=== PATIENT | male | born 1950 | race Caucasian/White ===

== ENCOUNTER 2025-05-08 10:43 | Emergency (ER) | payer MEDICARE, SELFPAY ==
--- NOTE | ~2025-05-08 | CT_ITS ---
EXAMINATION: CT ABDOMEN AND PELVIS WITH CONTRAST CLINICAL INFORMATION: mid lower abdominal pain, hx prostate CA COMPARISON: None available. TECHNIQUE: Multidetector volumetric images were obtained from the superior aspect of the liver through the pubic symphysis following administration 85 mL of Omnipaque 350 intravenous contrast. Sagittal and coronal reformatted images were obtained on the technologist's workstation. Oral contrast: No This CT examination was performed using dose optimization techniques as appropriate, variously including the following: *Automated exposure control *Adjustment of mA and/or kV according to patient size (this includes techniques or standardized protocols for targeted exams where dose is matched to indication/reason for exam; i.e. 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 LIVER, GALLBLADDER, AND BILIARY TREE: The posterior right hepatic lobe, there is a low attenuating lesion measuring 9 weeks 10 mm likely representing a benign simple hepatic cysts. The gallbladder contains calcified stones. There is no gallbladder wall thickening. PANCREAS: Unremarkable. SPLEEN: Unremarkable. ADRENAL GLANDS: Unremarkable. KIDNEYS AND URETERS: Focal renal cortical scarring is present in the superior lateral left kidney. Kidneys are otherwise unremarkable. BLADDER: Unremarkable. GASTROINTESTINAL TRACT: The small and large bowel are unremarkable. The appendix is unremarkable. ABDOMINAL WALL: No significant hernia is appreciated. LYMPH NODES: Normal. VASCULAR: Multifocal vascular calcifications are present. PELVIC VISCERA: Unremarkable OSSEOUS STRUCTURES: There is a probable chronic superior endplate compression fracture of L1. There is moderate to severe degenerative disc disease involving the lower lumbar spine. There is a healed fracture of the right inferior pubic ramus. . CT/CT abdomen pelvis w IV con IMPRESSION: Cholelithiasis. Focal cortical scarring in the superior left kidney, likely from remote pyelonephritis. Superior endplate fracture of L1 is probably chronic. Correlate clinically. Healed right inferior pubic ramus fracture. Fleischner guidelines were followed. Electronically signed by: Reji Landers MD 05/08/2025 02:46 PM EDT
[2025-05-08 10:50] VITALS: BP 136/73; BP 160/70; PULSE 74; PULSE 75; RESP 18; TEMP 36.8; O2SAT 90; O2SAT 99; BMI 21.7
--- NOTE | 2025-05-08 11:13 | PC.NURSE ---
Pt coming from assisted living reporting bladder and pelvic pressure for a couple of days. Pt reports increased urination, but denies N/v/d/fevers. Denies burning or order with urine. Pt has history of prostate CA, denies any issues with that currently. Pre and post void residuals being obtained at this time.
--- NOTE | 2025-05-08 11:14 | ED_ITS ---
HPI - Abdominal Pain General Chief Complaint: Abdominal Pain Stated Complaint: ABD PAIN Time Seen by Provider: 05/08/25 10:57 Source: patient and EMS Mode of arrival: EMS Limitations: no limitations History of Present Illness ED Provider: Bonny Neves NP HPI narrative: Patient is a 75-year-old male with past medical history of small aortic aneurysm with prior workup in [facility]. 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 He admits to having urinary frequency as well. CT has had prior urinary tract infections but typically does not experience pain like this. Denies any hematuria, fevers, chills, constipation, diarrhea, nausea, vomiting, back pain. Related Data Allergies Allergy/AdvReac Type Severity Reaction Status Date / Time No Known Allergies Allergy Verified 05/08/25 10:56 Review of Systems Review of Systems Yes all other systems are reviewed and are negative [facility] Past Medical History Attestation statement: The following information was validated with the patient. Source: old records reviewed Social History Social History Advance Directives: No Advance Directives Information Provided: Yes Physical Exam ED Exam Exam: Appearance: Alert.?Oriented to person, place and time. No acute distress.?Normal affect. Eyes: Pupils equal, round and reactive to light.? ENT: Pharynx normal.?? Neck: Normal inspection.? Neck supple.?? CVS: Heart sounds normal. Normal heart rate and rhythm.? Pulses normal.?? Respiratory: No respiratory distress.? Lung sounds clear to auscultation bilaterally?? Abdomen: Soft with mid lower abdominal tenderness upon palpation. Mild tenderness over the left lower and right lower quadrant. No rebound tenderness at McBurney's point. No rigidity or guarding. No CVA tenderness. Normoactive bowel sounds. Skin: Skin warm and dry.? Normal skin color.? Extremities: No lower extremity edema.? No calf ttp? Neuro: Moves all extremities spontaneously. Sensation intact bilaterally. Ambulates with normal steady gait. Vital Signs: Vital Signs - 24 hr 05/08/25 10:50 05/08/25 11:49 05/08/25 12:45 Temperature 98.2 F 97.9 F Pulse Rate 74 60 Respiratory Rate 18 16 14 Blood Pressure 136/73 145/69 H Pulse Oximetry 99 97 Oxygen Delivery Method Room Air Room Air 05/08/25 14:12 Temperature 97 F Pulse Rate 69 Respiratory Rate 16 Blood Pressure 144/73 H Pulse Oximetry 98 Oxygen Delivery Method Room Air BMI result Body Mass Index 21.7 Medical Decision Making Medical Decision Making [facility] Narrative: Patient is a 75-year-old male with past medical history of small aortic aneurysm with prior workup in [facility], 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 He does have mid lower abdominal tenderness upon palpation mild tenderness over the left and right lower quadrant. No rigidity or guarding. He is without signs of systemic toxicity afebrile no tachycardia no hypotension. Will obtain CBC to evaluate for leukocytosis/ anemia, CMP and lipase to evaluate for abnormal electrolytes /abnormal renal function/ abnormal hepatic/biliary function, and Urinalysis. Was able to urinate upon arrival to emergency department had prevoid bladder scan of 334 mL, after urinating had PVR 116 mL. Reporting that his last PSA approximately 6 months ago was 14, has not had recent evaluation of his prostate as he is not undergoing any treatment. 15:00 CT of the abdomen and pelvis reveals no obvious source for his pain/pressure, incidental finding of cholelithiasis, superior endplate fracture L1 chronic in nature, on examination has no point tenderness along the spine. CBC is without leukocytosis, has a normocytic anemia that does not meet transfusion criteria, thrombocytopenia. No electrolyte derangement. No EDGAR. LFTs unremarkable. Urinalysis without evidence of infection or microscopic hematuria. He is voiding adequately. Review these findings with the patient. Recommend outpatient follow-up with Urology. Stable for discharge back to assisted living facility. Given strict return precautions. Differential Diagnosis Differential Diagnoses: The differential diagnosis associated with the presentation includes (See narrative above) Admission/Observation Consideration of admission/observation: Escalation of care including admission/observation considered Lab Data MDM Lab Attestation statement: I reviewed the patient's lab results. 05/08/25 11:46 05/08/25 11:46 Labs: Lab Results 05/08/25 05/08/25 Range/Units 11:19 11:46 WBC 7.5 (4.8-10.8) X10*3/uL RBC 4.20 L (4.60-5.80) X10*6/uL Hgb 11.9 L (14.0-18.0) g/dl Hct 37.9 L (42.0-52.0) % MCV 90.2 (80.0-98.0) fL MCH 28.3 (27.0-33.0) pg MCHC 31.4 (31.0-36.0) g/dl RDW 13.2 (11.0-16.0) % Plt Count 245 (160-400) X10*3/uL MPV 8.9 L (9.4-12.4) fL Immature Gran % (Auto) 0.5 H (0.0-0.4) % Neut % (Auto) 63.7 (45-73) % Lymph % (Auto) 23.0 (20-40) % [place] % (Auto) 8.8 (2-11) % Eos % (Auto) 3.2 (0-4) % Baso % (Auto) 0.8 (0-2) % Lymph # (Auto) 1.7 (1.2-4.9) X10*3/uL [place] # (Auto) 0.7 (0.1-1.2) X10*3/uL Eos # (Auto) 0.2 (0.0-0.4) X10*3/uL Baso # (Auto) 0.1 (0.0-0.2) X10*3/uL Abs Immat Gran (auto) 0.04 H (0.00-0.03) X10*3/uL Absolute Neuts (auto) 4.8 (2.0-8.3) x10*3/uL Absolute Nucleated RBC 0.000 (0.0-0.012) X10*3/uL Nucleated RBC % (auto) 0.0 (0.0-0.2) /100WBC Sodium 139 (135-145) mmol/L Potassium 4.0 (3.3-5.1) mmol/L Chloride 104 (96-108) mmol/L Carbon Dioxide 27 (22-29) mmol/L Anion Gap 12 (12-20) BUN 11 (9-16) mg/dL Creatinine 0.70 (0.5-1.4) mg/dL Estim Creat Clear Calc 95.0 Estimated GFR > 60 Random Glucose 89 (60-115) mg/dL Calcium 9.2 (8.4-10.2) mg/dL Magnesium 2.0 (1.6-2.6) mg/dL Total Bilirubin 0.4 (0.0-1.0) mg/dL AST 26 (5-37) U/L ALT 25 (0-40) U/L Alkaline Phosphatase 64 (39-117) U/L Total Protein 6.7 (6.5-8.0) g/dL Albumin 4.2 (3.5-5.0) g/dL Lipase 16 (8-78) U/L Prostate Specific Ag 15.14 H (<0.05-4.0) ng/mL Urine Color Yellow Urine Appearance Clear Urine pH 7.5 (5.0-9.0) Ur Specific [place] 1.010 (1.005-1.025) Urine Protein Negative (Neg-Trace) mg/dL Urine Glucose (UA) Negative (Negative) mg/dL Urine Ketones Negative (Negative) mg/dL Urine Blood Negative (Negative) Urine Nitrite Negative (Negative) Ur Leukocyte Esterase Negative (Negative) Urine RBC 0-2 (0-2) /HPF Urine WBC 0-5 (0-5) /HPF Ur Squamous Epith Cells 0-2 (0-2) /HPF Urine Bacteria None Seen (None Seen) Hyaline Casts 0-2 (0-2) /LPF Radiology Impression Discussion of test interpretation with radiology: I have reviewed the radiologist's reading. Radiologist Impression: CT/CT abdomen pelvis w IV con IMPRESSION: Cholelithiasis. Focal cortical scarring in the superior left kidney, likely from remote pyelonephritis. Superior endplate fracture of L1 is probably chronic. Correlate clinically. Healed right inferior pubic ramus fracture. Fleischner guidelines were followed. External Record Review External record reviewed: Outpatient record Chronic Conditions Patient?s care impacted by: Other (See narrative above) Medications Administered Discontinued Medications Generic Name Dose Route Start Last Admin Trade Name Freq PRN Reason Stop Dose Admin Acetaminophen 975 mg 05/08/25 14:36 05/08/25 14:41 Acetaminophen 325 Mg Tablet PO 05/08/25 14:37 975 mg ONCE ONE Administration Clonazepam 1 mg 05/08/25 12:17 05/08/25 12:31 Clonazepam 1 Mg Tablet PO 05/08/25 12:18 1 mg ONCE ONE Administration Sodium Chloride 1,000 mls @ 999 mls/hr 05/08/25 11:30 05/08/25 13:56 Ns IV 05/08/25 12:30 Infused .Q1H1M STORM Infusion Iohexol 85 ml 05/08/25 14:35 05/08/25 14:36 Iohexol 350 Mg/Ml 100 Ml Infus..Btl IV 05/08/25 14:36 85 ml ONCE ONE Administration Morphine Sulfate 2 mg 05/08/25 11:25 05/08/25 11:49 Morphine Sulfate 2 Mg/Ml Cartridge IVPUSH 05/08/25 11:26 2 mg ONCE ONE Administration Protocol Ondansetron HCl 4 mg 05/08/25 11:25 05/08/25 11:50 Ondansetron Hcl 4 Mg/2 Ml Vial IVPUSH 05/08/25 11:26 4 mg ONCE ONE Administration Discharge Plan Discharge Clinical Impression: Suprapubic pressure Patient Disposition: Home, Self-Care Additional Instructions: As discussed, urine test today does not show evidence of infection or blood in the urine. Your kidney function is normal. The PSA has resulted at 15.14. CT of the abdomen pelvis does not show otherwise concerning findings for pressure that you are experiencing. As discussed, I suspect this is secondary to known prostate cancer, an ongoing polyuria. I am provide you with contact information for Urology associated with our hospitalist you do not have a local urologist since your move. Return back to emergency department any new or worsening symptoms or concerns. [facility] will be contacting you within 2 business?days after being discharged from the Emergency?Department.? During this?phone call, they will inform you when your follow up appointment will be scheduled. If you have not received a call from [facility] after 2 business?days, please call the?office at [phone]. Referrals: Physician,None [Primary Care Provider, Medical] [facility] Urology Services [Provider Group, Urology] Print Language: Sri Lankan
[2025-05-08 11:28] LABS: Appearance Urine Clear; Glucose Urine UA Negative (Negative); PH 7.5 (5.0-9.0); Specific Gravity - Urine 1.010 (1.005-1.025)
[2025-05-08 11:49] VITALS: RESP 16
[2025-05-08 11:50] LABS: MANUAL DIFF FLAG NO
[2025-05-08 11:53] LABS: Hematocrit 37.9 % (42.0-52.0); Hemoglobin 11.9 g/dl (14.0-18.0); Imm Gran Abs Auto 0.04 X10*3/uL (0.00-0.03); Imm Gran Pct Auto 0.5 % (0.0-0.4); Lymphocytes Absolute Auto 1.7 X10*3/uL (1.2-4.9); Mean Corpuscular HGB Conc 31.4 g/dl (31.0-36.0); Mean Corpuscular Hemoglobin 28.3 pg (27.0-33.0); Mean Corpuscular Volume 90.2 fL (80.0-98.0); NRBC Abs Auto 0.000 X10*3/uL (0.0-0.012); NRBC Pct Auto 0.0 /100WBC (0.0-0.2); Platelet Count 245 X10*3/uL (160-400); Red Blood Count 4.20 X10*6/uL (4.60-5.80); White Blood Count 7.5 X10*3/uL (4.8-10.8)
[2025-05-08 12:10] LABS: Alanine Aminotransferase 25 U/L (0-40); Albumin Level 4.2 g/dL (3.5-5.0); Alkaline Phosphatase 64 U/L (39-117); Anion Gap 12 (12-20); Aspartate Amino Transferase 26 U/L (5-37); Blood Urea Nitrogen 11 mg/dL (9-16); Calcium 9.2 mg/dL (8.4-10.2); Carbon Dioxide 27 mmol/L (22-29); Chloride 104 mmol/L (96-108); Creatinine Clr Calc Pharmacy 95.0; Estimated Glomerular Filt Rate > 60; Lipase 16 U/L (8-78); Magnesium 2.0 mg/dL (1.6-2.6); Potassium 4.0 mmol/L (3.3-5.1); Sodium 139 mmol/L (135-145); Total Protein 6.7 g/dL (6.5-8.0)
[2025-05-08 12:32] LABS: Prostate Specific Antigen 15.14 ng/mL (<0.05-4.0)
[2025-05-08 12:45] VITALS: BP 145/69; PULSE 60; RESP 14; TEMP 36.6; O2SAT 97
--- NOTE | 2025-05-08 13:21 | MHC.EDTECH ---
Patient requested to use urinal. Patient was able to stand at bedside with assistance . Voided 300cc clear yellow urine.
--- NOTE | 2025-05-08 13:44 | PC.NURSE ---
Pt continually calling staff in to report anxiety, pt medicated per MAR, RACING MANAGER aware but does not want to give anymore medication at this time. Pt just brought to CT at this time, Pt sister stating he should not get anymore cat scans, however risks vs benefits gone over and pt is in agreement at this time.
--- NOTE | 2025-05-08 14:09 | PC.NURSE ---
Pt returned from CT, urinated again, pt has urinated 400-600 multiple times since being in ED, clear yellow, no burning, pt reporting mild pressure, and needing to sometimes put extra pressure to start his stream. Pt reporting he is still having pain and anxiety and requesting more medications, CARDIAC CARE UNIT NURSE aware.
[2025-05-08 14:12] VITALS: BP 144/73; PULSE 69; RESP 16; TEMP 36.1; O2SAT 98
[2025-05-08] MEDS: iohexoL 350 MG/ML 100 ML INFUS..BTL 85 ML IV (14:36)
[2025-05-08 16:00] VITALS: BP 132/70; PULSE 72; RESP 16; TEMP 36.3; O2SAT 99
--- NOTE | 2025-05-08 18:37 | PC.NURSE ---
Pt EMS transport for 1930, pt is becoming extremely anxious, medicated per MAR with home medication. Emotional support provided at this time.
--- NOTE | 2025-05-08 19:23 | PC.NURSE ---
this rn assumed care pt, pt offers no complaints at this time, no acute distress noted. pt awaiting ems transport to facility
[2025-05-08 20:17] VITALS: BP 124/74; PULSE 86; RESP 17; TEMP 36.7; O2SAT 95
--- NOTE | 2025-05-08 20:17 | PC.NURSE ---
ems at bedside for transport and report
== END 2025-05-08 20:22 | disposition home or self-care (01) ==
PROVIDERS: Nurse Practitioner Family; Emergency Provider Emergency Medicine
DX: R10.31 Right lower quadrant pain (principal); R10.32 Left lower quadrant pain; C61 Malignant neoplasm of prostate; R97.21 Rising PSA following treatment for malignant neoplasm of prostate; R35.89 Other polyuria; F41.9 Anxiety disorder, unspecified; Z79.01 Long term (current) use of anticoagulants
CPT/HCPCS: 36415; 51798; 74177; 80053; 81001; 83690; 83735; 84153; 85025; 96361; 96374; 96375; 99284; 99285; J2270; J2405; Q9967

== ENCOUNTER → 2025-05-08 11:25 | Outpatient (BNV) | payer MEDICARE, SELFPAY | PROVIDERS: Emergency Provider Emergency Medicine; Visit Provider Radiology Diagnostic Radiology | DX: K80.20 Calculus of gallbladder without cholecystitis without obstruction (principal); Z87.81 Personal history of (healed) traumatic fracture | CPT/HCPCS: 74177 ==

== ENCOUNTER 2025-06-03 11:59 | Emergency (ER) | payer MEDICARE, SELFPAY ==
--- NOTE | ~2025-06-03 | CT_ITS ---
EXAMINATION: CT ABDOMEN AND PELVIS WITH CONTRAST CLINICAL INFORMATION: Severe lower abdominal pain COMPARISON: CT abdomen and pelvis 05/08/2025. TECHNIQUE: Multidetector volumetric images were obtained from the superior aspect of the liver through the pubic symphysis following administration 85 mL of Omnipaque 350 intravenous contrast. Sagittal and coronal reformatted images were obtained on the technologist's workstation. Oral contrast: No This CT examination was performed using dose optimization techniques as appropriate, variously including the following: *Automated exposure control *Adjustment of mA and/or kV according to patient size (this includes techniques or standardized protocols for targeted exams where dose is matched to indication/reason for exam; i.e. extremities or head) *Use of iterative reconstruction technique DLP: 467. FINDINGS: LUNG BASES: The lung bases are clear. The heart size is normal. LIVER, GALLBLADDER, AND BILIARY TREE: The liver is normal size and shape. There are hypodense lesions likely simple cysts. No focal solid lesion or intrahepatic ductal dilatation. Gallbladder has radiopaque stones. No wall thickening seen. PANCREAS: Pancreas is unremarkable. SPLEEN: Unremarkable. ADRENAL GLANDS: Unremarkable. KIDNEYS AND URETERS: The kidneys are normal in size, shape, and attenuation. There is mild cortical thinning lateral cortex upper pole left kidney No hydronephrosis, hydroureter, or calculi seen. Small 5 mm cyst visualized in the midpole left kidney. No perinephric stranding. BLADDER: Unremarkable. GASTROINTESTINAL TRACT: There is scattered stool and gas seen throughout the colon without distention. With mild thickening of the rectal wall is noted The cecum is ectopic and lies in the right midabdomen. Appendix is normal caliber. The small bowel loops are normal caliber. No free air or free fluid seen. The small bowel loops are normal caliber. ABDOMINAL WALL: No significant hernia is appreciated. LYMPH NODES: Normal. VASCULAR: Unremarkable. PELVIC VISCERA: The prostate gland is mildly enlarged punctate calcifications. Periprosthetic fat borders are preserved. No free fluid seen. OSSEOUS STRUCTURES: There is a old healed right inferior pubic rami fracture. Mildly in this changes seen at L2-3, L3-4 and L4-5 disc level. Mild bilateral L5-S1 and right L4-5 facet joint arthropathy. No aggressive lytic or sclerotic process seen. CT/CT abdomen pelvis w IV con IMPRESSION: No acute intra-abdominal abnormality. Nonspecific mild thickening of the rectal wall. No surrounding fat stranding. Cholelithiasis and scarring left upper lobe lateral cortex appears stable. Mild constipation. Fleischner guidelines were followed. Electronically signed by: Giovanny Diaz MD 06/03/2025 05:13 PM EDT RP
[2025-06-03 12:05] VITALS: BP 133/75; PULSE 74; RESP 16; TEMP 36.8; O2SAT 98; BMI 22.4
[2025-06-03 12:30] LABS: Appearance Urine Clear; Glucose Urine UA Negative (Negative); PH 7.0 (5.0-9.0); Specific Gravity - Urine <= 1.005 (1.005-1.025)
--- NOTE | 2025-06-03 12:40 | ED.ABDPAIN ---
HPI - Abdominal Pain General Chief Complaint: Abdominal Pain Stated Complaint: PELVIC PAIN,NAUSEA,H/O PROSTATE CANCER Time Seen by Provider: 06/03/25 12:14 Source: patient, EMS and old records reviewed Mode of arrival: EMS Limitations: no limitations History of Present Illness ED Provider: MEKA HPI narrative: 75 yo male with PMH of splenic infarct on eliquis, ileus, colitis, cholecystectomy, chronic polyuria, prostate cancer diagnosed 3-4 years ago but no treatment wants to see Urology now has appointment here in [address] Baltazar. He comes in today states he has chronic lower abdominal pain and cannot take it anymore. He has no fevers, no back pain. States the pain worsened today and he needs something for it. He denies retention. He has no n/v. He states it is the same pain but much worse today. MD elicited complaint: abdominal pain Pertinent past history: other Onset (ago): week(s) (2+) Pain Consistency: intermittent Location: suprapubic Severity: severe Quality: aching Radiation: none Migration to: no migration Exacerbating factors: nothing Relieving factors: nothing Associated symptoms: other (increased urination) Related Data Allergies Allergy/AdvReac Type Severity Reaction Status Date / Time No Known Allergies Allergy Verified 06/03/25 12:06 Review of Systems Review of Systems Constitutional : No Weight loss, No Fever, No Chills ENT/Mouth : No sore throat, No Rhinorrhea Eyes: No Swelling, No Redness Cardiovascular : No Chest Pain, No SOB, No edema Respiratory : No Cough, No Sputum, No Wheezing Gastrointestinal : no Nausea, no Vomiting, no Diarrhea, positive abdominal Pain, No Hematochezia, No Melena Genitourinary : No Dysuria, pos Urinary Frequency, No Hematuria Musculoskeletal : No joint pain, No Myalgias, No Joint Swelling Skin : No Skin Lesions, No rash Neuro : No Weakness, No Numbness, No Dizziness, No Headache All other systems reviewed and are negative. [facility] Past Medical History Attestation statement: The following information was validated with the patient. Source: old records reviewed Medical History Prostate cancer Social History Social History (Updated 06/03/25 @ 13:41 by Ludy Collier DO) Patient Tobacco Use Status: Tobacco use Unknown Advance Directives: No Advance Directives Information Provided: Yes Physical Exam ED Vital Signs: Vital Signs - 24 hr 06/03/25 12:05 Temperature 98.2 F Pulse Rate 74 Respiratory Rate 16 Blood Pressure 133/75 Pulse Oximetry 98 Oxygen Delivery Method Room Air BMI result Body Mass Index 22.4 Appearance: Alert. Oriented X3. No acute distress. Anxious Eyes: Pupils equal, round and reactive to light. ENT: Pharynx normal. Neck: Normal inspection. Neck supple. CVS: Normal heart rate and rhythm. Pulses normal. Respiratory: No respiratory distress. Breath sounds normal. Abdomen: Soft and no ttp in lower abdominal exam - no rebound or guarding. He is moving well. Skin: Skin warm and dry. Normal skin color. Normal skin turgor. Extremities: No lower extremity edema. No calf ttp Neuro: Oriented X 3. No motor deficit. No sensory deficit. CN2-12 intact Course Course Course Narrative: repeatedly asking for pain medications at this time will need to obtain imaging now refuses CT scan and upset he is getting oral oxycodone Reevaluation(s) Reevaluation #1: talked to sister Cheryl is aware that he is here and refused CT scan he can make his own decisions. Plan to get CT scan after talking to Cheryl, patient and sister - will notify with negative results he did need ativan for CT scan his family/caretakers are worried about addiction potential I do not think it is appropriate to dose narcotics at home at there has been nothing acute on CT scan if today's shows no sig change would not Rx narcotics - they are aware Reevaluation #2: signed out to Cristopher THOMPSON 5pm Time: 17:28 Reevaluation #3: Shira Nicholas PA-C: Patient's CT of the abdomen and pelvis is largely unremarkable no acute pathology has been found. IMPRESSION: No acute intra-abdominal abnormality. Nonspecific mild thickening of the rectal wall. No surrounding fat stranding. Cholelithiasis and scarring left upper lobe lateral cortex appears stable. Mild constipation. Fleischner guidelines were followed. Electronically signed by: Giovanny Diaz MD 06/03/2025 05:13 PM EDT RP I discussed these results with his sister Cheryl via telephone as well as with the patient at bedside. He is still requesting pain management but I did defer this to his primary care provider as I did not feel this would be appropriate either and agreed with Dr. Collier's plan for disposition. Patient is stable for discharge. Medical Decision Making Medical Decision Making [facility] Narrative: 75 yo male with PMH of splenic infarct on eliquis, ileus, colitis, cholecystectomy, chronic polyuria, prostate cancer diagnosed 3-4 years ago but no treatment now here with acute on chronic pain asking for pain medications on arrival he will need labs, UA, bladder scan is retaining 240mL, he is refusing repeat CT scan at this time labs, UA, IV tylenol, oral oxycodone. Differential Diagnosis Differential Diagnoses: The differential diagnosis associated with the presentation includes anxiety, chronic abdominal pain, renal colic, retention Admission/Observation Consideration of admission/observation: Escalation of care including admission/observation considered refusing any imaging at this time shared decision making done with patient I felt we needed to have CT scan given his pain but he refuses he is aware there could be a new issue but he states he doesn't want to have one. Between here and [facility] they are always normal Lab Data [facility] Lab Attestation statement: I reviewed the patient's lab results. 06/03/25 12:55 06/03/25 12:55 Labs: Lab Results 06/03/25 06/03/25 Range/Units 12:12 12:55 WBC 6.6 (4.8-10.8) X10*3/uL RBC 4.11 L (4.60-5.80) X10*6/uL Hgb 11.8 L (14.0-18.0) g/dl Hct 35.7 L (42.0-52.0) % MCV 86.9 (80.0-98.0) fL MCH 28.7 (27.0-33.0) pg MCHC 33.1 (31.0-36.0) g/dl RDW 13.3 (11.0-16.0) % Plt Count 213 (160-400) X10*3/uL MPV 8.8 L (9.4-12.4) fL Immature Gran % (Auto) 0.2 (0.0-0.4) % Neut % (Auto) 62.7 (45-73) % Lymph % (Auto) 25.9 (20-40) % [place] % (Auto) 7.7 (2-11) % Eos % (Auto) 2.6 (0-4) % Baso % (Auto) 0.9 (0-2) % Lymph # (Auto) 1.7 (1.2-4.9) X10*3/uL [place] # (Auto) 0.5 (0.1-1.2) X10*3/uL Eos # (Auto) 0.2 (0.0-0.4) X10*3/uL Baso # (Auto) 0.1 (0.0-0.2) X10*3/uL Abs Immat Gran (auto) 0.01 (0.00-0.03) X10*3/uL Absolute Neuts (auto) 4.1 (2.0-8.3) x10*3/uL Absolute Nucleated RBC 0.000 (0.0-0.012) X10*3/uL Nucleated RBC % (auto) 0.0 (0.0-0.2) /100WBC Sodium 140 (135-145) mmol/L Potassium 3.8 (3.3-5.1) mmol/L Chloride 106 (96-108) mmol/L Carbon Dioxide 26 (22-29) mmol/L Anion Gap 12 (12-20) BUN 11 (9-16) mg/dL Creatinine 0.77 (0.5-1.4) mg/dL Estim Creat Clear Calc 89.0 Estimated GFR > 60 Random Glucose 95 (60-115) mg/dL Calcium 9.1 (8.4-10.2) mg/dL Magnesium 1.9 (1.6-2.6) mg/dL Total Bilirubin 0.4 (0.0-1.0) mg/dL Direct Bilirubin 0.2 (0.0-0.5) mg/dL AST 27 (5-37) U/L ALT 23 (0-40) U/L Alkaline Phosphatase 60 (39-117) U/L C-Reactive Protein 0.41 (< or = 0.50) mg/dL Total Protein 6.6 (6.5-8.0) g/dL Albumin 4.1 (3.5-5.0) g/dL Urine Color Yellow Urine Appearance Clear Urine pH 7.0 (5.0-9.0) Ur Specific [place] <= 1.005 (1.005-1.025) Urine Protein Negative (Neg-Trace) mg/dL Urine Glucose (UA) Negative (Negative) mg/dL Urine Ketones Negative (Negative) mg/dL Urine Blood Negative (Negative) Urine Nitrite Negative (Negative) Ur Leukocyte Esterase Negative (Negative) Independent Interpretation Interpretation: declined Independent Historian Clinical information obtained from an independent historian. History obtained from or confirmed by: EMS External Record Review External record reviewed: Outpatient record, Prior outpatient labs and Prior outpatient radiology Tests considered The following testing was considered but not selected: refused CT scan Prescription Management I considered prescription management with: Pain Medication and Other Medications Administered Discontinued Medications Generic Name Dose Route Start Last Admin Trade Name Freq PRN Reason Stop Dose Admin Acetaminophen 1,000 mg in 100 mls @ 400 mls/hr 06/03/25 12:38 06/03/25 13:16 Ofirmev IV 06/03/25 12:52 Infused ONCE ONE Infusion Iohexol 100 ml 06/03/25 16:50 06/03/25 16:50 Iohexol 350 Mg/Ml 100 Ml Infus..Btl IV 06/03/25 16:51 85 ml ONCE ONE Administration Lorazepam 1 mg 06/03/25 16:02 06/03/25 16:09 Lorazepam 1 Mg Tablet PO 06/03/25 16:03 1 mg ONCE ONE Administration Ondansetron HCl 4 mg 06/03/25 12:38 06/03/25 12:58 Ondansetron Hcl 4 Mg/2 Ml Vial IVPUSH 06/03/25 12:39 4 mg ONCE ONE Administration Oxycodone HCl 5 mg 06/03/25 13:13 06/03/25 13:29 Oxycodone Hcl Immed Release 5 Mg Tablet PO 06/03/25 13:14 5 mg ONCE ONE Administration Discharge Plan Discharge Clinical Impression: Abdominal pain Patient Disposition: Home, Self-Care Instructions: Abdominal Pain (ED) Additional Instructions: your labs and urine are normal your are not retaining significant urine there is 200mL in your bladder you need to call your primary care doctor about your pain and follow up with urology as planned you can return any time for worsening pain or any other concerns CT scan results: IMPRESSION: No acute intra-abdominal abnormality. Nonspecific mild thickening of the rectal wall. No surrounding fat stranding. Cholelithiasis and scarring left upper lobe lateral cortex appears stable. Mild constipation. Referrals: [facility] [Provider Group, Urology] Print Language: Lao
[2025-06-03 12:59] LABS: MANUAL DIFF FLAG NO
[2025-06-03 13:03] LABS: Hematocrit 35.7 % (42.0-52.0); Hemoglobin 11.8 g/dl (14.0-18.0); Imm Gran Abs Auto 0.01 X10*3/uL (0.00-0.03); Imm Gran Pct Auto 0.2 % (0.0-0.4); Lymphocytes Absolute Auto 1.7 X10*3/uL (1.2-4.9); Mean Corpuscular HGB Conc 33.1 g/dl (31.0-36.0); Mean Corpuscular Hemoglobin 28.7 pg (27.0-33.0); Mean Corpuscular Volume 86.9 fL (80.0-98.0); NRBC Abs Auto 0.000 X10*3/uL (0.0-0.012); NRBC Pct Auto 0.0 /100WBC (0.0-0.2); Platelet Count 213 X10*3/uL (160-400); Red Blood Count 4.11 X10*6/uL (4.60-5.80); White Blood Count 6.6 X10*3/uL (4.8-10.8)
[2025-06-03 13:19] LABS: Alanine Aminotransferase 23 U/L (0-40); Albumin Level 4.1 g/dL (3.5-5.0); Alkaline Phosphatase 60 U/L (39-117); Anion Gap 12 (12-20); Aspartate Amino Transferase 27 U/L (5-37); Blood Urea Nitrogen 11 mg/dL (9-16); Calcium 9.1 mg/dL (8.4-10.2); Carbon Dioxide 26 mmol/L (22-29); Chloride 106 mmol/L (96-108); Creatinine Clr Calc Pharmacy 89.0; Estimated Glomerular Filt Rate > 60; Magnesium 1.9 mg/dL (1.6-2.6); Potassium 3.8 mmol/L (3.3-5.1); Sodium 140 mmol/L (135-145); Total Protein 6.6 g/dL (6.5-8.0)
[2025-06-03] MEDS: oxyCODONE HCl Immed Release 5 MG TABLET PO (13:29)
[2025-06-03] MEDS: iohexoL 350 MG/ML 100 ML INFUS..BTL IV (16:50)
[2025-06-03 18:00] VITALS: BP 110/68; PULSE 60; RESP 16; TEMP 36.7; O2SAT 99
[2025-06-03 18:29] VITALS: BP 110/68; PULSE 60; RESP 16; TEMP 36.7; O2SAT 99
== END 2025-06-03 18:29 | disposition home or self-care (01) ==
PROVIDERS: Emergency Provider Emergency Medicine
DX: R10.2 Pelvic and perineal pain (principal); K59.00 Constipation, unspecified; R11.0 Nausea; Z79.01 Long term (current) use of anticoagulants; Z79.899 Other long term (current) drug therapy
CPT/HCPCS: 36415; 74177; 80048; 80076; 81003; 83735; 85025; 86140; 96365; 96375; 99284; 99285; J0131; J2405; Q9967

== ENCOUNTER → 2025-06-03 13:16 | Outpatient (BNV) | payer MEDICARE, SELFPAY | PROVIDERS: Emergency Provider Emergency Medicine; Visit Provider Radiology Diagnostic Radiology | DX: N40.1 Benign prostatic hyperplasia with lower urinary tract symptoms (principal) | CPT/HCPCS: 74177 ==

== ENCOUNTER 2025-06-09 09:09 | Emergency (ER) | payer MEDICARE, SELFPAY ==
--- NOTE | ~2025-06-09 | US_ITS ---
EXAMINATION: US PELVIS LIMITED (BLADDER) CLINICAL INFORMATION: Persistent suprapubic pain. Dysuria. COMPARISON: Correlated to CT abdomen pelvis dated June 03, 2025 TECHNIQUE: Real-time imaging of the bladder. FINDINGS: BLADDER: Fluid-filled. Bilateral ureteral jets are demonstrated. Prevoid bladder volume is 316 mL. Postvoid bladder volume is 205 mL. The prostate gland measures 2.9 x 3.3 x 3.3 cm. Volume: 16 cc. US/US bladder IMPRESSION: 205 cc residual urine in a post void image. Normal-sized prostate gland with a volume: 16 cc.. Electronically signed by: Handy Marti MD 06/09/2025 01:16 PM EDT
--- NOTE | ~2025-06-09 | XR_ITS ---
EXAMINATION: XR ABDOMEN 1 VIEW (KUB) HISTORY: constipation COMPARISON: There are no prior studies available for comparison. FINDINGS: Three supine views of the abdomen are submitted. The bowel gas pattern is unremarkable, without evidence of mechanical obstruction. There is a moderate amount of stool throughout the colon. No abnormal calcifications are identified. There are surgical clips in the right upper quadrant. There are no abnormal soft tissue masses. There is degenerative disc disease and dextroscoliosis of the spine. XR/XR KUB IMPRESSION: Moderate amount of stool throughout the colon. Electronically signed by: Phani Delgado MD 06/09/2025 12:57 PM EDT
[2025-06-09 09:27] VITALS: BP 130/80; PULSE 77; O2SAT 98
[2025-06-09 09:49] VITALS: BP 124/80; PULSE 77; RESP 16; TEMP 36.6; O2SAT 98; BMI 22.4
[2025-06-09 10:44] LABS: MANUAL DIFF FLAG NO
[2025-06-09 10:47] LABS: Hematocrit 37.8 % (42.0-52.0); Hemoglobin 12.0 g/dl (14.0-18.0); Imm Gran Abs Auto 0.02 X10*3/uL (0.00-0.03); Imm Gran Pct Auto 0.3 % (0.0-0.4); Lymphocytes Absolute Auto 1.6 X10*3/uL (1.2-4.9); Mean Corpuscular HGB Conc 31.7 g/dl (31.0-36.0); Mean Corpuscular Hemoglobin 28.0 pg (27.0-33.0); Mean Corpuscular Volume 88.3 fL (80.0-98.0); NRBC Abs Auto 0.000 X10*3/uL (0.0-0.012); NRBC Pct Auto 0.0 /100WBC (0.0-0.2); Platelet Count 220 X10*3/uL (160-400); Red Blood Count 4.28 X10*6/uL (4.60-5.80); White Blood Count 5.8 X10*3/uL (4.8-10.8)
[2025-06-09 10:48] LABS: Appearance Urine Clear; Glucose Urine UA Negative (Negative); PH 7.5 (5.0-9.0); Specific Gravity - Urine <= 1.005 (1.005-1.025)
[2025-06-09 11:01] LABS: Alanine Aminotransferase 21 U/L (0-40); Albumin Level 4.2 g/dL (3.5-5.0); Alkaline Phosphatase 65 U/L (39-117); Anion Gap 11 (12-20); Aspartate Amino Transferase 25 U/L (5-37); Blood Urea Nitrogen 9 mg/dL (9-16); Calcium 9.4 mg/dL (8.4-10.2); Carbon Dioxide 28 mmol/L (22-29); Chloride 106 mmol/L (96-108); Creatinine Clr Calc Pharmacy 82.6; Estimated Glomerular Filt Rate > 60; Lipase 14 U/L (8-78); Potassium 4.4 mmol/L (3.3-5.1); Sodium 141 mmol/L (135-145); Total Protein 6.8 g/dL (6.5-8.0)
[2025-06-09] MEDS: oxyCODONE HCl Immed Release 5 MG TABLET 10 MG PO (12:05)
--- NOTE | 2025-06-09 12:23 | ED_ITS ---
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 Baltazar. He has chronic abdominal pain that will not go away per his reports now he feels more constipatied as well. No fever, no vomiting. No hematuria. He denies diarrhea. He notes he urinates frequently. He did try miralax and prune juice with little relief. This is his 3rd visit for chronic pain - CT scans both visits show no obstruction, large mass, [address] scan with IV contrast, no hydro, mild rectal wall thickening and mild constipation. He comes back again asking for pain medications. MD elicited complaint: abdominal pain Pertinent past history: other Onset (ago): month(s) (1+) Pain Consistency: constant Location: suprapubic Severity: moderate Quality: aching and fullness Radiation: none Migration to: no migration Exacerbating factors: movement Relieving factors: other (urination ) Context: other Associated symptoms: constipation Related Data Previous Rx's ?Medication ?Instructions ?Recorded lactulose 10 gram/15 mL oral 20 g (30 mL) PO DAILY PRN 06/09/25 solution constipation #1,200 mL Allergies Allergy/AdvReac Type Severity Reaction Status Date / Time No Known Allergies Allergy Verified 06/09/25 09:51 Review of Systems Review of Systems Constitutional : No Weight loss, No Fever, No Chills ENT/Mouth : No sore throat, No Rhinorrhea Eyes: No Swelling, No Redness Cardiovascular : No Chest Pain, No SOB, NoEdema Respiratory : No Cough, No Sputum, No Wheezing Gastrointestinal : no Nausea, no Vomiting, no Diarrhea, positive abdominal Pain, No Hematochezia, No Melena Genitourinary : No Dysuria, No Urinary Frequency, No Hematuria, No Urgency Musculoskeletal : No joint pain, No Myalgias, No Joint Swelling Skin : No Skin Lesions, No rash Neuro : No Weakness, No Numbness, No Dizziness, No Headache All other systems reviewed and are negative. [facility] Past Medical History Attestation statement: The following information was validated with the patient. Source: old records reviewed Medical History Prostate cancer Social History Social History Patient Tobacco Use Status: Tobacco use Unknown Advance Directives: Yes Advance Directives Information Provided: Yes Advance Directives on File: No Do you have a plan to hurt others: No Plan Physical Exam ED Vital Signs: Vital Signs - 24 hr 06/09/25 09:49 Temperature 97.8 F Pulse Rate 77 Respiratory Rate 16 Blood Pressure 124/80 Pulse Oximetry 98 Oxygen Delivery Method Room Air BMI result Body Mass Index 22.4 Appearance: Alert. Oriented X3. No acute distress. Anxious Eyes: Pupils equal, round and reactive to light. ENT: Pharynx normal. Neck: Normal inspection. Neck supple. CVS: Normal heart rate and rhythm. Pulses normal. Respiratory: No respiratory distress. Breath sounds normal. Abdomen: Soft and nontender. Skin: Skin warm and dry. Normal skin color. Extremities: No lower extremity edema. Neuro: Oriented X 3. No motor deficit. No sensory deficit. 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 He has chronic dysuria. He will get PVR it is 100 on our check. He will get UA, Cr, CRP and KUB for constipation and US of bladder. His abdomen is not acute on exam. He is not retaining urine. 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 Differential Diagnosis Differential Diagnoses: The differential diagnosis associated with the presentation includes chronic pain, retention, anxiety, constipation Admission/Observation Consideration of admission/observation: Escalation of care including admission/observation considered able to urinate given normal Cr I would hold off any bhatt for 200 PVR on US though here we were 100 Lab Data [facility] Lab Attestation statement: I reviewed the patient's lab results. 06/09/25 10:39 06/09/25 10:39 Labs: Lab Results 06/09/25 Range/Units 10:39 WBC 5.8 (4.8-10.8) X10*3/uL RBC 4.28 L (4.60-5.80) X10*6/uL Hgb 12.0 L (14.0-18.0) g/dl Hct 37.8 L (42.0-52.0) % MCV 88.3 (80.0-98.0) fL MCH 28.0 (27.0-33.0) pg MCHC 31.7 (31.0-36.0) g/dl RDW 13.2 (11.0-16.0) % Plt Count 220 (160-400) X10*3/uL MPV 8.6 L (9.4-12.4) fL Immature Gran % (Auto) 0.3 (0.0-0.4) % Neut % (Auto) 58.5 (45-73) % Lymph % (Auto) 27.9 (20-40) % Owen % (Auto) 9.5 (2-11) % Eos % (Auto) 2.9 (0-4) % Baso % (Auto) 0.9 (0-2) % Lymph # (Auto) 1.6 (1.2-4.9) X10*3/uL Owen # (Auto) 0.6 (0.1-1.2) X10*3/uL Eos # (Auto) 0.2 (0.0-0.4) X10*3/uL Baso # (Auto) 0.1 (0.0-0.2) X10*3/uL Abs Immat Gran (auto) 0.02 (0.00-0.03) X10*3/uL Absolute Neuts (auto) 3.4 (2.0-8.3) x10*3/uL Absolute Nucleated RBC 0.000 (0.0-0.012) X10*3/uL Nucleated RBC % (auto) 0.0 (0.0-0.2) /100WBC Sodium 141 (135-145) mmol/L Potassium 4.4 (3.3-5.1) mmol/L Chloride 106 (96-108) mmol/L Carbon Dioxide 28 (22-29) mmol/L Anion Gap 11 L (12-20) BUN 9 (9-16) mg/dL Creatinine 0.83 (0.5-1.4) mg/dL Estim Creat Clear Calc 82.6 Estimated GFR > 60 Random Glucose 92 (60-115) mg/dL Calcium 9.4 (8.4-10.2) mg/dL Total Bilirubin 0.4 (0.0-1.0) mg/dL Direct Bilirubin 0.2 (0.0-0.5) mg/dL AST 25 (5-37) U/L ALT 21 (0-40) U/L Alkaline Phosphatase 65 (39-117) U/L C-Reactive Protein 0.40 (< or = 0.50) mg/dL Total Protein 6.8 (6.5-8.0) g/dL Albumin 4.2 (3.5-5.0) g/dL Lipase 14 (8-78) U/L Urine Color Yellow Urine Appearance Clear Urine pH 7.5 (5.0-9.0) Ur Specific Gilmer <= 1.005 (1.005-1.025) Urine Protein Negative (Neg-Trace) mg/dL Urine Glucose (UA) Negative (Negative) mg/dL Urine Ketones Negative (Negative) mg/dL Urine Blood Negative (Negative) Urine Nitrite Negative (Negative) Ur Leukocyte Esterase Negative (Negative) Independent Interpretation I performed an independent interpretation of an: Plain X-Ray (constipation no SBO) and Ultrasound (normal prostate size) Radiology Impression Discussion of test interpretation with radiology: I have reviewed the radiologist's reading. Independent Historian Clinical information obtained from an independent historian. History obtained from or confirmed by: Other (caseworker protective services and family) External Record Review External record reviewed: Outpatient record and Prior outpatient radiology Prescription Management I considered prescription management with: Other Medications Administered Discontinued Medications Generic Name Dose Route Start Last Admin Trade Name Freq PRN Reason Stop Dose Admin Lorazepam 1 mg 06/09/25 11:22 06/09/25 12:05 Lorazepam 1 Mg Tablet PO 06/09/25 11:23 1 mg ONCE ONE Administration Oxycodone HCl 10 mg 06/09/25 11:22 06/09/25 12:05 Oxycodone Hcl Immed Release 5 Mg Tablet PO 06/09/25 11:23 10 mg ONCE ONE Administration Discharge Plan Discharge Clinical Impression: Pelvic pain Constipation Qualifiers: Constipation type: unspecified constipation type Qualified Code(s): K59.00 - Constipation, unspecified Patient Disposition: Home, Self-Care Instructions: Constipation (ED), Pelvic Pain (ED) Additional Instructions: normal labs, normal urine, normal kidney function, no WBC count and neg CRP xrays shows moderate constipation will start on lactulose US shows normal prostate size some residual urine but I would not use a bhatt in this case still continue to follow up with Urology BLADDER: Fluid-filled. Bilateral ureteral jets are demonstrated. Prevoid bladder volume is 316 mL. Postvoid bladder volume is 205 mL. The prostate gland measures 2.9 x 3.3 x 3.3 cm. Volume: 16 cc. US/US bladder IMPRESSION: 205 cc residual urine in a post void image. Normal-sized prostate gland with a volume: 16 cc. return for any worsening symptoms or concerns Prescriptions: New lactulose 10 gram/15 mL solution 20 g PO DAILY PRN (Reason: constipation) Qty: 1200 0RF Print Language: Upper Sorbian
[2025-06-09 13:42] VITALS: BP 135/73; PULSE 68; RESP 18; TEMP 36.3; O2SAT 98
[2025-06-09 14:00] VITALS: BP 135/73; PULSE 68; RESP 18; TEMP 36.3; O2SAT 98
== END 2025-06-09 14:00 | disposition home or self-care (01) ==
PROVIDERS: Emergency Provider Emergency Medicine
DX: K59.00 Constipation, unspecified (principal); R10.2 Pelvic and perineal pain; R10.9 Unspecified abdominal pain; R30.0 Dysuria; Z85.46 Personal history of malignant neoplasm of prostate
CPT/HCPCS: 36415; 51798; 74018; 76857; 80048; 80076; 81003; 83690; 85025; 86140; 99284

== ENCOUNTER → 2025-06-09 12:28 | Outpatient (BNV) | payer MEDICARE, SELFPAY | PROVIDERS: Emergency Provider Emergency Medicine; Visit Provider Radiology Diagnostic Radiology | DX: R10.2 Pelvic and perineal pain (principal); K59.00 Constipation, unspecified | CPT/HCPCS: 74018 ==

== ENCOUNTER 2025-06-23 02:02 | Emergency (ER) | payer MEDICARE, SELFPAY ==
--- NOTE | ~2025-06-23 | CT_ITS ---
EXAMINATION: CT ABDOMEN AND PELVIS WITH CONTRAST CLINICAL INFORMATION: Small bowel obstruction. COMPARISON: June 03, 2025. TECHNIQUE: Multidetector volumetric images were obtained from the superior aspect of the liver through the pubic symphysis following administration 85 mL of Omnipaque 350 intravenous contrast. Sagittal and coronal reformatted images were obtained on the technologist's workstation. Oral contrast: Yes This CT examination was performed using dose optimization techniques as appropriate, variously including the following: *Automated exposure control *Adjustment of mA and/or kV according to patient size (this includes techniques or standardized protocols for targeted exams where dose is matched to indication/reason for exam; i.e. extremities or head) *Use of iterative reconstruction technique DLP: 511 mGy centimeter. FINDINGS: LUNG BASES: No acute airspace disease. Hyperinflated lungs LIVER, GALLBLADDER, AND BILIARY TREE: . Liver measures 15 cm with multiple low density lesions, the largest measures 1 cm. Vascular clips likely related to prior cholecystectomy. There is a 29 mm fluid density at the gallbladder fossa region. The common bile duct measures 10 mm maximum diameter.. PANCREAS: No focal mass. No peripancreatic fluid collection. No main pancreatic ductal dilatation. SPLEEN: Centimeter. No focal mass. ADRENAL GLANDS: No nodular lesion. KIDNEYS AND URETERS: No hydronephrosis. No gross nephrolithiasis. Subcentimeter cyst, both kidneys. No renal mass. Normal enhancement pattern of the renal parenchyma. BLADDER: Fluid-filled and prominent. GASTROINTESTINAL TRACT: Appendix is normal. Abundant stool, large intestine. Segmental narrowing in the splenic colonic flexure segmental narrowing at the proximal sigmoid colon. No intestinal obstruction pattern. The oral contrast reaches the ascending colon. No pneumatosis intestinalis. No ascites. No pneumoperitoneum. ABDOMINAL WALL: Small fat-containing umbilical hernia. LYMPH NODES: Numerous prominent mesenteric and to a lesser extent retroperitoneum and inguinal. VASCULAR: Calcified plaques in the origin of the main renal arteries the abdominal aorta wall and iliac arteries. No aneurysm or dissection in the abdominal aorta. Calcified plaques in the splenic artery. PELVIC VISCERA: Not enlarged. OSSEOUS STRUCTURES: Multilevel thoracolumbar spondylosis pronounced at L3-4 and to a lesser extent L4-5 and L2-3 levels. Osteopenia versus osteoporosis. Degenerative changes in the coxofemoral joints and sacroiliac joints. No lytic or blastic lesions.. Old superior endplate compression deformity representing 40% volume loss at L1. CT/CT abdomen pelvis w IV con IMPRESSION: No intestinal bowel obstruction. Focal areas of segmental wall thickening, splenic colonic flexure and proximal sigmoid colon, underlying neoplasm cannot be excluded. Numerous prominent mesenteric, inguinal and to a lesser extent retroperitoneal lymph nodes. Malignancy cannot be excluded. 29 mm fluid density at the gallbladder fossa. If the patient is status post cholecystectomy biloma cannot be excluded. Small fat-containing umbilical hernia. Atherosclerosis disease.. Fleischner guidelines were followed. Electronically signed by: Handy Marti MD 06/23/2025 09:45 AM EDT
[2025-06-23 02:16] VITALS: BP 122/70; PULSE 68; RESP 18; TEMP 36.6; O2SAT 95; BMI 22.6
--- OUTSIDE RECORDS SUMMARY | 2025-06-23 03:02 | XMS_ITS | Encounter Summary ---
Author Organization [facility] Address [address], [place] [address] Phone Care Team Providers Care Inspector Tester Sorter Name Role Phone Unavailable Primary Care Provider Unavailabl e Encounter Details Date Type Department Care Team (Late st Contact Info) Description 05/09/2022 Hospital/ED/SNF/HH Visit [facility] [address] [phone] Provider, MD Daphne [address] [place] [id number] Social History Tobacco Use Types Packs/Day Years Used Date Smoking Tobacco: Never Assessed Sex and Gender Information Value Date Recorded Sex Assigned at Not on file Legal Sex Male 8:35 PM MDT Gender Identity Not on file Sexual Orientation Not on file documented as of this encounter Plan of Treatment Not on file documented as of this encounter Visit Diagnoses Not on filedocumented in this encounter
--- OUTSIDE RECORDS SUMMARY | 2025-06-23 03:02 | XMS_ITS | Clinical Summary ---
Author Organization [facility] Address [address] [place] [phone] Phone Care Team Providers Care Chief Deputy Coroner Name Role Phone Unavailable Primary Care Provider Unavailabl e Social History Tobacco Use Types Packs/Day Years Used Date Smoking Tobacco: Never Assessed Sex and Gender Information Value Date Recorded Sex Assigned at Not on file Legal Sex Male 8:35 PM MDT Gender Identity Not on file Sexual Orientation Not on file Plan of Treatment Not on file
--- OUTSIDE RECORDS SUMMARY | 2025-06-23 03:02 | XMS_ITS | Encounter Summary ---
Author Organization [facility] Address [address], [place] [address] Phone Care Team Providers Care Growth Hacker Name Role Phone Unavailable Primary Care Provider Unavailabl e Encounter Details Date Type Department Care Team (Late st Contact Info) Description 04/28/2022 Hospital/ED/SNF/HH Visit [facility] [address] [phone] Provider, MD Daphne [address] [place] [phone] Social History Tobacco Use Types Packs/Day [...]
--- OUTSIDE RECORDS SUMMARY | 2025-06-23 03:02 | XMS_ITS | Clinical Summary ---
Author Organization [facility] [place] [address] Care Team Providers Care [employer] Application Developer Name Role Phone Keon Giron MD Primary Care Provider [phone] Social History Tobacco Use Types Packs/Day Years Used Date Smoking Tobacco: Never Assessed Sex and Gender Information Value Date Recorded Sex Assigned at Not on file Legal Sex Male 5:59 AM EST Gender Identity Not on file Sexual Orientation Not on file Plan of Treatment Health Maintenance Due Date Last Done Comments CT Colonography 1951 Colonoscopy 1951 Colorectal Cancer Screening 1950 FIT DNA 1950 FIT 1950 Sigmoidoscopy (10 year) with FIT yearly 1950 Sigmoidoscopy 1950 Hepatitis C Screening 1969 Lipid Screening 1969 Tetanus/Diphtheria/Pertussis Vaccines (1 - Tdap) 03/16 Pneumoccocal Vaccine: 50+ (1 of 1 - PCV) 2001 Zoster vaccine (1 of 2) 2001 Advance Directive 2006 Covid-19 Vaccine (1 - season) 2024 Influenza (Flu) vaccine (1 o f 1 - Influenza standard series) 06/22/2025 [place] [id number] [facility] Care Teams [employer] Application Developer Relationship Specialty Start Date End Date Keon Giron MD [address] [place] [phone] PCP - General Internal Medicine 09/06/18
[2025-06-23 04:28] LABS: Hematocrit 35.7 % (42.0-52.0); Hemoglobin 11.8 g/dl (14.0-18.0); Imm Gran Abs Auto 0.01 X10*3/uL (0.00-0.03); Imm Gran Pct Auto 0.2 % (0.0-0.4); Lymphocytes Absolute Auto 2.1 X10*3/uL (1.2-4.9); MANUAL DIFF FLAG NO; Mean Corpuscular HGB Conc 33.1 g/dl (31.0-36.0); Mean Corpuscular Hemoglobin 28.1 pg (27.0-33.0); Mean Corpuscular Volume 85.0 fL (80.0-98.0); NRBC Abs Auto 0.000 X10*3/uL (0.0-0.012); NRBC Pct Auto 0.0 /100WBC (0.0-0.2); Platelet Count 220 X10*3/uL (160-400); Red Blood Count 4.20 X10*6/uL (4.60-5.80); White Blood Count 6.2 X10*3/uL (4.8-10.8)
[2025-06-23 04:29] LABS: Appearance Urine Clear; Glucose Urine UA Negative (Negative); PH 7.0 (5.0-9.0); Specific Gravity - Urine <= 1.005 (1.005-1.025)
[2025-06-23 04:45] LABS: Alanine Aminotransferase 16 U/L (0-40); Albumin Level 4.0 g/dL (3.5-5.0); Alkaline Phosphatase 59 U/L (39-117); Anion Gap 12 (12-20); Aspartate Amino Transferase 26 U/L (5-37); Blood Urea Nitrogen 12 mg/dL (9-16); Calcium 9.2 mg/dL (8.4-10.2); Carbon Dioxide 26 mmol/L (22-29); Chloride 109 mmol/L (96-108); Creatinine Clr Calc Pharmacy 86.7; Estimated Glomerular Filt Rate > 60; Lipase 17 U/L (8-78); Magnesium 1.9 mg/dL (1.6-2.6); Potassium 3.9 mmol/L (3.3-5.1); Sodium 143 mmol/L (135-145); Total Protein 6.5 g/dL (6.5-8.0)
--- NOTE | 2025-06-23 04:45 | ED.GENADULT ---
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 Patient states he has developed progressive abdominal discomfort across lower abdomen, right greater than left. Associated abdominal bloating, having a minimal bowel movement yesterday. Patient states he is passing minimal flatus from below. Associated nausea vomiting. Patient states he has worsening urinary hesitancy. Denies dysuria, hematuria, back pain, history of kidney stones or fever. Related Data Previous Rx's ?Medication ?Instructions ?Recorded lactulose 10 gram/15 mL oral 20 g (30 mL) PO DAILY PRN 06/09/25 solution constipation #1,200 mL amoxicillin 875 mg-potassium 1 tab PO BID #14 tabs 06/23/25 clavulanate 125 mg tablet hydrocodone 5 mg-acetaminophen 325 1 tab PO Q6H PRN pain #10 tabs 06/23/25 mg tablet Allergies Allergy/AdvReac Type Severity Reaction Status Date / Time No Known Allergies Allergy Verified 06/23/25 02:18 Review of Systems Review of Systems: Yes all other systems are reviewed and are negative Constitutional: Constitutional: Denies fatigue and Denies fever(s) Cardiovascular: Cardiovascular: Denies chest pain and Denies dyspnea Respiratory: Respiratory: Denies cough and Denies dyspnea Gastrointestinal: Gastrointestinal: Reports abdominal pain, Reports bloating, Reports constipation, Reports nausea and Reports vomiting Genitourinary: Genitourinary: Denies dysuria and Reports urinary hesitancy Endocrine: Endocrine: Denies fatigue PMFSH Past Medical History Attestation statement: The following information was validated with the patient. Medical History Prostate cancer Social History Social History Unable to assess alcohol history related to: Unknown Alcohol intake: unknown Patient Tobacco Use Status: Tobacco use Unknown Physical Exam ED Vital Signs: Vital Signs - 24 hr 06/23/25 02:16 06/23/25 05:25 06/23/25 08:00 Temperature 98 F Pulse Rate 68 68 Respiratory Rate 18 15 18 Blood Pressure 122/70 97/64 Pulse Oximetry 95 98 Oxygen Delivery Method Room Air Room Air 06/23/25 11:17 Temperature 97.3 F Pulse Rate 66 Respiratory Rate 14 Blood Pressure 126/65 Pulse Oximetry 97 Oxygen Delivery Method Room Air BMI result Body Mass Index 22.6 Const Other: Alert, appears anxious Orientation/consciousness: patient oriented x3 Resp Other: Nonlabored respirations Cardio Other: Normal peripheral perfusion GI Other: Abdomen is soft, minimally distended, mild to moderate tenderness suprapubic and right lower abdomen with a mild involuntary guarding Skin Other: Warm dry no rash Neuro General: patient oriented x3, gait normal, no focal motor deficits and CN's II-XI intact bilaterally Psych Other: Cooperative Course Course Course Narrative: there is abnormal CT scan read but he has no vomiting, no WBC count he has appoitment with Urology in days would trial oral abx and pain medications and DC home this needs outpatient work up Medications Administered Discontinued Medications Generic Name Dose Route Start Last Admin Trade Name Freq PRN Reason Stop Dose Admin Clonazepam 1 mg 06/23/25 04:46 06/23/25 05:25 Clonazepam 1 Mg Tablet PO 06/23/25 04:47 1 mg ONCE ONE Administration Diatrizoate Meglum/Diatrizoate Sod 30 ml 06/23/25 09:00 06/23/25 09:00 Diatrizoate Meglumine, Sodium 30 Ml Solution PO 06/23/25 09:01 30 ml ONCE ONE Administration Sodium Chloride 500 mls @ 500 mls/hr 06/23/25 04:43 06/23/25 06:38 Ns IV 06/23/25 05:42 Infused .Q1H ONE Infusion Iohexol 100 ml 06/23/25 08:59 06/23/25 08:59 Iohexol 350 Mg/Ml 100 Ml Infus..Btl IV 06/23/25 09:00 85 ml ONCE ONE Administration Ketorolac Tromethamine 15 mg 06/23/25 08:23 06/23/25 08:31 Ketorolac Tromethamine 15 Mg/Ml Vial IVPUSH 06/23/25 08:24 15 mg ONCE ONE Administration Morphine Sulfate 4 mg 06/23/25 04:43 06/23/25 05:25 Morphine Sulfate 4 Mg/Ml Cartridge IVPUSH 06/23/25 04:44 4 mg ONCE ONE Administration Protocol Ondansetron HCl 4 mg 06/23/25 04:43 06/23/25 05:26 Ondansetron Hcl 4 Mg/2 Ml Vial IVPUSH 06/23/25 04:44 4 mg ONCE ONE Administration Medical Decision Making Medical Decision Making [facility] Narrative: 75-year-old male with a 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 Patient states he has developed progressive abdominal discomfort across lower abdomen, right greater than left. Associated abdominal bloating, having a minimal bowel movement yesterday. Patient states he is passing minimal flatus from below. Associated nausea vomiting. Patient states he has worsening urinary hesitancy. Denies dysuria, hematuria, back pain, history of kidney stones or fever. Problem: Untreated prostate cancer History: Per patient I have considered the following differential diagnoses: Bowel obstruction, constipation, metastatic disease, UTI, Plan: I am concerned for bowel obstruction given the nature of the patient's symptoms, he also has untreated cancer, he could have metastatic disease process. We will obtain CT abdomen and pelvis with IV and oral contrast. Giving morphine Zofran and fluid. He has some urinary symptoms, he could have a UTI, they could also be attributed to his lack of treatment of his prostate cancer. We will add a urinalysis to his screening labs. I have independently reviewed the following tests: Labs: CT abdomen and pelvis: Pending at the time of sign-out Differential Diagnosis Differential Diagnoses: The differential diagnosis associated with the presentation includes See medical decision making Admission/Observation Consideration of admission/observation: Escalation of care including admission/observation considered Unclear if the patient will require admission versus surgical consult Lab Data [facility] Lab Attestation statement: I reviewed the patient's lab results. 06/23/25 04:23 06/23/25 04:23 Labs: Lab Results 06/23/25 Range/Units 04:23 WBC 6.2 (4.8-10.8) X10*3/uL RBC 4.20 L (4.60-5.80) X10*6/uL Hgb 11.8 L (14.0-18.0) g/dl Hct 35.7 L (42.0-52.0) % MCV 85.0 (80.0-98.0) fL MCH 28.1 (27.0-33.0) pg MCHC 33.1 (31.0-36.0) g/dl RDW 13.2 (11.0-16.0) % Plt Count 220 (160-400) X10*3/uL MPV 8.7 L (9.4-12.4) fL Immature Gran % (Auto) 0.2 (0.0-0.4) % Neut % (Auto) 52.8 (45-73) % Lymph % (Auto) 32.9 (20-40) % [place] % (Auto) 9.1 (2-11) % Eos % (Auto) 4.2 H (0-4) % Baso % (Auto) 0.8 (0-2) % Lymph # (Auto) 2.1 (1.2-4.9) X10*3/uL [place] # (Auto) 0.6 (0.1-1.2) X10*3/uL Eos # (Auto) 0.3 (0.0-0.4) X10*3/uL Baso # (Auto) 0.1 (0.0-0.2) X10*3/uL Abs Immat Gran (auto) 0.01 (0.00-0.03) X10*3/uL Absolute Neuts (auto) 3.3 (2.0-8.3) x10*3/uL Absolute Nucleated RBC 0.000 (0.0-0.012) X10*3/uL Nucleated RBC % (auto) 0.0 (0.0-0.2) /100WBC Sodium 143 (135-145) mmol/L Potassium 3.9 (3.3-5.1) mmol/L Chloride 109 H (96-108) mmol/L Carbon Dioxide 26 (22-29) mmol/L Anion Gap 12 (12-20) BUN 12 (9-16) mg/dL Creatinine 0.80 (0.5-1.4) mg/dL Estim Creat Clear Calc 86.7 Estimated GFR > 60 Random Glucose 93 (60-115) mg/dL Calcium 9.2 (8.4-10.2) mg/dL Magnesium 1.9 (1.6-2.6) mg/dL Total Bilirubin 0.3 (0.0-1.0) mg/dL AST 26 (5-37) U/L ALT 16 (0-40) U/L Alkaline Phosphatase 59 (39-117) U/L Total Protein 6.5 (6.5-8.0) g/dL Albumin 4.0 (3.5-5.0) g/dL Lipase 17 (8-78) U/L Urine Color Yellow Urine Appearance Clear Urine pH 7.0 (5.0-9.0) Ur Specific [place] <= 1.005 (1.005-1.025) Urine Protein Negative (Neg-Trace) mg/dL Urine Glucose (UA) Negative (Negative) mg/dL Urine Ketones Negative (Negative) mg/dL Urine Blood Negative (Negative) Urine Nitrite Negative (Negative) Ur Leukocyte Esterase Negative (Negative) Discharge Plan Discharge Clinical Impression: Abdominal pain Patient Disposition: Home, Self-Care Instructions: Abdominal Pain (ED) Additional Instructions: your labs are again reassuring your CT scan is nonspecific but needs close follow up with gastroenterology and your appointment Dr. Baltazar this week there are small areas of lymph nodes noted and also some small areas of inflammation in the large intestine please take all medications as prescribed return for any worsening symptoms or concerns On amoxicillin-clavulanate, softer bowel movements are to be expected. Call your provider if you move your bowels more than 4 times a day, your bowel movements are almost all liquid, or you get a rash.? CT/CT abdomen pelvis w IV con IMPRESSION: No intestinal bowel obstruction. Focal areas of segmental wall thickening, splenic colonic flexure and proximal sigmoid colon, underlying neoplasm cannot be excluded. Numerous prominent mesenteric, inguinal and to a lesser extent retroperitoneal lymph nodes. Malignancy cannot be excluded. Fleischner guidelines were followed. Prescriptions: New hydrocodone-acetaminophen 5-325 mg tablet 1 tab PO Q6H PRN (Reason: pain) Qty: 10 0RF Rx Instructions: partial fill okay; Partial Fill upon patient request. amoxicillin-pot clavulanate 875-125 mg tablet 1 tab PO BID Qty: 14 0RF No Action lactulose 10 gram/15 mL solution 20 g PO DAILY PRN (Reason: constipation) Qty: 1200 0RF Referrals: [facility] [Provider Group, Gastroenterology] Referral Note: call to schedule appointment you may need referral from primary care doctor Interventions: ED Discharge Assessment Last Done: 06/23/25 11:17 Discharge Date/Time: 06/23/25 11:18 Print Language: Citizen Of [place]
[2025-06-23 05:25] VITALS: RESP 15
--- NOTE | 2025-06-23 05:30 | PC.NURSE ---
PT started drinking oral contrast
[2025-06-23 08:00] VITALS: BP 97/64; PULSE 68; RESP 18; O2SAT 98
[2025-06-23] MEDS: iohexoL 350 MG/ML 100 ML INFUS..BTL IV (08:59)
[2025-06-23 11:17] VITALS: BP 126/65; PULSE 66; RESP 14; TEMP 36.3; O2SAT 97
== END 2025-06-23 11:18 | disposition home or self-care (01) ==
PROVIDERS: Physician Assistant Medical; Emergency Provider Emergency Medicine
DX: R10.30 Lower abdominal pain, unspecified (principal); C61 Malignant neoplasm of prostate; R14.0 Abdominal distension (gaseous); D73.5 Infarction of spleen; R11.2 Nausea with vomiting, unspecified; Z79.01 Long term (current) use of anticoagulants; Z79.899 Other long term (current) drug therapy
CPT/HCPCS: 36415; 74177; 80053; 81003; 83690; 83735; 85025; 96361; 96374; 96375; 99285; J1885; J2270; J2405; Q9967

== ENCOUNTER → 2025-06-23 07:30 | Outpatient (BNV) | payer MEDICARE, SELFPAY | PROVIDERS: Emergency Provider Emergency Medicine; Visit Provider Radiology Diagnostic Radiology | DX: K42.9 Umbilical hernia without obstruction or gangrene (principal); I70.90 Unspecified atherosclerosis | CPT/HCPCS: 74177 ==

== ENCOUNTER 2025-06-26 11:30 | Outpatient (AMB) | payer MEDICARE, SELFPAY ==
--- NOTE | 2025-06-26 11:54 | A.OFFVIS_ITS ---
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 He is a patient of Dr. Harris. He is seen for the following urologic conditions - prostate cancer Rising PSA Recommend finasteride, PET scan May benefit from intermittent hormone therapy Prostate cancer Per [facility] inpatient [facility] 1999 [place] 3 + 3 grade group 1 low volume disease Offered radiation therapy however patient deferred [facility] Medical History (Updated 06/26/25 @ 12:02 by Diego Baltazar MD) Prostate cancer Social History Unable to assess alcohol history related to: Unknown Alcohol intake: unknown Patient Tobacco Use Status: Tobacco use Unknown Review of Systems Const Denies chills and Denies fever(s) Card Reports no additional complaints and Denies syncope Resp Denies cough GI Denies abdominal pain and Denies heartburn Reports as per HPI and Denies change in libido Neuro Denies syncope Psych Denies change in libido Endo Denies change in libido Physical Exam Const General: cooperative, healthy appearing, comfortable and no acute distress Orientation/consciousness: patient oriented x3 HEENT Face and sinus: Yes normal facial exam Mouth: moist mucous membranes Neck Neck: Yes normal visual inspection, Yes full ROM and Yes trachea midline Chest Chest palpation & inspection: normal inspection of the chest Resp Effort & Inspection: normal respiratory effort, able to speak in complete sentences and no respiratory distress GI Inspection: Yes normal to inspection Back/Spine/Pelvis Cervical Spine: normal cervical lordosis Thoracic/Lumbar Spine: thoracic and lumbar spine normal to inspection Skin General skin exam: no rashes or lesions noted Neuro General: patient oriented x3, gait normal, tone normal and moves all extremities Extrem General: Yes normal to inspection and Yes capillary refill normal Results AMB Urinalysis, Automated 2 UA Leukoctes 0 Nohemi/uL Last Edit by TODD Quevedo on 06/26/25 12:07 UA Nitrite Negative Last Edit by TODD Quevedo on 06/26/25 12:07 UA Urobilinogen 3.5 mg/dL Last Edit by TODD Quevedo on 06/26/25 12:0 7 UA Protein 0 mg/dL Last Edit by TODD Quevedo on 06/26/25 12:07 UA pH 6.0 Last Edit by TODD Quevedo on 06/26/25 12:07 UA Blood 0 Jose/uL Last Edit by TODD Quevedo on 06/26/25 12:07 UA Specific [place] 1.005 Last Edit by TODD Quevedo on 06/26/25 12: 07 UA Ketone Negative Last Edit by TODD Quevedo on 06/26/25 12:07 UA Bilirubin 0 mg/dL Last Edit by TODD Quevedo on 06/26/25 12:07 UA Glucose 0 mg/dL Last Edit by TODD Quevedo on 06/26/25 12:07 Results Reviewed Results Reviewed: Laboratory Last Values Urine pH (Auto) 6.0 06/26/25 12:07 Specific [place] (Auto) 1.005 06/26/25 12:07 Urine Protein (Auto) 0 mg/dL 06/26/25 12:07 Glucose (UA)(Auto) 0 mg/dL 06/26/25 12:07 Urine Ketones (Auto) Negative 06/26/25 12:07 Urine Blood (Auto) 0 Jose/uL 06/26/25 12:07 Urine Nitrite (Auto) Negative 06/26/25 12:07 Urine Bilirubin (Auto) 0 mg/dL 06/26/25 12:07 Urine Urobilinogen (Auto) 3.5 mg/dL 06/26/25 12:07 Leukocyte Esterase (Auto) 0 Nohemi/uL 06/26/25 12:07 Assessment & Plan Assessment & Plan (1) Prostate cancer: Code(s): C61 - Malignant neoplasm of prostate Category: Medical Plan PET-CT staging Start finasteride Three-month follow-up repeat PSA Orders: Orders AMB Urinalysis Automated Today Z13.9 - Encounter for screening, unspecified PET CT fusion skull to thigh Today C61 - Malignant neoplasm of prostate PSA,Total (Free>4and<10) 3 Months C61 - Malignant neoplasm of prostate Medications: New finasteride 5 mg PO DAILY 90 tabs 1RF 90 days C61 - Malignant neoplasm of prostate Patient Instructions: This note is constructed using voice recognition software. While every effort has been made to ensure accuracy environmental services director errors may have been included. Imaging studies, laboratory and physical exam results were discussed and reviewed in detail. No major barriers to patient understanding were identified. An opportunity to ask questions regarding the treatment plan was provided. All questions were answered. The patient expressed understanding and agreement with the above treatment plan. The patient is aware they should contact our office by phone for worsening of their current condition or the appearance of new urologic symptoms. Compliance is encouraged with any medications and followup testing that is ordered. It is a privilege to participate in the urologic care of your patient. If you have any questions or concerns regarding treatment for the above conditions, or other urologic issues, please do not hesitate to contact me. The office telephone contact is [phone]. Sincerely, Dr Diego Baltazar MD, [facility] - Urology Compassionate Specialist Care for the Genitourinary System Coding Level of Care Code New Pt Level 4 (89094) Diagnoses Prostate cancer C61
--- OUTSIDE RECORDS SUMMARY | 2025-06-26 12:25 | XMS_ITS | Clinical Summary ---
Author Organization [facility] [place] [address] Care Team Providers Care Drum Reel Cutter Name Role Phone Keon Giron MD Primary Care Provider [phone] Social History Tobacco Use Types Packs/Day Years [...] Directive 2006 Covid-19 Vaccine (1 - season) 2025 Influenza (Flu) vaccine (1 o f 1 - Influenza standard series) 06/22/2025 [place] [id number] [facility] Care Teams Drum Reel Cutter Relationship Specialty Start Date End Date Keon Giron MD [address] [place] [id number] PCP - General Internal Medicine 09/06/18
== END 2025-06-26 12:21 | disposition home or self-care (01) ==
LOC: HO.HUSH 11:30
PROVIDERS: Visit Provider Urology
DX: Z13.9 Encounter for screening, unspecified (principal); C61 Malignant neoplasm of prostate
CPT/HCPCS: 99204

== ENCOUNTER → 2025-06-26 11:30 | Outpatient (BNVA) | payer MEDICARE, SELFPAY | PROVIDERS: Visit Provider Urology | DX: C61 Malignant neoplasm of prostate (principal); Z13.9 Encounter for screening, unspecified | CPT/HCPCS: 51798; 81003; 99202 ==

== ENCOUNTER 2025-07-06 13:28 | Emergency (ER) | payer MEDICARE, SELFPAY ==
[2025-07-06 13:36] VITALS: BP 146/77; BP 149/77; PULSE 62; PULSE 66; RESP 17; TEMP 36.6; O2SAT 100; O2SAT 99; BMI 22.4
[2025-07-06 14:37] LABS: MANUAL DIFF FLAG NO
[2025-07-06 14:38] LABS: Appearance Urine Clear; Glucose Urine UA Negative (Negative); PH 6.5 (5.0-9.0); Specific Gravity - Urine <= 1.005 (1.005-1.025)
[2025-07-06 14:41] LABS: Hematocrit 38.4 % (42.0-52.0); Hemoglobin 12.2 g/dl (14.0-18.0); Imm Gran Abs Auto 0.01 X10*3/uL (0.00-0.03); Imm Gran Pct Auto 0.2 % (0.0-0.4); Lymphocytes Absolute Auto 1.9 X10*3/uL (1.2-4.9); Mean Corpuscular HGB Conc 31.8 g/dl (31.0-36.0); Mean Corpuscular Hemoglobin 27.7 pg (27.0-33.0); Mean Corpuscular Volume 87.3 fL (80.0-98.0); NRBC Abs Auto 0.000 X10*3/uL (0.0-0.012); NRBC Pct Auto 0.0 /100WBC (0.0-0.2); Platelet Count 209 X10*3/uL (160-400); Red Blood Count 4.40 X10*6/uL (4.60-5.80); White Blood Count 6.5 X10*3/uL (4.8-10.8)
[2025-07-06 14:57] LABS: Alanine Aminotransferase 24 U/L (0-40); Albumin Level 4.1 g/dL (3.5-5.0); Alkaline Phosphatase 58 U/L (39-117); Anion Gap 13 (12-20); Aspartate Amino Transferase 32 U/L (5-37); Blood Urea Nitrogen 8 mg/dL (9-16); Calcium 9.0 mg/dL (8.4-10.2); Carbon Dioxide 22 mmol/L (22-29); Chloride 107 mmol/L (96-108); Creatinine Clr Calc Pharmacy 87.0; Estimated Glomerular Filt Rate > 60; Lipase 14 U/L (8-78); Potassium 4.1 mmol/L (3.3-5.1); Sodium 138 mmol/L (135-145); Total Protein 7.0 g/dL (6.5-8.0)
[2025-07-06 15:01] LABS: COVID-19 Test Negative (Negative); IDNOW Serial# 08D9AD1C
[2025-07-06 15:07] LABS: IDNOW Serial# 6674DD1D; Influenza B2 Negative (Negative)
--- NOTE | 2025-07-06 15:08 | ED_ITS ---
HPI - Abdominal Pain General Chief Complaint: Abdominal Pain Stated Complaint: ABD PAIN FROM SNF PER EMS Time Seen by Provider: 07/06/25 14:06 Source: patient and other ([facility] called requesting no opiates for pt ) Mode of arrival: EMS History of Present Illness ED Provider: HPI narrative: 75-year-old male presenting with abdominal pain for the past 1 week he stated that he had loose stool and then feeling constipated, recent diagnosis of prostate cancer and awaiting PET scan feels very anxious. Has had multiple visits for this since April. Related Data Home Medications ?Medication ?Instructions ?Recorded ?Confirmed acetaminophen 325 mg tablet 325 mg PO QID PRN 06/26/25 (Tylenol) apixaban 5 mg tablet (Eliquis) 5 mg PO BID 06/26/25 budesonide 3 mg 3 mg PO DAILY 06/26/25 capsule,delayed,extended release clonazepam 1 mg tablet (Klonopin) 1 mg PO BID 06/26/25 hydrocodone 5 mg-acetaminophen 300 1 tab PO BEDTIME GA N 06/26/25 mg tablet lactobacillus combination no.9 4 4,000 mmu cells PO DA DAVID 06/26/25 billion cell capsule (Adult 50 Plus Probiotic) lansoprazole 15 mg capsule,delayed 15 mg PO DAILY 03/15 release mirtazapine 30 mg tablet 30 mg PO BEDTIME 06/26/25 multivitamin 1 tab PO DAILY 06/26/25 nystatin 100,000 unit/gram topical 1 appl topical JULI Y 06/26/25 cream oxycodone 5 mg tablet 5 mg PO BID PRN 06/26/25 polyethylene glycol 3350(bulk) ea miscellaneous (Base B, Polyethylene Glycol 3350 granules) sennosides 8.6 mg tablet 8.6 mg PO DAILY 06/26/25 tamsulosin 0.4 mg capsule 0.4 mg PO DAILY 06/26/25 Previous Rx's ?Medication ?Instructions ?Recorded lactulose 10 gram/15 mL oral 20 g (30 mL) PO DAILY PRN 06/09/25 solution constipation #1,200 mL amoxicillin 875 mg-potassium 1 tab PO BID #14 tabs 12/16 clavulanate 125 mg tablet hydrocodone 5 mg-acetaminophen 325 1 tab PO Q6H PRN pa in #10 tabs 06/23/25 mg tablet finasteride 5 mg tablet 5 mg PO DAILY 90 days #90 ta bs 06/26/25 ondansetron HCl 4 mg tablet 4 mg PO Q8H PRN nausea #7 tabs 07/06/25 Allergies Allergy/AdvReac Type Severity Reaction Status Date / Time No Known Allergies Allergy Verified 07/06/25 13:46 Review of Systems Constitutional: Reports as per HPI [facility] Past Medical History Medical History (Updated 07/06/25 @ 15:18 by Guerrero Cummings DO) Prostate cancer Social History Social History Unable to assess alcohol history related to: Unknown Alcohol intake: unknown Patient Tobacco Use Status: Tobacco use Unknown Advance Directives: Yes Advance Directives Information Provided: No Advance Directives on File: No Do you have a plan to hurt others: No Plan Physical Exam ED Vital Signs: Vital Signs - 24 hr 07/06/25 13:36 Temperature 97.8 F Pulse Rate 62 Respiratory Rate 17 Blood Pressure 146/77 H Pulse Oximetry 100 Oxygen Delivery Method Room Air BMI result Body Mass Index 22.4 Const Other: * Gen: ?Overall well-appearing patient * CV: RRR, no obvious murmurs appreciated * Resp: ?No wheezing rales rhonchi no stridor moving air well * Abd: ?Bowel sounds are present, no tenderness no rebound no rigidity * MSK: FROM, strength 5/5 all extremities * Skin: Warm, dry, intact, * Neuro: ?Alert and oriented x3, moving upper and lower extremities symmetrically, no obvious facial asymmetry noted Medical Decision Making Medical Decision Making [facility] Narrative: Patient has recently been seen here for same had 3 CTs already, has a GI follow up coming up, anxious abdominal exam is benign, bowel sounds are present, do not feel further workup is indicated with CT, anticipating discharge her blood work is reassuring Differential Diagnosis Differential Diagnoses: The differential diagnosis associated with the presentation includes (SBO, volvulus, IBS, diverticulitis infectious colitis) Admission/Observation Consideration of admission/observation: Escalation of care including admission/observation considered Lab Data [facility] Lab Attestation statement: I reviewed the patient's lab results. 07/06/25 14:30 07/06/25 14:30 Labs: Lab Results 07/06/25 Range/Units 14:30 WBC 6.5 (4.8-10.8) X10*3/uL RBC 4.40 L (4.60-5.80) X10*6/uL Hgb 12.2 L (14.0-18.0) g/dl Hct 38.4 L (42.0-52.0) % MCV 87.3 (80.0-98.0) fL MCH 27.7 (27.0-33.0) pg MCHC 31.8 (31.0-36.0) g/dl RDW 13.2 (11.0-16.0) % Plt Count 209 (160-400) X10*3/uL MPV 8.7 L (9.4-12.4) fL Immature Gran % (Auto) 0.2 (0.0-0.4) % Neut % (Auto) 57.5 (45-73) % Lymph % (Auto) 29.9 (20-40) % [place] % (Auto) 9.0 (2-11) % Eos % (Auto) 2.8 (0-4) % Baso % (Auto) 0.6 (0-2) % Lymph # (Auto) 1.9 (1.2-4.9) X10*3/uL [place] # (Auto) 0.6 (0.1-1.2) X10*3/uL Eos # (Auto) 0.2 (0.0-0.4) X10*3/uL Baso # (Auto) 0.0 (0.0-0.2) X10*3/uL Abs Immat Gran (auto) 0.01 (0.00-0.03) X10*3/uL Absolute Neuts (auto) 3.7 (2.0-8.3) x10*3/uL Absolute Nucleated RBC 0.000 (0.0-0.012) X10*3/uL Nucleated RBC % (auto) 0.0 (0.0-0.2) /100WBC Sodium 138 (135-145) mmol/L Potassium 4.1 (3.3-5.1) mmol/L Chloride 107 (96-108) mmol/L Carbon Dioxide 22 (22-29) mmol/L Anion Gap 13 (12-20) BUN 8 L (9-16) mg/dL Creatinine 0.79 (0.5-1.4) mg/dL Estim Creat Clear Calc 87.0 Estimated GFR > 60 Random Glucose 91 (60-115) mg/dL Calcium 9.0 (8.4-10.2) mg/dL Total Bilirubin 0.4 (0.0-1.0) mg/dL AST 32 (5-37) U/L ALT 24 (0-40) U/L Alkaline Phosphatase 58 (39-117) U/L Total Protein 7.0 (6.5-8.0) g/dL Albumin 4.1 (3.5-5.0) g/dL Lipase 14 (8-78) U/L Urine Color Yellow Urine Appearance Clear Urine pH 6.5 (5.0-9.0) Ur Specific [place] <= 1.005 (1.005-1.025) Urine Protein Negative (Neg-Trace) mg/dL Urine Glucose (UA) Negative (Negative) mg/dL Urine Ketones Negative (Negative) mg/dL Urine Blood Negative (Negative) Urine Nitrite Negative (Negative) Ur Leukocyte Esterase Negative (Negative) Urine RBC 0-2 (0-2) /HPF Urine WBC 0-5 (0-5) /HPF Ur Squamous Epith Cells 0-2 (0-2) /HPF Urine Bacteria None Seen (None Seen) Hyaline Casts 0-2 (0-2) /LPF COVID-19 (DARA) Negative (Negative) COVID-19 Clin Com See Note Influenza Type A (POLLO) Negative (Negative) Influenza Type B (POLLO) Negative (Negative) Influenza A & B Note See Note Discharge Plan Discharge Clinical Impression: Abdominal pain Patient Disposition: Home, Self-Care Additional Instructions: Since April you have had 3 cat scans, abdominal x-ray and a bladder ultrasound, your blood work has been reassuring, you have GI follow up, your blood work has been reassuring today as well, please continue to see a PCP and GI on outpatient basis I can not give you some Zofran as needed for nausea and vomiting, you also have medications for anxiety at home I am reassured by a vital signs, workup and physical examination Prescriptions: New ondansetron HCl 4 mg tablet 4 mg PO Q8H PRN (Reason: nausea) Qty: 7 0RF No Action lactulose 10 gram/15 mL solution 20 g PO DAILY PRN (Reason: constipation) Qty: 1200 0RF hydrocodone-acetaminophen 5-325 mg tablet 1 tab PO Q6H PRN (Reason: pain) Qty: 10 0RF Rx Instructions: partial fill okay; Partial Fill upon patient request. amoxicillin-pot clavulanate 875-125 mg tablet 1 tab PO BID Qty: 14 0RF finasteride 5 mg tablet 5 mg PO DAILY 90 Days Qty: 90 1RF multivitamin Tablet 1 tab PO DAILY sennosides 8.6 mg tablet 8.6 mg PO DAILY acetaminophen [Tylenol] 325 mg tablet 325 mg PO QID PRN clonazepam [Klonopin] 1 mg tablet 1 mg PO BID tamsulosin 0.4 mg capsule 0.4 mg PO DAILY mirtazapine 30 mg tablet 30 mg PO BEDTIME nystatin 100,000 unit/gram cream 1 appl topical DAILY lansoprazole 15 mg capsule,delayed release(DR/EC) 15 mg PO DAILY budesonide 3 mg capsule,delayed,extend.release 3 mg PO DAILY oxycodone 5 mg tablet 5 mg PO BID PRN Patient Comments: 2.5 mg PO QD PRN hydrocodone-acetaminophen 5-300 mg tablet 1 tab PO BEDTIME PRN polyethylene glycol 3350(bulk) [Base B,Polyethylene [id number]] Granules miscellaneous Eliquis 5 mg tablet 5 mg PO BID Adult 50 Plus Probiotic 4 billion cell capsule 4,000 mmu cells PO DAILY Rx Instructions: administer with a meal Print Language: Yoruba
[2025-07-06 15:40] VITALS: BP 168/82; PULSE 84; RESP 14; TEMP 37.2; O2SAT 90
[2025-07-06 15:48] VITALS: BP 168/82; PULSE 84; RESP 14; TEMP 37.2; O2SAT 90
--- OUTSIDE RECORDS SUMMARY | 2025-07-06 19:36 | XMS_ITS | Encounter Summary ---
Author Organization [facility] Address [address], [place] [address] Phone Care Team Providers Care Pill Machine Operator Name Role Phone Unavailable Primary Care Provider Unavailabl e Encounter Details Date Type Department Care Team (Late st Contact Info) Description 05/09/2022 Hospital/ED/SNF/HH Visit [facility] [address] [phone] Provider, MD Daphne [address] [place] [phone] Social History Tobacco Use Types Packs/Day [...]
--- OUTSIDE RECORDS SUMMARY | 2025-07-06 19:36 | XMS_ITS | Encounter Summary ---
Author Organization [facility] Address [address], [place] [address] Phone Care Team Providers Care Instructional Technology Specialist Name Role Phone Unavailable Primary Care Provider Unavailabl e Encounter Details Date Type Department Care Team (Late st Contact Info) Description 04/28/2022 Hospital/ED/SNF/HH Visit [facility] [address] [phone] Provider, MD Daphne [address] [place] [phone] Social History Tobacco Use Types Packs/Day [...]
--- OUTSIDE RECORDS SUMMARY | 2025-07-06 19:36 | XMS_ITS | Clinical Summary ---
Author Organization [facility] Address [address] [place] [phone] Phone Care Team Providers Care Investment Broker Name Role Phone Unavailable Primary Care Provider [...]
--- OUTSIDE RECORDS SUMMARY | 2025-07-06 19:36 | XMS_ITS | Clinical Summary ---
Author Organization [facility] [place] [address] Care Team Providers Care Perfect Binder Setter Name Role Phone Keon Giron MD Primary Care Provider [phone] Social History Tobacco Use Types Packs/Day Years [...] series) 06/22/2025 [place] [id number] [facility] Care Teams Perfect Binder Setter Relationship Specialty Start Date End Date Keon Giron MD [address] [place] [id number] PCP - General Internal Medicine 09/06/18
== END 2025-07-06 15:48 | disposition home or self-care (01) ==
PROVIDERS: Emergency Provider Emergency Medicine
DX: R10.9 Unspecified abdominal pain (principal); C61 Malignant neoplasm of prostate; F41.9 Anxiety disorder, unspecified
CPT/HCPCS: 80053; 81001; 83690; 85025; 87502; 87635; 99283; 99284

== ENCOUNTER 2025-07-26 04:02 | Emergency (ER) | payer MEDICARE, SELFPAY ==
--- NOTE | ~2025-07-26 | CT_ITS ---
CLINICAL HISTORY: abd pain, colitis vs sbo CT abdomen and pelvis with contrast Comparison: 06/23/2025 Findings: The lung bases are clear. Solid organs are within normal limits. There are no abnormal findings in the gallbladder fossa. No renal stones. No bowel obstruction, pneumoperitoneum, or pneumatosis. Pelvic contents unremarkable. The appendix is not visualized with no imaging evidence of appendicitis. The bones are intact. IMPRESSION: No acute findings. This document has been electronically signed by: Vlad Hurt MD on 07/26/2025 08:03:22
[2025-07-26 04:10] VITALS: BP 116/65; BP 172/70; PULSE 66; PULSE 76; RESP 18; TEMP 36.4; O2SAT 96; O2SAT 98; BMI 24.9
[2025-07-26 04:18] VITALS: BP 116/65; PULSE 66; RESP 18; TEMP 36.4; O2SAT 96
--- NOTE | 2025-07-26 04:21 | PC.NURSE ---
Addendum entered by Lulu Carmichael RN 07/26/25 04:22: pt on eliquis, ambulates with a walker, has cane with him today. pt positive for headache and nausea. denies vomit or dry heaving Original Note: pt biba, feeling of pressure, BM loose lately but no increase in frequency, urine normal per pt. pain a 10/10, hx of CHF, prostate cancer and GERD currently following up re: possible colon cancer
[2025-07-26 04:40] LABS: MANUAL DIFF FLAG NO
[2025-07-26 04:41] LABS: Hematocrit 35.4 % (42.0-52.0); Hemoglobin 12.0 g/dl (14.0-18.0); Imm Gran Abs Auto 0.01 X10*3/uL (0.00-0.03); Imm Gran Pct Auto 0.2 % (0.0-0.4); Lymphocytes Absolute Auto 1.9 X10*3/uL (1.2-4.9); Mean Corpuscular HGB Conc 33.9 g/dl (31.0-36.0); Mean Corpuscular Hemoglobin 28.5 pg (27.0-33.0); Mean Corpuscular Volume 84.1 fL (80.0-98.0); NRBC Abs Auto 0.000 X10*3/uL (0.0-0.012); NRBC Pct Auto 0.0 /100WBC (0.0-0.2); Platelet Count 213 X10*3/uL (160-400); Red Blood Count 4.21 X10*6/uL (4.60-5.80); White Blood Count 5.3 X10*3/uL (4.8-10.8)
[2025-07-26 04:56] LABS: Alanine Aminotransferase 21 U/L (0-40); Albumin Level 4.0 g/dL (3.5-5.0); Alkaline Phosphatase 56 U/L (39-117); Anion Gap 11 (12-20); Aspartate Amino Transferase 23 U/L (5-37); Blood Urea Nitrogen 12 mg/dL (9-16); Calcium 9.3 mg/dL (8.4-10.2); Carbon Dioxide 24 mmol/L (22-29); Chloride 108 mmol/L (96-108); Creatinine Clr Calc Pharmacy 106.1; Estimated Glomerular Filt Rate > 60; Potassium 3.8 mmol/L (3.3-5.1); Sodium 139 mmol/L (135-145); Total Protein 6.4 g/dL (6.5-8.0)
--- OUTSIDE RECORDS SUMMARY | 2025-07-26 05:16 | XMS_ITS | Encounter Summary ---
Author Organization [facility] Address [address] [address] Phone Care Team Providers Care Operations Support Manager Name Role Phone Unavailable Primary Care Provider Unavailabl e Encounter Details Date Type Department Care Team (Late st Contact Info) Description 04/28/2022 Hospital/ED/SNF/HH Visit [facility] [address] [phone] Provider, MD Daphne [address] [place] [phone] Social History Tobacco Use Types Packs/Day [...]
--- OUTSIDE RECORDS SUMMARY | 2025-07-26 05:16 | XMS_ITS | Encounter Summary ---
Author Organization [facility] Address [address] [address] Phone Care Team Providers Care Clerical Receptionist Name Role Phone Unavailable Primary Care Provider Unavailabl e Encounter Details Date Type Department Care Team (Late st Contact Info) Description 05/09/2022 Hospital/ED/SNF/HH Visit [facility] [address] [phone] Provider, MD Daphne [address] [place] [phone] Social History Tobacco Use Types Packs/Day [...]
--- OUTSIDE RECORDS SUMMARY | 2025-07-26 05:16 | XMS_ITS | Clinical Summary ---
Author Organization [facility] Address [address] [place] [phone] Phone Care Team Providers Care Sales Marketing Name Role Phone Unavailable Primary Care Provider [...]
--- OUTSIDE RECORDS SUMMARY | 2025-07-26 05:16 | XMS_ITS | Clinical Summary ---
Author Organization [facility] [place] [address] Care Team Providers Care Land Economist Name Role Phone Keon Giron MD Primary Care Provider [phone] Social History Tobacco Use Types Packs/Day Years [...] series) 06/22/2025 [place] [id number] [facility] Care Teams Land Economist Relationship Specialty Start Date End Date Keon Giron MD [address] [place] [phone] PCP - General Internal Medicine 09/06/18
[2025-07-26 05:49] LABS: Appearance Urine Clear; Glucose Urine UA Negative (Negative); PH 7.5 (5.0-9.0); Specific Gravity - Urine <= 1.005 (1.005-1.025)
--- NOTE | 2025-07-26 06:16 | ED_ITS ---
HPI - Abdominal Pain General Chief Complaint: Abdominal Pain Stated Complaint: ABD Pain Time Seen by Provider: 07/26/25 06:12 Source: patient and EMS Mode of arrival: EMS Limitations: no limitations History of Present Illness ED Provider: DR. Miles HPI narrative: This is a 75-year-old came in for evaluation of abdominal pain started since yesterday pain described as severe dull aching pain affecting the whole entire belly, pain is associated with nausea but no vomiting, no fever, no chills. No dysuria, no frequency urination, no hematuria, last bowel movement was yesterday and was loose no blood in the stool, no vomiting, no recent travel, no exposure to bad food. Past surgical history is significant for appendectomy and cholecystectomy. No CP, no SOB. Related Data Home Medications ?Medication ?Instructions ?Recorded ?Confirmed acetaminophen 325 mg tablet 325 mg PO QID PRN 06/26/25 (Tylenol) apixaban 5 mg tablet (Eliquis) 5 mg PO BID 06/26/25 budesonide 3 mg 3 mg PO DAILY 06/26/25 capsule,delayed,extended release clonazepam 1 mg tablet (Klonopin) 1 mg PO BID 06/26/25 hydrocodone 5 mg-acetaminophen 300 1 tab PO BEDTIME TX N 06/26/25 mg tablet lactobacillus combination no.9 4 4,000 mmu cells PO DA DAVID 06/26/25 billion cell capsule (Adult 50 Plus Probiotic) lansoprazole 15 mg capsule,delayed 15 mg PO DAILY 03/15 release mirtazapine 30 mg tablet 30 mg PO BEDTIME 06/26/25 multivitamin 1 tab PO DAILY 06/26/25 nystatin 100,000 unit/gram topical 1 appl topical JULI Y 06/26/25 cream oxycodone 5 mg tablet 5 mg PO BID PRN 06/26/25 polyethylene glycol 3350(bulk) ea miscellaneous (Base B, Polyethylene Glycol 3350 granules) sennosides 8.6 mg tablet 8.6 mg PO DAILY 06/26/25 tamsulosin 0.4 mg capsule 0.4 mg PO DAILY 06/26/25 Previous Rx's ?Medication ?Instructions ?Recorded lactulose 10 gram/15 mL oral 20 g (30 mL) PO DAILY PRN 06/09/25 solution constipation #1,200 mL amoxicillin 875 mg-potassium 1 tab PO BID #14 tabs 12/16 clavulanate 125 mg tablet hydrocodone 5 mg-acetaminophen 325 1 tab PO Q6H PRN pa in #10 tabs 06/23/25 mg tablet finasteride 5 mg tablet 5 mg PO DAILY 90 days #90 ta bs 06/26/25 ondansetron HCl 4 mg tablet 4 mg PO Q8H PRN nausea #7 tabs 07/06/25 Allergies Allergy/AdvReac Type Severity Reaction Status Date / Time No Known Allergies Allergy Verified 07/26/25 04:12 Review of Systems Review of Systems All other systems are reviewed and are negative Constitutional: Reports as per HPI and Reports no additional constitutional complaints Eyes: Reports as per HPI and Reports no additional eye complaints Reports system reviewed and no additional complaints, except as documented Cardiovascular: Reports as per HPI and Reports no additional cardiovascular complaints Respiratory: Reports as per HPI and Reports no additional respiratory complaints Gastrointestinal: Reports as per HPI and Reports no additional gastrointestinal complaints Genitourinary: Reports no additional female genitourinary complaints Musculoskeletal: Reports no additional musculoskeletal complaints Skin/Breast: Reports system reviewed and no additional complaints, except as docu Psychiatric: Reports no additional psychiatric complaints Endocrine: Reports no additional endocrine complaints Hematologic/Lymphatic: Reports no additional hematologic/lymphatic complaints Allergic/Immunologic: Reports no additional allergic/immunologic complaints Reports system reviewed and no additional complaints, except as documented and Reports Abnormal speech present [facility] Past Medical History Medical History Prostate cancer Social History Social History Alcohol intake: unknown Patient Tobacco Use Status: Tobacco use Unknown Smoked in Last 30 Days: No Use of substances other than those prescribed or required for medical reasons: No Advance Directives: No Advance Directives Information Provided: Yes Physical Exam ED Vital Signs: Vital Signs - 24 hr 07/26/25 04:10 07/26/25 04:18 Temperature 97.5 F 97.5 F Pulse Rate 66 66 Respiratory Rate 18 18 Blood Pressure 116/65 116/65 Pulse Oximetry 96 96 Oxygen Delivery Method Room Air Room Air BMI result Body Mass Index 24.9 Vital signs have been reviewed and appear to be correct. Blood pressure elevated. Heart rate normal. Respiratory rate normal. Temperature normal. Oxygen saturation normal. Appearance: Alert. Oriented X3. No acute distress. Head: Normal external exam. Normocephalic. Atraumatic. No Castro signs noted. No raccoon eyes noted Eyes: PERRLA. EOMI. Conjunctiva and sclera normal. Eyelids normal. ENT: TM's Normal. Pharynx normal. Uvula midline. Moist mucous membranes. No trismus noted. No drooling noted. No muffled voice noted. Neck: Normal inspection. Neck supple. FROM. No adenopathy. Thyroid Normal. No meningeal signs. No neck mass noted. CVS: Normal heart rate and rhythm. Heart sound normal. No murmurs noted. Pulses normal throughout. Respiratory: No respiratory distress. Painless inspiration. Breath sounds normal. No wheezes/rales/rhonchi noted. Chest nontender. No accessory muscle usage noted or decreased air movement noted. Abdomen: Soft, diffuse mild abdominal tenderness, no rebound tenderness, no guarding. No distention noted. No organomegaly noted. No visible injury noted. Back: No CVA tenderness. Full range of motion noted. Skin: Skin warm and dry. Normal skin color. Normal skin turgor. No rashes/lesions/lacerations noted. Extremities: No lower extremity edema. Extremities exhibit normal range of motion. Extremities nontender. Neuro: Oriented X 3. Cranial nerve exam: II-XII are grossly intact No motor deficit. No sensory deficit. Reflexes normal. Course Reevaluation(s) Reevaluation #1: Patient feels better, able to tolerate p.o. intake, no nausea, no vomiting, unremarkable workup in the ED, negative CT abdomen pelvis and unremarkable labs. Patient is able to tolerate p.o. intake, otherwise unremarkable blood workup. Time: 09:41 Medical Decision Making Differential Diagnosis Differential Diagnoses: The differential diagnosis associated with the presentation includes (Gastritis, diverticulitis, colitis, ACS, acute appendicitis, electrolyte derangement, severe anemia.) Admission/Observation Consideration of admission/observation: Escalation of care including admission/observation considered Lab Data MDM Lab Attestation statement: I reviewed the patient's lab results. 07/26/25 04:35 07/26/25 04:35 Labs: Lab Results 07/26/25 07/26/25 Range/Units 04:35 05:40 WBC 5.3 (4.8-10.8) X10*3/uL RBC 4.21 L (4.60-5.80) X10*6/uL Hgb 12.0 L (14.0-18.0) g/dl Hct 35.4 L (42.0-52.0) % MCV 84.1 (80.0-98.0) fL MCH 28.5 (27.0-33.0) pg MCHC 33.9 (31.0-36.0) g/dl RDW 13.2 (11.0-16.0) % Plt Count 213 (160-400) X10*3/uL MPV 8.6 L (9.4-12.4) fL Immature Gran % (Auto) 0.2 (0.0-0.4) % Neut % (Auto) 47.8 (45-73) % Lymph % (Auto) 36.5 (20-40) % [place] % (Auto) 10.4 (2-11) % Eos % (Auto) 4.5 H (0-4) % Baso % (Auto) 0.6 (0-2) % Lymph # (Auto) 1.9 (1.2-4.9) X10*3/uL [place] # (Auto) 0.6 (0.1-1.2) X10*3/uL Eos # (Auto) 0.2 (0.0-0.4) X10*3/uL Baso # (Auto) 0.0 (0.0-0.2) X10*3/uL Abs Immat Gran (auto) 0.01 (0.00-0.03) X10*3/uL Absolute Neuts (auto) 2.5 (2.0-8.3) x10*3/uL Absolute Nucleated RBC 0.000 (0.0-0.012) X10*3/uL Nucleated RBC % (auto) 0.0 (0.0-0.2) /100WBC Sodium 139 (135-145) mmol/L Potassium 3.8 (3.3-5.1) mmol/L Chloride 108 (96-108) mmol/L Carbon Dioxide 24 (22-29) mmol/L Anion Gap 11 L (12-20) BUN 12 (9-16) mg/dL Creatinine 0.67 (0.5-1.4) mg/dL Estim Creat Clear Calc 106.1 Estimated GFR > 60 Random Glucose 96 (60-115) mg/dL Calcium 9.3 (8.4-10.2) mg/dL Total Bilirubin 0.4 (0.0-1.0) mg/dL AST 23 (5-37) U/L ALT 21 (0-40) U/L Alkaline Phosphatase 56 (39-117) U/L Total Protein 6.4 L (6.5-8.0) g/dL Albumin 4.0 (3.5-5.0) g/dL Lipase 15 (8-78) U/L Urine Color Yellow Urine Appearance Clear Urine pH 7.5 (5.0-9.0) Ur Specific [place] <= 1.005 (1.005-1.025) Urine Protein Negative (Neg-Trace) mg/dL Urine Glucose (UA) Negative (Negative) mg/dL Urine Ketones Negative (Negative) mg/dL Urine Blood Negative (Negative) Urine Nitrite Negative (Negative) Ur Leukocyte Esterase Negative (Negative) Independent Interpretation I performed an independent interpretation of an: CT Scan (Abdomen pelvis: No acute findings) Radiology Impression Discussion of test interpretation with radiology: I have reviewed the radiologist's reading. Medications Administered Discontinued Medications Generic Name Dose Route Start Last Admin Trade Name Freq PRN Reason Stop Dose Admin Al Hydroxide/Mg Hydroxide 30 ml 07/26/25 06:15 07/26/25 06:29 Magnesium Hydrox/Alum Hydrox 30 Ml Oral.Susp PO 07/26/25 06:16 30 ml ONCE ONE Administration Clonazepam 1 mg 07/26/25 06:43 07/26/25 06:47 Clonazepam 1 Mg Tablet PO 07/26/25 06:44 1 mg ONCE ONE Administration Iohexol 100 ml 07/26/25 07:36 07/26/25 07:36 Iohexol 350 Mg/Ml 100 Ml Infus..Btl IV 07/26/25 07:37 85 ml ONCE ONE Administration Ketorolac Tromethamine 15 mg 07/26/25 06:15 07/26/25 06:31 Ketorolac Tromethamine 15 Mg/Ml Vial IVPUSH 07/26/25 06:16 15 mg ONCE ONE Administration Morphine Sulfate 2 mg 07/26/25 07:47 07/26/25 07:53 Morphine Sulfate 2 Mg/Ml Cartridge IVPUSH 07/26/25 07:48 2 mg ONCE ONE Administration Protocol Omeprazole 40 mg 07/26/25 06:15 07/26/25 06:29 Omeprazole 40 Mg Capsule.Dr PO 07/26/25 06:16 40 mg ONCE ONE Administration Discharge Plan Discharge Clinical Impression: Abdominal pain Patient Disposition: Home, Self-Care Instructions: Acute Abdominal Pain (ED) Prescriptions: No Action lactulose 10 gram/15 mL solution 20 g PO DAILY PRN (Reason: constipation) Qty: 1200 0RF hydrocodone-acetaminophen 5-325 mg tablet 1 tab PO Q6H PRN (Reason: pain) Qty: 10 0RF Rx Instructions: partial fill okay; Partial Fill upon patient request. amoxicillin-pot clavulanate 875-125 mg tablet 1 tab PO BID Qty: 14 0RF ondansetron HCl 4 mg tablet 4 mg PO Q8H PRN (Reason: nausea) Qty: 7 0RF finasteride 5 mg tablet 5 mg PO DAILY 90 Days Qty: 90 1RF multivitamin Tablet 1 tab PO DAILY sennosides 8.6 mg tablet 8.6 mg PO DAILY acetaminophen [Tylenol] 325 mg tablet 325 mg PO QID PRN clonazepam [Klonopin] 1 mg tablet 1 mg PO BID tamsulosin 0.4 mg capsule 0.4 mg PO DAILY mirtazapine 30 mg tablet 30 mg PO BEDTIME nystatin 100,000 unit/gram cream 1 appl topical DAILY lansoprazole 15 mg capsule,delayed release(DR/EC) 15 mg PO DAILY budesonide 3 mg capsule,delayed,extend.release 3 mg PO DAILY oxycodone 5 mg tablet 5 mg PO BID PRN Patient Comments: 2.5 mg PO QD PRN hydrocodone-acetaminophen 5-300 mg tablet 1 tab PO BEDTIME PRN polyethylene glycol 3350(bulk) [Base B,Polyethylene [id number]] Granules miscellaneous Eliquis 5 mg tablet 5 mg PO BID Adult 50 Plus Probiotic 4 billion cell capsule 4,000 mmu cells PO DAILY Rx Instructions: administer with a meal Print Language: [place]
[2025-07-26 06:23] LABS: Lipase 15 U/L (8-78)
[2025-07-26] MEDS: Magnesium Hydrox/Alum Hydrox 30 ML ORAL.SUSP PO (06:29)
--- NOTE | 2025-07-26 06:41 | PC.NURSE ---
pt medicated per MAR, pt requesting klonopin as he takes it daily and is feeling anxious, would like klonopin before CT scan, provider aware, awaiting new orders,
--- NOTE | 2025-07-26 06:47 | PC.NURSE ---
pt medicated with Klonopin
[2025-07-26] MEDS: iohexoL 350 MG/ML 100 ML INFUS..BTL IV (07:36)
[2025-07-26 09:57] VITALS: BP 131/78; PULSE 68; RESP 16; TEMP 36.7; O2SAT 98
== END 2025-07-26 11:08 | disposition home or self-care (01) ==
PROVIDERS: Emergency Provider Emergency Medicine
DX: R10.22 Pelvic and perineal pain left side (principal); R11.0 Nausea; Z79.899 Other long term (current) drug therapy
CPT/HCPCS: 36415; 74177; 80053; 81003; 83690; 85025; 96374; 96375; 99284; 99285; J1885; J2270; Q9967

== ENCOUNTER → 2025-07-26 06:12 | Outpatient (BNV) | payer MEDICARE, SELFPAY | PROVIDERS: Emergency Provider Emergency Medicine; Visit Provider Specialist | DX: R10.84 Generalized abdominal pain (principal) | CPT/HCPCS: 74177 ==

== ENCOUNTER 2025-08-08 10:51 | Emergency (ER) | payer MEDICARE, SELFPAY ==
[2025-08-08] VITALS (16 sets, daily range): BP systolic 76–152; BP diastolic 55–84; PULSE 61–82; RESP 12–19; TEMP 36.4–36.6; O2SAT 96–98; BMI 25.6
--- NOTE | ~2025-08-08 | CT_ITS ---
CLINICAL HISTORY: headache, dizziness, on eliquis, hx of CA CT Head without contrast. CT angiography head and neck with contrast. 3D Postprocessing. Comparison: None provided Findings: Slight reconstruction artifact throughout the exam. HEAD CT: No intra-axial mass, midline shift, hydrocephalus, or acute hemorrhage. Mild atrophy like change. There is no sinus or mastoid fluid. The orbits are within normal limits. No skull fracture. HEAD AND NECK CTA: Aortic arch and cervical great vessels are patent. Intracranial arteries are patent. No aneurysm, dissection, or occlusion. No abnormal intracranial enhancement. Small right thyroid nodule does not meet criteria for follow-up. Lung apices clear. Mild cervical degenerative spondylosis. IMPRESSION: 1. No acute findings on noncontrast head CT. 2. Patent head and neck cTA. This document has been electronically signed by: Ajit Gonzales MD on 08/08/2025 17:01:28
--- NOTE | 2025-08-08 11:51 | ED_ITS ---
HPI - Headache General Chief Complaint: Headache Stated Complaint: DIZZY,WEAK,PINEDO X1W FROM [facility] PER EMS Time Seen by Provider: 08/08/25 11:49 Source: patient and RN notes reviewed Mode of arrival: ambulatory Limitations: no limitations History of Present Illness ED Provider: Carey Isaac PA-C HPI Narrative: This is a 75-year-old male, with a past medical history of prostate cancer, and splenic blood clot many years ago on Eliquis, who presents emergency department with concerns of ongoing headache for the last week. Patient states that the headache has been waxing and waning in severity. He states that it was a gradual onset. He describes his pain as a tight band around his head, states that some days has been more severe and other days has been not as severe. Describing this as a tight band around his head. He states he has been taking Tylenol as well as oxycodone which has not provided him with any relief. He denies any head injury or head strike. He took tylenol this AM without any relief. He does report some intermittent blurred vision and has some subjective weakness in his left upper extremity - unsure if this is due to deconditioning over the last several months that he has been at a assited living facility.. He denies any recent illness, fevers, chills, chest pain, shortness of breath, abdominal pain, nausea, vomiting or diarrhea. He denies any lower extremity weakness. Does report that he struggles with mental health, he denies any suicidal or homicidal ideation. He declines wanting to speak with anyone at this point regarding his mental health. No other complaints or concerns at this time. MD elicited complaint: headache Onset (ago): week(s) Onset description: gradually Location: band-like Severity: severe Quality & Timing: aching Exacerbating factors: none Relieving factors: nothing Associated symptoms: none Treatments prior to arrival: acetaminophen Related Data Home Medications ?Medication ?Instructions ?Recorded ?Confirmed acetaminophen 325 mg tablet 325 mg PO QID PRN Pain 03/1508/12/25 (Tylenol) apixaban 5 mg tablet (Eliquis) 5 mg PO BID 06/26/25 budesonide 3 mg 3 mg PO DAILY 06/26/2508/12 capsule,delayed,extended release clonazepam 1 mg tablet (Klonopin) 1 mg PO BID 06/26/25 08/12/25 lactobacillus combination no.9 4 4,000 mmu cells PO DA DAVID 06/26/25 08/12/25 billion cell capsule (Adult 50 Plus Probiotic) mirtazapine 30 mg tablet 30 mg PO BEDTIME 06/26/25 multivitamin 1 tab PO DAILY 06/26/2507/23 nystatin 100,000 unit/gram topical 1 appl topical JULI Y 06/26/25 08/12/25 cream oxycodone 5 mg tablet 2.5 mg PO BID PRN Moderate P ain 06/26/25 08/12/25 (Scale Score 5-6) polyethylene glycol 3350(bulk) 1 ea miscellaneous JULI Y PRN 06/26/25 08/12/25 (Base B, Polyethylene Glycol 3350 Constipation granules) sennosides 8.6 mg tablet 8.6 mg PO DAILY 06/26/25 tamsulosin 0.4 mg capsule 0.4 mg PO DAILY 06/26/25 fluoxetine 10 mg capsule 10 mg PO DAILY 08/12/2507/23 Previous Rx's ?Medication ?Instructions ?Recorded ondansetron HCl 4 mg tablet 4 mg PO Q8H PRN nausea #7 tabs 07/06/25 Allergies Allergy/AdvReac Type Severity Reaction Status Date / Time No Known Allergies Allergy Verified 08/12/25 10:20 Review of Systems 2 Review of Systems: Constitutional : No Fever, No Chills ENT/Mouth : No sore throat, No Rhinorrhea Eyes: No Eye Pain, No Swelling, No Redness Cardiovascular : No Chest Pain, No SOB Respiratory : No Cough, No Sputum Gastrointestinal : No Nausea, No Vomiting, No Diarrhea, No abdominal Pain Genitourinary : No Dysuria, No Hematuria Musculoskeletal : No joint pain, No Myalgias, No Joint Swelling Skin : No Skin Lesions Neuro : No Weakness, No Numbness, + Headache All other systems reviewed and are negative Yes all other systems are reviewed and are negative Constitutional: Constitutional: Reports as per [facility] Past Medical History Medical History Prostate cancer Social History Social History (Reviewed 08/12/25 @ 10:32 by DENIS Tirado Alcohol intake: unknown Patient Tobacco Use Status: Tobacco use Unknown Use of substances other than those prescribed or required for medical reasons: No Advance Directives: No Advance Directives Information Provided: Yes Physical Exam 2 Vital Signs: Vital Signs: Last Vital Signs Temp 97.8 F 08/11/25 13:34 Pulse 88 08/11/25 13:34 Resp 16 08/11/25 13:34 BP 120/63 08/11/25 13:34 Pulse Ox 96 08/11/25 13:34 O2 Del Method Room Air 08/11/25 13:34 BMI result Body Mass Index 25.6 Const: General: cooperative, comfortable and no acute distress O rientation/consciousness: patient oriented x3 Limitations: no limitations HEENT: Head: Yes normal to inspection, Yes normocephalic and Yes atraumatic Ears: hearing grossly normal bilaterally General nose exam: Normal external nose present Face and sinus: Yes normal facial exam Mouth: Normal oral and palatal mucosa present, oropharynx normal and moist mucous membranes Throat: Yes posterior oropharynx normal Eyes: General: appearance normal, both eyes and all related structures E yelids: Yes eyelids normal Conjunctivae: conjunctivae normal Sclerae: s clerae normal Pupils: Equal, round and reactive pupils present EOM: EOMs intact bilaterally Neck: Neck: Yes normal visual inspection, Yes full ROM and Yes no lymphadenopathy Lymphatic: no lymphadenopathy noted Chest: Chest palpation & inspection: normal inspection of the chest Resp: Effort & Inspection: normal respiratory effort and able to speak in complete sentences Auscultation: clear to auscultation bilaterally, no crackles, no rales, no rhonchi and no wheezes Cardio: Rate: regular rate Rhythm: regular rhythm Heart sounds: S1 normal heart sound present and S2 normal heart sound present GI: Inspection: Yes normal to inspection Skin: General skin exam: no rashes or lesions noted Trauma: no lacerations or abrasions Wounds: no wounds Neuro: General: patient oriented x3 and moves all extremities Cranial nerves: Yes CN's II-XII intact bilaterally and Yes Equal, round and reactive pupils present Cognition (Neuro): normal cognition Motor exam (neuro): 5/5 motor strength present throughout and Pronator motor function not present P upils: Normal pupillary reactivity/response: bilateral Extrem: General: Yes normal to inspection Right upper extremity: normal to inspection Left upper extremity: normal to inspection Right lower extremity: normal to inspection Left lower extremity: normal to inspection Course Reevaluation(s) Reevaluation #1: 11:22 PM 08/08/2025 (Mariel THOMPSON): The patient was signed out to this provider at shift change, in summary the patient is a 75-year-old male who currently lives in assisted living presenting to the ED initially for evaluation of a headache for the past week. The patient required multiple doses of pain management and anxiolytics in order to obtain CTA of the head which eventually was unremarkable. After medications were administered to facilitate CTA, the patient was found to be orthostatic, blood pressure dropped to 77 systolic while standing but returned to normal while lying down. The patient was asymptomatic at time of standing. The patient was also found to have difficulty urinating, with a bladder scan of 450. The patient received IV fluid hydration for his orthostasis. Patient was signed out to this provider pending repeat orthostatics following IV fluid hydration, and postvoid residual following urination. The patient's orthostasis has resolved following IV fluid hydration, patient is normotensive without positional change. The patient has urinated since the initial bladder scan however postvoid residual reveals persistent retention of 450 mL. The patient will have a Henderson catheter placed. The patient states he feels unsafe returning to his assisted living facility due to deconditioning and increasing difficulty managing his ADLs. The patient will be placed under observation for case management and PT consultation. Med reconciliation completed. Time: 17:30 Date: 08/09/25 Provider: JAY Cornell Patient in physician observation for case management needs. Patient had reported that he continues to have headache, requesting more opiate pain medication. I discussed with patient that it is not in his best interest to continue medicating with opioid medications, and he already has Discussed with patient that Time: 08:58 Date: 08/10/25 Provider: JAY Lua Patient in physician observation for case management needs. No acute events reported overnight. VS stable. Patient is pending PT eval. Will continue to monitor. -patient persistently requesting Henderson catheter to be removed. Case management spoke with facility and patient with extensive psych history. Hoping patient can have trial to void in the ED prior to potential return to facility. Will remove Henderson catheter and attempt trial to void Time: 08:47 Date: 08/11/25 Provider: Alie Julien PA-C Patient in physician observation for case management needs. No acute events reported overnight.? No current issues or complaints. VS stable. Patient has been voiding. I spoke with the nurse who stated patient urinated approximately 50cc with bladder scan revealing 32cc remaining. Patient voiding without issue at this time. Henderson has been discontinued. Will continue to ensure patient is voiding without retention. Will continue to monitor as we await case management disposition. - Patient to discharge to [facility] with A services for physical therapy this morning. Patient continues to void without issue. Will continue to monitor as we await transportation for discharge. Medications Administered Discontinued Medications Generic Name Dose Route Start Last Admin Trade Name Freq PRN Reason Stop Dose Admin Acetaminophen 650 mg 08/09/25 09:04 08/11/25 07:54 Acetaminophen 325 Mg Tablet PO 650 mg Q6H PRN Administration Pain, Moderate(Pain Scale 4-6) Apixaban 5 mg 08/08/25 23:20 08/11/25 07:58 Apixaban 5 Mg Tablet PO 5 mg BID STORM Administration Budesonide 3 mg 08/09/25 09:00 08/11/25 09:[address] 3 Mg Capsule PO Not Given DAILY STORM Clonazepam 1 mg 08/08/25 12:27 08/08/25 13:10 Clonazepam 1 Mg Tablet PO 08/08/25 12:28 1 mg ONCE ONE Administration Clonazepam 1 mg 08/08/25 23:30 08/11/25 07:55 Clonazepam 1 Mg Tablet PO 1 mg BID STORM Administration Diazepam 2.5 mg 08/08/25 15:16 08/08/25 15:19 Diazepam 10 Mg/2 Ml Cartridge IVPUSH 08/08/25 15:17 2.5 mg STAT ONE Administration Finasteride 5 mg 08/09/25 09:00 08/11/25 07:59 Finasteride 5 Mg Tablet PO Not Given DAILY STORM Hydromorphone HCl 0.75 mg 08/08/25 13:26 08/08/25 13:38 Hydromorphone Hcl 1 Mg/Ml Syringe IVPUSH 08/08/25 13:27 0.75 mg ONCE ONE Administration Protocol Sodium Chloride 1,000 mls @ 500 mls/hr 08/08/25 12:06 08/08/25 15:13 Ns IV 08/08/25 14:05 Infused .Q2H ONE Infusion Acetaminophen 1,000 mg in 100 mls @ 400 mls/hr 08/08/25 15:08 08/08/25 16:12 Ofirmev IV 08/08/25 15:22 Infused ONCE ONE Infusion Sodium Chloride 1,000 mls @ 500 mls/hr 08/08/25 18:04 08/08/25 21:26 Ns IV 08/08/25 20:03 Infused .Q2H ONE Infusion Iohexol 70 ml 08/08/25 15:42 08/08/25 15:42 Iohexol 350 Mg/Ml 100 Ml Infus..Btl IV 08/08/25 15:43 70 ml ONCE ONE Administration Mirtazapine 30 mg 08/08/25 23:30 08/10/25 23:12 Mirtazapine 30 Mg Tablet PO 30 mg BEDTIME STORM Administration Morphine Sulfate 5 mg 08/08/25 12:04 08/08/25 12:25 Morphine Sulfate 10 Mg/Ml Cartridge IVPUSH 08/08/25 12:05 5 mg ONCE ONE Administration Protocol Morphine Sulfate 5 mg 08/08/25 18:02 08/08/25 18:07 Morphine Sulfate 10 Mg/Ml Cartridge IVPUSH 08/08/25 18:03 5 mg ONCE ONE Administration Protocol Multivitamins/Vitamin C 1 tab 08/09/25 09:00 08/11/25 07:56 Multivitamin Tablet PO 1 tab DAILY [facility] Administration Nystatin 1 appl 08/09/25 09:00 08/11/25 09:43 Nystatin Cream 15 Gm Tube TOPICAL Not Given DAILY [facility] Protocol Omeprazole 20 mg 08/09/25 09:00 08/11/25 07:54 Omeprazole 20 Mg Capsule.Dr PO 20 mg DAILY STORM Administration Oxycodone HCl 2.5 mg 08/08/25 23:16 08/11/25 12:10 Oxycodone Hcl Immed Release 5 Mg Tablet PO 2.5 mg BID PRN Administration Moderate Pain (Scale Score 5-6) Polyethylene Glycol 17 gm 08/08/25 23:34 08/09/25 12:19 Polyethylene Glycol 3350 17 Gm Powd.Pack PO 17 gm DAILY PRN Administration Constipation Senna 8.6 mg 08/09/25 09:00 08/11/25 07:57 Sennosides 8.6 Mg Tablet PO 8.6 mg DAILY STORM Administration Tamsulosin HCl 0.4 mg 08/09/25 09:00 08/11/25 07:56 Tamsulosin Hcl 0.4 Mg Capsule PO 0.4 mg DAILY STORM Administration Medical Decision Making Medical Decision Making [facility] Narrative: This is a 75-year-old male, with a past medical history of prostate cancer, and splenic infarct many years ago on Eliquis, who presents emergency department with concerns of ongoing headache for the last week. On arrival, patient well- appearing, appears to be under no acute distress. Vital signs within normal limits. He is speaking full sentences. He is neurologically intact with no focal deficits on examination. Patient describes headache ongoing for the last week, not resolving with Tylenol and oxycodone. Given cancer history, differential diagnoses include metastasis, mass, also considering intracranial hemorrhage secondary to anticoagulation. Also considered orthostatic hypotension and viral-like process. We will obtain labs, EKG, CT head and CT angio to rule out any acute process. We will continue to monitor. We will also medicate with IV fluids, IV morphine. We will also medicate with Klonopin as patient is very anxious about the CT scan. 2:29 PM 08/08/2025 (Carey Isaac PA-C): Patient requiring additional dose of pain medication, medicated with Dilaudid. Patient refusing to go to CT scan initially because his pain was not well controlled. Pt now refused to go to CT scan due to difficulty urinating, requesting straight cath. Given history of prostate cancer he occasionally has to do this. 5:45 PM 08/08/2025 (Carey Isaac PA-C): CT head and CTA unremarkable. Patient does have a small right thyroid nodule, however does not meet criteria for follow-up. Does have mild cervical degenerative spondylosis noted. Patient was mildly orthostatic therefore patient was medicated with IV fluids. 6:03 PM 08/08/2025 (Carey Isaac PA-C): Extensive conversation at bedside with patient, he states that he continues to have a headache despite IV fluids and IV pain medication. He also has fixated on the fact that he has not been able to urinate. He did require catheter. Will medicate with IV fluids, as well as IV morphine, and reassess to ensure that patient is able to give a urine sample. 9:02 PM 08/08/2025 (Carey Isaac PA-C): 2 L of IV fluids was administered. Wanted to repeat ortho is to ensure that his symptoms have improved as patient was borderline orthostatic. Patient is still unable to produce a urine sample therefore bladder scan will be obtained. If patient is experiencing urinary retention, discussed Henderson catheter placement. Repeat orthos revealing hypotension - may be due to medications or error, will finish fluids, repeat orthos, bladder scan. Discussed that he feels as though he is being deconditioned at his [facility], therefore he would like to be evaluated by PT/CM to see if there are any additional resources available - also expresses concerns of not being able to take care of himself should he need a catheter placed. Sign out given to my colleague, Marlon Carrion PA-C. Differential Diagnosis Differential Diagnoses: The differential diagnosis associated with the presentation includes See above Admission/Observation Consideration of admission/observation: Escalation of care including admission/observation considered Lab Data MDM Lab Attestation statement: I reviewed the patient's lab results. Patient has a leukocytosis, he has a normocytic anemia with an H&H of 12.5/39.1, chemistry revealing no significant electrolyte derangement. Viral swabs negative. 08/08/25 12:26 08/08/25 12:26 Labs: Lab Results 08/08/25 08/08/25 08/08/25 Range/Units 12:26 12:39 20:57 WBC 6.2 (4.8-10.8) X10*3/uL RBC 4.45 L (4.60-5.80) X10*6/uL Hgb 12.5 L (14.0-18.0) g/dl Hct 39.1 L (42.0-52.0) % MCV 87.9 (80.0-98.0) fL MCH 28.1 (27.0-33.0) pg MCHC 32.0 (31.0-36.0) g/dl RDW 13.5 (11.0-16.0) % Plt Count 221 (160-400) X10*3/uL MPV 8.7 L (9.4-12.4) fL Immature Gran % (Auto) 0.2 (0.0-0.4) % Neut % (Auto) 58.4 (45-73) % Lymph % (Auto) 29.8 (20-40) % [place] % (Auto) 8.2 (2-11) % Eos % (Auto) 2.6 (0-4) % Baso % (Auto) 0.8 (0-2) % Lymph # (Auto) 1.9 (1.2-4.9) X10*3/uL [place] # (Auto) 0.5 (0.1-1.2) X10*3/uL Eos # (Auto) 0.2 (0.0-0.4) X10*3/uL Baso # (Auto) 0.1 (0.0-0.2) X10*3/uL Abs Immat Gran (auto) 0.01 (0.00-0.03) X10*3/uL Absolute Neuts (auto) 3.6 (2.0-8.3) x10*3/uL Absolute Nucleated RBC 0.000 (0.0-0.012) X10*3/uL Nucleated RBC % (auto) 0.0 (0.0-0.2) /100WBC Sodium 140 (135-145) mmol/L Potassium 4.2 (3.3-5.1) mmol/L Chloride 105 (96-108) mmol/L Carbon Dioxide 26 (22-29) mmol/L Anion Gap 13 (12-20) BUN 9 (9-16) mg/dL Creatinine 0.72 (0.5-1.4) mg/dL Estim Creat Clear Calc 95.8 Estimated GFR > 60 Random Glucose 91 (60-115) mg/dL Calcium 9.4 (8.4-10.2) mg/dL Magnesium 2.0 (1.6-2.6) mg/dL Total Bilirubin 0.5 (0.0-1.0) mg/dL Direct Bilirubin 0.1 (0.0-0.5) mg/dL AST 27 (5-37) U/L ALT 27 (0-40) U/L Alkaline Phosphatase 57 (39-117) U/L Troponin I High Sens < 2.7 (<3.5-35.0) ng/L Total Protein 6.9 (6.5-8.0) g/dL Albumin 4.5 (3.5-5.0) g/dL Urine Color Yellow Urine Appearance Clear Urine pH 6.5 (5.0-9.0) Ur Specific [place] >= 1.030 H (1.005-1.025) Urine Protein Negative (Neg-Trace) mg/dL Urine Glucose (UA) Negative (Negative) mg/dL Urine Ketones Negative (Negative) mg/dL Urine Blood Small (1+) H (Negative) Urine Nitrite Negative (Negative) Ur Leukocyte Esterase Trace H (Negative) Urine RBC 3-5 H (0-2) /HPF Urine WBC 11-20 H (0-5) /HPF Ur Squamous Epith Cells 0-2 (0-2) /HPF Urine Bacteria None Seen (None Seen) Hyaline Casts 0-2 (0-2) /LPF COVID-19 (DARA) Negative (Negative) COVID-19 Clin Com See Note Influenza Type A (POLLO) Negative (Negative) Influenza Type B (POLLO) Negative (Negative) Influenza A & B Note See Note Independent Interpretation I performed an independent interpretation of an: EKG Interpretation: EKG normal sinus rhythm at a ventricular rate of 62 beats per minute, PA interval 182, QT QTC 448/454, no STEMI. Radiology Impression Discussion of test interpretation with radiology: I have reviewed the radiologist's reading. Radiologist Impression: Findings: Slight reconstruction artifact throughout the exam. HEAD CT: No intra-axial mass, midline shift, hydrocephalus, or acute hemorrhage. Mild atrophy like change. There is no sinus or mastoid fluid. The orbits are within normal limits. No skull fracture. HEAD AND NECK CTA: Aortic arch and cervical great vessels are patent. Intracranial arteries are patent. No aneurysm, dissection, or occlusion. No abnormal intracranial enhancement. Small right thyroid nodule does not meet criteria for follow-up. Lung apices clear. Mild cervical degenerative spondylosis. IMPRESSION: 1. No acute findings on noncontrast head CT. 2. Patent head and neck cTA. This document has been electronically signed by: Ajit Gonzales MD on 08/08/2025 17:01:28 Dictated By: Ajit Gonzales MD Discharge Plan Discharge Clinical Impression: Headache Patient Disposition: Home, Self-Care Prescriptions: No Action ondansetron HCl 4 mg tablet 4 mg PO Q8H PRN (Reason: nausea) Qty: 7 0RF fluoxetine 10 mg capsule 10 mg PO DAILY multivitamin Tablet 1 tab PO DAILY sennosides 8.6 mg tablet 8.6 mg PO DAILY acetaminophen [Tylenol] 325 mg tablet 325 mg PO QID PRN (Reason: Pain) clonazepam [Klonopin] 1 mg tablet 1 mg PO BID tamsulosin 0.4 mg capsule 0.4 mg PO DAILY mirtazapine 30 mg tablet 30 mg PO BEDTIME nystatin 100,000 unit/gram cream 1 appl topical DAILY budesonide 3 mg capsule,delayed,extend.release 3 mg PO DAILY oxycodone 5 mg tablet 2.5 mg PO BID PRN (Reason: Moderate Pain (Scale Score 5-6)) Patient Comments: 2.5 mg PO QD PRN polyethylene glycol 3350(bulk) [Base B,Polyethylene [id number]] Granules 1 ea miscellaneous DAILY PRN (Reason: Constipation) Eliquis 5 mg tablet 5 mg PO BID Adult 50 Plus Probiotic 4 billion cell capsule 4,000 mmu cells PO DAILY Rx Instructions: administer with a meal [facility] [Outside] Interventions: ED Discharge Assessment Last Done: 08/11/25 13:34 Discharge Date/Time: 08/11/25 13:34 Print Language: Danish
--- NOTE | 2025-08-08 12:04 | ECG_ITS ---
Test Reason : DIZZINESS Blood Pressure : */* mmHG Vent. Rate : 62 BPM Atrial Rate : 62 BPM P-R Int : 182 ms QRS Dur : 116 ms QT Int : 448 ms P-R-T Axes : 59 46 49 degrees QTcB Int : 454 ms Normal sinus rhythm Normal ECG No previous ECGs available Referred By: Carey Isaac Electronically Signed By: Geovanny Agustin
--- OUTSIDE RECORDS SUMMARY | 2025-08-08 12:15 | XMS_ITS | Encounter Summary ---
Author Organization [facility] Address [address], [place] [address] Phone Care Team Providers Care Barrel Rifler Button Name Role Phone Unavailable Primary Care Provider Unavailabl e Encounter Details Date Type Department Care Team (Late st Contact Info) Description 05/09/2022 Hospital/ED/SNF/HH Visit [facility] [address] [phone] Provider, MD Daphne [address] [place] [id number] Social History Tobacco Use Types Packs/Day [...]
--- OUTSIDE RECORDS SUMMARY | 2025-08-08 12:15 | XMS_ITS | Encounter Summary ---
Author Organization [facility] Address [address] [address] Phone Care Team Providers Care Biological Science Technician Fish Name Role Phone Unavailable Primary Care Provider Unavailabl e Encounter Details Date Type Department Care Team (Late st Contact Info) Description 04/28/2022 Hospital/ED/SNF/HH Visit [facility] [address] [phone] Provider, MD Daphne [address] [place] [id number] Social History Tobacco Use Types Packs/Day [...]
--- OUTSIDE RECORDS SUMMARY | 2025-08-08 12:15 | XMS_ITS | Clinical Summary ---
Author Organization [facility] Address [address] [place] [id number] Phone Care Team Providers Care Commercial Real Estate Underwriter Name Role Phone Unavailable Primary Care Provider [...]
--- OUTSIDE RECORDS SUMMARY | 2025-08-08 12:15 | XMS_ITS | Clinical Summary ---
Author Organization [facility] [place] [address] Care Team Providers Care News Video Editor Name Role Phone Keon Giron MD Primary Care Provider [phone] Social History Tobacco Use Types Packs/Day Years [...] series) 06/22/2025 [place] [id number] [facility] Care Teams News Video Editor Relationship Specialty Start Date End Date Keon Giron MD [address] [place] [phone] PCP - General Internal Medicine 09/06/18
[2025-08-08 12:51] LABS: MANUAL DIFF FLAG NO
[2025-08-08 12:53] LABS: Hematocrit 39.1 % (42.0-52.0); Hemoglobin 12.5 g/dl (14.0-18.0); Imm Gran Abs Auto 0.01 X10*3/uL (0.00-0.03); Imm Gran Pct Auto 0.2 % (0.0-0.4); Lymphocytes Absolute Auto 1.9 X10*3/uL (1.2-4.9); Mean Corpuscular HGB Conc 32.0 g/dl (31.0-36.0); Mean Corpuscular Hemoglobin 28.1 pg (27.0-33.0); Mean Corpuscular Volume 87.9 fL (80.0-98.0); NRBC Abs Auto 0.000 X10*3/uL (0.0-0.012); NRBC Pct Auto 0.0 /100WBC (0.0-0.2); Platelet Count 221 X10*3/uL (160-400); Red Blood Count 4.45 X10*6/uL (4.60-5.80); White Blood Count 6.2 X10*3/uL (4.8-10.8)
[2025-08-08 13:08] LABS: COVID-19 Test Negative (Negative); IDNOW Serial# 6674DD1D
[2025-08-08 13:10] LABS: Alanine Aminotransferase 27 U/L (0-40); Albumin Level 4.5 g/dL (3.5-5.0); Alkaline Phosphatase 57 U/L (39-117); Anion Gap 13 (12-20); Aspartate Amino Transferase 27 U/L (5-37); Blood Urea Nitrogen 9 mg/dL (9-16); Calcium 9.4 mg/dL (8.4-10.2); Carbon Dioxide 26 mmol/L (22-29); Chloride 105 mmol/L (96-108); Creatinine Clr Calc Pharmacy 95.8; Estimated Glomerular Filt Rate > 60; Magnesium 2.0 mg/dL (1.6-2.6); Potassium 4.2 mmol/L (3.3-5.1); Sodium 140 mmol/L (135-145); Total Protein 6.9 g/dL (6.5-8.0)
[2025-08-08 13:17] LABS: IDNOW Serial# 55D5AD1C; Influenza B2 Negative (Negative)
[2025-08-08 13:41] LABS: Troponin-I High Sensitivity < 2.7 ng/L (<3.5-35.0)
--- NOTE | 2025-08-08 14:39 | PHA.MEDREC ---
Pharmacy Consult ? Medication Reconciliation Pharmacy has completed the medication reconciliation. Utilized list from [facility] to confirm meds.
[2025-08-08] MEDS: diazePAM 10 MG/2 ML CARTRIDGE 2.5 MG IVPUSH (15:19)
[2025-08-08] MEDS: iohexoL 350 MG/ML 100 ML INFUS..BTL 70 ML IV (15:42)
[2025-08-08 21:08] LABS: Appearance Urine Clear; Glucose Urine UA Negative (Negative); PH 6.5 (5.0-9.0); Specific Gravity - Urine >= 1.030 (1.005-1.025); UMIC TRIGGER UACC YES
[2025-08-08 21:17] LABS: UACC Culture Trigger YES
[2025-08-09] MEDS: oxyCODONE HCl Immed Release 5 MG TABLET 2.5 MG PO (08:51)
[2025-08-09 09:25] VITALS: BP 121/69; PULSE 77; RESP 16; TEMP 36.6; O2SAT 97
--- NOTE | 2025-08-09 10:35 | PC.NURSE ---
Caring for patient, pt provided with morning medications per MAR in addition to additional medications for his headache but sts no improvment in headache. A+OX4, calm, cooperative. No visible s/s of distress. Henderson in palce and draining. Pt ate his breakfast.
--- NOTE | 2025-08-09 11:23 | MHC.CM.PN ---
Received consult for assessment of d/c planning needs: met with pt who resides at [facility], has no additional services and uses a walker. Pt states he has been steadily declining mentally and physically and is under the care of a psychiatric specialist who manages his medications. Pt now has a bhatt for urinary retention and has concerns about self management. Pt states his balance is off and he doesn't feel safe to return to [facility] at this time. PT eval pending - will refer to [facility] in the interim. ED care team updated on plan.
--- NOTE | 2025-08-09 12:23 | PC.NURSE ---
pt complains of 9/10 headache and 6/10 abdominal pain. Pt sts that he feels like he needs to defacate and has not been able to- PRN miralax administered per order. Advised of PRN APAP schedule that is not due until 0. and oxy is ordered BID. Pt began to perseverate on the fact that he only received 2.5mg of Oxycodone, and that is too small of a dose and demands that this nurse obtain an order for more pain meds now . PT/CM covering PA notified.
[2025-08-09 12:24] VITALS: BP 109/67; PULSE 75; RESP 16; TEMP 36.4; O2SAT 96
--- NOTE | 2025-08-09 13:13 | HO.NURTONUR ---
pt provided with coffee to help with headache and hopefully BM.
[2025-08-09 16:54] VITALS: BP 121/65; PULSE 67; RESP 18; O2SAT 95
--- NOTE | 2025-08-09 18:57 | PC.NURSE ---
report given to MARISA Goldsmith pt to be moved to overflow
[2025-08-09 20:25] VITALS: BP 100/70; PULSE 66; RESP 16; TEMP 37; O2SAT 95
[2025-08-10 06:15] VITALS: BP 137/77; PULSE 72; RESP 14; TEMP 36.7; O2SAT 97
[2025-08-10] MEDS: Budesonide DR 3 MG Capsule PO (09:33)
--- NOTE | 2025-08-10 11:29 | MHC.CM.ED ---
Addendum entered by Tonia Givens 08/10/25 14:02: Patient aware [facility] is still reviewing. Patient states he is unable to privately pay for SNF. Patient has a CM named Cris. Patient requesting CM speak with Cris. Called Cris via telephone at [phone]. Cris verifies patient does not have funds to private. Cris requesting if patient would qualify for inpatient. T/W explained patient did not qualify for inpatient hospital level of care. Cris requesting return telephone call in 10 mins. Patient requesting to have bhatt removed. Celia THOMPSON aware and asked to meet with patient. Original Note: Patient remains in ER overflow. Physical therapy eval completed. Rehab is recommended. Patient has not had a qualifying hospital stay. Referral will be sent to all 3 acute rehabs. Continue to monitor for d/c needs.
--- NOTE | 2025-08-10 14:22 | MHC.CM.ED ---
Received telephone call from Nakia. Patient has an extensive psych history, with psycho-somatic symptoms and manifestations. Patient was recently started on Prozac from outpatient psych. Patient has exhibited very possible side effect. Nakia is hoping to have a voiding trial and have patient return home without a bhatt. Celia THOMPSON aware. Continue to monitor for d/c needs.
[2025-08-10 14:25] VITALS: BP 105/71; PULSE 82; RESP 20; TEMP 37.1; O2SAT 97
[2025-08-10] MEDS: oxyCODONE HCl Immed Release 5 MG TABLET 2.5 MG PO (19:45)
--- NOTE | 2025-08-10 20:06 | PC.NURSE ---
Pt alert and oriented x4, Pt with bhatt draining c/y/u, removed per protocol for voiding trial. Pt had concern he would not be accepted back to his [facility] and that he could not manage the catheter himself. He is DTV at 0030 08/11/2025.
[2025-08-10 21:26] VITALS: BP 107/75; PULSE 78; RESP 16; TEMP 36.7; O2SAT 95
[2025-08-11 06:00] VITALS: BP 120/63; PULSE 88; RESP 16; TEMP 36.6; O2SAT 96
[2025-08-11] MEDS: oxyCODONE HCl Immed Release 5 MG TABLET 2.5 MG PO ×2 (07:50→12:10)
--- NOTE | 2025-08-11 10:10 | MHC.CM.ED ---
Patient remains in ER overflow. Henderson was d/c'd last night. Patient was able to void. Spoke with Nakia, outpatient case mgr via telephone at [phone]. Nakia aware patient will d/c home. Patient has been active with [facility] in the past. Referral made to Mari via [facility] for physical therapy. Spoke with Cat at [facility]. [facility] is unable to provide transportation on such short notice. Met with patient in regards to discharge planning. Patient worried about going home and falling. T/W reminded patient he can fall anywhere, especially if he isn't using his walker. Patient verbalizes understanding. Olimpia MCKEE booked for 1pm. Med nec with chart. Patient, Ysabel Cunningham, Alie THOMPSON, Samantha Choirmaster and Carmen CUNNINGHAM at [facility] all aware. Continue to monitor for d/c needs.
[2025-08-11 13:34] VITALS: BP 120/63; PULSE 88; RESP 16; TEMP 36.6; O2SAT 96
== END 2025-08-11 13:34 | disposition home or self-care (01) ==
PROVIDERS: Physician Assistant Medical; Emergency Provider Emergency Medicine
DX: R51.9 Headache, unspecified (principal); Z79.01 Long term (current) use of anticoagulants; Z85.46 Personal history of malignant neoplasm of prostate; Z79.899 Other long term (current) drug therapy
CPT/HCPCS: 70496; 70498; 80048; 80076; 81001; 83735; 84484; 85025; 87086; 87147; 87502; 87635; 93005; 96361; 96365; 96375; 96376; 97162; 99285; J0131; J1171; J2270; J3360; Q9967

== ENCOUNTER → 2025-08-08 12:04 | Outpatient (BNV) | payer MEDICARE, SELFPAY | PROVIDERS: Emergency Provider Emergency Medicine; Visit Provider Internal Medicine Cardiovascular Disease | DX: R42 Dizziness and giddiness (principal) | CPT/HCPCS: 93010 ==

== ENCOUNTER → 2025-08-08 12:04 | Outpatient (BNV) | payer MEDICARE, SELFPAY | PROVIDERS: Emergency Provider Emergency Medicine; Visit Provider Radiology Diagnostic Radiology | DX: R51.9 Headache, unspecified (principal); R42 Dizziness and giddiness | CPT/HCPCS: 70496; 70498 ==

== ENCOUNTER 2025-08-12 10:06 | Emergency (ER) | payer MEDICARE, SELFPAY ==
--- NOTE | 2025-08-12 10:11 | ECG_ITS ---
Test Reason : weakness Blood Pressure : */* mmHG Vent. Rate : 64 BPM Atrial Rate : 64 BPM P-R Int : 180 ms QRS Dur : 114 ms QT Int : 440 ms P-R-T Axes : -13 43 28 degrees QTcB Int : 453 ms Normal sinus rhythm Normal ECG When compared with ECG of 08-Aug-2025 12:31, No significant change was found Referred By: Ludy Collier Electronically Signed By: TABITHA TVOAR MD
[2025-08-12 10:12] VITALS: BP 111/70; PULSE 74; O2SAT 97
[2025-08-12 10:19] VITALS: BP 112/67; PULSE 70; RESP 16; TEMP 36.3; O2SAT 97; BMI 23.9
--- NOTE | 2025-08-12 10:27 | ED.MALEGU ---
HPI - Male Genitourinary General Chief complaint: Urogenital-Male Stated complaint: urinary retention Time Seen by Provider: 08/12/25 10:08 Source: patient and EMS Mode of arrival: EMS Limitations: no limitations History of Present Illness ED Provider: MEKA BENAVIDES Narrative: 75 yo male with PMH of prostate cancer currently under work up at [facility]/Urology, splenic blood clot on eliquis in past, recurrent c/o issues voiding did have a bhatt on 08/08 but it was moved and had normal PVR. He now c/o lower abd pressure and no voiding since last night. He c/o chronic headache as well with normal head CT and CTA on 08/08. His family and his medical providers have called ahead to the department and are requesting he have a psychiatric consult. MD Complaint: other (urinary retention) Onset (ago): hour(s) (several) Duration: intermittent Location: abdomen Severity: mild Quality: dull Relieving factors: urination Exacerbating factors: none Context: other Associated symptoms: Reports denies other symptoms Related Data Home Medications ?Medication ?Instructions ?Recorded ?Confirmed acetaminophen 325 mg tablet 325 mg PO QID PRN Pain 06/26/25 08/12/25 (Tylenol) apixaban 5 mg tablet (Eliquis) 5 mg PO BID 06/26/25 08/12/25 budesonide 3 mg 3 mg PO DAILY 06/26/25 08/12/25 capsule,delayed,extended release clonazepam 1 mg tablet (Klonopin) 1 mg PO BID 06/26/25 08/12/25 lactobacillus combination no.9 4 4,000 mmu cells PO DAILY 06/26/25 08/12/25 billion cell capsule (Adult 50 Plus Probiotic) mirtazapine 30 mg tablet 30 mg PO BEDTIME 06/26/25 08/12/25 multivitamin 1 tab PO DAILY 06/26/25 08/12/25 nystatin 100,000 unit/gram topical 1 appl topical DAILY 06/26/25 08/12/25 cream oxycodone 5 mg tablet 2.5 mg PO BID PRN Moderate Pain 06/26/25 08/12/25 (Scale Score 5-6) polyethylene glycol 3350(bulk) 1 ea miscellaneous DAILY PRN 06/26/25 08/12/25 (Base B, Polyethylene Glycol 3350 Constipation granules) sennosides 8.6 mg tablet 8.6 mg PO DAILY 06/26/25 08/12/25 tamsulosin 0.4 mg capsule 0.4 mg PO DAILY 06/26/25 08/12/25 fluoxetine 10 mg capsule 10 mg PO DAILY 08/12/25 08/12/25 Previous Rx's ?Medication ?Instructions ?Recorded ondansetron HCl 4 mg tablet 4 mg PO Q8H PRN nausea #7 tabs 07/06/25 Allergies Allergy/AdvReac Type Severity Reaction Status Date / Time No Known Allergies Allergy Verified 08/12/25 10:20 Review of Systems Review of Systems: Constitutional : No Fever, No Chills, No Fatigue ENT/Mouth : No sore throat, No Rhinorrhea Eyes: No Eye Pain, No Swelling, No Redness Cardiovascular : No Chest Pain, No SOB, No Dyspnea on Exertion Respiratory : No Cough, No Sputum Gastrointestinal : No Nausea, No Vomiting, No Diarrhea, pos abdominal Pain Genitourinary : No Dysuria, No Urinary Frequency, No Hematuria, pos retention Musculoskeletal : No joint pain, No Myalgias, No Joint Swelling Skin : No Skin Lesions, No rash Neuro : No Weakness, No Numbness, No Dizziness, positive Headache All other systems reviewed and are negative [facility] Past Medical History Attestation statement: The following information was validated with the patient. Source: old records reviewed Medical History Prostate cancer Social History Social History Alcohol intake: unknown Patient Tobacco Use Status: Tobacco use Unknown Use of substances other than those prescribed or required for medical reasons: No Advance Directives: No Advance Directives Information Provided: Yes Physical Exam Vital Signs: Vital Signs: Last Vital Signs Temp 97.9 F 08/12/25 17:01 Pulse 73 08/12/25 17:01 Resp 18 08/12/25 17:01 BP 139/76 08/12/25 17:01 Pulse Ox 98 08/12/25 12:38 O2 Del Method Room Air 08/12/25 12:38 BMI result Body Mass Index 23.9 Appearance: Alert. Oriented X3. No acute distress. Eyes: Pupils equal, round and reactive to light. ENT: Pharynx normal. Neck: Normal inspection. Neck supple. CVS: Normal heart rate and rhythm. Pulses normal. Respiratory: No respiratory distress. Breath sounds normal. Abdomen: Soft and mild suprapugib ttp no rebound or guarding Skin: Skin warm and dry. Normal skin color. Normal skin turgor. Extremities: No lower extremity edema. No calf ttp Neuro: Oriented X 3. No motor deficit. No sensory deficit. CN2-12 intact Course Reevaluation(s) Reevaluation #1: Latisha: The patient was signed out to me at change of shift. The patient is a 75-year-old male who was in the emergency room for the last 3 days after 1st presenting with a headache and also complaining of urinary difficulties. The patient had a negative head CT and CT angiogram. The patient was medically cleared and the patient was then a case management the patient for the next 2 days. The patient has been given a urinary catheter because of a postvoid residual of 450 mL. Ultimately the patient was not happy with the catheter and the catheter was removed and he was able to void reasonably well. He was then discharged yesterday back to his assisted living facility. The patient returns to the emergency room today complaining of suprapubic discomfort and also complaining of depression. His postvoid residual today has been around 400 mL. He has been able to void several times. Additionally the patient was seen by the care team and by Psychiatry. The patient is not in any kind of acute psychiatric crisis. He seems somewhat chronically depressed but does not require hospitalization for his depression. His depression seems somewhat situational. He was cleared by the care team and by Psychiatry for discharge. At discharge we repeated a bladder scan. His initial bladder scan has been about 400 mL. He voided several times while in the emergency room today. His bladder scan at the moment is again about 400 mL. The patient was offered a catheter. He does not wish to have a catheter. He since he seems to have a somewhat stable degree of postvoid residual and since there was no sign of a UTI I think that discharging him without a catheter is not unreasonable. He has a urologist. He should contact his urologist in the morning for a follow up appointment to discuss this issue further. If however he experiences worsening suprapubic discomfort consistent with more significant acute urinary retention he will clearly need to returned to the hospital. The patient understands this. Time: 16:23 Medications Administered Discontinued Medications Generic Name Dose Route Start Last Admin Trade Name Keaton PRN Reason Stop Dose Admin Acetaminophen 975 mg 08/12/25 14:25 08/12/25 14:33 Acetaminophen 325 Mg Tablet PO 08/12/25 14:26 975 mg ONCE ONE Administration Medical Decision Making Medical Decision Making [facility] Narrative: 75 yo male with PMH of prostate cancer currently under work up at [facility]/Urology, splenic blood clot on eliquis in past, recurrent c/o issues voiding did have a bhatt on 08/08 now here with retention reports again though bladder scan is 232. I am going to obtain labs and UA. If work up reassuring will refer to CARE team - he has significant anxiety and recurrent visits to the hospital. Family requesting enoch psych eval. Differential Diagnosis Differential Diagnoses: The differential diagnosis associated with the presentation includes retention, dehydration, enlarged prostate Admission/Observation Consideration of admission/observation: Escalation of care including admission/observation considered will observe until clearedy by CARE team, phys obs started at 111am. Consult Healthcare Provider Management of the patient was discussed with: Behavioral Health Provider Lab Data [facility] Lab Attestation statement: I reviewed the patient's lab results. 08/12/25 11:03 08/12/25 11:03 Labs: Lab Results 08/12/25 08/12/25 Range/Units 11:03 12:31 WBC 5.9 (4.8-10.8) X10*3/uL RBC 4.20 L (4.60-5.80) X10*6/uL Hgb 11.9 L (14.0-18.0) g/dl Hct 36.1 L (42.0-52.0) % MCV 86.0 (80.0-98.0) fL MCH 28.3 (27.0-33.0) pg MCHC 33.0 (31.0-36.0) g/dl RDW 13.5 (11.0-16.0) % Plt Count 195 (160-400) X10*3/uL MPV 8.7 L (9.4-12.4) fL Immature Gran % (Auto) 0.2 (0.0-0.4) % Neut % (Auto) 53.7 (45-73) % Lymph % (Auto) 32.8 (20-40) % [place] % (Auto) 9.4 (2-11) % Eos % (Auto) 3.2 (0-4) % Baso % (Auto) 0.7 (0-2) % Lymph # (Auto) 1.9 (1.2-4.9) X10*3/uL [place] # (Auto) 0.6 (0.1-1.2) X10*3/uL Eos # (Auto) 0.2 (0.0-0.4) X10*3/uL Baso # (Auto) 0.0 (0.0-0.2) X10*3/uL Abs Immat Gran (auto) 0.01 (0.00-0.03) X10*3/uL Absolute Neuts (auto) 3.2 (2.0-8.3) x10*3/uL Absolute Nucleated RBC 0.000 (0.0-0.012) X10*3/uL Nucleated RBC % (auto) 0.0 (0.0-0.2) /100WBC Sodium 136 (135-145) mmol/L Potassium 4.1 (3.3-5.1) mmol/L Chloride 105 (96-108) mmol/L Carbon Dioxide 25 (22-29) mmol/L Anion Gap 10 L (12-20) BUN 8 L (9-16) mg/dL Creatinine 0.74 (0.5-1.4) mg/dL Estim Creat Clear Calc 96.1 Estimated GFR > 60 Random Glucose 87 (60-115) mg/dL Calcium 8.9 (8.4-10.2) mg/dL Magnesium 1.8 (1.6-2.6) mg/dL Total Bilirubin 0.6 (0.0-1.0) mg/dL Direct Bilirubin 0.2 (0.0-0.5) mg/dL AST 27 (5-37) U/L ALT 28 (0-40) U/L Alkaline Phosphatase 54 (39-117) U/L Total Protein 6.2 L (6.5-8.0) g/dL Albumin 3.9 (3.5-5.0) g/dL Urine Color Yellow Urine Appearance Clear Urine pH 7.0 (5.0-9.0) Ur Specific [place] 1.010 (1.005-1.025) Urine Protein Negative (Neg-Trace) mg/dL Urine Glucose (UA) Negative (Negative) mg/dL Urine Ketones Negative (Negative) mg/dL Urine Blood Negative (Negative) Urine Nitrite Negative (Negative) Ur Leukocyte Esterase Negative (Negative) Urine Opiates Screen Not Detected (Not Detect) Ur Buprenorphine Scrn Not Detected (Not Detect) ng/mL Ur Oxycodone Screen Positive H (Not Detect) ng/mL Urine Methadone Screen Not Detected (Not Detect) ng/mL Urine Fentanyl Screen Not Detected (Not Detect) Ur Barbiturates Screen Not Detected (Not Detect) Ur Phencyclidine Scrn Not Detected (Not Detect) Ur Amphetamines Screen Not Detected (Not Detect) U Benzodiazepines Scrn POSITIVE H (Not Detect) Urine Cocaine Screen Not Detected (Not Detect) U Marijuana (THC) Screen Not Detected (Not Detect) COVID-19 (DARA) Negative (Negative) COVID-19 Clin Com See Note Independent Interpretation I performed an independent interpretation of an: EKG Interpretation: Rate: 64 Rhythm: NSR [place]: normal Normal P waves. Normal STEF. Normal QRS complex. ST T wave : normal no BEVERLY qTC: 453 prior studies: no acute ischemia The study has been interpreted contemporaneously by me. . Independent Historian Clinical information obtained from an independent historian. History obtained from or confirmed by: EMS External Record Review External record reviewed: Inpatient record, Outpatient record, Prior outpatient labs and Prior outpatient radiology Discharge Plan Discharge Clinical Impression: Depression, Urinary retention Patient Disposition: Home, Self-Care Additional Instructions: You seem to have what we call a ?postvoid residual? of between 200 and 400 mL. This is larger than usual but since you are able to urinate it is reasonable to try avoiding a catheter for now. There is no sign of urinary infection. Please contact the urology office tomorrow morning to try to schedule a follow up appointment for this emergency room visit to discuss your bladder issues further. Return to the emergency room if you are significantly worse. Prescriptions: No Action ondansetron HCl 4 mg tablet 4 mg PO Q8H PRN (Reason: nausea) Qty: 7 0RF fluoxetine 10 mg capsule 10 mg PO DAILY multivitamin Tablet 1 tab PO DAILY sennosides 8.6 mg tablet 8.6 mg PO DAILY acetaminophen [Tylenol] 325 mg tablet 325 mg PO QID PRN (Reason: Pain) clonazepam [Klonopin] 1 mg tablet 1 mg PO BID tamsulosin 0.4 mg capsule 0.4 mg PO DAILY mirtazapine 30 mg tablet 30 mg PO BEDTIME nystatin 100,000 unit/gram cream 1 appl topical DAILY budesonide 3 mg capsule,delayed,extend.release 3 mg PO DAILY oxycodone 5 mg tablet 2.5 mg PO BID PRN (Reason: Moderate Pain (Scale Score 5-6)) Patient Comments: 2.5 mg PO QD PRN polyethylene glycol 3350(bulk) [Base B,Polyethylene [id number]] Granules 1 ea miscellaneous DAILY PRN (Reason: Constipation) Eliquis 5 mg tablet 5 mg PO BID Adult 50 Plus Probiotic 4 billion cell capsule 4,000 mmu cells PO DAILY Rx Instructions: administer with a meal Referrals: [facility] [Provider Group, Urology] Kimberly Davis MD [Primary Care Provider, Medical] Interventions: ED Discharge Assessment Last Done: 08/12/25 17:01 Print Language: Chadian
[2025-08-12 11:09] LABS: MANUAL DIFF FLAG NO
[2025-08-12 11:10] LABS: Hematocrit 36.1 % (42.0-52.0); Hemoglobin 11.9 g/dl (14.0-18.0); Imm Gran Abs Auto 0.01 X10*3/uL (0.00-0.03); Imm Gran Pct Auto 0.2 % (0.0-0.4); Lymphocytes Absolute Auto 1.9 X10*3/uL (1.2-4.9); Mean Corpuscular HGB Conc 33.0 g/dl (31.0-36.0); Mean Corpuscular Hemoglobin 28.3 pg (27.0-33.0); Mean Corpuscular Volume 86.0 fL (80.0-98.0); NRBC Abs Auto 0.000 X10*3/uL (0.0-0.012); NRBC Pct Auto 0.0 /100WBC (0.0-0.2); Platelet Count 195 X10*3/uL (160-400); Red Blood Count 4.20 X10*6/uL (4.60-5.80); White Blood Count 5.9 X10*3/uL (4.8-10.8)
[2025-08-12 11:25] LABS: Alanine Aminotransferase 28 U/L (0-40); Albumin Level 3.9 g/dL (3.5-5.0); Alkaline Phosphatase 54 U/L (39-117); Anion Gap 10 (12-20); Aspartate Amino Transferase 27 U/L (5-37); Blood Urea Nitrogen 8 mg/dL (9-16); Calcium 8.9 mg/dL (8.4-10.2); Carbon Dioxide 25 mmol/L (22-29); Chloride 105 mmol/L (96-108); Creatinine Clr Calc Pharmacy 96.1; Estimated Glomerular Filt Rate > 60; Magnesium 1.8 mg/dL (1.6-2.6); Potassium 4.1 mmol/L (3.3-5.1); Sodium 136 mmol/L (135-145); Total Protein 6.2 g/dL (6.5-8.0)
[2025-08-12 11:34] LABS: COVID-19 Test Negative (Negative); IDNOW Serial# 58CA691E
--- NOTE | 2025-08-12 12:28 | MHC.EDTECH ---
pt able to urinate 100 mL of yellow urine via urinal post bladder scan
[2025-08-12 12:38] VITALS: BP 139/76; PULSE 73; RESP 18; TEMP 36.6; O2SAT 98
[2025-08-12 12:40] LABS: Appearance Urine Clear; Glucose Urine UA Negative (Negative); PH 7.0 (5.0-9.0); Specific Gravity - Urine 1.010 (1.005-1.025)
--- OUTSIDE RECORDS SUMMARY | 2025-08-12 13:16 | XMS_ITS | Clinical Summary ---
Author Organization Formerly [facility] [place] [address] Care Team Providers Care Baggage Agent Supervisor Name Role Phone Keon Giron MD Primary Care Provider [phone] Social History Tobacco Use Types Packs/Day Years [...] series) 06/22/2025 [place] [id number] [facility] Care Teams Baggage Agent Supervisor Relationship Specialty Start Date End Date Keon Giron MD [address] [place] [id number] PCP - General Internal Medicine 09/06/18
--- NOTE | 2025-08-12 13:32 | MHC.CARE ---
Pt will be a psychiatry consult
--- NOTE | 2025-08-12 15:23 | MHC.CARE ---
Per psych consult Pt does not present as an imminent risk or meet IPLOC. Pt may return to his facility. ED provider notified.
--- NOTE | 2025-08-12 15:46 | P.CNPS_ITS ---
History of Present Illness Date of Service: 08/12/2025 Chief Complaint: urinary retention Reason for Consult: Depression with passive SI Requesting physician: Wisam Good Discussed with referring provider: Yes Sources of Information: patient interviewed and chart reviewed HPI Narrative: Patient found lying in his bed in the ED. He is alert and oriented x4. He reports history of depression which started after his son 20 years ago from drug overdose. His son survived a plan crash but a year later. His depressive symptoms have been intermittent but progressively worsened. He has also been experiencing passive SI for a very long time. He does not have a plan. He wants to go to sleep and never wake up. He wishes there was physician assistant maintenance manager suicide. He attributes his depressive symptoms and suicide thoughts to the of his son and chronic medical issues, including prostate cancer. He has also been experiencing short-term and long-term memory call for while. He thinks that his mother may have had mild dementia that was undiagnosed. He has had ECT about 77 times, 8-12 sessions each time. He does not want to have ECT at this time. He admits to taking his medications as prescribed. He notes that he lives in an assisted living facility and his medications are administered to him. He endorses history of suicide attempt by prescription and ayoe-aow-hytgrca drug overdose; his last suicide attempt was 3 years ago. He states that he is followed by the patient's psychiatry every 2 weeks. He denies HI/AVH. Medical Evaluation Reviewed: Yes [facility] Medical History Prostate cancer Diagnostics Vital Signs (24Hr): Vital Signs - 24 hr 08/12/25 10:19 08/12/25 12:38 Temperature 97.3 F 97.9 F Pulse Rate 70 73 Respiratory Rate 16 18 Blood Pressure 112/67 139/76 Pulse Oximetry 97 98 Oxygen Delivery Method Room Air Room Air BMI result Body Mass Index 23.9 Labs 08/12/25 11:03 08/12/25 11:03 Labs: Laboratory Results - last 48 hr 08/12/25 08/12/25 11:03 12:31 WBC 5.9 RBC 4.20 L Hgb 11.9 L Hct 36.1 L MCV 86.0 MCH 28.3 MCHC 33.0 RDW 13.5 Plt Count 195 MPV 8.7 L Immature Gran % (Auto) 0.2 Neut % (Auto) 53.7 Lymph % (Auto) 32.8 Bradley % (Auto) 9.4 Eos % (Auto) 3.2 Baso % (Auto) 0.7 Lymph # (Auto) 1.9 Bradley # (Auto) 0.6 Eos # (Auto) 0.2 Baso # (Auto) 0.0 Abs Immat Gran (auto) 0.01 Absolute Neuts (auto) 3.2 Absolute Nucleated RBC 0.000 Nucleated RBC % (auto) 0.0 Sodium 136 Potassium 4.1 Chloride 105 Carbon Dioxide 25 Anion Gap 10 L BUN 8 L Creatinine 0.74 Estim Creat Clear Calc 96.1 Estimated GFR > 60 Random Glucose 87 Calcium 8.9 Magnesium 1.8 Total Bilirubin 0.6 Direct Bilirubin 0.2 AST 27 ALT 28 Alkaline Phosphatase 54 Total Protein 6.2 L Albumin 3.9 Urine Color Yellow Urine Appearance Clear Urine pH 7.0 Ur Specific [place] 1.010 Urine Protein Negative Urine Glucose (UA) Negative Urine Ketones Negative Urine Blood Negative Urine Nitrite Negative Ur Leukocyte Esterase Negative COVID-19 (DARA) Negative COVID-19 Clin Com See Note Mental Status Exam Mental Status Exam Narrative: Appearance: Casually dressed, adequate hygiene Behavior: Calm and cooperative throughout the interview. Eye contact is appropriate, and there are no signs of psychomotor agitation or retardation Speech: Normal volume and prosody Thought process: Logical and goal-directed Thought content: Severe depression and passive SI Mood: Depressed Affect: Mood-congruent SI: Reports passive SI HI:denies VH/AH:none Delusions: None Insight/judgment: Fair insight and judgment Memory/cog: Alert, oriented x 4. grossly intact to conversational testing Medications Allergies Allergies Allergy/AdvReac Type Severity Reaction Status Date / Time No Known Allergies Allergy Verified 08/12/25 10:20 Assessment & Plan Assessment & Plan (1) MDD (major depressive disorder): Status: Acute Code(s): F32.9 - Major depressive disorder, single episode, unspecified Assessment and Plan: HPI: Patient found lying in his bed in the ED. He is alert and oriented x4. He reports history of depression which started after his son 20 years ago from drug overdose. His son survived a plan crash but a year later. His depressive symptoms have been intermittent but progressively worsened. He has also been experiencing passive SI for a very long time. He does not have a plan. He wants to go to sleep and never wake up. He wishes there was physician assistant maintenance manager suicide. He attributes his depressive symptoms and suicide thoughts to the of his son and chronic medical issues, including prostate cancer. He has also been experiencing short-term and long-term memory call for while. He thinks that his mother may have had mild dementia that was undiagnosed. He has had ECT about 77 times, 8-12 sessions each time. He does not want to have ECT at this time. He admits to taking his medications as prescribed. He notes that he lives in an assisted living facility and his medications are administered to him. He endorses history of suicide attempt by prescription and wsdi-rfg-zcpiycx drug overdose; his last suicide attempt was 3 years ago. He states that he is followed by the patient's psychiatry every 2 weeks. He denies HI/AVH. Plan Patient has been severely depressed for several years. He has also been experiencing passive suicide thoughts for a long time. He takes his psychiatric medication as prescribed and is followed by outpatient psychiatry. No homicidal ideation or auditory/visual hallucinations. He is in no acute distress at this time. Patient is not in imminent risk of harm to self or others. Patient has been observed closely by nursing and unit staff throughout admission; patient has not engaged in any behaviors that suggest dangerousness to self or others and has demonstrated appropriate behaviors and impulse control. He does not meet the criteria for inpatient psychiatric hospitalization at this time. Recommendation: Continue current treatment regimen. Follow-up with outpatient psychiatry and consider testing for dementia. Total time managing care of this patient today ____ minutes. Patient educated on: diagnosis, medication risk/benefits and therapeutic strategies
[2025-08-12 16:43] LABS: Cannabinoid Screen Urine Not Detected (Not Detect)
[2025-08-12 17:01] VITALS: BP 139/76; PULSE 73; RESP 18; TEMP 36.6
== END 2025-08-12 19:12 | disposition home or self-care (01) ==
PROVIDERS: Emergency Medicine; Emergency Provider Emergency Medicine; PCP Internal Medicine
DX: F33.1 Major depressive disorder, recurrent, moderate (principal); R33.9 Retention of urine, unspecified; R51.9 Headache, unspecified; R53.1 Weakness; R45.851 Suicidal ideations; Z79.899 Other long term (current) drug therapy; Z51.81 Encounter for therapeutic drug level monitoring; Z11.52 Encounter for screening for COVID-19
CPT/HCPCS: 51798; 80048; 80076; 80307; 81003; 83735; 85025; 87635; 93005; 99285; S9485

== ENCOUNTER → 2025-08-12 10:11 | Outpatient (BNV) | payer MEDICARE, SELFPAY | PROVIDERS: Emergency Provider Emergency Medicine; PCP Internal Medicine; Visit Provider Internal Medicine Cardiovascular Disease | DX: R53.1 Weakness (principal) | CPT/HCPCS: 93010 ==

== ENCOUNTER → 2025-08-12 10:31 | Outpatient (BNV) | payer MEDICARE, SELFPAY | PROVIDERS: Emergency Provider Emergency Medicine; PCP Internal Medicine; Visit Provider Nurse Practitioner Family | DX: F32.9 Major depressive disorder, single episode, unspecified (principal) | CPT/HCPCS: 99283 ==

== ENCOUNTER 2025-08-14 14:26 | Emergency (ER) | payer MEDICARE, SELFPAY ==
[2025-08-14 14:34] VITALS: BP 140/80; BP 144/70; PULSE 68; RESP 18; TEMP 36.4; O2SAT 98; BMI 22.1
--- NOTE | 2025-08-14 15:38 | PC.NURSE ---
pt is alert and oriented, skin pwd, respirations even and unlabored, pt reports all day today having a hard time urinating, will void a very small amount each time, reports lower abd pain, bowel sounds in all 4 quadrants, abd soft and non-tender, pt does report this has had happened before and needed to be straight cath multiple times, pt states that he cant have a Henderson placed because the assisted living does not allow Henderson cath's
--- OUTSIDE RECORDS SUMMARY | 2025-08-14 16:59 | XMS_ITS | Encounter Summary ---
Author Organization [facility] Address [address] [address] Phone Care Team Providers Care Adult Care Provider Name Role Phone Unavailable Primary Care Provider Unavailabl e Encounter Details Date Type Department Care Team (Late st Contact Info) Description 05/09/2022 Hospital/ED/SNF/HH Visit [facility] [address] [phone] Provider, MD Daphne [address] [place] [id number] Social History Tobacco Use Types Packs/Day [...]
--- OUTSIDE RECORDS SUMMARY | 2025-08-14 16:59 | XMS_ITS | Clinical Summary ---
Author Organization [facility] [place] [address] Care Team Providers Care Commercial Tire Service Technician Name Role Phone Keon Giron MD Primary Care Provider [phone] Social History Tobacco Use Types Packs/Day Years [...] series) 06/22/2025 [place] [id number] Care Teams Commercial Tire Service Technician Relationship Specialty Start Date End Date Keon Giron MD [address] [place] [id number] PCP - General Internal Medicine 09/06/18
--- OUTSIDE RECORDS SUMMARY | 2025-08-14 16:59 | XMS_ITS | Encounter Summary ---
Author Organization [facility] Address [address], [place] [address] Phone Care Team Providers Care Cattle Tester Name Role Phone Unavailable Primary Care Provider Unavailabl e Encounter Details Date Type Department Care Team (Late st Contact Info) Description 04/28/2022 Hospital/ED/SNF/HH Visit [facility] [address] [phone] Provider, MD Daphne [address] [place] [address] Social History Tobacco Use Types Packs/Day [...]
--- OUTSIDE RECORDS SUMMARY | 2025-08-14 16:59 | XMS_ITS | Clinical Summary ---
Author Organization [facility] Address [address] [place] [phone] Phone Care Team Providers Care Cheese Packer Name Role Phone Unavailable Primary Care Provider [...]
--- NOTE | 2025-08-14 17:22 | ED_ITS ---
HPI - Male Genitourinary General Chief complaint: Urogenital-Male Stated complaint: URINE RETENTION PER EMS Time Seen by Provider: 08/14/25 15:06 Source: patient Limitations: no limitations History of Present Illness ED Provider: Dr. David Norwood HPI Narrative: 75-year-old male with a history of prostate cancer, splenic blood clot on apixaban who presents emergency department for evaluation inability to void and urinary frequency. The patient has had multiple visits to the emergency department for this complaint. He was last seen here on 08/12/2025. During that visit, the patient was able to void a proximally 200 cc of urine but had post void residuals in the 400 range. Patient did have a Henderson catheter placed 08/08/2025 for urinary retention. The patient could not return to his assisted care facility with the catheter in place, catheters removed and the patient was able to void at that time. On the 08/12/2025, his family had concerns about his mental health and a psychiatry evaluation was obtained. I did review the psychiatric nurse practitioner Marilyn Sharma note. The patient had no HI, SI, auditory / visual hallucinations or concerning behaviors during the ED visit. Patient did not meet inpatient criteria for psychiatric admission and the nurse practitioner's recommendation was to continue the patient current treat your have follow up with outpatient psychiatry and to consider testing for dementia.Patient states he has been having chronic headaches and this has worked up on 1 in his previous ER visits as well. Patient states he is scheduled for PET scan to evaluate him for possible metastatic prostate disease. Related Data Home Medications ?Medication ?Instructions ?Recorded ?Confirmed acetaminophen 325 mg tablet 325 mg PO QID PRN Pain 03/1508/12/25 (Tylenol) apixaban 5 mg tablet (Eliquis) 5 mg PO BID 06/26/25 budesonide 3 mg 3 mg PO DAILY 06/26/2508/12 capsule,delayed,extended release clonazepam 1 mg tablet (Klonopin) 1 mg PO BID 06/26/25 08/12/25 lactobacillus combination no.9 4 4,000 mmu cells PO DA DAVID 06/26/25 08/12/25 billion cell capsule (Adult 50 Plus Probiotic) mirtazapine 30 mg tablet 30 mg PO BEDTIME 06/26/25 multivitamin 1 tab PO DAILY 06/26/2507/23 nystatin 100,000 unit/gram topical 1 appl topical JULI Y 06/26/25 08/12/25 cream oxycodone 5 mg tablet 2.5 mg PO BID PRN Moderate P ain 06/26/25 08/12/25 (Scale Score 5-6) polyethylene glycol 3350(bulk) 1 ea miscellaneous JULI Y PRN 06/26/25 08/12/25 (Base B, Polyethylene Glycol 3350 Constipation granules) sennosides 8.6 mg tablet 8.6 mg PO DAILY 06/26/25 tamsulosin 0.4 mg capsule 0.4 mg PO DAILY 06/26/25 fluoxetine 10 mg capsule 10 mg PO DAILY 08/12/2507/23 Previous Rx's ?Medication ?Instructions ?Recorded ondansetron HCl 4 mg tablet 4 mg PO Q8H PRN nausea #7 tabs 07/06/25 Allergies Allergy/AdvReac Type Severity Reaction Status Date / Time No Known Allergies Allergy Verified 08/14/25 14:38 Review of Systems Review of Systems: Yes all other systems are reviewed and are negative [facility] Past Medical History [facility] Narrative: Social history: The patient states he lives in assisted living facility. Medical History Prostate cancer Social History Social History Alcohol intake: current Alcohol intake frequency: a few times a month Patient Tobacco Use Status: Tobacco use Unknown Smoked in Last 30 Days: No Use of substances other than those prescribed or required for medical reasons: No Advance Directives: No Advance Directives Information Provided: No Physical Exam Vital Signs: Vital Signs: Last Vital Signs Temp 97.6 F 08/14/25 14:34 Pulse 68 08/14/25 14:34 Resp 18 08/14/25 14:34 BP 144/70 H 08/14/25 14:34 Pulse Ox 98 08/14/25 14:34 O2 Del Method Room Air 08/14/25 14:34 BMI result Body Mass Index 22.1 Vital signs revealed an elevated blood pressure of 144/70 Exam: General: Awake, alert in no distress Head: Normocephalic, atraumatic EENT: PERRL, sclera and conjunctiva are normal, mouth with no erythema or exudates Neck: Supple, no adenopathy Lung: breath sounds symmetric, no wheezing, no rales and no rhonchi Chest: symmetric movement, nontender Heart: regular rate and rhythm, normal S1, S2 no murmurs or rubs Abdomen: soft, non-tender, nondistended, normal bowel sounds Back: no vertebral tenderness, no CVAT Extremities: no deformities, moves all extremities symmetrically, no edema Neuro: Awake, alert, oriented, normal speech, cranial nerves 2-12 intact, moves all extremities symmetrically Psych: Pleasant, cooperative Medical Decision Making Medical Decision Making MDM Narrative: 75-year-old male with a history of prostate cancer, splenic blood clot on apixaban who presents emergency department for evaluation inability to void and urinary frequency. The patient has had multiple visits to the emergency department for this complaint. He was last seen here on 08/12/2025. During that visit, the patient was able to void a proximally 200 cc of urine but had post void residuals in the 400 range. Patient did have a Henderson catheter placed 08/08/2025 for urinary retention. The patient could not return to his assisted care facility with the catheter in place, catheters removed and the patient was able to void at that time. On the 08/12/2025, his family had concerns about his mental health and a psychiatry evaluation was obtained. I did review the psychiatric nurse practitioner Marilyn Sharma note. The patient had no HI, SI, auditory / visual hallucinations or concerning behaviors during the ED visit. Patient did not meet inpatient criteria for psychiatric admission and the nurse practitioner's recommendation was to continue the patient current treat your have follow up with outpatient psychiatry and to consider testing for dementia.Patient states he has been having chronic headaches and this has worked up on 1 in his previous ER visits as well. Patient states he is scheduled for PET scan to evaluate him for possible metastatic prostate disease. Vital signs revealed an elevated blood pressure of 144/70 otherwise unremarkable . Differential diagnosis: ?Includes but is not limited to atonic bladder, urinary tract infection Course: 18:00 And I did not repeat the patient's laboratory evaluation today since his laboratory evaluation over the last 3 visits were unremarkable. Patient had chronic mild normocytic anemia, normal kidney function and unremarkable urinalyses with no positive urine cultures. The patient's presentation is consistent with a an atonic bladder and I did discuss this with him. Patient has been able to void anywhere from 200-400 cc of urine while he has been here in the emergency department. Postvoid residuals have ranged from 250 cc to 360 cc of urine. I did discuss self catheterization with the patient and he is not sure if he can do this. I did discuss this with our catalytic case operator and the patient will be set up with the visiting nurses to see if they can train him to self-catheterize at home. Patient was given his nighttime medications prior to being discharged: Clonazepam 1 mg, Remeron 30 mg and Eliquis 5 mg orally. Patient will also be given a mechanical chopped/soft diet prior to being discharged. Patient was given printed and verbal instructions and discharged home by ambulance. Differential Diagnosis Differential Diagnoses: The differential diagnosis associated with the presentation includes (See above) Admission/Observation Consideration of admission/observation: Escalation of care including admission/observation considered (No) Chronic Conditions Patient?s care impacted by: Other (Prostate cancer, depression) Discharge Plan Discharge Clinical Impression: Atonic bladder Patient Disposition: Home, Self-Care Additional Instructions: On today's examination and on your previous examinations, your able to urinate anywhere from 200-400 cc of urine but you were not able to completely empty your bladder. You had anywhere from 200-400 cc of urine in your bladder. This suggests that your bladder is not sherry sufficiently to completely empty. This has called an atonic bladder. The treatment is to learn how to straight cath yourself 3 times a day to help relieve your symptoms of a full bladder and urinating frequently. Our catalytic case operator is going to arrange a visiting nurse to try to train you to self-catheterize herself at your assisted living facility. Continue taking your medications as prescribed by your providers. I will send a referral to Dr. Baltazar's office in the office should contact you to talk about follow-up [facility] will be contacting you within 2 business?days after being discharged from the Emergency?Department.? During this?phone call, they will inform you when your follow up appointment will be scheduled. If you have not received a call from [facility] after 2 business?days, please call the?office at [phone]. Prescriptions: No Action ondansetron HCl 4 mg tablet 4 mg PO Q8H PRN (Reason: nausea) Qty: 7 0RF fluoxetine 10 mg capsule 10 mg PO DAILY multivitamin Tablet 1 tab PO DAILY sennosides 8.6 mg tablet 8.6 mg PO DAILY acetaminophen [Tylenol] 325 mg tablet 325 mg PO QID PRN (Reason: Pain) clonazepam [Klonopin] 1 mg tablet 1 mg PO BID tamsulosin 0.4 mg capsule 0.4 mg PO DAILY mirtazapine 30 mg tablet 30 mg PO BEDTIME nystatin 100,000 unit/gram cream 1 appl topical DAILY budesonide 3 mg capsule,delayed,extend.release 3 mg PO DAILY oxycodone 5 mg tablet 2.5 mg PO BID PRN (Reason: Moderate Pain (Scale Score 5-6)) Patient Comments: 2.5 mg PO QD PRN polyethylene glycol 3350(bulk) [Base B,Polyethylene [id number]] Granules 1 ea miscellaneous DAILY PRN (Reason: Constipation) Eliquis 5 mg tablet 5 mg PO BID Adult 50 Plus Probiotic 4 billion cell capsule 4,000 mmu cells PO DAILY Rx Instructions: administer with a meal Referrals: [facility] [Provider Group, Urology] Referral Note: Multiple visits for urinary frequency, able to urinate 200-400 cc of urine but now has postvoid residual of 200-400 cc. it security manager will arrange visiting nurse to train the patient to self-catheterize at his assisted living facility Print Language: Lithuanian
--- NOTE | 2025-08-14 17:25 | PC.NURSE ---
pt has urinated about 600ml since his arrival to the ed
--- NOTE | 2025-08-14 17:53 | PC.NURSE ---
pt voided 400ml of clear yellow urine, post residual bladder scan showed 269 Colleen from case davidblanca at bedside talking with the pt about having a visiting nurse coming to the house/assisted living to teach the pt how self cath
[2025-08-14 18:38] VITALS: BP 154/77; PULSE 73; RESP 18; O2SAT 98
--- NOTE | 2025-08-14 19:00 | MHC.CM.ED ---
CM met with patient at the request of Dr. Norwood. Pt has anxiety, MDD, prostate cancer and urinary retention. Has been seen in ED twice this week for urinary retention. Pt does not want F/C. States cannot have one at [facility]. Had F/C placed on 08/12- removed, had a voiding trial and was discharged to home. Pt lives at [facility]. He does not drive. He uses a cane and rollator. PCP is Dr. Harris. Urologist is Dr. Baltazar. HCP is on file. Provider is recommending self catheterization if he feels either he cannot void or feels retention. Pt has F/U appointment with Dr. Baltazar on . CM suggested that patient call Dr. Baltazar and request sooner appointment since he is having problems voiding. PCP is Dr. Harris. She sees patients at the [facility]. Pt is not sure if he can straight cath himself, but he is wiling to have the VNA. F@F completed and uploaded. Referral to NA for self catheterization education, chronic disease management and medication management. Pt will return to [facility]. RAFI booked for 1930 with Olimpia to return to [facility]. Provider, primary RN aware. Med nec with community associate.
[2025-08-14 19:50] VITALS: BP 154/77; PULSE 73; RESP 18; TEMP 36.9; O2SAT 98
== END 2025-08-14 19:53 | disposition home or self-care (01) ==
PROVIDERS: Emergency Provider Emergency Medicine Emergency Medical Services
DX: N31.2 Flaccid neuropathic bladder, not elsewhere classified (principal); Z85.46 Personal history of malignant neoplasm of prostate; Z79.899 Other long term (current) drug therapy
CPT/HCPCS: 99284

== ENCOUNTER 2025-08-17 05:15 | Emergency (ER) | payer MEDICARE, SELFPAY ==
[2025-08-17 05:16] VITALS: BP 138/88; PULSE 76; O2SAT 98; BMI 23.0
[2025-08-17 05:21] VITALS: BP 122/75; PULSE 74; RESP 16; TEMP 36.8; O2SAT 95
--- NOTE | 2025-08-17 05:24 | PC.NURSE ---
pt from [facility], reports dysuria for 24 hours, mild lower abdominal pain. last seen here Ruben for similar issue. reports bowel movement yesterday. pain 8/10, respiration even and unlabored.
--- OUTSIDE RECORDS SUMMARY | 2025-08-17 05:39 | XMS_ITS | Clinical Summary ---
Author Organization [facility] Address [address] [place] [phone] Phone Care Team Providers Care Personal Property Assessor Name Role Phone Unavailable Primary Care Provider [...]
--- OUTSIDE RECORDS SUMMARY | 2025-08-17 05:39 | XMS_ITS | Clinical Summary ---
Author Organization [facility] [place] [address] Care Team Providers Care Permaculture Designer Name Role Phone Keon Giron MD Primary Care Provider [phone] Social History Tobacco Use Types Packs/Day Years [...] series) 06/22/2025 [place] [id number] [facility] Care Teams Permaculture Designer Relationship Specialty Start Date End Date Keon Giron MD [address] [place] [phone] PCP - General Internal Medicine 09/06/18
--- OUTSIDE RECORDS SUMMARY | 2025-08-17 05:39 | XMS_ITS | Encounter Summary ---
Author Organization [facility] Address [address], [place] [address] Phone Care Team Providers Care Commercial Loan Collection Officer Name Role Phone Unavailable Primary Care Provider Unavailabl e Encounter Details Date Type Department Care Team (Late st Contact Info) Description 04/28/2022 Hospital/ED/SNF/HH Visit [facility] [address] [phone] Provider, MD Daphne [address] [place] [phone] Social History Tobacco Use Types Packs/Day [...]
--- OUTSIDE RECORDS SUMMARY | 2025-08-17 05:39 | XMS_ITS | Encounter Summary ---
Author Organization [facility] Address [address], [place] [address] Phone Care Team Providers Care In Shop Service Technician Name Role Phone Unavailable Primary Care Provider Unavailabl e Encounter Details Date Type Department Care Team (Late st Contact Info) Description 05/09/2022 Hospital/ED/SNF/HH Visit [facility] [address] [phone] Provider, MD Daphne [address] [place] [id number] Social History Tobacco Use Types Packs/Day [...]
--- NOTE | 2025-08-17 05:41 | ED.MALEGU ---
HPI - Male Genitourinary General Chief complaint: Urogenital-Male Stated complaint: difficulty urinating Time Seen by Provider: 08/17/25 05:41 Source: patient, EMS, RN notes reviewed and old records reviewed Mode of arrival: EMS Limitations: no limitations History of Present Illness ED Provider: Dr. Josy Sosa HPI Narrative: 75-year-old male with a history of prostate cancer, major depressive disorder presenting with continued urinary retention. This is his 6th emergency department visit in the last month alone. Was evaluated by Psychiatry during 1 of his last visits 5 days ago and diagnosed with major depressive disorder. At that time, it was felt there was nothing to be done for his depression and he would continue his outpatient services. Patient was also referred to Urology last month and is waiting to have a PET scan tomorrow (Sunday08/18/2025) at [facility] to evaluate for worsening prostate cancer. Patient has been taking all of his medications as prescribed including Flomax. He is absolutely depressed but has no thoughts of self-harm or plan to harm himself at this time. During his last ED visit, it was planned to have a visiting nurse come to teach him how to a self-catheterize however, the patient reports that no one has contacted him. Admits that he has been having difficulty urinating since yesterday. Only dribbles out a small amount and still feels as though there is ?800 of pee in there?. His bladder scan was for 391. No reported fever. No nausea, vomiting, bowel changes, dysuria or hematuria. Denies other recent illness or known sick contacts. Related Data Home Medications ?Medication ?Instructions ?Recorded ?Confirmed acetaminophen 325 mg tablet 325 mg PO QID PRN Pain 06/26/25 08/22/25 (Tylenol) apixaban 5 mg tablet (Eliquis) 5 mg PO BID 06/26/25 08/22/25 clonazepam 1 mg tablet (Klonopin) 1 mg PO BID@0700,1900 06/26/25 08/22/25 lactobacillus combination no.9 4 4,000 mmu cells PO DAILY 06/26/25 08/22/25 billion cell capsule (Adult 50 Plus Probiotic) mirtazapine 30 mg tablet 30 mg PO BEDTIME 06/26/25 08/22/25 multivitamin 1 tab PO DAILY 06/26/25 08/22/25 oxycodone 5 mg tablet 2.5 mg PO BID PRN Moderate Pain 06/26/25 08/22/25 (Scale Score 5-6) polyethylene glycol 3350(bulk) 1 ea miscellaneous DAILY PRN 06/26/25 08/22/25 (Base B, Polyethylene Glycol 3350 Constipation granules) sennosides 8.6 mg tablet 8.6 mg PO DAILY PRN Constipation 06/26/25 08/22/25 tamsulosin 0.4 mg capsule 0.4 mg PO BEDTIME 06/26/25 08/22/25 hydrocortisone 1 % topical 1 appl topical BID PRN DERMATITIS 08/17/25 08/22/25 ointment (Aquaphor Itch Relief) lansoprazole 30 mg capsule,delayed 30 mg PO DAILY 08/17/25 08/22/25 release artificial tears with lanolin eye 1 appl ophthalmic (eye) Q4H PRN 08/22/25 08/22/25 ointment Dry Eyes cholecalciferol (vitamin D3) 50 50 mcg PO DAILY 08/22/25 08/22/25 mcg (2,000 unit) capsule (Vitamin D3) melatonin 3 mg tablet 6 mg PO BEDTIME 08/22/25 08/22/25 Previous Rx's ?Medication ?Instructions ?Recorded cefuroxime axetil 500 mg tablet 500 mg PO BID 7 days #14 tabs 08/22/25 Allergies Allergy/AdvReac Type Severity Reaction Status Date / Time No Known Allergies Allergy Verified 08/24/25 10:25 Review of Systems Review of Systems: as per HPI, full review of systems performed and negative but for the above mentioned pertinent positives and negatives. [facility] Past Medical History Medical History BPH (benign prostatic hyperplasia) CAD (coronary artery disease) Orthostatic hypotension Suicide attempt Heart murmur Dermatitis Cataract Arthritis History of recurrent UTIs Anxiety Macular degeneration GERD (gastroesophageal reflux disease) CHF (congestive heart failure) Colitis Prostate cancer Social History Social History Alcohol intake: current Alcohol intake frequency: a few times a month Patient Tobacco Use Status: Tobacco use Unknown Advance Directives: Yes Advance Directives on File: Yes Advance Directives Date on File: 08/18/25 Physical Exam Exam: Exam: GENERAL: Chronically ill-appearing, conversant, no acute distress. SKIN: Normal skin color for ethnicity, warm, dry, no rashes noted. HEENT: Normocephalic, atraumatic, no stridor, posterior oropharynx nonerythematous, EOMI. NECK: Soft, supple, full ROM, midline structures nontender, no step-offs, no deformities, no lymphadenopathy. CHEST: Heart regular rate and rhythm, no murmurs, symmetric chest rise and fall. PULMONARY: Clear to auscultation bilaterally, no labored breathing, no wheezes/rhales/ rhonchi. ABDOMINAL: Soft, nondistended, nontender, quiet bowel sounds in all quadrants. : Deferred. MUSCULOSKELETAL: Normal tone, full range of motion, no deformities, no peripheral edema. NEURO: Alert and oriented to person, CN II through XII intact, no focal neurologic deficits. PSYCHIATRIC: Flat affect, fluid speech, depressed mood. Vital Signs: Vital Signs: Last Vital Signs Temp 97.8 F 08/17/25 13:56 Pulse 70 08/17/25 13:56 Resp 20 08/17/25 13:56 BP 116/78 08/17/25 13:56 Pulse Ox 98 08/17/25 13:56 O2 Del Method Room Air 08/17/25 13:56 BMI result Body Mass Index 23.0 Course Reevaluation(s) Reevaluation #1: Time: 09:13 Date: 08/17/25 Provider: Alie Julien PA-C Physician observation continued. Uneventful night. Vital signs stable. No complaints from nursing overnight. Med reconciliation reviewed and done. Patient will be held in the department overnight in order to have PET scan done tomorrow morning as patient has history of prostate cancer. Patient will be discharged tomorrow morning with home VNA services. Will continue to monitor while in the department awaiting discharge tomorrow morning. Time: 09:13 Reevaluation #2: Date: 08/17/25 Provider: Alie Julien PA-C physician observation continued. Patient was originally staying in the department to have PET scan done in the morning however this scan is now canceled. senior project manager engineering reached out to the outpatient casey saw operator who is aware of the change. Patient to be discharged back home with VNA services. We will continue to monitor while in the department awaiting transportation for discharge. Time: 12:57 Medications Administered Discontinued Medications Generic Name Dose Route Start Last Admin Trade Name Keaton PRN Reason Stop Dose Admin Acetaminophen 975 mg 08/17/25 09:00 08/17/25 08:47 Acetaminophen 325 Mg Tablet PO 975 mg TID STORM Administration Clonazepam 1 mg 08/17/25 07:01 08/17/25 07:15 Clonazepam 1 Mg Tablet PO 08/17/25 07:02 1 mg ONCE ONE Administration Medical Decision Making Medical Decision Making MDM Narrative: 75-year-old male with a history of BPH, prostate cancer, major depressive disorder presenting with urinary retention that has been an ongoing issue for months. Patient was evaluated by Urology but he has no idea what the plan is. He is supposedly having a PET scan tomorrow at [facility] but has no idea what the next steps of his care are besides that. He has been taking tamsulosin without relief. Prevoid bladder scan of 391 mL. Postvoid residual of [address] a Henderson catheter and try to have case management figure out disposition for him. It was reported in a previous note that he can not return to the assisted living where he is with a Henderson catheter in place however, it may be just that the patient is resistant to wearing a Henderson catheter 100% of the time. Regardless, he will have renal dysfunction with that level of incomplete emptying and urinary hesitancy. Signing out to oncoming provider pending case management evaluation and final disposition. Differential Diagnosis Differential Diagnoses: The differential diagnosis associated with the presentation includes (as above) Admission/Observation Consideration of admission/observation: Escalation of care including admission/observation considered Lab Data [facility] Lab Attestation statement: I reviewed the patient's lab results. 08/17/25 05:52 08/17/25 06:50 Labs: Lab Results 08/17/25 08/17/25 08/17/25 Range/Units 05:52 06:27 06:50 WBC 5.1 (4.8-10.8) X10*3/uL RBC 4.33 L (4.60-5.80) X10*6/uL Hgb 12.2 L (14.0-18.0) g/dl Hct 38.7 L (42.0-52.0) % MCV 89.4 (80.0-98.0) fL MCH 28.2 (27.0-33.0) pg MCHC 31.5 (31.0-36.0) g/dl RDW 13.6 (11.0-16.0) % Plt Count 218 (160-400) X10*3/uL MPV 8.3 L (9.4-12.4) fL Immature Gran % (Auto) 0.2 (0.0-0.4) % Neut % (Auto) 51.1 (45-73) % Lymph % (Auto) 34.0 (20-40) % [place] % (Auto) 9.2 (2-11) % Eos % (Auto) 4.7 H (0-4) % Baso % (Auto) 0.8 (0-2) % Lymph # (Auto) 1.7 (1.2-4.9) X10*3/uL [place] # (Auto) 0.5 (0.1-1.2) X10*3/uL Eos # (Auto) 0.2 (0.0-0.4) X10*3/uL Baso # (Auto) 0.0 (0.0-0.2) X10*3/uL Abs Immat Gran (auto) 0.01 (0.00-0.03) X10*3/uL Absolute Neuts (auto) 2.6 (2.0-8.3) x10*3/uL Absolute Nucleated RBC 0.000 (0.0-0.012) X10*3/uL Nucleated RBC % (auto) 0.0 (0.0-0.2) /100WBC Sodium 141 (135-145) mmol/L Potassium 4.0 (3.3-5.1) mmol/L Chloride 106 (96-108) mmol/L Carbon Dioxide 29 (22-29) mmol/L Anion Gap 10 L (12-20) BUN 7 L (9-16) mg/dL Creatinine 0.75 (0.5-1.4) mg/dL Estim Creat Clear Calc 91.4 Estimated GFR > 60 Random Glucose 92 (60-115) mg/dL Calcium 9.2 (8.4-10.2) mg/dL Urine Color Yellow Urine Appearance Clear Urine pH 7.5 (5.0-9.0) Ur Specific [place] 1.010 (1.005-1.025) Urine Protein Negative (Neg-Trace) mg/dL Urine Glucose (UA) Negative (Negative) mg/dL Urine Ketones Negative (Negative) mg/dL Urine Blood Negative (Negative) Urine Nitrite Negative (Negative) Ur Leukocyte Esterase Small (1+) H (Negative) Urine RBC 0-2 (0-2) /HPF Urine WBC 6-10 H (0-5) /HPF Ur Squamous Epith Cells 0-2 (0-2) /HPF Urine Bacteria None Seen (None Seen) Hyaline Casts 0-2 (0-2) /LPF Independent Historian Clinical information obtained from an independent historian. History obtained from or confirmed by: EMS External Record Review External record reviewed: Inpatient record Chronic Conditions Patient?s care impacted by: Cancer Social Determinants Patient?s care significantly limited by Social Determinants of Health including: Other Social Determinant of Health Discharge Plan Discharge Clinical Impression: Acute on chronic urinary retention Patient Disposition: Home, Self-Care Prescriptions: No Action hydrocortisone [Aquaphor Itch Relief] 1 % ointment 1 appl topical BID PRN (Reason: DERMATITIS) lansoprazole 30 mg capsule,delayed release(DR/EC) 30 mg PO DAILY cefuroxime axetil 500 mg tablet 500 mg PO BID 7 Days Qty: 14 0RF melatonin 3 mg Tablet 6 mg PO BEDTIME Artificial Tears Ointment 1 appl OPHTHALMIC (EYE) Q4H PRN (Reason: Dry Eyes) cholecalciferol (vitamin D3) [Vitamin D3] 50 mcg (2,000 unit) Capsule 50 mcg PO DAILY multivitamin Tablet 1 tab PO DAILY sennosides 8.6 mg tablet 8.6 mg PO DAILY PRN (Reason: Constipation) acetaminophen [Tylenol] 325 mg tablet 325 mg PO QID PRN (Reason: Pain) clonazepam [Klonopin] 1 mg tablet 1 mg PO BID@0700,1900 tamsulosin 0.4 mg capsule 0.4 mg PO BEDTIME mirtazapine 30 mg tablet 30 mg PO BEDTIME oxycodone 5 mg tablet 2.5 mg PO BID PRN (Reason: Moderate Pain (Scale Score 5-6)) Patient Comments: 2.5 mg PO QD PRN polyethylene glycol 3350(bulk) [Base B,Polyethylene [id number]] Granules 1 ea miscellaneous DAILY PRN (Reason: Constipation) Eliquis 5 mg tablet 5 mg PO BID Adult 50 Plus Probiotic 4 billion cell capsule 4,000 mmu cells PO DAILY Rx Instructions: administer with a meal Referrals: [facility] [Outside] Kimberly Davis MD [Primary Care Provider, Medical] Interventions: ED Discharge Assessment Last Done: 08/17/25 13:56 Discharge Date/Time: 08/17/25 13:58 Print Language: Kiswahili
[2025-08-17 06:00] LABS: Hematocrit 38.7 % (42.0-52.0); Hemoglobin 12.2 g/dl (14.0-18.0); Imm Gran Abs Auto 0.01 X10*3/uL (0.00-0.03); Imm Gran Pct Auto 0.2 % (0.0-0.4); Lymphocytes Absolute Auto 1.7 X10*3/uL (1.2-4.9); MANUAL DIFF FLAG NO; Mean Corpuscular HGB Conc 31.5 g/dl (31.0-36.0); Mean Corpuscular Hemoglobin 28.2 pg (27.0-33.0); Mean Corpuscular Volume 89.4 fL (80.0-98.0); NRBC Abs Auto 0.000 X10*3/uL (0.0-0.012); NRBC Pct Auto 0.0 /100WBC (0.0-0.2); Platelet Count 218 X10*3/uL (160-400); Red Blood Count 4.33 X10*6/uL (4.60-5.80); White Blood Count 5.1 X10*3/uL (4.8-10.8)
[2025-08-17 06:35] LABS: Appearance Urine Clear; Glucose Urine UA Negative (Negative); PH 7.5 (5.0-9.0); Specific Gravity - Urine 1.010 (1.005-1.025); UMIC TRIGGER UACC YES
[2025-08-17 06:40] LABS: UACC Culture Trigger YES
[2025-08-17 07:16] LABS: Anion Gap 10 (12-20); Blood Urea Nitrogen 7 mg/dL (9-16); Calcium 9.2 mg/dL (8.4-10.2); Carbon Dioxide 29 mmol/L (22-29); Chloride 106 mmol/L (96-108); Creatinine Clr Calc Pharmacy 91.4; Estimated Glomerular Filt Rate > 60; Potassium 4.0 mmol/L (3.3-5.1); Sodium 141 mmol/L (135-145)
--- NOTE | 2025-08-17 07:41 | PC.NURSE ---
report taken from previous rn, pt is resting comfortably in no distress. Henderson cath was placed with sterile technique and is draining pale yellow urine, patient tolerated procedure well.
[2025-08-17 08:00] VITALS: BP 116/66; PULSE 72; RESP 18; TEMP 36.4; O2SAT 97
--- NOTE | 2025-08-17 09:37 | PC.NURSE ---
Per CM (Tonia Givens): He will be discharged tomorrow at 9am. One of his aides will pick him up and bring him to his PET scan and then he will d/c home with resumption of VNA. JAY Hong aware.
[2025-08-17 10:00] VITALS: BP 116/78; PULSE 70; RESP 20; O2SAT 98
--- NOTE | 2025-08-17 12:19 | PC.NURSE ---
This RN to bedside to drain Henderson catheter bag. 1,000 mL yellow clear urine drained. While this RN was draining the catheter, officer captain from PET scan contacted the patient on his personal phone stating that they have to cancel tomorrow's scheduled PET scan due to the patient being at [facility] and then being discharged tomorrow at 9am. manager employee benefits stated that insurance will not cover PET scan if the patient is discharged from the hospital and has PET scan on the same day. I spoke with Tonia Givens (case management) who will relay the issue with outpatient case filler. I attempted to have the employee wait to speak to case management prior to cancelling tomorrow's PET scan, but the employee refused stating I cannot wait to speak to case management. I have to order the medication within the next 30 minutes for this PET scan, so I'm cancelling the appointment and we'll have to reschedule it until next week sometime . JAY Julien & Tonia Givens CM aware of conversation. Plan otherwise remains unchanged at this time, with plan to discharge home with VNA services tomorrow at 9am. Pending updates from case management.
--- NOTE | 2025-08-17 12:31 | PC.NURSE ---
Plan of care updated, plan to discharge home today with services, per case management.
--- NOTE | 2025-08-17 12:41 | MHC.CM.ED ---
Received notification from Ysabel CUNNINGHAM that Pet Scan was cancelled by [facility] d/t not being able to perform the test on the same day of d/c. Spoke with Nakia, outpatient director of casework department. Nakia will work with patient to get test rescheduled. Patient will d/c home today. [facility]lim[facility]FI booked for 2pm. Med [facility] with chart. Attempted to notify Jose Miguel Foster. Left d/c info on nursing's voicemail with CM contact info. Mari GERARDO made aware. Patient, Ysabel CUNNINGHAM and Alie THOMPSON aware. Continue to monitor for d/c needs.
--- NOTE | 2025-08-17 12:42 | PC.NURSE ---
Transport by EMS booked for 2pm pickup today, per case management. Care ongoing until discharge.
[2025-08-17 13:56] VITALS: BP 116/78; PULSE 70; RESP 20; TEMP 36.6; O2SAT 98
== END 2025-08-17 13:58 | disposition home or self-care (01) ==
PROVIDERS: Emergency Provider Emergency Medicine; PCP Internal Medicine
DX: R33.9 Retention of urine, unspecified (principal); F33.1 Major depressive disorder, recurrent, moderate; Z79.899 Other long term (current) drug therapy
CPT/HCPCS: 36415; 80048; 81001; 85025; 87086; 99283; 99285

== ENCOUNTER 2025-08-22 07:34 | Emergency (ER) | payer MEDICARE, SELFPAY ==
[2025-08-22] VITALS (18 sets, daily range): BP systolic 88–138; BP diastolic 46–76; PULSE 60–108; RESP 12–20; TEMP 36.4–36.8; O2SAT 94–98; BMI 22.0
--- NOTE | ~2025-08-22 | XR_ITS ---
CLINICAL HISTORY: sob 1 view chest x-ray Comparison: None provided Findings: The lungs are clear. Heart size is normal. No acute fracture. IMPRESSION: 1. No acute findings. This document has been electronically signed by: Vlad Hurt MD on 08/22/2025 08:44:05
--- NOTE | 2025-08-22 07:57 | ED.GENADULT ---
HPI - General Adult General Chief complaint: General Medical Stated complaint: BLURRED VISION,FATIGUE,?UTI,F/C SINCE SUNDAY Time Seen by Provider: 08/22/25 07:46 History of Present Illness HPI narrative: Patient is a 75-year-old male with a history of urinary retention history of prostate cancer in the past. Had a Henderson placed 5 days ago. Now complaining of fever at home generalized malaise weakness. Feeling tired. Blurred vision when he stands up. Patient is from home. Fever as high as 100.8 at home. Related Data Home Medications ?Medication ?Instructions ?Recorded ?Confirmed acetaminophen 325 mg tablet 325 mg PO QID PRN Pain 06/26/25 08/17/25 (Tylenol) apixaban 5 mg tablet (Eliquis) 5 mg PO BID 06/26/25 08/17/25 budesonide 3 mg 3 mg PO DAILY 06/26/25 08/17/25 capsule,delayed,extended release clonazepam 1 mg tablet (Klonopin) 1 mg PO BID 06/26/25 08/17/25 lactobacillus combination no.9 4 4,000 mmu cells PO DAILY 06/26/25 08/17/25 billion cell capsule (Adult 50 Plus Probiotic) mirtazapine 30 mg tablet 30 mg PO BEDTIME 06/26/25 08/17/25 multivitamin 1 tab PO DAILY 06/26/25 08/17/25 nystatin 100,000 unit/gram topical 1 appl topical DAILY 06/26/25 08/17/25 cream oxycodone 5 mg tablet 2.5 mg PO BID PRN Moderate Pain 06/26/25 08/17/25 (Scale Score 5-6) polyethylene glycol 3350(bulk) 1 ea miscellaneous DAILY PRN 06/26/25 08/17/25 (Base B, Polyethylene Glycol 3350 Constipation granules) sennosides 8.6 mg tablet 8.6 mg PO DAILY 06/26/25 08/17/25 tamsulosin 0.4 mg capsule 0.4 mg PO DAILY 06/26/25 08/17/25 fluoxetine 10 mg capsule 10 mg PO DAILY 08/12/25 08/17/25 ceramides 1,3,6-II (CeraVe Daily 1 appl topical BID 08/17/25 08/17/25 Moisturizing lotion) hydrocortisone 1 % topical 1 appl topical BID 08/17/25 08/17/25 ointment (Aquaphor Itch Relief) lansoprazole 30 mg capsule,delayed 30 mg PO DAILY 08/17/25 08/17/25 release pramoxine 1 % topical cream 1 appl topical DAILY 08/17/25 08/17/25 (CeraVe Itch Relief) Previous Rx's ?Medication ?Instructions ?Recorded ondansetron HCl 4 mg tablet 4 mg PO Q8H PRN nausea #7 tabs 07/06/25 cefuroxime axetil 500 mg tablet 500 mg PO BID 7 days #14 tabs 08/22/25 Allergies Allergy/AdvReac Type Severity Reaction Status Date / Time No Known Allergies Allergy Verified 08/22/25 07:49 Review of Systems Review of Systems: Positive suprapubic pain Positive fever Yes all other systems are reviewed and are negative [facility] Past Medical History Attestation statement: The following information was validated with the patient. Medical History (Updated 08/22/25 @ 14:59 by Nadira Hudson MD) BPH (benign prostatic hyperplasia) CAD (coronary artery disease) Orthostatic hypotension Suicide attempt Heart murmur Dermatitis Cataract Arthritis History of recurrent UTIs Anxiety Macular degeneration GERD (gastroesophageal reflux disease) CHF (congestive heart failure) Colitis Prostate cancer Social History Social History Alcohol intake: current Alcohol intake frequency: a few times a month Patient Tobacco Use Status: Tobacco use Unknown Smoked in Last 30 Days: No Use of substances other than those prescribed or required for medical reasons: No Advance Directives: No Advance Directives Information Provided: Yes Do you have a plan to hurt others: No Plan Physical Exam ED Exam Exam: Appearance: Alert. Oriented X3. No acute distress. Eyes: Pupils equal, round and reactive to light. ENT: Pharynx normal. Neck: Normal inspection. Neck supple. No lymph nodes noted. No crepitus CVS: Normal heart rate and rhythm. Pulses normal. Normal S1 and S2 Respiratory: No respiratory distress. Breath sounds normal. No Wheezing. No rales Abdomen: Soft and nontender. No rigidity. No distention. good BS x4 Skin: Skin warm and dry. Normal skin color. Normal skin turgor. Extremities: No lower extremity edema. Neurovascular intact to all extremities. No Lacerations. No Rash Neuro: Oriented X 3. No motor deficit. No sensory deficit. Moving all extermities. No slurred speech Vital Signs: Vital Signs - 24 hr 08/22/25 07:40 08/22/25 08:20 08/22/25 08:25 Temperature 98.3 F Pulse Rate 84 70 Respiratory Rate 16 18 Blood Pressure 95/51 L 88/55 L 94/53 L Pulse Oximetry 94 96 Oxygen Delivery Method Room Air Room Air 08/22/25 09:01 08/22/25 09:19 08/22/25 09:28 Temperature Pulse Rate 62 68 Respiratory Rate 18 12 Blood Pressure 106/54 L 118/60 112/56 L Pulse Oximetry 97 94 Oxygen Delivery Method Room Air Room Air 08/22/25 09:49 08/22/25 11:09 08/22/25 11:57 Temperature 98.3 F Pulse Rate 72 69 Respiratory Rate 16 Blood Pressure 108/58 L 100/55 L 101/50 L Pulse Oximetry 98 Oxygen Delivery Method Room Air 08/22/25 11:59 08/22/25 11:59 08/22/25 13:35 Temperature Pulse Rate 72 77 71 Respiratory Rate Blood Pressure 91/46 L 109/57 L 107/57 L Pulse Oximetry Oxygen Delivery Method 08/22/25 13:36 08/22/25 13:37 08/22/25 14:25 Temperature 97.5 F Pulse Rate 82 71 71 Respiratory Rate 14 Blood Pressure 116/57 L 107/59 L 112/59 L Pulse Oximetry 98 Oxygen Delivery Method Room Air BMI result Body Mass Index 22.0 Medications Administered Discontinued Medications Generic Name Dose Route Start Last Admin Trade Name Freq PRN Reason Stop Dose Admin Hydromorphone HCl 0.5 mg 08/22/25 08:28 08/22/25 08:42 Hydromorphone Hcl 0.5 Mg/0.5 Ml Syringe IVPUSH 08/22/25 08:29 0.5 mg ONCE ONE Administration Protocol Sodium Chloride 1,000 mls @ 999 mls/hr 08/22/25 08:00 08/22/25 09:18 Ns IV 08/22/25 09:00 Infused .Q1H1M STORM Infusion Sodium Chloride 1,000 mls @ 999 mls/hr 08/22/25 08:00 08/22/25 09:18 Ns IV 08/22/25 09:00 Infused .Q1H1M STORM Infusion Ceftriaxone Sodium 1 gm/ 50 mls @ 100 mls/hr 08/22/25 07:57 08/22/25 08:46 Sodium Chloride IV 08/22/25 08:26 Infused ONCE ONE Infusion Sodium Chloride 1,000 mls @ 999 mls/hr 08/22/25 12:30 08/22/25 13:33 Ns IV 08/22/25 13:30 Infused .Q1H1M STORM Infusion Medical Decision Making Medical Decision Making [facility] Narrative: Gave patient has some IV fluids. Urine was grossly infected. White count was 9.1. No significant shift. Patient's electrolytes were normal. Lactate was 1.2 there is no evidence for severe sepsis. A dose of Rocephin was given. Chest x-ray by my interpretation was grossly negative we gave patient 2 L of fluids ambulated her patient symptomatically feel much improved. Patient wants to go home. Has not indwelling Henderson in place for urinary retention. Will continue patient on outpatient antibiotics. Currently in stable condition. Differential Diagnosis Differential Diagnoses: The differential diagnosis associated with the presentation includes Urinary tract infection, dehydration Admission/Observation Consideration of admission/observation: Escalation of care including admission/observation considered Lab Data [facility] Lab Attestation statement: I reviewed the patient's lab results. 08/22/25 08:03 08/22/25 08:03 Labs: Lab Results 08/22/25 08/22/25 Range/Units 08:03 08:16 WBC 9.1 (4.8-10.8) X10*3/uL RBC 4.25 L (4.60-5.80) X10*6/uL Hgb 12.2 L (14.0-18.0) g/dl Hct 36.8 L (42.0-52.0) % MCV 86.6 (80.0-98.0) fL MCH 28.7 (27.0-33.0) pg MCHC 33.2 (31.0-36.0) g/dl RDW 13.6 (11.0-16.0) % Plt Count 217 (160-400) X10*3/uL MPV 8.4 L (9.4-12.4) fL Immature Gran % (Auto) 0.3 (0.0-0.4) % Neut % (Auto) 72.4 (45-73) % Lymph % (Auto) 17.4 L (20-40) % [place] % (Auto) 8.1 (2-11) % Eos % (Auto) 1.4 (0-4) % Baso % (Auto) 0.4 (0-2) % Lymph # (Auto) 1.6 (1.2-4.9) X10*3/uL [place] # (Auto) 0.7 (0.1-1.2) X10*3/uL Eos # (Auto) 0.1 (0.0-0.4) X10*3/uL Baso # (Auto) 0.0 (0.0-0.2) X10*3/uL Abs Immat Gran (auto) 0.03 (0.00-0.03) X10*3/uL Absolute Neuts (auto) 6.6 (2.0-8.3) x10*3/uL Absolute Nucleated RBC 0.000 (0.0-0.012) X10*3/uL Nucleated RBC % (auto) 0.0 (0.0-0.2) /100WBC Sodium 139 (135-145) mmol/L Potassium 3.6 (3.3-5.1) mmol/L Chloride 106 (96-108) mmol/L Carbon Dioxide 23 (22-29) mmol/L Anion Gap 14 (12-20) BUN 6 L (9-16) mg/dL Creatinine 0.75 (0.5-1.4) mg/dL Estim Creat Clear Calc 89.9 Estimated GFR > 60 Random Glucose 95 (60-115) mg/dL Lactic Acid 1.2 (0.5-2.0) mmol/L Calcium 9.1 (8.4-10.2) mg/dL Total Bilirubin 0.8 (0.0-1.0) mg/dL AST 25 (5-37) U/L ALT 18 (0-40) U/L Alkaline Phosphatase 58 (39-117) U/L Total Protein 6.6 (6.5-8.0) g/dL Albumin 4.2 (3.5-5.0) g/dL Urine Color Yellow Urine Appearance Clear Urine pH 7.5 (5.0-9.0) Ur Specific [place] <= 1.005 (1.005-1.025) Urine Protein 30 (1+) H (Neg-Trace) mg/dL Urine Glucose (UA) Negative (Negative) mg/dL Urine Ketones Negative (Negative) mg/dL Urine Blood Large (3+) H (Negative) Urine Nitrite Positive H (Negative) Ur Leukocyte Esterase Large (3+) H (Negative) Urine RBC 3-5 H (0-2) /HPF Urine WBC >50 H (0-5) /HPF Ur Squamous Epith Cells 0-2 (0-2) /HPF Urine Bacteria 1+ (None Seen) Hyaline Casts 3-5 (0-2) /LPF External Record Review External record reviewed: Office record (Urology record) Chronic Conditions Prostate cancer Social Determinants Patient?s care significantly limited by Social Determinants of Health including: Problems related to primary support group Discharge Plan Discharge Clinical Impression: Acute urinary retention, Urinary tract infection Patient Disposition: Home, Self-Care Instructions: Urinary Retention in Men (ED), Urinary Tract Infection in Men (DC) Prescriptions: New cefuroxime axetil 500 mg tablet 500 mg PO BID 7 Days Qty: 14 0RF No Action CeraVe Itch Relief 1 % cream 1 appl topical DAILY hydrocortisone [Aquaphor Itch Relief] 1 % ointment 1 appl topical BID lansoprazole 30 mg capsule,delayed release(DR/EC) 30 mg PO DAILY CeraVe Daily Moisturizing Lotion 1 appl topical BID ondansetron HCl 4 mg tablet 4 mg PO Q8H PRN (Reason: nausea) Qty: 7 0RF fluoxetine 10 mg capsule 10 mg PO DAILY multivitamin Tablet 1 tab PO DAILY sennosides 8.6 mg tablet 8.6 mg PO DAILY acetaminophen [Tylenol] 325 mg tablet 325 mg PO QID PRN (Reason: Pain) clonazepam [Klonopin] 1 mg tablet 1 mg PO BID tamsulosin 0.4 mg capsule 0.4 mg PO DAILY mirtazapine 30 mg tablet 30 mg PO BEDTIME nystatin 100,000 unit/gram cream 1 appl topical DAILY budesonide 3 mg capsule,delayed,extend.release 3 mg PO DAILY oxycodone 5 mg tablet 2.5 mg PO BID PRN (Reason: Moderate Pain (Scale Score 5-6)) Patient Comments: 2.5 mg PO QD PRN polyethylene glycol 3350(bulk) [Base B,Polyethylene [id number]] Granules 1 ea miscellaneous DAILY PRN (Reason: Constipation) Eliquis 5 mg tablet 5 mg PO BID Adult 50 Plus Probiotic 4 billion cell capsule 4,000 mmu cells PO DAILY Rx Instructions: administer with a meal Referrals: [facility] [Other] Diego Baltazar MD [Physician, Urology] - 08/25/25 Print Language: Greek
[2025-08-22 08:11] LABS: MANUAL DIFF FLAG NO
[2025-08-22 08:13] LABS: Hematocrit 36.8 % (42.0-52.0); Hemoglobin 12.2 g/dl (14.0-18.0); Imm Gran Abs Auto 0.03 X10*3/uL (0.00-0.03); Imm Gran Pct Auto 0.3 % (0.0-0.4); Lymphocytes Absolute Auto 1.6 X10*3/uL (1.2-4.9); Mean Corpuscular HGB Conc 33.2 g/dl (31.0-36.0); Mean Corpuscular Hemoglobin 28.7 pg (27.0-33.0); Mean Corpuscular Volume 86.6 fL (80.0-98.0); NRBC Abs Auto 0.000 X10*3/uL (0.0-0.012); NRBC Pct Auto 0.0 /100WBC (0.0-0.2); Platelet Count 217 X10*3/uL (160-400); Red Blood Count 4.25 X10*6/uL (4.60-5.80); White Blood Count 9.1 X10*3/uL (4.8-10.8)
--- NOTE | 2025-08-22 08:21 | PC.NURSE ---
75 M presents to ED with feeling tired, concerns for UTI since yesterday, lower abdominal pain and frequent uriation via catheter bag placed sunday. Pt sts temp was 100.8 prior to taking tylenol 0645, no fever at this time. Pt hypotensive upon arrival. RR even and unlabored, denies CP or SOB. Pt denies any othe concerns. A+Ox4, calm, coperative. ambulates with walker at baseline.
[2025-08-22 08:23] LABS: Appearance Urine Clear; Glucose Urine UA Negative (Negative); PH 7.5 (5.0-9.0); Specific Gravity - Urine <= 1.005 (1.005-1.025); UMIC TRIGGER UACC YES
[2025-08-22 08:27] LABS: Alanine Aminotransferase 18 U/L (0-40); Albumin Level 4.2 g/dL (3.5-5.0); Alkaline Phosphatase 58 U/L (39-117); Anion Gap 14 (12-20); Aspartate Amino Transferase 25 U/L (5-37); Blood Urea Nitrogen 6 mg/dL (9-16); Calcium 9.1 mg/dL (8.4-10.2); Carbon Dioxide 23 mmol/L (22-29); Chloride 106 mmol/L (96-108); Creatinine Clr Calc Pharmacy 89.9; Estimated Glomerular Filt Rate > 60; Potassium 3.6 mmol/L (3.3-5.1); Sodium 139 mmol/L (135-145); Total Protein 6.6 g/dL (6.5-8.0)
[2025-08-22 08:41] LABS: UACC Culture Trigger YES
--- OUTSIDE RECORDS SUMMARY | 2025-08-22 08:49 | XMS_ITS | Encounter Summary ---
Author Organization [facility] Address [address] [address] Phone Care Team Providers Care Plan Checker Name Role Phone Unavailable Primary Care Provider Unavailabl e Encounter Details Date Type Department Care Team (Late st Contact Info) Description 04/28/2022 Hospital/ED/SNF/HH Visit [facility] [address] [phone] Provider, MD Daphne [address] [place] [id number] Social History Tobacco Use Types Packs/Day [...]
--- OUTSIDE RECORDS SUMMARY | 2025-08-22 08:49 | XMS_ITS | Clinical Summary ---
Author Organization [facility] Address [address] [place] [id number] Phone Care Team Providers Care Human Resources Manager Name Role Phone Unavailable Primary Care [...]
--- OUTSIDE RECORDS SUMMARY | 2025-08-22 08:49 | XMS_ITS | Clinical Summary ---
Author Organization [facility] [place] [address] Care Team Providers Care Freezer Laboratory Technician Name Role Phone Keon Giron MD Primary Care Provider [phone] Social History Tobacco Use Types Packs/Day Years [...] series) 06/22/2025 [place] [id number] [facility] Care Teams Freezer Laboratory Technician Relationship Specialty Start Date End Date Keon Giron MD [address] [place] [id number] PCP - General Internal Medicine 09/06/18
--- OUTSIDE RECORDS SUMMARY | 2025-08-22 08:49 | XMS_ITS | Encounter Summary ---
Author Organization [facility] Address [address], [place] [address] Phone Care Team Providers Care Ruling Machine Operator Name Role Phone Unavailable Primary Care Provider Unavailabl e Encounter Details Date Type Department Care Team (Late st Contact Info) Description 05/09/2022 Hospital/ED/SNF/HH Visit [facility] [address] [phone] Provider, MD Daphne [address] [place] [phone] Social History Tobacco Use Types Packs/Day [...]
--- NOTE | 2025-08-22 09:41 | PC.NURSE ---
pt doing well, responsive to IV fluids and medications. Pt calm, cooperative.
--- NOTE | 2025-08-22 12:00 | PC.NURSE ---
pt ambulated well with a walker.
--- NOTE | 2025-08-22 14:16 | PC.NURSE ---
Called Facility to let them know patient will be returning back.
--- NOTE | 2025-08-22 14:54 | PC.NURSE ---
EMS here for pick-up but d/c paperwork not complete at this time, provider aware. EMS sts they will have to leave shortly if d/c paperwork not in yet.
--- NOTE | 2025-08-22 15:55 | PC.NURSE ---
spoke to [facility], staff refusing to take pt with medications outside of facility or pickup medications. Pt is going to stay tonight to recieve Abx dosing in the morning and then be discharged d/t [facility] not delivering on weekends. Provider is aware and approved this plan.
--- NOTE | 2025-08-22 17:09 | PC.NURSE ---
spoke to pharmacy regarding med req. Pharmacy sts med req will be put in but someone was in the chart while she tried to enter the meds and employee now on break, will enter them when she is back
--- NOTE | 2025-08-22 17:26 | PHA.MEDREC ---
Pharmacy Consult ? Medication Reconciliation Pharmacy has completed the medication reconciliation. Spoke with patient. Patient was able to confirm his medications with doses and frequencies. Patient confirmed to have discontinued budesonide, fluoxetine, nystatin, zofran and pramoxine itch relief cream. Patient also confirmed to be taking vitamin D 2000 units and artificial tears for dry eye OTC.
[2025-08-23 05:42] VITALS: BP 118/60; PULSE 87; RESP 16; TEMP 36.6; O2SAT 97
--- NOTE | 2025-08-23 08:18 | PC.NURSE ---
US alerted this RN as charge about pt and questioning their DC back to facility. This RN talked with ED provider who stated once 9am antibiotic are given that he will be able to go back to the facility this AM d/t pharmacy delivery issues. Primary nurse aware at this time.
[2025-08-23 09:24] VITALS: BP 137/74; PULSE 72; RESP 18; TEMP 36.4; O2SAT 95
[2025-08-23 09:34] VITALS: BP 130/73; PULSE 69; RESP 16; O2SAT 97
--- NOTE | 2025-08-23 10:17 | PC.NURSE ---
dr tong did a rectal exam to see if the patient is in pacted as he is stating, no impaction fleet enema given pt tolerated the proedure well
--- NOTE | 2025-08-23 11:40 | PC.NURSE ---
pt is did have a medium loose bowel movement
== END 2025-08-23 14:18 | disposition home or self-care (01) ==
PROVIDERS: Emergency Provider Emergency Medicine Emergency Medical Services
DX: R33.9 Retention of urine, unspecified (principal); N39.0 Urinary tract infection, site not specified; R06.02 Shortness of breath
CPT/HCPCS: 36415; 71045; 80053; 81001; 83605; 85025; 87040; 87086; 87088; 87186; 96361; 96365; 96366; 96375; 99285; J0696; J1171

== ENCOUNTER → 2025-08-22 07:58 | Outpatient (BNV) | payer MEDICARE, SELFPAY | PROVIDERS: Emergency Provider Emergency Medicine Emergency Medical Services; Visit Provider Specialist | DX: R06.02 Shortness of breath (principal) | CPT/HCPCS: 71045 ==

== ENCOUNTER 2025-08-24 10:08 | Emergency (ER) | payer MEDICARE, SELFPAY ==
[2025-08-24] VITALS (9 sets, daily range): BP systolic 91–136; BP diastolic 51–80; PULSE 64–91; RESP 16–18; TEMP 36.6–36.7; O2SAT 94–96; BMI 22.0
--- NOTE | 2025-08-24 10:15 | ED.GENADULT ---
HPI - General Adult General Chief complaint: General Medical Stated complaint: UTI, IV ABX X2D,FEVER,WEAK STILL FROM CARE HOME PER EMS Time Seen by Provider: 08/24/25 10:12 Source: patient and EMS Mode of arrival: EMS Limitations: no limitations History of Present Illness ED Provider: GISELLE GARCIA PA-C HPI narrative: 75-year-old male with pmhx significant for urinary retention with bhatt catheter in place x1 week, prostate cancer presenting to the ED today via EMS for evaluation of fever, generalized weakness, and feeling unwell x today. Patient was evaluated at our facility for same 2 days ago, discharged home yesterday. He was noted to have a UTI, treated with two doses of IV ceftriaxone, and discharged home with ceftin. He reports returning to his group home facility yesterday however was unable to obtain his prescriptions as they do not deliver on the weekends. The facility PA arrived to evaluate patient this morning and noted that he was slightly hypotensive on standing, prompting them to call EMS for transport. Patient admits to decreased appetite and as a results, has not been eating/drinking over the last few days. He also reports fever last night with a temp of 101F. Reports taking tylenol last night. Endorses mild nausea, no vomiting. Admits to lower abdominal discomfort which is baseline for him, no change. No flank/back pain. Related Data Home Medications ?Medication ?Instructions ?Recorded ?Confirmed acetaminophen 325 mg tablet 325 mg PO QID PRN Pain 06/26/25 08/22/25 (Tylenol) apixaban 5 mg tablet (Eliquis) 5 mg PO BID 06/26/25 08/22/25 clonazepam 1 mg tablet (Klonopin) 1 mg PO BID@0700,1900 06/26/25 08/22/25 lactobacillus combination no.9 4 4,000 mmu cells PO DAILY 06/26/25 08/22/25 billion cell capsule (Adult 50 Plus Probiotic) mirtazapine 30 mg tablet 30 mg PO BEDTIME 06/26/25 08/22/25 multivitamin 1 tab PO DAILY 06/26/25 08/22/25 oxycodone 5 mg tablet 2.5 mg PO BID PRN Moderate Pain 06/26/25 08/22/25 (Scale Score 5-6) polyethylene glycol 3350(bulk) 1 ea miscellaneous DAILY PRN 06/26/25 08/22/25 (Base B, Polyethylene Glycol 3350 Constipation granules) sennosides 8.6 mg tablet 8.6 mg PO DAILY PRN Constipation 06/26/25 08/22/25 tamsulosin 0.4 mg capsule 0.4 mg PO BEDTIME 06/26/25 08/22/25 hydrocortisone 1 % topical 1 appl topical BID PRN DERMATITIS 08/17/25 08/22/25 ointment (Aquaphor Itch Relief) lansoprazole 30 mg capsule,delayed 30 mg PO DAILY 08/17/25 08/22/25 release artificial tears with lanolin eye 1 appl ophthalmic (eye) Q4H PRN 08/22/25 08/22/25 ointment Dry Eyes cholecalciferol (vitamin D3) 50 50 mcg PO DAILY 08/22/25 08/22/25 mcg (2,000 unit) capsule (Vitamin D3) melatonin 3 mg tablet 6 mg PO BEDTIME 08/22/25 08/22/25 Previous Rx's ?Medication ?Instructions ?Recorded cefuroxime axetil 500 mg tablet 500 mg PO BID 7 days #14 tabs 08/22/25 Allergies Allergy/AdvReac Type Severity Reaction Status Date / Time No Known Allergies Allergy Verified 08/24/25 10:25 Review of Systems Review of Systems: Yes all other systems are reviewed and are negative PMFSH Past Medical History Attestation statement: The following information was validated with the patient. Source: old records reviewed and nursing notes reviewed Medical History BPH (benign prostatic hyperplasia) CAD (coronary artery disease) Orthostatic hypotension Suicide attempt Heart murmur Dermatitis Cataract Arthritis History of recurrent UTIs Anxiety Macular degeneration GERD (gastroesophageal reflux disease) CHF (congestive heart failure) Colitis Prostate cancer Social History Social History Alcohol intake: current Alcohol intake frequency: a few times a month Patient Tobacco Use Status: Tobacco use Unknown Advance Directives: Yes Advance Directives on File: Yes Advance Directives Date on File: 08/18/25 Physical Exam ED Vital Signs: Vital Signs - 24 hr 08/24/25 10:24 08/24/25 11:43 08/24/25 11:43 Temperature 97.8 F Pulse Rate 81 66 74 Respiratory Rate 16 Blood Pressure 107/68 111/64 96/60 Pulse Oximetry 94 Oxygen Delivery Method Room Air 08/24/25 11:44 08/24/25 14:37 08/24/25 14:38 Temperature Pulse Rate 88 64 67 Respiratory Rate Blood Pressure 91/51 L 136/70 123/70 Pulse Oximetry Oxygen Delivery Method 08/24/25 14:39 08/24/25 15:36 08/24/25 19:03 Temperature 98.1 F 98.1 F Pulse Rate 73 70 70 Respiratory Rate 18 18 Blood Pressure 119/63 130/74 130/74 Pulse Oximetry 96 96 Oxygen Delivery Method Room Air Room Air BMI result Body Mass Index 22.0 vital signs stable General: thin appearing, no acute distress Skin: Warm, dry, intact. No rashes or lesions. Head: Normocephalic, atraumatic. EENT: Hearing is intact b/l. Conjunctiva clear. PERRLA. EOM intact. Moist mucous membranes.? Neck: Supple without LAD Cardiac: Chest wall symmetric. RRR Lungs: Normal respiratory effort without accessory muscle use. CTA bilaterally Abdomen: Soft, non-tender, non-distended. No rebound tenderness or guarding. Positive BS x4. no cvat. bhatt catheter in place, patent, straining straw color urine. no gross blood. Back: No midline spinous or paraspinal tenderness. No step off deformity. Ext: Upper and lower extremities atraumatic, without tenderness, deformity, swelling or erythema. Full ROM throughout Neuro: AOx3. Normal speech. exam is nonfocal. global weakness w/ strength 4/5 throughout. Ambulating with steady gait Course Course Course Narrative: CBC without leukocytosis. No left shift. Normocytic anemia, h&h stable when compared to priors. Chemistry without acute electrolyte abnormalities requiring intervention. No isaias. Liver function around baseline.? > blood pressure soft on arrival. His orthostatic vital signs were negative however patient did drop to 91/51 on standing. This is likely volume depletion. He was treated with 2L IVF with improvement to 136/70. Orthos remain negative. > his urine is grossly infected, improved from UA two days prior. His urine culture grew >100k coli, sensitive to prescribed antibiotic (ceftin). His blood cultures obtained 2 days ago show no growth of bacteria. He has been treated with a dose of ceftriaxone in ED today. > I discussed all work up results with patient. he has remained afebrile. Blood pressure has improved. Work up is reassuring. We discussed possible PT/CM consults however patient states physical therapy was recently set up and he will be starting home PT shortly. Used shared decision making to determine disposition home. He states his SNF received his abx this afternoon. Advised to continue these as prescribed.?he states he has follow up with his urologist, dr. long, on the of this month. Patient has remained stable throughout ED visit today. Discussed worrisome signs and symptoms and when to return to the ED. All questions answered at this time. Patient is agreeable with disposition and stable for discharge. Medications Administered Discontinued Medications Generic Name Dose Route Start Last Admin Trade Name Jonathanq PRN Reason Stop Dose Admin Apixaban 5 mg 08/24/25 18:33 08/24/25 18:50 Apixaban 5 Mg Tablet PO 08/24/25 18:34 5 mg ONCE ONE Administration Clonazepam 1 mg 08/24/25 18:33 08/24/25 18:50 Clonazepam 1 Mg Tablet PO 08/24/25 18:34 1 mg ONCE ONE Administration Sodium Chloride 1,000 mls @ 999 mls/hr 08/24/25 11:45 08/24/25 13:43 Ns IV 08/24/25 12:45 Infused .Q1H1M STORM Infusion Acetaminophen 1,000 mg in 100 mls @ 400 mls/hr 08/24/25 11:46 08/24/25 13:00 Ofirmev IV 08/24/25 12:00 Infused ONCE ONE Infusion Sodium Chloride 1,000 mls @ 999 mls/hr 08/24/25 12:45 08/24/25 13:45 Ns IV 08/24/25 13:45 Infused .Q1H1M STORM Infusion Ceftriaxone Sodium 1 gm/ 50 mls @ 100 mls/hr 08/24/25 13:13 08/24/25 14:03 Sodium Chloride IV 08/24/25 13:42 Infused ONCE ONE Infusion Melatonin 6 mg 08/24/25 18:33 08/24/25 18:50 Melatonin 3 Mg Tablet PO 08/24/25 18:34 6 mg ONCE ONE Administration Mirtazapine 30 mg 08/24/25 18:33 08/24/25 18:50 Mirtazapine 30 Mg Tablet PO 08/24/25 18:34 30 mg ONCE ONE Administration Ondansetron HCl 4 mg 08/24/25 11:45 08/24/25 12:43 Ondansetron Hcl 4 Mg/2 Ml Vial IVPUSH 08/24/25 11:46 4 mg ONCE ONE Administration Oxycodone HCl 2.5 mg 08/24/25 18:33 08/24/25 18:50 Oxycodone Hcl Immed Release 5 Mg Tablet PO 08/24/25 18:34 2.5 mg ONCE ONE Administration Tamsulosin HCl 0.4 mg 08/24/25 18:33 08/24/25 18:50 Tamsulosin Hcl 0.4 Mg Capsule PO 08/24/25 18:34 0.4 mg ONCE ONE Administration Medical Decision Making Medical Decision Making [facility] Narrative: 75-year-old male with pmhx significant for urinary retention with bhatt catheter in place x1 week, prostate cancer presenting to the ED today via EMS for evaluation of fever, generalized weakness, and feeling unwell x today. Differential diagnosis includes anemia, electrolyte abnormality, dehydration, orthostatic hypotension, UTI Plan for basic labs, UA, ortho vitals, re-eval. Differential Diagnosis Differential Diagnoses: The differential diagnosis associated with the presentation includes as above Admission/Observation not indicated Lab Data [facility] Lab Attestation statement: I reviewed the patient's lab results. as above 08/24/25 11:00 08/24/25 11:00 Labs: Lab Results 08/24/25 08/24/25 Range/Units 11:00 11:49 WBC 7.9 (4.8-10.8) X10*3/uL RBC 3.96 L (4.60-5.80) X10*6/uL Hgb 11.6 L (14.0-18.0) g/dl Hct 35.2 L (42.0-52.0) % MCV 88.9 (80.0-98.0) fL MCH 29.3 (27.0-33.0) pg MCHC 33.0 (31.0-36.0) g/dl RDW 13.4 (11.0-16.0) % Plt Count 209 (160-400) X10*3/uL MPV 8.4 L (9.4-12.4) fL Immature Gran % (Auto) 0.1 (0.0-0.4) % Neut % (Auto) 58.6 (45-73) % Lymph % (Auto) 27.7 (20-40) % [place] % (Auto) 9.8 (2-11) % Eos % (Auto) 3.3 (0-4) % Baso % (Auto) 0.5 (0-2) % Lymph # (Auto) 2.2 (1.2-4.9) X10*3/uL [place] # (Auto) 0.8 (0.1-1.2) X10*3/uL Eos # (Auto) 0.3 (0.0-0.4) X10*3/uL Baso # (Auto) 0.0 (0.0-0.2) X10*3/uL Abs Immat Gran (auto) 0.01 (0.00-0.03) X10*3/uL Absolute Neuts (auto) 4.6 (2.0-8.3) x10*3/uL Absolute Nucleated RBC 0.000 (0.0-0.012) X10*3/uL Nucleated RBC % (auto) 0.0 (0.0-0.2) /100WBC Sodium 138 (135-145) mmol/L Potassium 3.7 (3.3-5.1) mmol/L Chloride 106 (96-108) mmol/L Carbon Dioxide 26 (22-29) mmol/L Anion Gap 10 L (12-20) BUN 8 L (9-16) mg/dL Creatinine 0.77 (0.5-1.4) mg/dL Estim Creat Clear Calc 87.6 Estimated GFR > 60 Random Glucose 90 (60-115) mg/dL Calcium 8.7 (8.4-10.2) mg/dL Magnesium 1.9 (1.6-2.6) mg/dL Total Bilirubin 0.4 (0.0-1.0) mg/dL AST 22 (5-37) U/L ALT 18 (0-40) U/L Alkaline Phosphatase 54 (39-117) U/L Total Protein 6.2 L (6.5-8.0) g/dL Albumin 3.7 (3.5-5.0) g/dL Urine Color Yellow Urine Appearance Clear Urine pH 7.0 (5.0-9.0) Ur Specific [place] <= 1.005 (1.005-1.025) Urine Protein Negative (Neg-Trace) mg/dL Urine Glucose (UA) Negative (Negative) mg/dL Urine Ketones Negative (Negative) mg/dL Urine Blood Large (3+) H (Negative) Urine Nitrite Negative (Negative) Ur Leukocyte Esterase Moderate (2+) H (Negative) Urine RBC 3-5 H (0-2) /HPF Urine WBC 0-5 (0-5) /HPF Ur Squamous Epith Cells 0-2 (0-2) /HPF Urine Bacteria None Seen (None Seen) Hyaline Casts 0-2 (0-2) /LPF Independent Historian Clinical information obtained from an independent historian. History obtained from or confirmed by: EMS External Record Review External record reviewed: Inpatient record Prescription Management I considered prescription management with: Antibiotic Chronic Conditions Patient?s care impacted by: Other (BPH, prostate cancer) Social Determinants Patient?s care significantly limited by Social Determinants of Health including: Other Social Determinant of Health Critical Care Time Critical Care Time Critical Care Time: No Discharge Plan Discharge Clinical Impression: Acute UTI Patient Disposition: Home, Self-Care Instructions: Urinary Tract Infection in Men (ED) Additional Instructions: You work up today is reassuring. Your urine is still infected although improving when compared to urine obtained on 08/22/2025. We have reviewed your urine culture and you are on the appropriate antibiotic (ceftin). This was prescribed to you yesterday and should have arrived to your facility at this point. Take this as prescribed 2 times daily. In the ED today, your blood pressure was noted to be on the lower side. You were given 2 L of fluids with improvement. It is important that you stay adequately hydrated so that your blood pressure does not continue to drop. Keep your follow up appointment with Dr. Long regarding your Bhatt catheter. Follow up with your primary care provider as needed. Return with any new or worsening symptoms. In the case of an emergency call 911. Prescriptions: No Action hydrocortisone [Aquaphor Itch Relief] 1 % ointment 1 appl topical BID PRN (Reason: DERMATITIS) lansoprazole 30 mg capsule,delayed release(DR/EC) 30 mg PO DAILY cefuroxime axetil 500 mg tablet 500 mg PO BID 7 Days Qty: 14 0RF melatonin 3 mg Tablet 6 mg PO BEDTIME Artificial Tears Ointment 1 appl OPHTHALMIC (EYE) Q4H PRN (Reason: Dry Eyes) cholecalciferol (vitamin D3) [Vitamin D3] 50 mcg (2,000 unit) Capsule 50 mcg PO DAILY multivitamin Tablet 1 tab PO DAILY sennosides 8.6 mg tablet 8.6 mg PO DAILY PRN (Reason: Constipation) acetaminophen [Tylenol] 325 mg tablet 325 mg PO QID PRN (Reason: Pain) clonazepam [Klonopin] 1 mg tablet 1 mg PO BID@0700,1900 tamsulosin 0.4 mg capsule 0.4 mg PO BEDTIME mirtazapine 30 mg tablet 30 mg PO BEDTIME oxycodone 5 mg tablet 2.5 mg PO BID PRN (Reason: Moderate Pain (Scale Score 5-6)) Patient Comments: 2.5 mg PO QD PRN polyethylene glycol 3350(bulk) [Base B,Polyethylene [id number]] Granules 1 ea miscellaneous DAILY PRN (Reason: Constipation) Eliquis 5 mg tablet 5 mg PO BID Adult 50 Plus Probiotic 4 billion cell capsule 4,000 mmu cells PO DAILY Rx Instructions: administer with a meal Referrals: Diego Long MD [Physician, Urology] Physician,Shahab J [Primary Care Provider, Medical] Interventions: ED Discharge Assessment Last Done: 08/24/25 19:03 Discharge Date/Time: 08/24/25 19:04 Print Language: Danish
[2025-08-24 11:02] LABS: MANUAL DIFF FLAG NO
[2025-08-24 11:04] LABS: Hematocrit 35.2 % (42.0-52.0); Hemoglobin 11.6 g/dl (14.0-18.0); Imm Gran Abs Auto 0.01 X10*3/uL (0.00-0.03); Imm Gran Pct Auto 0.1 % (0.0-0.4); Lymphocytes Absolute Auto 2.2 X10*3/uL (1.2-4.9); Mean Corpuscular HGB Conc 33.0 g/dl (31.0-36.0); Mean Corpuscular Hemoglobin 29.3 pg (27.0-33.0); Mean Corpuscular Volume 88.9 fL (80.0-98.0); NRBC Abs Auto 0.000 X10*3/uL (0.0-0.012); NRBC Pct Auto 0.0 /100WBC (0.0-0.2); Platelet Count 209 X10*3/uL (160-400); Red Blood Count 3.96 X10*6/uL (4.60-5.80); White Blood Count 7.9 X10*3/uL (4.8-10.8)
[2025-08-24 11:18] LABS: Alanine Aminotransferase 18 U/L (0-40); Albumin Level 3.7 g/dL (3.5-5.0); Alkaline Phosphatase 54 U/L (39-117); Anion Gap 10 (12-20); Aspartate Amino Transferase 22 U/L (5-37); Blood Urea Nitrogen 8 mg/dL (9-16); Calcium 8.7 mg/dL (8.4-10.2); Carbon Dioxide 26 mmol/L (22-29); Chloride 106 mmol/L (96-108); Creatinine Clr Calc Pharmacy 87.6; Estimated Glomerular Filt Rate > 60; Magnesium 1.9 mg/dL (1.6-2.6); Potassium 3.7 mmol/L (3.3-5.1); Sodium 138 mmol/L (135-145); Total Protein 6.2 g/dL (6.5-8.0)
[2025-08-24 12:06] LABS: Appearance Urine Clear; Glucose Urine UA Negative (Negative); PH 7.0 (5.0-9.0); Specific Gravity - Urine <= 1.005 (1.005-1.025); UMIC TRIGGER UACC YES
[2025-08-24 12:19] LABS: UACC Culture Trigger YES
--- OUTSIDE RECORDS SUMMARY | 2025-08-24 12:53 | XMS_ITS | Clinical Summary ---
Author Organization [facility] [place] [address] Care Team Providers Care Financial Reporting Director Name Role Phone Keon Giron MD Primary Care Provider [phone] Social History Tobacco Use Types Packs/Day Years [...] series) 06/22/2025 [place] [id number] [facility] Care Teams Financial Reporting Director Relationship Specialty Start Date End Date Keon Giron MD [address] [place] [phone] PCP - General Internal Medicine 09/06/18
--- OUTSIDE RECORDS SUMMARY | 2025-08-24 12:53 | XMS_ITS | Encounter Summary ---
Author Organization [facility] Address [address], [place] [address] Phone Care Team Providers Care Manager Marketing Name Role Phone Unavailable Primary Care Provider Unavailabl e Encounter Details Date Type Department Care Team (Late st Contact Info) Description 05/09/2022 Hospital/ED/SNF/HH Visit [facility] [address] [phone] Provider, MD Daphne [address] [place] [phone] Social History Tobacco Use Types Packs/Day [...]
--- OUTSIDE RECORDS SUMMARY | 2025-08-24 12:53 | XMS_ITS | Clinical Summary ---
Author Organization [facility] Address [address] [place] [phone] Phone Care Team Providers Care Data Integrity Consultant Name Role Phone Unavailable Primary Care Provider [...]
--- OUTSIDE RECORDS SUMMARY | 2025-08-24 12:53 | XMS_ITS | Encounter Summary ---
Author Organization [facility] Address [address] [address] Phone Care Team Providers Care Action Finisher Name Role Phone Unavailable Primary Care Provider Unavailabl e Encounter Details Date Type Department Care Team (Late st Contact Info) Description 04/28/2022 Hospital/ED/SNF/HH Visit [facility] [address] [phone] Provider, MD Daphne [address] [place] [phone] Social History Tobacco Use Types Packs/Day [...]
[2025-08-24] MEDS: oxyCODONE HCl Immed Release 5 MG TABLET 2.5 MG PO (18:50)
== END 2025-08-24 19:04 | disposition home or self-care (01) ==
PROVIDERS: Physician Assistant Medical; Emergency Provider Emergency Medicine
DX: N39.0 Urinary tract infection, site not specified (principal); I95.9 Hypotension, unspecified; I50.9 Heart failure, unspecified; C61 Malignant neoplasm of prostate; Z87.440 Personal history of urinary (tract) infections; Z79.899 Other long term (current) drug therapy
CPT/HCPCS: 36415; 80053; 81001; 81003; 83735; 85025; 87086; 87088; 87186; 96361; 96374; 96375; 99284; 99285; J0131; J0696; J2405

== ENCOUNTER 2025-08-30 17:43 | Inpatient (IN) | payer MEDICARE, SELFPAY ==
[2025-08-30 18:02] VITALS: BP 135/65; PULSE 74; RESP 16; TEMP 36.7; O2SAT 98; BMI 22.0
--- NOTE | 2025-08-30 18:52 | PC.NURSE ---
Pt endorsing bladder discomfort starting this AM. Bladder scan showed 300mls- during scan, 300ml output into bhatt bag,
[2025-08-30 19:00] LABS: Appearance Urine Clear; Glucose Urine UA Negative (Negative); PH 6.5 (5.0-9.0); Specific Gravity - Urine <= 1.005 (1.005-1.025); UMIC TRIGGER UACC YES
[2025-08-30 19:02] LABS: UACC Culture Trigger YES
--- OUTSIDE RECORDS SUMMARY | 2025-08-30 19:24 | XMS_ITS | Encounter Summary ---
Author Organization [facility] Address [address] [address] Phone Care Team Providers Care Senior Software Tester Name Role Phone Unavailable Primary Care Provider Unavailabl e Encounter Details Date Type Department Care Team (Late st Contact Info) Description 05/09/2022 Hospital/ED/SNF/HH Visit [facility] [address] [phone] Provider, MD Daphne [address] [place] [phone] Social History Tobacco Use Types Packs/Day [...]
--- OUTSIDE RECORDS SUMMARY | 2025-08-30 19:24 | XMS_ITS | Clinical Summary ---
Author Organization [facility] Address [address] [place] [phone] Phone Care Team Providers Care Lithographic General Worker Name Role Phone Unavailable Primary Care Provider [...]
--- OUTSIDE RECORDS SUMMARY | 2025-08-30 19:24 | XMS_ITS | Encounter Summary ---
Author Organization [facility] Address [address], [place] [address] Phone Care Team Providers Care [place] Operator Name Role Phone Unavailable Primary Care Provider Unavailabl e Encounter Details Date Type Department Care Team (Late st Contact Info) Description 04/28/2022 Hospital/ED/SNF/HH Visit [facility] [address] [phone] Provider, MD Daphne [address] [place] [phone] Social History Tobacco Use Types Packs/Day [...]
--- OUTSIDE RECORDS SUMMARY | 2025-08-30 19:24 | XMS_ITS | Clinical Summary ---
Author Organization [facility] [place] [address] Care Team Providers Care Shoulder Sawyer Name Role Phone Keon Giron MD Primary Care Provider [phone] Social History Tobacco Use Types Packs/Day Years [...] series) 06/22/2025 [place] [id number] [facility] Care Teams Shoulder Sawyer Relationship Specialty Start Date End Date Keon Giron MD [address] [place] [phone] PCP - General Internal Medicine 09/06/18
[2025-08-30 19:52] VITALS: BP 140/69; PULSE 63; RESP 18; TEMP 36.7; O2SAT 97
--- NOTE | 2025-08-30 21:44 | MHC.EDTECH ---
Pt was bladder scanned per request of provider, Pt has a leg bag and it was emptied with the amount of 400mL. Pt was bladder scanned and no urine was found at the time of scan. Let provider be aware
--- NOTE | 2025-08-30 21:57 | ED.GENADULT ---
HPI - General Adult General Chief complaint: General Medical Stated complaint: catheter issues, headache Time Seen by Provider: 08/30/25 20:09 Source: patient and EMS Mode of arrival: EMS Limitations: no limitations History of Present Illness ED Provider: Marlon THOMPSON HPI narrative: The patient is a 75-year-old male presenting to the ED via ambulance from independent living facility for evaluation of decreased urinary output from his recently placed Henderson catheter. Patient has a history of prostate CA, had a Henderson catheter placed for urinary retention in the end of July. The patient was seen 3 times in his ED since placement of the Henderson catheter for concerns of infection. Patient was treated with multiple rounds of Rocephin followed by Ceftin, which was delayed for a short time due to his assisted living facility unable to procure the antibiotic. The patient reports this morning he noted decreased urinary output into the Henderson catheter with increased pressure and pain in his bladder, as well as associated nausea and decreased appetite/p.o. fluid intake. The patient denies associated fever/chills, vomiting, diarrhea, chest pain, shortness of breath, or hematuria. Related Data Home Medications ?Medication ?Instructions ?Recorded ?Confirmed acetaminophen 325 mg tablet 325 mg PO QID PRN Pain 06/26/25 08/22/25 (Tylenol) apixaban 5 mg tablet (Eliquis) 5 mg PO BID 06/26/25 08/22/25 clonazepam 1 mg tablet (Klonopin) 1 mg PO BID@0700,1900 06/26/25 08/22/25 lactobacillus combination no.9 4 4,000 mmu cells PO DAILY 06/26/25 08/22/25 billion cell capsule (Adult 50 Plus Probiotic) mirtazapine 30 mg tablet 30 mg PO BEDTIME 06/26/25 08/30/25 multivitamin 1 tab PO DAILY 06/26/25 08/22/25 oxycodone 5 mg tablet 2.5 mg PO BID PRN Moderate Pain 06/26/25 08/30/25 (Scale Score 5-6) polyethylene glycol 3350(bulk) 1 ea miscellaneous DAILY PRN 06/26/25 08/22/25 (Base B, Polyethylene Glycol 3350 Constipation granules) sennosides 8.6 mg tablet 8.6 mg PO DAILY PRN Constipation 06/26/25 08/22/25 tamsulosin 0.4 mg capsule 0.4 mg PO BEDTIME 06/26/25 08/30/25 hydrocortisone 1 % topical 1 appl topical BID PRN DERMATITIS 08/17/25 08/22/25 ointment (Aquaphor Itch Relief) lansoprazole 30 mg capsule,delayed 30 mg PO DAILY 08/17/25 08/22/25 release artificial tears with lanolin eye 1 appl ophthalmic (eye) Q4H PRN 08/22/25 08/22/25 ointment Dry Eyes cholecalciferol (vitamin D3) 50 50 mcg PO DAILY 08/22/25 08/22/25 mcg (2,000 unit) capsule (Vitamin D3) melatonin 3 mg tablet 6 mg PO BEDTIME 08/22/25 08/22/25 Previous Rx's ?Medication ?Instructions ?Recorded cefuroxime axetil 500 mg tablet 500 mg PO BID 7 days #14 tabs 08/22/25 Allergies Allergy/AdvReac Type Severity Reaction Status Date / Time No Known Allergies Allergy Verified 08/30/25 18:04 Review of Systems Review of Systems: Yes all other systems are reviewed and are negative [facility] Past Medical History Medical History BPH (benign prostatic hyperplasia) CAD (coronary artery disease) Orthostatic hypotension Suicide attempt Heart murmur Dermatitis Cataract Arthritis History of recurrent UTIs Anxiety Macular degeneration GERD (gastroesophageal reflux disease) CHF (congestive heart failure) Colitis Prostate cancer Social History Social History Unable to assess alcohol history related to: Unknown Alcohol intake: never Patient Tobacco Use Status: Tobacco use Unknown Smoked in Last 30 Days: No Use of substances other than those prescribed or required for medical reasons: No Any prior treatment program specific to substance use: No Advance Directives: Yes Advance Directives on File: Yes Advance Directives Date on File: 08/18/25 Do you have a plan to hurt others: No Plan Physical Exam ED Vital Signs: Vital Signs - 24 hr 08/30/25 18:02 08/30/25 19:52 08/30/25 23:47 Temperature 98.0 F 98.0 F 97.7 F Pulse Rate 74 63 61 Respiratory Rate 16 18 18 Blood Pressure 135/65 140/69 H 117/54 L Pulse Oximetry 98 97 98 Oxygen Delivery Method Room Air Room Air Room Air BMI result Body Mass Index 22.0 CONSTITUTIONAL: The patient appears non-toxic, well nourished and in no acute distress. Vital signs as documented. HEAD: Atraumatic, normocephalic. EYES: EOMs grossly intact, pupils equal, conjunctiva clear, no exudate. ENT: Nares patent, no discharge. Airway patent, no audible stridor, visible mucosa is pink and moist without noted lesions. NECK: Trachea is midline, no obvious masses or gross abnormalities. CHEST: Symmetric movement, normal appearance. LUNGS: LS present and CTAB, no w/r/r. Non-labored work of breathing. CARDIAC: Regular Rhythm, S1/S2 appreciated, no murmurs, rubs or gallops. ABDOMEN: Abdomen soft and non-tender x4 quadrants, there is moderate suprapubic tenderness without associated rebound, no palpable masses or organomegaly. : Henderson catheter in place, urine appears concentrated but without hematuria or sediment. EXTREMITIES: Normal tone, moves all extremities spontaneously without reported pain. No obvious acute injury or deformity noted. NEURO: Alert and oriented x3, CN II-XII appear grossly intact. Cerebellar Functioning grossly intact. No obvious sensory or motor deficits. Speech clear and appropriate. PSYCH: normal affect, appropriate eye contact, fluid speech, with appropriate response to questioning. No reported suicidality or homicidality. SKIN: Warm, dry, color appropriate, normal turgor. No rashes noted. Medications Administered Discontinued Medications Generic Name Dose Route Start Last Admin Trade Name Freq PRN Reason Stop Dose Admin Piperacillin Sod/Tazobactam 50 mls @ 100 mls/hr 08/30/25 21:53 08/30/25 23:05 Sod 3.375 gm/ Sodium Chloride IV 08/30/25 22:22 Infused ONCE ONE Infusion Morphine Sulfate 4 mg 08/30/25 21:25 08/30/25 22:13 Morphine Sulfate 4 Mg/Ml Cartridge IVPUSH 08/30/25 21:26 4 mg ONCE ONE Administration Protocol Medical Decision Making Medical Decision Making [facility] Narrative: 10:02 PM 08/30/2025 (Mariel THOMPSON): The patient is a 75-year-old male presenting to the ED via ambulance from independent living facility for evaluation of decreased urinary output from his recently placed Henderson catheter. Patient has a history of prostate CA, had a Henderson catheter placed for urinary retention in the end of July. The patient was seen 3 times in his ED since placement of the Henderson catheter for concerns of infection. Patient was treated with multiple rounds of Rocephin followed by Ceftin, which was delayed for a short time due to his assisted living facility unable to procure the antibiotic. The patient reports this morning he noted decreased urinary output into the Henderson catheter with increased pressure and pain in his bladder, as well as associated nausea and decreased appetite/p.o. fluid intake. The patient denies associated fever/chills, vomiting, diarrhea, chest pain, shortness of breath, or hematuria. The patient's exam demonstrates moderate tenderness of the suprapubic area without associated rebound. The patient's Henderson catheter does have approximately 400 cc of urine present in the bag, without evidence of hematuria. The patient states the Henderson catheter output only reoccurred after arriving in the ED, patient wonders if there was a partial obstruction which became dislodged. The patient's urinalysis was obtained and shows moderate blood, moderate leukocyte esterase, and 4+ bacteria. Due to the presence of ongoing infection based on urinalysis the patient was ordered for laboratory workup to evaluate for systemic infection and renal function. 11:03 9M 08/30/2025 (Mariel THOMPSON): The patient's laboratory evaluation resulted and shows no leukocytosis, or significant anemia. No electrolyte abnormality, or EDGAR. The patient's chart was reviewed and culture from 08/22 grew out E coli susceptible to Ceftin, which patient was discharged on. Unfortunately however the patient's urine culture on 08/24 grew out Enterococcus faecalis which is resistant to Ceftin. Comparison of susceptibilities demonstrates patient's bacter are only susceptible to Macrobid or IV Zosyn. Given the patient's complicated UTI in the setting of Henderson catheterization, Macrobid is not appropriate. Seeing as this is the patient's 4th visit for UTI, and patient's cultures indicate need for IV Zosyn, patient will be admitted for IV Zosyn administration, and infectious disease consultation. We will obtain blood cultures and lactic acid. Additionally the patient reports his pain is not controlled with his p.o. oxycodone, we will give morphine. Admission/Observation Consideration of admission/observation: Escalation of care including admission/observation considered Lab Data MDM Lab Attestation statement: I reviewed the patient's lab results. 08/30/25 22:10 08/30/25 22:10 Labs: Lab Results 08/30/25 08/30/25 Range/Units 18:51 22:10 WBC 6.1 (4.8-10.8) X10*3/uL RBC 4.08 L (4.60-5.80) X10*6/uL Hgb 11.7 L (14.0-18.0) g/dl Hct 36.0 L (42.0-52.0) % MCV 88.2 (80.0-98.0) fL MCH 28.7 (27.0-33.0) pg MCHC 32.5 (31.0-36.0) g/dl RDW 13.3 (11.0-16.0) % Plt Count 250 (160-400) X10*3/uL MPV 8.5 L (9.4-12.4) fL Immature Gran % (Auto) 0.3 (0.0-0.4) % Neut % (Auto) 54.8 (45-73) % Lymph % (Auto) 31.9 (20-40) % [place] % (Auto) 8.8 (2-11) % Eos % (Auto) 3.5 (0-4) % Baso % (Auto) 0.7 (0-2) % Lymph # (Auto) 1.9 (1.2-4.9) X10*3/uL [place] # (Auto) 0.5 (0.1-1.2) X10*3/uL Eos # (Auto) 0.2 (0.0-0.4) X10*3/uL Baso # (Auto) 0.0 (0.0-0.2) X10*3/uL Abs Immat Gran (auto) 0.02 (0.00-0.03) X10*3/uL Absolute Neuts (auto) 3.3 (2.0-8.3) x10*3/uL Absolute Nucleated RBC 0.000 (0.0-0.012) X10*3/uL Nucleated RBC % (auto) 0.0 (0.0-0.2) /100WBC Sodium 141 (135-145) mmol/L Potassium 3.7 (3.3-5.1) mmol/L Chloride 108 (96-108) mmol/L Carbon Dioxide 24 (22-29) mmol/L Anion Gap 13 (12-20) BUN 9 (9-16) mg/dL Creatinine 0.76 (0.5-1.4) mg/dL Estim Creat Clear Calc 88.6 Estimated GFR > 60 Random Glucose 94 (60-115) mg/dL Lactic Acid 1.0 (0.5-2.0) mmol/L Calcium 9.2 (8.4-10.2) mg/dL Total Bilirubin 0.3 (0.0-1.0) mg/dL AST 24 (5-37) U/L ALT 20 (0-40) U/L Alkaline Phosphatase 57 (39-117) U/L Total Protein 6.7 (6.5-8.0) g/dL Albumin 4.1 (3.5-5.0) g/dL Urine Color Yellow Urine Appearance Clear Urine pH 6.5 (5.0-9.0) Ur Specific [place] <= 1.005 (1.005-1.025) Urine Protein Negative (Neg-Trace) mg/dL Urine Glucose (UA) Negative (Negative) mg/dL Urine Ketones Negative (Negative) mg/dL Urine Blood Moderate (2+) H (Negative) Urine Nitrite Negative (Negative) Ur Leukocyte Esterase Moderate (2+) H (Negative) Urine RBC 6-10 H (0-2) /HPF Urine WBC 6-10 H (0-5) /HPF Ur Squamous Epith Cells 0-2 (0-2) /HPF Urine Bacteria 4+ (None Seen) Hyaline Casts 0-2 (0-2) /LPF Discharge Plan Discharge Clinical Impression: Catheter-associated urinary tract infection Qualifiers: Indwelling urinary catheter type: indwelling urethral catheter Encounter type: subsequent encounter Qualified Code(s): T83.511D - Infection and inflammatory reaction due to indwelling urethral catheter, subsequent encounter Patient Disposition: Admitted As Inpatient Print Language: Algerian
[2025-08-30 22:21] LABS: Hematocrit 36.0 % (42.0-52.0); Hemoglobin 11.7 g/dl (14.0-18.0); Imm Gran Abs Auto 0.02 X10*3/uL (0.00-0.03); Imm Gran Pct Auto 0.3 % (0.0-0.4); Lymphocytes Absolute Auto 1.9 X10*3/uL (1.2-4.9); MANUAL DIFF FLAG NO; Mean Corpuscular HGB Conc 32.5 g/dl (31.0-36.0); Mean Corpuscular Hemoglobin 28.7 pg (27.0-33.0); Mean Corpuscular Volume 88.2 fL (80.0-98.0); NRBC Abs Auto 0.000 X10*3/uL (0.0-0.012); NRBC Pct Auto 0.0 /100WBC (0.0-0.2); Platelet Count 250 X10*3/uL (160-400); Red Blood Count 4.08 X10*6/uL (4.60-5.80); White Blood Count 6.1 X10*3/uL (4.8-10.8)
[2025-08-30 22:35] LABS: Calcium 9.2 mg/dL (8.4-10.2); Chloride 108 mmol/L (96-108); Potassium 3.7 mmol/L (3.3-5.1); Sodium 141 mmol/L (135-145)
[2025-08-30 23:47] VITALS: BP 117/54; PULSE 61; RESP 18; TEMP 36.5; O2SAT 98
[2025-08-31] VITALS (7 sets, daily range): BP systolic 101–131; BP diastolic 56–72; PULSE 62–78; RESP 12–18; TEMP 36.4–36.7; O2SAT 96–98; BMI 22.7
--- NOTE | 2025-08-31 02:13 | PM.IMHP ---
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 presented to the hospital today with chief complaint of difficulty urination. Patient mentions that over the past couple days he has been having difficulty urination. Has been intermittently being but intermittently not able to urinate into the Henderson bag. Reports having mild abdominal discomfort. Denies any fevers and chills. Denies any chest pain or palpitations. Denies any nausea vomiting or diarrhea. Review of all other systems is negative except mentioned above ER course: Per ER team, patient Henderson was manipulated in the ER. Follow the patient was able to have some urine output into the Henderson bag. Urinalysis abnormal consistent with UTI. Prior cultures grew E coli and Enterococcus sensitive to Zosyn. [facility] Medical History BPH (benign prostatic hyperplasia) CAD (coronary artery disease) Orthostatic hypotension Suicide attempt Heart murmur Dermatitis Cataract Arthritis History of recurrent UTIs Anxiety Macular degeneration GERD (gastroesophageal reflux disease) CHF (congestive heart failure) Colitis Prostate cancer Social History Unable to assess alcohol history related to: Unknown Alcohol intake: never Patient Tobacco Use Status: Tobacco use Unknown Smoked in Last 30 Days: No Use of substances other than those prescribed or required for medical reasons: No Any prior treatment program specific to substance use: No Advance Directives: Yes Advance Directives on File: Yes Advance Directives Date on File: 08/18/25 Do you have a plan to hurt others: No Plan Meds Allergies Allergy/AdvReac Type Severity Reaction Status Date / Time No Known Allergies Allergy Verified 08/30/25 18:04 Active Medications: Current Medications Piperacillin Sod/Tazobactam (Sod 3.375 gm/ Sodium Chloride) 50 mls @ 100 mls/hr IV Q6H STORM Home Medications ?Medication ?Instructions ?Recorded ?Confirmed ?Last Taken ?Type acetaminophen 325 mg tablet 325 mg PO QID PRN Pain 06/26/25 08/31/25 08/16/25 History (Tylenol) apixaban 5 mg tablet (Eliquis) 5 mg PO BID 06/26/25 08/31/25 08/30/25 History clonazepam 1 mg tablet (Klonopin) 1 mg PO BID@0700,1900 06/26/25 08/31/25 08/30/25 History lactobacillus combination no.9 4 4,000 mmu cells PO DAILY 06/26/25 08/22/25 08/16/25 History billion cell capsule (Adult 50 Plus Probiotic) mirtazapine 30 mg tablet 30 mg PO BEDTIME 06/26/25 08/30/25 08/29/25 19:00 History 30 mg multivitamin 1 tab PO DAILY 06/26/25 08/22/25 08/16/25 History oxycodone 5 mg tablet 2.5 mg PO BID PRN Moderate Pain 06/26/25 08/30/25 08/29/25 19:00 History (Scale Score 5-6) polyethylene glycol 3350(bulk) 1 ea miscellaneous DAILY PRN 06/26/25 08/22/25 08/16/25 History (Base B, Polyethylene Glycol 3350 Constipation granules) sennosides 8.6 mg tablet 8.6 mg PO DAILY PRN Constipation 06/26/25 08/31/25 08/30/25 History tamsulosin 0.4 mg capsule 0.4 mg PO BEDTIME 06/26/25 08/30/25 08/29/25 History hydrocortisone 1 % topical 1 appl topical BID PRN DERMATITIS 08/17/25 08/22/25 08/16/25 History ointment (Aquaphor Itch Relief) lansoprazole 30 mg capsule,delayed 30 mg PO DAILY 08/17/25 08/22/25 08/16/25 History release artificial tears with lanolin eye 1 appl ophthalmic (eye) Q4H PRN 08/22/25 08/22/25 Unknown History ointment Dry Eyes cholecalciferol (vitamin D3) 50 50 mcg PO DAILY 08/22/25 08/22/25 Unknown History mcg (2,000 unit) capsule (Vitamin D3) melatonin 3 mg tablet 6 mg PO BEDTIME 08/22/25 08/31/25 08/30/25 History Physical Exam Vital Signs and Narrative: Vital Signs: Last Vital Signs Temp 97.7 F 08/30/25 23:47 Pulse 61 08/30/25 23:47 Resp 18 08/30/25 23:47 BP 117/54 L 08/30/25 23:47 Pulse Ox 98 08/30/25 23:47 O2 Del Method Room Air 08/30/25 23:47 BMI result Body Mass Index 22.0 Results Labs 08/30/25 22:10 08/30/25 22:10 Labs: Laboratory Results - last 24 hr 08/30/25 08/30/25 18:51 22:10 MCV 88.2 MCH 28.7 MCHC 32.5 RDW 13.3 Plt Count 250 MPV 8.5 L Immature Gran % (Auto) 0.3 Neut % (Auto) 54.8 Lymph % (Auto) 31.9 [place] % (Auto) 8.8 Eos % (Auto) 3.5 Baso % (Auto) 0.7 Lymph # (Auto) 1.9 [place] # (Auto) 0.5 Eos # (Auto) 0.2 Baso # (Auto) 0.0 Abs Immat Gran (auto) 0.02 Absolute Neuts (auto) 3.3 Absolute Nucleated RBC 0.000 Nucleated RBC % (auto) 0.0 Anion Gap 13 Estim Creat Clear Calc 88.6 Estimated GFR > 60 Random Glucose 94 Lactic Acid 1.0 Calcium 9.2 Total Bilirubin 0.3 AST 24 ALT 20 Alkaline Phosphatase 57 Total Protein 6.7 Albumin 4.1 Urine Color Yellow Urine Appearance Clear Urine pH 6.5 Ur Specific [place] <= 1.005 Urine Protein Negative Urine Glucose (UA) Negative Urine Ketones Negative Urine Blood Moderate (2+) H Urine Nitrite Negative Ur Leukocyte Esterase Moderate (2+) H Urine RBC 6-10 H Urine WBC 6-10 H Ur Squamous Epith Cells 0-2 Urine Bacteria 4+ Hyaline Casts 0-2 Assessment and Plan (1) UTI (urinary tract infection): Status: Acute Plan 75-year-old male with a past medical history of HLD, CHF, orthostatic hypotension, BPH, CAD, prostate cancer, splenic infarct-on Eliquis, HX prostate cancer; chronic indwelling Henderson; recurrent UTIs. presented to the hospital today with chief complaint of difficulty urination. Noted have UTI. Henderson malfunction: UTI: Henderson catheter was manipulated in the ER. Currently draining clear yellow urine. Patient prior cultures grew E coli, Enterococcus Continue Zosyn Follow-up cultures History of splenic infarct: Patient on Eliquis. DVT prophylaxis: Patient on Eliquis Code status: DNR/DNI. Confirmed with the patient Quality Stroke Does the patient have a stroke diagnosis?: No VTE Prior VTE?: No VTE Risk Level:: Medical - moderate - high VTE Device Contraindication: Treatment Not Indicated VTE Drug Contraindication: N/A - Med Ordered
--- NOTE | 2025-08-31 03:21 | MHC.EDTECH ---
Emptied leg bag. Pt had 425mL of urine
[2025-08-31] MEDS: oxyCODONE HCl Immed Release 5 MG TABLET 2.5 MG PO ×2 (03:40→20:55)
[2025-08-31 05:10] LABS: MANUAL DIFF FLAG NO
[2025-08-31 05:15] LABS: Hematocrit 35.4 % (42.0-52.0); Hemoglobin 11.2 g/dl (14.0-18.0); Imm Gran Abs Auto 0.02 X10*3/uL (0.00-0.03); Imm Gran Pct Auto 0.4 % (0.0-0.4); Lymphocytes Absolute Auto 1.8 X10*3/uL (1.2-4.9); Mean Corpuscular HGB Conc 31.6 g/dl (31.0-36.0); Mean Corpuscular Hemoglobin 27.8 pg (27.0-33.0); Mean Corpuscular Volume 87.8 fL (80.0-98.0); NRBC Abs Auto 0.000 X10*3/uL (0.0-0.012); NRBC Pct Auto 0.0 /100WBC (0.0-0.2); Platelet Count 259 X10*3/uL (160-400); Red Blood Count 4.03 X10*6/uL (4.60-5.80); White Blood Count 5.3 X10*3/uL (4.8-10.8)
[2025-08-31 05:31] LABS: Alanine Aminotransferase 19 U/L (0-40); Albumin Level 3.8 g/dL (3.5-5.0); Alkaline Phosphatase 49 U/L (39-117); Anion Gap 11 (12-20); Aspartate Amino Transferase 24 U/L (5-37); Blood Urea Nitrogen 9 mg/dL (9-16); Calcium 8.9 mg/dL (8.4-10.2); Carbon Dioxide 24 mmol/L (22-29); Chloride 109 mmol/L (96-108); Creatinine Clr Calc Pharmacy 100.5; Estimated Glomerular Filt Rate > 60; Potassium 3.7 mmol/L (3.3-5.1); Sodium 140 mmol/L (135-145); Total Protein 6.2 g/dL (6.5-8.0)
--- NOTE | 2025-08-31 06:38 | MHC.EDTECH ---
Emptied pts legs bag. There was 350ml
--- NOTE | 2025-08-31 07:34 | P.PNIM_ITS ---
Subjective Subjective Date of Service: 08/31/25 Interval History: Patient received Lovenox in the ED Resumed Elialejandrais from tonight Follow sepsis workup Pain control PT eval Med rec done the resumed as appropriate Review of Systems Review of Systems: Yes all other systems are reviewed and are negative Physical Exam 2 Exam: Exam: General: AOx3, no acute distress Resp: CTA bilaterally CVS: S1, S2, RRR GI: +BS, NT, no distention Vital Signs: Vital Signs: Last Vital Signs Temp 97.5 F 08/31/25 06:36 Pulse 63 08/31/25 06:36 Resp 18 08/31/25 06:36 BP 131/71 08/31/25 06:36 Pulse Ox 98 08/31/25 06:36 O2 Del Method Room Air 08/31/25 06:36 BMI result Body Mass Index 22.0 Objective Data Active Medications Acetaminophen (Acetaminophen 325 Mg Tablet) 650 mg PO Q6H PRN PRN Reason: Pain, Mild 1-3,fever,headache Apixaban (Apixaban 5 Mg Tablet) 5 mg PO BID [facility] Calcium Carbonate (Calcium Carbonate 750 Mg Tab.Chew) 750 mg PO Q4H PRN PRN Reason: Heartburn Clonazepam (Clonazepam 1 Mg Tablet) 1 mg PO BID@0700,1900 [facility] Last Admin: 08/31/25 06:48 Dose: 1 mg Documented By: VICTORINO Hydromorphone HCl (Hydromorphone Hcl 1 Mg/Ml Syringe) 0.5 mg IVPUSH Q4H PRN; Protocol PRN Reason: Pain, Severe (Pain Scale 7-10) Piperacillin Sod/Tazobactam (Sod 3.375 gm/ Sodium Chloride) 50 mls @ 100 mls/hr IV Q6H [facility] Last Admin: 08/31/25 06:53 Dose: 100 mls/hr Documented By: VICTORINO Magnesium Hydroxide (Milk Of Magnesia 30 Ml Oral.Susp) 30 ml PO DAILY PRN PRN Reason: Constipation Melatonin (Melatonin 3 Mg Tablet) 6 mg PO BEDTIME STORM Melatonin (Melatonin 3 Mg Tablet) 6 mg PO BEDTIME PRN PRN Reason: Insomnia Mirtazapine (Mirtazapine 30 Mg Tablet) 30 mg PO BEDTIME [facility] Last Admin: 08/31/25 03:35 Dose: 30 mg Documented By: VICTORINO Oxycodone HCl (Oxycodone Hcl Immed Release 5 Mg Tablet) 2.5 mg PO BID PRN PRN Reason: Moderate Pain (Scale Score 5-6) Last Admin: 08/31/25 03:40 Dose: 2.5 mg Documented By: VICTORINO Senna (Sennosides 8.6 Mg Tablet) 8.6 mg PO DAILY PRN PRN Reason: Constipation Sodium Chloride (0.9 % Sodium Chloride Flush 3 Ml Syringe) 3 ml IVFLUSH QSHIFT STORM Tamsulosin HCl (Tamsulosin Hcl 0.4 Mg Capsule) 0.4 mg PO BEDTIME STORM Labs 08/31/25 04:33 08/31/25 04:33 Labs: Laboratory Results - last 24 hr 08/30/25 08/30/25 08/31/25 18:51 22:10 04:33 MCV 88.2 87.8 MCH 28.7 27.8 MCHC 32.5 31.6 RDW 13.3 13.3 Plt Count 250 259 MPV 8.5 L 8.8 L Immature Gran % (Auto) 0.3 0.4 Neut % (Auto) 54.8 48.1 Lymph % (Auto) 31.9 34.5 [place] % (Auto) 8.8 11.1 H Eos % (Auto) 3.5 5.1 H Baso % (Auto) 0.7 0.8 Lymph # (Auto) 1.9 1.8 [place] # (Auto) 0.5 0.6 Eos # (Auto) 0.2 0.3 Baso # (Auto) 0.0 0.0 Abs Immat Gran (auto) 0.02 0.02 Absolute Neuts (auto) 3.3 2.6 Absolute Nucleated RBC 0.000 0.000 Nucleated RBC % (auto) 0.0 0.0 Anion Gap 13 11 L Estim Creat Clear Calc 88.6 100.5 Estimated GFR > 60 > 60 Random Glucose 94 85 Lactic Acid 1.0 Calcium 9.2 8.9 Total Bilirubin 0.3 0.3 AST 24 24 ALT 20 19 Alkaline Phosphatase 57 49 Total Protein 6.7 6.2 L Albumin 4.1 3.8 Urine Color Yellow Urine Appearance Clear Urine pH 6.5 Ur Specific [place] <= 1.005 Urine Protein Negative Urine Glucose (UA) Negative Urine Ketones Negative Urine Blood Moderate (2+) H Urine Nitrite Negative Ur Leukocyte Esterase Moderate (2+) H Urine RBC 6-10 H Urine WBC 6-10 H Ur Squamous Epith Cells 0-2 Urine Bacteria 4+ Hyaline Casts 0-2 Assessment and Plan (1) Catheter-associated urinary tract infection: Status: Acute Plan 75-year-old male with a past medical history of HLD, CHF, orthostatic hypotension, BPH, CAD, prostate cancer, splenic infarct-on Eliquis, HX prostate cancer; chronic indwelling Henderson; recurrent UTIs. presented to the hospital today with chief complaint of difficulty urination. Noted have UTI. Sepsis possibly due to Henderson malfunction likely causing obstructive uropathy causing UTI Henderson catheter was manipulated in the ER with good effect Currently draining clear yellow urine. Patient prior cultures grew E coli, Enterococcus Continue Zosyn Follow-up cultures History of splenic infarct: Patient on Eliquis. DVT prophylaxis: Patient on Eliquis Code status: DNR/DNI. Confirmed with the patient Based on C/S , we will deescalate and DC pending PT eval Quality Stroke Does the patient have a stroke diagnosis?: No VTE Prior VTE?: No VTE Risk Level:: Medical - moderate - high VTE Device Contraindication: Treatment Not Indicated VTE Drug Contraindication: N/A - Med Ordered
--- NOTE | 2025-08-31 09:43 | PHA.MEDREC ---
Pharmacy Consult ? Medication Reconciliation Pharmacy has completed the medication reconciliation. utilized list from [facility]
--- NOTE | 2025-08-31 10:37 | PC.NURSE ---
assumed care of patient at 0700, patient is awake and alert at this time. patient requested his 9am meds, inpt provider notified that pharmacy finished med rec and will order soon. patient informed we are waiting on inpatient provider/pharmacy for morning medications, patient expressed frustration. patient is resting quietly in bed at this time.
--- NOTE | 2025-08-31 17:18 | HO.NURTONUR ---
Yong is a 75M DNR/DNI who presented to the ED with difficulty urinating (chronic bhatt) and abd pain. patient recently had uti, cultures showed ecoli and enterococcus. patient is alert and oriented x3, has chronic bhatt in place, wanted to keep leg bag instead of changing out for larger bag. patient is slightly anxious towards his medication admin. patient has IV access. VSS, plan for IV abx
[2025-08-31] MEDS: Milk of Magnesia 30 ML ORAL.SUSP PO (18:46)
[2025-08-31] MEDS: 0.9 % Sodium Chloride Flush 3 ML SYRINGE IVFLUSH (23:42)
[2025-09-01 03:19] VITALS: BP 100/56; PULSE 61; RESP 14; TEMP 36.6; O2SAT 95
--- NOTE | 2025-09-01 07:14 | P.PNIM_ITS ---
Subjective Subjective Date of Service: 09/01/25 Interval History: Patient is fixated on his Henderson and constipation-requesting to speak to the doctor multiple times Received a call from block and case maker from his long-term facility and she explained that the patient has a longstanding history of psychiatric history is with passive suicidal ideations, requiring multiple hospitalization and use. Patient is a recent transplant from [facility] and hence we do not have many records in the system Advised that given that the patient does seem to have capacity, we can not invoked healthcare proxy Patient was given multiple bowel meds with significant large bowel movement, however states that he feels he has hard stools Patient also apparently had a Henderson catheter placed for urinary retention likely in the setting of BPH retaining around 300 mL which does not warrant a chronic Henderson placement Remove the Henderson and we are trialing voiding trials Patient's sister is the healthcare proxy is understandable about his chronic psychiatric conditions Review of Systems Review of Systems: Yes all other systems are reviewed and are negative and Unobtainable due to mental status Physical Exam 2 Exam: Exam: General: AOx3, no acute distress Resp: CTA bilaterally CVS: S1, S2, RRR GI: +BS, NT, no distention Vital Signs: Vital Signs: Last Vital Signs Temp 97.9 F 09/01/25 03:19 Pulse 61 09/01/25 03:19 Resp 14 09/01/25 03:19 BP 100/56 L 09/01/25 03:19 Pulse Ox 95 09/01/25 03:19 O2 Del Method Room Air 09/01/25 03:19 BMI result Body Mass Index 22.7 Objective Data Active Medications Acetaminophen (Acetaminophen 325 Mg Tablet) 650 mg PO Q6H PRN PRN Reason: Pain, Mild 1-3,fever,headache Last Admin: 08/31/25 17:27 Dose: 650 mg Documented By: LOIS Apixaban (Apixaban 5 Mg Tablet) 5 mg PO BID [facility] Last Admin: 08/31/25 20:54 Dose: 5 mg Documented By: RONNIE Bisacodyl (Bisacodyl 5 Mg Tablet.Dr) 5 mg PO BEDTIME PRN PRN Reason: Constipation Last Admin: 08/31/25 20:54 Dose: 5 mg Documented By: RONNIE Budesonide (Budesonide Dr 3 Mg Capsule) 3 mg PO DAILY [facility] Calcium Carbonate (Calcium Carbonate 750 Mg Tab.Chew) 750 mg PO Q4H PRN PRN Reason: Heartburn Clonazepam (Clonazepam 1 Mg Tablet) 1 mg PO BID@0700,1900 [facility] Last Admin: 09/01/25 06:34 Dose: 1 mg Documented By: NOE Hydromorphone HCl (Hydromorphone Hcl 1 Mg/Ml Syringe) 0.5 mg IVPUSH Q4H PRN; Protocol PRN Reason: Pain, Severe (Pain Scale 7-10) Piperacillin Sod/Tazobactam (Sod 3.375 gm/ Sodium Chloride) 50 mls @ 100 mls/hr IV Q6H [facility] Last Infusion: 09/01/25 06:36 Dose: Infused Documented By: NOE Influenza Virus Vaccine (Flu Vacc [id number](6mo Up)/Pf 0.5 Ml Syringe) 0.5 ml IM .ONCE ONE Stop: 09/01/25 09:01 Magnesium Hydroxide (Milk Of Magnesia 30 Ml Oral.Susp) 30 ml PO DAILY PRN PRN Reason: Constipation Last Admin: 08/31/25 18:46 Dose: 30 ml Documented By: GRANT Melatonin (Melatonin 3 Mg Tablet) 6 mg PO BEDTIME [facility] Last Admin: 08/31/25 20:54 Dose: 6 mg Documented By: RONNIE Melatonin (Melatonin 3 Mg Tablet) 6 mg PO BEDTIME PRN PRN Reason: Insomnia Mirtazapine (Mirtazapine 30 Mg Tablet) 30 mg PO BEDTIME [facility] Last Admin: 08/31/25 20:54 Dose: 30 mg Documented By: RONNIE Multivitamins/Vitamin C (Multivitamin Tablet) 1 tab PO DAILY [facility] Last Admin: 08/31/25 11:39 Dose: 1 tab Documented By: LOIS Nystatin (Nystatin Cream 15 Gm Tube) 1 appl TOPICAL BID [facility]; Protocol Last Admin: 08/31/25 23:37 Dose: Not Given Documented By: NOE Non-Admin Reason: See Note Omeprazole (Omeprazole 20 Mg Capsule.) 20 mg PO DAILY@0630 [facility] Last Admin: 09/01/25 06:34 Dose: 20 mg Documented By: NOE Oxycodone HCl (Oxycodone Hcl Immed Release 5 Mg Tablet) 2.5 mg PO BID PRN PRN Reason: Moderate Pain (Scale Score 5-6) Last Admin: 08/31/25 20:55 Dose: 2.5 mg Documented By: RONNIE Senna (Sennosides 8.6 Mg Tablet) 8.6 mg PO DAILY PRN PRN Reason: Constipation Sodium Chloride (0.9 % Sodium Chloride Flush 3 Ml Syringe) 3 ml IVFLUSH QSHIFT [facility] Last Admin: 08/31/25 23:42 Dose: 3 ml Documented By: NOE Tamsulosin HCl (Tamsulosin Hcl 0.4 Mg Capsule) 0.4 mg PO BEDTIME [facility] Last Admin: 08/31/25 20:54 Dose: 0.4 mg Documented By: RONNIE Vitamin D (Cholecalciferol (Vitamin D3) 25 Mcg Tablet) 50 mcg PO DAILY [facility] Last Admin: 08/31/25 11:39 Dose: 50 mcg Documented By: LOIS Labs 08/31/25 04:33 08/31/25 04:33 Microbiology Microbiology Results: Microbiology 08/30/25 22:10 Blood Culture - Preliminary Blood - Venous No growth after 24 hours. 08/30/25 22:10 Blood Culture - Preliminary Blood - Venous No growth after 24 hours. 08/30/25 18:51 Urine Culture - Preliminary Urine clean catch - Clean Catch Midstream Culture too young to evaluate. Assessment and Plan (1) Catheter-associated urinary tract infection: Status: Acute Plan 75-year-old male with a past medical history of HLD, CHF, orthostatic hypotension, BPH, CAD, prostate cancer, splenic infarct-on Eliquis, HX prostate cancer; chronic indwelling Henderson; recurrent UTIs. presented to the hospital today with chief complaint of difficulty urination and has a chronic Henderson placed 2 weeks ago which is likely the etiology of his UTI. However it appears that his fixation on urinary retention is chronic per his block and case maker at long- term care facility Sepsis possibly due to chronic Henderson placed at the long-term care facility for urinary retention in the setting of untreated BPH Patient's fixation on urinary retention also probably has psychiatric etiology given talk with the block and case maker Remove Henderson, we will deescalate antibiotics to Augmentin MD Valles SI for a very long time Multiple prior ECTs Although the patient did not endorse any active suicidal ideation, based on prior note of Psychiatry 08/12/2025 and after discussion with the block and case maker from [facility] day appears that the patient has high utilization of healthcare services and experiencing possible conversion syndrome, with passive suicidal ideation and warrants a psychiatric evaluation Psych consult placed For his fixation about constipation-I have started him on scheduled and p.r.n. medication which he will be discharged on History of prostate cancer -outpatient follow-up with urology coming up History of splenic infarct: Patient on Eliquis. DVT prophylaxis: Patient on Eliquis Code status: DNR/DNI. Confirmed with the patient We have deescalated the antibiotics, we will likely discharge him back to the facility tomorrow pending PT eval-they are suggesting home with services. Likely we will be discharged tomorrow Quality Stroke Does the patient have a stroke diagnosis?: No VTE Prior VTE?: No VTE Risk Level:: Medical - moderate - high VTE Device Contraindication: Treatment Not Indicated VTE Drug Contraindication: N/A - Med Ordered
[2025-09-01 07:33] VITALS: BP 94/61; PULSE 63; RESP 18; TEMP 36.7; O2SAT 96
[2025-09-01] MEDS: Flu Vacc TS2025-26(6mo up)/PF 0.5 ML SYRINGE IM (08:28)
--- NOTE | 2025-09-01 08:40 | MHC.CM.PN ---
CM met with Patient at bedside and addressed IMM with him, providing Patient with the original and a copy has been placed on the chart. Patient lives alone in an apartment [facility], is active with [facility], and uses a walker to assist with mobility. Home/resume said services is the goal and CM has initiated and will follow for dc planning. PCP is Dr.May Guadalupe & HCP is Sister/Cheryl. Patient will need assist with transport at dc.
[2025-09-01 11:21] VITALS: BP 101/56; PULSE 66; RESP 18; TEMP 36.6; O2SAT 96
[2025-09-01 15:14] VITALS: BP 128/73; PULSE 74; RESP 18; TEMP 36.8; O2SAT 97
--- NOTE | 2025-09-01 15:35 | PC.NURSE ---
Addendum entered by Patrick Bennett RN 09/01/25 16:03: one dose enema administered Original Note: bhatt d/c'ed at 1530. pt was educated and bladder scan will be performed in 6hrs. pt had large loose BM this afternoon but stated he feels like he is still constipated and that there is solid stool that wont come out. informed.
[2025-09-01 20:00] VITALS: BP 107/60; PULSE 65; RESP 16; TEMP 37.1; O2SAT 96
[2025-09-01] MEDS: 0.9 % Sodium Chloride Flush 3 ML SYRINGE IVFLUSH (20:35)
[2025-09-01 23:44] VITALS: BP 94/51; PULSE 65; RESP 16; TEMP 36.9; O2SAT 95
[2025-09-02 03:24] VITALS: BP 111/61; PULSE 80; RESP 16; TEMP 36.9; O2SAT 96
--- NOTE | 2025-09-02 07:17 | HO.PM.IMPN ---
Subjective Subjective Date of Service: 09/02/25 Physical Exam Vital Signs: Vital Signs: Last Vital Signs Temp 98.4 F 09/02/25 03:24 Pulse 80 09/02/25 03:24 Resp 16 09/02/25 03:24 BP 111/61 09/02/25 03:24 Pulse Ox 96 09/02/25 03:24 O2 Del Method Room Air 09/02/25 03:24 BMI result Body Mass Index 22.7 Objective Data Active Medications Acetaminophen (Acetaminophen 325 Mg Tablet) 650 mg PO Q6H PRN PRN Reason: Pain, Mild 1-3,fever,headache Last Admin: 08/31/25 17:27 Dose: 650 mg Documented By: LOIS Amoxicillin/Clavulanate Potassium (Amoxicillin/Potassium Clav 875 Mg Tablet) 875 mg PO BID [facility] Last Admin: 09/01/25 20:34 Dose: 875 mg Documented By: NAS Apixaban (Apixaban 5 Mg Tablet) 5 mg PO BID [facility] Last Admin: 09/01/25 20:34 Dose: 5 mg Documented By: NAS Bisacodyl (Bisacodyl 5 Mg Tablet.Dr) 5 mg PO BEDTIME PRN PRN Reason: Constipation Last Admin: 08/31/25 20:54 Dose: 5 mg Documented By: RONNIE Budesonide (Budesonide Dr 3 Mg Capsule) 3 mg PO DAILY [facility] Last Admin: 09/01/25 08:31 Dose: Not Given Documented By: BETHANIE Non-Admin Reason: Patient Refused Calcium Carbonate (Calcium Carbonate 750 Mg Tab.Chew) 750 mg PO Q4H PRN PRN Reason: Heartburn Clonazepam (Clonazepam 1 Mg Tablet) 1 mg PO BID@0700,1900 [facility] Last Admin: 09/02/25 06:12 Dose: 1 mg Documented By: NAS Hydromorphone HCl (Hydromorphone Hcl 1 Mg/Ml Syringe) 0.5 mg IVPUSH Q4H PRN; Protocol PRN Reason: Pain, Severe (Pain Scale 7-10) Last Admin: 09/01/25 20:34 Dose: 0.5 mg Documented By: NAS Magnesium Hydroxide (Milk Of Magnesia 30 Ml Oral.Susp) 30 ml PO DAILY PRN PRN Reason: Constipation Last Admin: 08/31/25 18:46 Dose: 30 ml Documented By: GRANT Melatonin (Melatonin 3 Mg Tablet) 6 mg PO BEDTIME [facility] Last Admin: 09/01/25 20:34 Dose: 6 mg Documented By: NAS Melatonin (Melatonin 3 Mg Tablet) 6 mg PO BEDTIME PRN PRN Reason: Insomnia Mirtazapine (Mirtazapine 30 Mg Tablet) 30 mg PO BEDTIME [facility] Last Admin: 09/01/25 20:34 Dose: 30 mg Documented By: NAS Multivitamins/Vitamin C (Multivitamin Tablet) 1 tab PO DAILY [facility] Last Admin: 09/01/25 08:28 Dose: 1 tab Documented By: BETHANIE Nystatin (Nystatin Cream 15 Gm Tube) 1 appl TOPICAL BID [facility]; Protocol Last Admin: 09/01/25 22:36 Dose: 1 appl Documented By: NAS Omeprazole (Omeprazole 20 Mg Capsule.Dr) 20 mg PO DAILY@0630 [facility] Last Admin: 09/02/25 06:12 Dose: 20 mg Documented By: NAS Oxycodone HCl (Oxycodone Hcl Immed Release 5 Mg Tablet) 2.5 mg PO BID PRN PRN Reason: Moderate Pain (Scale Score 5-6) Last Admin: 08/31/25 20:55 Dose: 2.5 mg Documented By: RONNIE Senna (Sennosides 8.6 Mg Tablet) 8.6 mg PO DAILY PRN PRN Reason: Constipation Last Admin: 09/01/25 08:28 Dose: 8.6 mg Documented By: BETHANIE Sodium Chloride (0.9 % Sodium Chloride Flush 3 Ml Syringe) 3 ml IVFLUSH [facility] Last Admin: 09/01/25 20:35 Dose: 3 ml Documented By: NAS Tamsulosin HCl (Tamsulosin Hcl 0.4 Mg Capsule) 0.4 mg PO BEDTIME [facility] Last Admin: 09/01/25 20:34 Dose: 0.4 mg Documented By: NAS Vitamin D (Cholecalciferol (Vitamin D3) 25 Mcg Tablet) 50 mcg PO DAILY [facility] Last Admin: 09/01/25 08:28 Dose: 50 mcg Documented By: BETHANIE Labs 08/31/25 04:33 08/31/25 04:33 Microbiology Microbiology Results: Microbiology 08/30/25 22:10 Blood Culture - Preliminary Blood - Venous No growth after 48 hours. 08/30/25 22:10 Blood Culture - Preliminary Blood - Venous No growth after 48 hours. 08/30/25 18:51 Urine Culture - Preliminary Urine clean catch - Clean Catch Midstream Gram negative sun Quality Stroke Does the patient have a stroke diagnosis?: No VTE Prior VTE?: No VTE Risk Level:: Medical - moderate - high VTE Device Contraindication: Treatment Not Indicated VTE Drug Contraindication: N/A - Med Ordered
[2025-09-02 07:59] VITALS: BP 120/69; PULSE 72; RESP 18; TEMP 37; O2SAT 94
[2025-09-02] MEDS: Sulfamethox/Trimeth 800/160 TABLET 1 TAB PO (08:20)
[2025-09-02] MEDS: 0.9 % Sodium Chloride Flush 3 ML SYRINGE IVFLUSH (08:38)
--- NOTE | 2025-09-02 10:33 | MHC.CM.PN ---
Per ROUNDS discussion, Patient is medically cleared for dc and will be evaluated by the Care Team r/t SI. CM will follow.
--- NOTE | 2025-09-02 10:47 | PM.DS ---
DS: Providers Provider Date of Service: 09/02/25 Date of admission: 08/31/25 03:35 Date of discharge: 09/02/25 Primary care physician: Kimberly Davis MD Consults: 09/01/25 15:45 Consult to Psychiatry Routine Consulting Provider: [facility] Psych Covering Reason for consultation: Passive SI, h/o multiple psych /ED admission 09/02/25 10:45 Inpt CARE Team Crisis Consult Routine Comment: Reason for consultation: medically optimized DS: Diagnosis Discharge Diagnosis (1) Catheter-associated urinary tract infection: Status: Acute DS: Summary Hospital Course Hospital Course: Patient who is new to our system, apparently moved from [place] 75-year-old male with a past medical history of HLD, CHF, orthostatic hypotension, BPH, CAD, prostate cancer, splenic infarct-on Eliquis, HX prostate cancer; chronic indwelling Henderson; recurrent UTIs. presented to the hospital today with chief complaint of difficulty urination and has a chronic Henderson placed 2 weeks ago which is likely the etiology of his UTI. However it appears that his fixation on urinary retention is chronic per his correctional casework specialist at [facility] Sepsis possibly due to chronic Henderson (2 weeks) placed at the [facility] for urinary retention in the setting of untreated BPH CAUTI-Enterobacter cloacae complex Patient's fixation on urinary retention also probably has psychiatric etiology given talk with the correctional casework specialist Samantha Goncalves [facility] [phone] Sepsis workup revealed Enterobacter cloacae complex as of 08/30/2025 (was recently diagnosed with E faecalis UTI as of 08/24/2025 and E coli as of 08/22/2025). The correctional casework specialist Rupert did mention that he tends to insist on having his Henderson catheter despite passing voiding trials and he had the catheter for nearly 2 weeks prior to this admission and hence this episode of sepsis. Patient was treated with broad-spectrum IV antibiotics and switched to p.o. Bactrim based on sensitivities. Patient remained hemodynamically stable without any hypotension. Undiagnosed BPH -Increased his Flomax 0.8 nightly History of prostate cancer -outpatient follow-up with urology coming up MD Reena SINGH for a very long time Multiple prior ECTs Although the patient did not endorse any active suicidal ideation, based on prior note of Psychiatry 08/12/2025 and after discussion with the correctional casework specialist from [facility] day appears that the patient has high utilization of healthcare services as evidenced by his admissions on the 1st, 3rd, 9th of this month already and experiencing possible conversion syndrome. Patient denied any SI, however we requested care team to evaluate the patient which they did and cleared the patient. Conveyed that the patient should see outpatient psychiatry for ongoing care as he is currently without any psychiatric acute decompensation which would require consultation/psychiatric admission. For his fixation about constipation-I have started him on scheduled and p.r.n. medication which he will be discharged on-patient refused the very next day. This also appears to be secondary to his baseline symptoms. History of splenic infarct: Patient on Eliquis. DVT prophylaxis: Patient on Eliquis Code status: DNR/DNI. PT evaluated the patient, has no services require required. The same has been conveyed to the correctional casework specialist in outpatient setting regarding the fact that he needs to seek outpatient care for ongoing chronic psychological issues/psychiatric issues which likely is psychosomatic in etiology. Time spent discussing smoking cessation with patient: more than 10 minutes Status at Discharge Functional status at discharge: uses cane/walker Overall status at discharge: patient is progressing back to baseline Time Attestation Discharge Coordination Time (in mins): 45 Quality: Safe Use of Opioids Does Pt have an Active Cancer Diagnosis on the Problem List?: No Quality: Stroke Does the patient have a stroke diagnosis?: No Physical Exam Exam: Exam: General: AOx3, no acute distress Resp: CTA bilaterally CVS: S1, S2, RRR GI: +BS, NT, no distention Vital Signs: Vital Signs: Last Vital Signs Temp 98.6 F 09/02/25 07:59 Pulse 72 09/02/25 07:59 Resp 18 09/02/25 07:59 BP 120/69 09/02/25 07:59 Pulse Ox 94 09/02/25 07:59 O2 Del Method Room Air 09/02/25 07:59 BMI result Body Mass Index 22.7 DS: Data Data Completed and Pending Labs on day of discharge: Preliminary micro results at discharge 08/30/25 18:51 Urine Culture - Preliminary Urine clean catch - Clean Catch Midstream Enterobacter cloacae complex 08/30/25 22:10 Blood Culture - Preliminary Blood - Venous No growth after 48 hours. 08/30/25 22:10 Blood Culture - Preliminary Blood - Venous No growth after 48 hours. Discharge Plan Discharge Anticipated Discharge Date/Time: 09/02/25 13:05 Patient Disposition: Home, Self-Care Discharge Diagnosis: Sepsis secondary to Psychosomatic chronic Henderson (patient believes he can not urinate without the Henderson) associated Enterobacter cloacae associated UTI Referrals: Kimberly Davis MD [Primary Care Provider, Medical] - 1 Week iDego Baltazar MD [Physician, Urology] - 1 Week Marilyn Sharma CNP [Nurse Practitioner, Internal Medicine] - 1 Week Discharge Medications: New sulfamethoxazole-trimethoprim 800-160 mg Tablet 1 tab PO Q12H 5 Days Qty: 10 0RF Continued lansoprazole 30 mg capsule,delayed release(DR/EC) 30 mg PO DAILY melatonin 3 mg Tablet 6 mg PO BEDTIME cholecalciferol (vitamin D3) [Vitamin D3] 50 mcg (2,000 unit) Capsule 50 mcg PO DAILY ondansetron HCl 4 mg tablet 4 mg PO Q8H PRN (Reason: nausea/vomiting) nystatin 100,000 unit/gram Cream 1 appl TOPICAL BID budesonide 3 mg capsule,delayed,extend.release 3 mg PO DAILY bisacodyl 5 mg Tablet 5 mg PO BEDTIME PRN (Reason: Constipation) ceramides 1,3,6-II [CeraVe] Cream 1 appl TOPICAL TID PRN (Reason: Itching) Culturelle 15 billion cell Capsule, Sprinkle 1 cap PO DAILY multivitamin Tablet 1 tab PO DAILY sennosides 8.6 mg tablet 8.6 mg PO DAILY PRN (Reason: Constipation) acetaminophen [Tylenol] 325 mg tablet 325 mg PO QID PRN (Reason: Pain) clonazepam [Klonopin] 1 mg tablet 1 mg PO BID@0700,1900 tamsulosin 0.4 mg capsule 0.4 mg PO BEDTIME mirtazapine 30 mg tablet 30 mg PO BEDTIME oxycodone 5 mg tablet 2.5 mg PO BID PRN (Reason: Moderate Pain (Scale Score 5-6)) Patient Comments: 2.5 mg PO QD PRN Eliquis 5 mg tablet 5 mg PO BID Discharge Orders: Discharge Order (Routine); Ordered 09/02/25 Ordered By: Sandi Harrington Diet: Low salt diet Activity on Discharge: As tolerated Stand Alone Forms: Patient Portal Discharge page Print Language: Malaysian Care Plan Goals: Please see your PCP for follow-up Pt passed voiding trials and doesnt need Henderson - poor insight Patient was cleared by care team Did not endorse any SI during this admission Patient was with decided on constipation requested a bowel meds, refused the next day Patient needs psychiatric evaluation for his undiagnosed chronic underlying psych issues-outpatient settings We need records from [place] regarding his care and PMH as I was told by his correctional casework specialist and outpatient settings-Rupert Yee [phone] regarding his chronic psychiatric issues. He was cleared by care team, did not warrant a psychiatric admission. Health Concerns: See above Plan of Treatment: See above Assessment: See above
[2025-09-02 12:00] VITALS: BP 120/64; PULSE 74; RESP 18; TEMP 36.9; O2SAT 94
--- NOTE | 2025-09-02 12:43 | MHC.CARE ---
Pt is a 75 y/o, , Citizen Of [place] speaking, male who is previously known to the CARE Team via one prior assessment.? On 08/30/25 pt presented to the ED with a complaint of fever, generalized weakness, and feeling unwell.? He was evaluated in the ED for a similar presentation 2 days prior and discharged home. Pt had a UTI, and was treated.? During the most recent ED visit, he was admitted to [facility] tele unit. Today, CARE Team received an order for a consult after the provider received a call from the employment case manager from his long-term care facility and was told that the patient has a longstanding hx of passive suicidal ideations, requiring multiple hospitalizations.? There was also some concern voiced that pt may have conversion d/o as he has been fixated on his physical health and wellbeing. Of note, records indicate that pt has a pmhx significant for urinary retention with bhatt catheter in place x1 week and prostate cancer.? CARE Team is assessing for risk per pt?s provider. Pt has an extensive hx of inpt hospitalizations, SI and attempts with his most recent being approximately 5 years ago via Tylenol overdose.? Past documented hx of depression and anxiety.? There is a remote hx of alcohol use.? At baseline pt struggles with anxiety, depression, baseline passive SI, and concerns over his failing physical health.? Pt was formerly a very robust individual who was an ultra-marathon runner and in his late sixties completed a 20 mile walk/run. Pt is alert and oriented x4 and is assessed in his room on the [facility] unit.? He is dressed in hospital attire, appears younger than his stated age, and his grooming is unremarkable.? Pt does appear to have lost weight since this keno writer/runner last saw him. Pt's speech is normal for rate and prosody and eye contact is unremarkable. Pt is engaged in the assessment, and is pleasant.? He reports concerns over his failing physical health. Pt reports poor sleep and appetite, stating his medications help him sleep but he is often awake at 0300 daily and awakens dreading the coming day as he is concerned over his health.? He reports an inability to eat some days. He attributes this loss of appetite to his baseline depression and anxiety. He attributes his current depression and anxiety to his ongoing medical issues. He describes his mood as ?depressed?, his affect is congruent with his mood.? Pt denies SI, HI, , and self-harm. Pt reports that he is medication adherent but has some concerns that his Clonazapam isn?t as effective as it was.? He reports he has been on this medication for a long time. He reports that he sees an MOLD CHECKER for his medications.? He stated that he is in the process of securing a therapist and had an initial intake but was unable to attend as he was at the ED at the time it was scheduled. Pt denies AVH.? His thought process appears linear and organized pertinent to relevant topics and without any delusional content, or grandiosity.? Their insight, judgement, and impulse control appear unimpaired at this time. Previous assessments indicate a hx of difficulty managing his anxiety.? Pt has a lengthy hx of inpatient psychiatric hospitalizations, most often for depression and suicidality. He has had ECT in the past, collateral reports stated he does well with ECT There is a hx of attempts with his most recent being approximately 5 years ago via Tylenol overdose. Given that pt is denying SI at this time, he appears to be at low risk for intentional self-harm.? Currently, pt does not appear to be presenting in an acute crisis and does not appear to meet the criteria for an inpatient psychiatric admission at this time and there would be no clear goal for such an admission.? Pt has come to the ED and is being treated on Med Tele for a medical complaint.? Pt appears to be clear of risk. CARE Team has called pt?s employment case manager, there was no answer, a return call was requested.
--- NOTE | 2025-09-02 13:31 | MHC.CM.PN ---
Addendum entered by Zuly Hameed 09/02/25 13:41: CORRECTION! Patient is active with Mari GERARDO, who has been made aware of today's dc. MD is aware. Original Note: Patient has been medically cleared for dc to home today, self care. Per Patient's request, Patient will return home today at 4PM, via [facility].
--- NOTE | 2025-09-02 14:02 | MHC.CM.PN ---
LUCA spoke with Ange @ [facility] @ [phone] and informed her that Patient will be returning home today at 4PM, via Ambulance. Ange said, ok, I will let them know.
--- NOTE | 2025-09-02 15:04 | PC.NURSE ---
pt informed and agreed to be DC back to Assisted living at 4pm via ambulance. pt denied his [place] meds from [facility] [place] [facility] [place] manage his medications. per pharmacy- going to tx them to [facility]. made aware
[2025-09-02 15:29] VITALS: BP 117/71; PULSE 78; RESP 18; TEMP 36.9; O2SAT 97
== END 2025-09-02 17:00 | disposition home health service (06) | DRG 698 ==
LOC: HO.ED 22:07 → HO.EDOVER 08-31 03:40 → HO.IMC 08-31 17:11
PROVIDERS: Physician Assistant; Admitting Provider Hospitalist; Emergency Provider Emergency Medicine; PCP Internal Medicine; Visit Provider Student in an Organized Health Care Education/Training Program
DX: T83.511A Infection and inflammatory reaction due to indwelling urethral catheter, initial encounter (principal); A41.9 Sepsis, unspecified organism; I25.10 Atherosclerotic heart disease of native coronary artery without angina pectoris; Z87.440 Personal history of urinary (tract) infections; F45.8 Other somatoform disorders; K59.00 Constipation, unspecified; N39.0 Urinary tract infection, site not specified; B96.89 Other specified bacterial agents as the cause of diseases classified elsewhere; Z23 Encounter for immunization; N40.0 Benign prostatic hyperplasia without lower urinary tract symptoms; Z66 Do not resuscitate; Z85.46 Personal history of malignant neoplasm of prostate; Z86.73 Personal history of transient ischemic attack (TIA), and cerebral infarction without residual deficits; Z87.891 Personal history of nicotine dependence; Z79.01 Long term (current) use of anticoagulants; Z79.899 Other long term (current) drug therapy
CPT/HCPCS: 36415; 80053; 81001; 83605; 85025; 87040; 87086; 87088; 87186; 90656; 97161; 99285; J1171; J1650; J2270; J2543

== ENCOUNTER → 2025-08-31 03:35 | Outpatient (BNV) | payer MEDICARE, SELFPAY | PROVIDERS: Admitting Provider Hospitalist; Emergency Provider Emergency Medicine; Visit Provider Student in an Organized Health Care Education/Training Program | DX: T83.511D Infection and inflammatory reaction due to indwelling urethral catheter, subsequent encounter (principal); N39.0 Urinary tract infection, site not specified | CPT/HCPCS: 99233 ==

== ENCOUNTER 2025-09-10 11:16 | Outpatient (AMB) | payer MEDICARE, SELFPAY ==
--- NOTE | 2025-09-10 11:39 | MHC.OFFVIS ---
Intake Visit Reasons: urinary retention/VT? Intake Note: patient presents today for: VOIDING TRIAL PATIENT HAD BALDWIN REMOVED AT [facility] ER ON 09/02/25 C/O BLADDER SPASM urology medications: TAMSULOSIN blood thinners:ELIQUIS PVR:6 MLS Gunner'S Mate G Required: No Accompanied by: Health Care Proxy Allergies No Known Allergies Allergy (Verified 09/10/25 11:42) HPI Comments Details: Ruperto is a pleasant male. He is a patient of Dr. Harris. He is seen for the following urologic conditions - prostate cancer Seen in emergency room for retention Baldwin catheter placed Had bladder spasms Voiding trial successful Should start on finasteride Was not able to do PET-CT Needs to be rescheduled Prostate cancer Per patient inpatient notes diagnosed in [facility] around 1999 [place] 3 + 3 grade group 1 low volume disease Labs - 08/15 PSA 12.7 Offered radiation therapy however patient deferred PET-CT pending [facility] Medical History (Updated 09/10/25 @ 12:30 by Diego Baltazar MD) BPH (benign prostatic hyperplasia) CAD (coronary artery disease) Orthostatic hypotension Suicide attempt Heart murmur Dermatitis Cataract Arthritis History of recurrent UTIs Anxiety Macular degeneration GERD (gastroesophageal reflux disease) CHF (congestive heart failure) Colitis Prostate cancer Social History Housing: Assisted Living Facility Do you presently have visiting nurse or other home services: Yes Alcohol intake: never Patient Tobacco Use Status: Former Tobacco user Advance Directives Date on File: 08/18/25 service: No Review of Systems Const Denies chills and Denies fever(s) Card Reports no additional complaints and Denies syncope Resp Denies cough GI Denies abdominal pain and Denies heartburn Reports as per HPI and Denies change in libido Neuro Denies syncope Psych Denies change in libido Endo Denies change in libido Physical Exam Const General: cooperative, healthy appearing, comfortable and no acute distress Orientation/consciousness: patient oriented x3 HEENT Face and sinus: Yes normal facial exam Mouth: moist mucous membranes Neck Neck: Yes normal visual inspection, Yes full ROM and Yes trachea midline Chest Chest palpation & inspection: normal inspection of the chest Resp Effort & Inspection: normal respiratory effort, able to speak in complete sentences and no respiratory distress GI Inspection: Yes normal to inspection Back/Spine/Pelvis Cervical Spine: normal cervical lordosis Thoracic/Lumbar Spine: thoracic and lumbar spine normal to inspection Skin General skin exam: no rashes or lesions noted Neuro General: patient oriented x3, gait normal, tone normal and moves all extremities Extrem General: Yes normal to inspection and Yes capillary refill normal Office Procedures Post Void Residual Post Residual Void Post Void Residual (PVR): 6 [id number] Void Residual by ultrasound Results AMB Urinalysis, Automated UA Leukoctes 0 Nohemi/uL Last Edit by Sophia Stubbs [facility] on 09/10/25 11:57 UA Nitrite Negative Last Edit by [facility] on 09/10/25 11:57 UA Urobilinogen 0.2 mg/dL Last Edit by [facility], [facility] on 09/10/25 11:57 UA Protein 0 mg/dL Last Edit by [facility], [facility] on 09/10/25 11:57 UA pH 6.0 Last Edit by [facility], [facility] on 09/10/25 11:57 UA Blood 0 Jose/uL Last Edit by [facility], [facility] on 09/10/25 11:57 UA Specific [place] 1.005 Last Edit by [facility], [facility] on 09/10/25 11:57 UA Ketone Negative Last Edit by [facility], [facility] on 09/10/25 11:57 UA Bilirubin 0 mg/dL Last Edit by [facility], [facility] on 09/10/25 11:57 UA Glucose 0 mg/dL Last Edit by [facility], [facility] on 09/10/25 11:57 Results Reviewed Results Reviewed: Laboratory Last Values Urine pH (Auto) 6.0 09/10/25 11:56 Specific [place] (Auto) 1.005 09/10/25 11:56 Urine Protein (Auto) 0 mg/dL 09/10/25 11:56 Glucose (UA)(Auto) 0 mg/dL 09/10/25 11:56 Urine Ketones (Auto) Negative 09/10/25 11:56 Urine Blood (Auto) 0 Jose/uL 09/10/25 11:56 Urine Nitrite (Auto) Negative 09/10/25 11:56 Urine Bilirubin (Auto) 0 mg/dL 09/10/25 11:56 Urine Urobilinogen (Auto) 0.2 mg/dL 09/10/25 11:56 Leukocyte Esterase (Auto) 0 Nohemi/uL 09/10/25 11:56 Assessment & Plan Assessment & Plan (1) Urinary retention with incomplete bladder emptying: Code(s): R33.9 - Retention of urine, unspecified Category: Medical (2) Prostate cancer: Code(s): C61 - Malignant neoplasm of prostate Category: Medical Plan Add finasteride Needs PET-CT before next appointment Medications: Refilled finasteride 5 mg PO DAILY 90 tabs 1RF 90 days C61 - Malignant neoplasm of prostate Patient Instructions: This note is constructed using voice recognition software. While every effort has been made to ensure accuracy yarn hauler errors may have been included. Imaging studies, laboratory and physical exam results were discussed and reviewed in detail. No major barriers to patient understanding were identified. An opportunity to ask questions regarding the treatment plan was provided. All questions were answered. The patient expressed understanding and agreement with the above treatment plan. The patient is aware they should contact our office by phone for worsening of their current condition or the appearance of new urologic symptoms. Compliance is encouraged with any medications and followup testing that is ordered. It is a privilege to participate in the urologic care of your patient. If you have any questions or concerns regarding treatment for the above conditions, or other urologic issues, please do not hesitate to contact me. The office telephone contact is [phone]. Sincerely, Dr Diego Baltazar MD, [facility] - Urology Compassionate Specialist Care for the Genitourinary System Coding Level of Care Code Est Pt Level 3 (42972) Complex EM visit Add On G2211 Diagnoses Urinary retention with incomplete bladder emptying R33.9 Prostate cancer C61 CPT Codes Post Residual Void - PVR CPT Code: [id number] Void Residual by ultrasound ([id number])
== END 2025-09-10 12:43 | disposition home or self-care (01) ==
LOC: HO.HUSH 11:17
PROVIDERS: PCP Internal Medicine; Visit Provider Urology
DX: R33.9 Retention of urine, unspecified (principal); C61 Malignant neoplasm of prostate
CPT/HCPCS: 99213; G2211

== ENCOUNTER → 2025-09-10 11:16 | Outpatient (BNVA) | payer MEDICARE, SELFPAY | PROVIDERS: PCP Internal Medicine; Visit Provider Urology | DX: R33.9 Retention of urine, unspecified (principal); C61 Malignant neoplasm of prostate | CPT/HCPCS: 51798; 99212 ==

== ENCOUNTER 2025-09-14 15:28 | Emergency (ER) | payer MEDICARE, SELFPAY ==
[2025-09-14 15:36] VITALS: BP 122/69; BP 138/79; PULSE 80; PULSE 81; RESP 16; TEMP 37.1; O2SAT 98; BMI 22.7
--- NOTE | 2025-09-14 15:38 | ED.GENADULT ---
HPI - General Adult General Chief complaint: Abdominal Pain Stated complaint: bladder pain, catheter removed few weeks ago Time Seen by Provider: 09/14/25 15:37 Source: patient, RN notes reviewed and old records reviewed Mode of arrival: ambulatory Limitations: no limitations History of Present Illness ED Provider: ANDREW Julien HPI narrative: 75-year-old male with medical history of BPH, prostate cancer, CAD, GERD, CHF, splenic infarct on Eliquis presents to ED due to difficulty with urination. Patient states yesterday he began to feel as if he was straining to urinate, with low volumes of urine and sensation that he was not emptying his bladder fully with mild abdominal pain. Patient states he was recently admitted to [facility] for UTI and had indwelling catheter placed and was removed on 09/02. Patient states he had follow up with Dr. Baltazar on 09/10 and was instructed to start finasteride and flowmax. Patient starts finasteride tomorrow. Denies nausea, vomiting, diarrhea, headaches, visual changes. MD complaint: difficulty urinating Related Data Home Medications ?Medication ?Instructions ?Recorded ?Confirmed apixaban 5 mg tablet (Eliquis) 5 mg PO BID 06/26/25 09/14/25 clonazepam 1 mg tablet (Klonopin) 1 mg PO BID@0700,1900 06/26/25 09/14/25 mirtazapine 30 mg tablet 30 mg PO BEDTIME 06/26/25 09/14/25 multivitamin 1 tab PO DAILY 06/26/25 09/14/25 oxycodone 5 mg tablet 2.5 mg PO BEDTIME PRN Moderate 06/26/25 09/14/25 Pain (Scale Score 5-6) sennosides 8.6 mg tablet 17.2 mg PO DAILY PRN Constipation 06/26/25 09/14/25 tamsulosin 0.4 mg capsule 0.4 mg PO BEDTIME 06/26/25 09/14/25 lansoprazole 30 mg capsule,delayed 30 mg PO DAILY@0630 08/17/25 09/14/25 release cholecalciferol (vitamin D3) 50 50 mcg PO DAILY 08/22/25 09/14/25 mcg (2,000 unit) capsule (Vitamin D3) melatonin 3 mg tablet 6 mg PO BEDTIME 08/22/25 09/14/25 Lactobacillus rhamnosus GG 15 1 cap PO DAILY 08/31/25 09/14/25 billion cell sprinkle capsule (Culturelle) bisacodyl 5 mg tablet 5 mg PO BEDTIME PRN Constipation 08/31/25 09/14/25 ceramides 1,3,6-II (CeraVe topical 1 appl topical TID PRN Itching 08/31/25 09/14/25 cream) nystatin 100,000 unit/gram topical 1 appl topical BID PRN Rash 08/31/25 09/14/25 cream ondansetron HCl 4 mg tablet 4 mg PO Q8H PRN nausea/vomiting 08/31/25 09/14/25 acetaminophen 500 mg tablet 1,000 mg PO TID 09/14/25 09/14/25 triamcinolone acetonide 0.1 % 1 appl topical BID 09/14/25 09/14/25 topical ointment Previous Rx's ?Medication ?Instructions ?Recorded finasteride 5 mg tablet 5 mg PO DAILY 90 days #90 tabs 09/10/25 polyethylene glycol 3350 17 17 g PO DAILY #119 grams 09/14/25 gram/dose oral powder (Miralax) Allergies Allergy/AdvReac Type Severity Reaction Status Date / Time No Known Allergies Allergy Verified 09/14/25 15:40 Review of Systems Review of Systems: Yes all other systems are reviewed and are negative PMFSH Past Medical History Attestation statement: The following information was validated with the patient. Source: old records reviewed and nursing notes reviewed Medical History (Updated 09/14/25 @ 17:43 by Alie Julien PA-C) BPH (benign prostatic hyperplasia) CAD (coronary artery disease) Orthostatic hypotension Suicide attempt Heart murmur Dermatitis Cataract Arthritis History of recurrent UTIs Anxiety Macular degeneration GERD (gastroesophageal reflux disease) CHF (congestive heart failure) Colitis Prostate cancer Social History Social History Housing: Assisted Living Facility Do you presently have visiting nurse or other home services: Yes Alcohol intake: never Patient Tobacco Use Status: Former Tobacco user Smoked in Last 30 Days: No Use of substances other than those prescribed or required for medical reasons: No Advance Directives: Yes Advance Directives on File: Yes Advance Directives Date on File: 08/18/25 service: No Physical Exam ED Vital Signs: Vital Signs - 24 hr 09/16/25 08:42 09/16/25 14:00 09/16/25 23:39 Temperature 97.9 F 98.5 F 97.4 F Pulse Rate 75 87 70 Respiratory Rate 16 16 16 Blood Pressure 103/63 118/73 98/58 L Pulse Oximetry 96 96 98 Oxygen Delivery Method Room Air Room Air Room Air 09/17/25 05:20 Temperature 98.2 F Pulse Rate 69 Respiratory Rate 16 Blood Pressure 96/51 L Pulse Oximetry 96 Oxygen Delivery Method Room Air BMI result Body Mass Index 22.7 GENERAL APPEARANCE: ?AxOx4, generally well-appearing, no acute distress. HEENT: ?NC, AT. MMM. EOMI, clear conjunctiva, oropharynx clear. NECK: ?Supple without lymphadenopathy.? No stiffness or restricted ROM. HEART:? Normal rate and regular rhythm, normal S1/S2, no m/r/g LUNGS:? CTAB, moving air well. No crackles or wheezes are heard. ABDOMEN: ?Soft, non distended, no rigidity, no guarding, very mild tenderness to palpation of periumbilical area BACK: No CVAT, no obvious deformity. EXTREMITIES: ?Without cyanosis, clubbing or edema. NEUROLOGICAL: ?Grossly nonfocal. Alert and oriented, moving all 4 extremities. Observed to ambulate with normal gait. Skin: ?Warm and dry without any rash. Course Reevaluation(s) Reevaluation #1: Upon discharge, patient perseverating that his bladder will become over filled and he will need to come back to the emergency department. Patient states that he is unsafe to go home and can not go home at this time. Patient [facility] for evaluation by case management Time: 19:16 Reevaluation #2: physician observation continued overnight no acute events. VSS. home meds restarted aside from oxycodone as this can contribute to urinary retention. finesteride started. patient was straight cathed overnight. plan for Dr. Baltazar to see today and learn straight cath regimen for home. will continue to monitor and determine dispo plan. Time: 07:33 Reevaluation #3: Time: 08:33 Date: 09/16/25 Provider: JAY Cornell Patient in physician observation for case management needs. Reached out to Dr. Baltazar to see if he was able to swing by patient's room to educate patient on straight catheter regimen for home. No acute events reported overnight.? No current issues or complaints. VS stable. Will continue to monitor pending CM disposition. 9:18 AM 09/16/2025 (Carey Isaac PA-C): Spoke to Dr. Baltazar in regards to patient's case. He stated that this should be taught by in-house nursing. I did discuss with him that patient has been here 7 times in the ED over the last month due to urinary retention, which has been complicated with catheter associated UTIs, and also commented that he was seen in the office on 09/[address] Baltazar. I discussed with Dr. Baltazar that we will continue to monitor bladder scans while he is pending case management disposition however he does retain again, I inquired whether or not he recommends placement of Bhatt or straight cath. Per nursing, patient seems unmotivated to learn how to straight cath for home. See Dr. Baltazar recommends Bhatt catheter if he does retain again. Additional Reevaluation(s): 0839 - Patient will go to [facility] at 093. Patient agreeable to plan. Patient has been voiding w/o issue w/ bhatt. Physician observation ended Medications Administered Generic Name Dose Route Start Last Admin Trade Name Freq PRN Reason Stop Dose Admin Acetaminophen 975 mg 09/15/25 09:00 09/17/25 07:31 Acetaminophen 325 Mg Tablet PO 975 mg TID STORM Administration Apixaban 5 mg 09/15/25 09:00 09/17/25 07:32 Apixaban 5 Mg Tablet PO 5 mg BID STORM Administration Clonazepam 1 mg 09/15/25 08:15 09/17/25 05:42 Clonazepam 1 Mg Tablet PO 1 mg BID@0700,1900 STORM Administration Finasteride 5 mg 09/15/25 09:00 09/17/25 07:31 Finasteride 5 Mg Tablet PO 5 mg DAILY STORM Administration Melatonin 6 mg 09/15/25 21:00 09/16/25 20:11 Melatonin 3 Mg Tablet PO 6 mg BEDTIME STORM Administration Mirtazapine 30 mg 09/15/25 21:00 09/16/25 20:53 Mirtazapine 30 Mg Tablet PO 30 mg BEDTIME STORM Administration Multivitamins/Vitamin C 1 tab 09/15/25 09:00 09/17/25 07:32 Multivitamin Tablet PO 1 tab DAILY STORM Administration Omeprazole 20 mg 09/16/25 06:30 09/17/25 05:42 Omeprazole 20 Mg Capsule.Dr PO 20 mg DAILY@0630 STORM Administration Oxycodone HCl 2.5 mg 09/14/25 18:06 09/14/25 18:17 Oxycodone Hcl Immed Release 5 Mg Tablet PO 2.5 mg On Hold: 09/15/25 07:32 Q6H PRN Administration Pain, Moderate(Pain Scale 4-6) Tamsulosin HCl 0.4 mg 09/15/25 21:00 09/16/25 20:12 Tamsulosin Hcl 0.4 Mg Capsule PO 0.4 mg BEDTIME STORM Administration Triamcinolone Acetonide 1 appl 09/15/25 09:00 09/16/25 21:08 Triamcinolone Acet 0.1 % Oint 15 Gm Tube TOPICAL 1 appl BID STORM Administration Vitamin D 50 mcg 09/15/25 09:00 09/17/25 07:32 Cholecalciferol (Vitamin D3) 25 Mcg Tablet PO 50 mcg DAILY STORM Administration Discontinued Medications Generic Name Dose Route Start Last Admin Trade Name Freq PRN Reason Stop Dose Admin Clonazepam 1 mg 09/14/25 18:06 09/14/25 18:18 Clonazepam 1 Mg Tablet PO 09/14/25 18:07 1 mg ONCE ONE Administration Magnesium Citrate 300 ml 09/14/25 19:31 09/14/25 20:45 Magnesium Citrate 300 Ml Solution PO 09/14/25 19:32 300 ml ONCE ONE Administration Mirtazapine 30 mg 09/14/25 18:06 09/14/25 18:18 Mirtazapine 30 Mg Tablet PO 09/14/25 18:07 30 mg ONCE ONE Administration Polyethylene Glycol 17 gm 09/14/25 19:01 09/14/25 20:45 Polyethylene Glycol 3350 17 Gm Powd.Pack PO 09/14/25 19:02 17 gm ONCE ONE Administration Tamsulosin HCl 0.4 mg 09/14/25 18:06 09/14/25 18:18 Tamsulosin Hcl 0.4 Mg Capsule PO 09/14/25 18:07 0.4 mg ONCE ONE Administration Medical Decision Making Medical Decision Making MDM Narrative: 75-year-old male with medical history of BPH, prostate cancer, CAD, GERD, CHF, splenic infarct on Eliquis presents to ED due to difficulty with urination that began yesterday. Patient with recent [facility] hospitalization for UTI, bhatt catheter was removed on 09/02. Patient had follow up with Dr. Baltazar on 09/10. Patient reports yesterday with difficulty urinating with sensation of retained urine. On chart review, patient has been seen in the department on 08/31 for UTI and was admitted and discharged on 09/02 for sepsis secondary to psychosomatic bhatt catheter. Hospitalist note reveals they spoke with patients case operator and reports patient has a chronic issue with needing a bhatt catheter. According to case operator, the patient will insist on having catheter despite passing Voiding trials. Labs without leukocytosis/leukopenia, normocytic stable anemia with a hemoglobin of 12.8, hematocrit of 39.4, no electrolyte abnormalities. UA negative for bacteria or blood Bladder scan postvoid reveals 450 mL of urine Straight catheter with 675mL of fluid. I reached out to Urologist Dr. Baltazar who recommended patient be straight cathed while in the department to drain urine, and then follow up in his office tomorrow where nursing staff can teach him intermittent catheterization. I spoke with case operator Nakia who states patient is voiding 1200mL per day with urination, and told his case operator he was urinating overnight and reported 700mL of urine in his urinal this morning. She reports there is a large psych component to patients urinary retention. I discussed this with the patient, patient is perseverating on not being able to care for a catheter. When I explained to the patient that he will not be discharged with a catheter that the catheter will be removed patient states that he can not see and will not be able to manage. Patient was then again reassured that he will not be leaving the department with a catheter in place. Patient then begins to perseverate that he has issues with constipation. On chart review, patient was started on bowel regimen however he refused these medications in the next day. I will discharge patient with MiraLax prescription with instructions to take once per day until liquid stools achieved. Patient is concerned he will not recieve his night meds as his facility will not dose past 8pm. Patients night medications have been ordered and administered before discharge. 9:38 PM 09/14/2025 (Ginna Boykin DO): Patient was signed out to me pending case management evaluation. Likely will be placed in Phys Obst. Discussed with the patient about urinary retention. Patient stated that he is unsure whether he wants a Bhatt catheter straight catheter. I discussed with them that it is up to his preference at this time. However if we are going to place a catheter I do recommend a Bhatt catheter as this can help with his urinary retention until he follows up with the Urology office. The patient stated that it is code status is DNR at this time. Dye order will be placed for the patient. Patient will be held for Phys Obst. Discussed the case with the case management recommend keeping the patient here overnight for possible VNA arrangement in the morning. Differential Diagnosis Differential Diagnoses: The differential diagnosis associated with the presentation includes BPH Urinary retention UTI Psychosomatic urinary retention Admission/Observation Consideration of admission/observation: Escalation of care including admission/observation considered Consult Healthcare Provider I discussed management with this patient with urologist Dr. Baltazar Lab Data MDM Lab Attestation statement: I reviewed the patient's lab results. 09/14/25 16:09 09/14/25 16:09 Labs: Lab Results 09/14/25 Range/Units 16:09 WBC 5.6 (4.8-10.8) X10*3/uL RBC 4.41 L (4.60-5.80) X10*6/uL Hgb 12.8 L (14.0-18.0) g/dl Hct 39.4 L (42.0-52.0) % MCV 89.3 (80.0-98.0) fL MCH 29.0 (27.0-33.0) pg MCHC 32.5 (31.0-36.0) g/dl RDW 13.2 (11.0-16.0) % Plt Count 242 (160-400) X10*3/uL MPV 9.1 L (9.4-12.4) fL Immature Gran % (Auto) 0.4 (0.0-0.4) % Neut % (Auto) 53.1 (45-73) % Lymph % (Auto) 32.1 (20-40) % [place] % (Auto) 9.5 (2-11) % Eos % (Auto) 4.0 (0-4) % Baso % (Auto) 0.9 (0-2) % Lymph # (Auto) 1.8 (1.2-4.9) X10*3/uL [place] # (Auto) 0.5 (0.1-1.2) X10*3/uL Eos # (Auto) 0.2 (0.0-0.4) X10*3/uL Baso # (Auto) 0.1 (0.0-0.2) X10*3/uL Abs Immat Gran (auto) 0.02 (0.00-0.03) X10*3/uL Absolute Neuts (auto) 3.0 (2.0-8.3) x10*3/uL Absolute Nucleated RBC 0.000 (0.0-0.012) X10*3/uL Nucleated RBC % (auto) 0.0 (0.0-0.2) /100WBC Sodium 136 (135-145) mmol/L Potassium 4.6 D (3.3-5.1) mmol/L Chloride 105 (96-108) mmol/L Carbon Dioxide 23 (22-29) mmol/L Anion Gap 13 (12-20) BUN 9 (9-16) mg/dL Creatinine 0.67 (0.5-1.4) mg/dL Estim Creat Clear Calc 101.1 Estimated GFR > 60 Random Glucose 93 (60-115) mg/dL Calcium 8.8 (8.4-10.2) mg/dL Magnesium 1.9 (1.6-2.6) mg/dL Total Bilirubin 0.6 (0.0-1.0) mg/dL AST 40 H (5-37) U/L ALT 21 (0-40) U/L Alkaline Phosphatase 58 (39-117) U/L Total Protein 7.1 (6.5-8.0) g/dL Albumin 4.1 (3.5-5.0) g/dL Urine Color Yellow Urine Appearance Clear Urine pH 7.0 (5.0-9.0) Ur Specific [place] <= 1.005 (1.005-1.025) Urine Protein Negative (Neg-Trace) mg/dL Urine Glucose (UA) Negative (Negative) mg/dL Urine Ketones Negative (Negative) mg/dL Urine Blood Negative (Negative) Urine Nitrite Negative (Negative) Ur Leukocyte Esterase Negative (Negative) External Record Review External record reviewed: Inpatient record, Office record, Outpatient record and Prior outpatient labs Chronic Conditions Patient?s care impacted by: Other (BPH, prostate cancer, CAD, GERD, CHF, splenic infarct on Eliquis) Social Determinants Patient?s care significantly limited by Social Determinants of Health including: Other Social Determinant of Health Discharge Plan Discharge Clinical Impression: Urinary retention Patient Disposition: Home, Self-Care Instructions: Urinary Retention in Men (ED) Additional Instructions: You were evaluated in the emergency department today for urinary retention. The bladder scan revealed 450 mL of urine retained in the bladder, 675mL were removed by straight catheter. I spoke with your urologist Dr. Baltazar who recommended straight catheterization to remove the urine and follow up in his office tomorrow for education on how to care for intermittent catheter. May flush with 100 sterile water PRN clog or sediment. May replace with 16 kazakh coude if bhatt becomes dislodged or routinely To manage constipation, please mix 17g power in 8oz of water twice daily until liquid stool is achieved. Please follow up with your PCP for further evaluation and management of constipation. Please follow up with Dr. Baltazar's office tomorrow [phone] for urinary retention. Please return to the emergency department if you experience fevers over 100.4?, chest pain, shortness of breath, abdominal pain, nausea, vomiting, inability to urinate, or any new/worsening/concerning symptoms. Prescriptions: New polyethylene glycol 3350 [Miralax] 17 gram/dose powder 17 g PO DAILY Qty: 119 0RF No Action lansoprazole 30 mg capsule,delayed release(DR/EC) 30 mg PO DAILY@0630 acetaminophen 500 mg Tablet 1,000 mg PO TID triamcinolone acetonide 0.1 % ointment 1 appl topical BID melatonin 3 mg Tablet 6 mg PO BEDTIME cholecalciferol (vitamin D3) [Vitamin D3] 50 mcg (2,000 unit) Capsule 50 mcg PO DAILY ondansetron HCl 4 mg tablet 4 mg PO Q8H PRN (Reason: nausea/vomiting) nystatin 100,000 unit/gram Cream 1 appl TOPICAL BID PRN (Reason: Rash) bisacodyl 5 mg Tablet 5 mg PO BEDTIME PRN (Reason: Constipation) ceramides 1,3,6-II [CeraVe] Cream 1 appl TOPICAL TID PRN (Reason: Itching) Culturelle 15 billion cell Capsule, Sprinkle 1 cap PO DAILY multivitamin Tablet 1 tab PO DAILY sennosides 8.6 mg tablet 17.2 mg PO DAILY PRN (Reason: Constipation) clonazepam [Klonopin] 1 mg tablet 1 mg PO BID@0700,1900 tamsulosin 0.4 mg capsule 0.4 mg PO BEDTIME mirtazapine 30 mg tablet 30 mg PO BEDTIME oxycodone 5 mg tablet 2.5 mg PO BEDTIME PRN (Reason: Moderate Pain (Scale Score 5-6)) Patient Comments: 2.5 mg PO QD PRN Eliquis 5 mg tablet 5 mg PO BID finasteride 5 mg tablet 5 mg PO DAILY 90 Days Qty: 90 1RF Referrals: [facility] [Outside] Kimberly Davis MD [Primary Care Provider, Medical] Diego Baltazar MD [Physician, Urology] Print Language: German
[2025-09-14 16:16] LABS: MANUAL DIFF FLAG NO
[2025-09-14 16:17] LABS: Hematocrit 39.4 % (42.0-52.0); Hemoglobin 12.8 g/dl (14.0-18.0); Imm Gran Abs Auto 0.02 X10*3/uL (0.00-0.03); Imm Gran Pct Auto 0.4 % (0.0-0.4); Lymphocytes Absolute Auto 1.8 X10*3/uL (1.2-4.9); Mean Corpuscular HGB Conc 32.5 g/dl (31.0-36.0); Mean Corpuscular Hemoglobin 29.0 pg (27.0-33.0); Mean Corpuscular Volume 89.3 fL (80.0-98.0); NRBC Abs Auto 0.000 X10*3/uL (0.0-0.012); NRBC Pct Auto 0.0 /100WBC (0.0-0.2); Platelet Count 242 X10*3/uL (160-400); Red Blood Count 4.41 X10*6/uL (4.60-5.80); White Blood Count 5.6 X10*3/uL (4.8-10.8)
[2025-09-14 16:19] LABS: Appearance Urine Clear; Glucose Urine UA Negative (Negative); PH 7.0 (5.0-9.0); Specific Gravity - Urine <= 1.005 (1.005-1.025)
[2025-09-14 16:40] LABS: Alanine Aminotransferase 21 U/L (0-40); Albumin Level 4.1 g/dL (3.5-5.0); Alkaline Phosphatase 58 U/L (39-117); Anion Gap 13 (12-20); Aspartate Amino Transferase 40 U/L (5-37); Blood Urea Nitrogen 9 mg/dL (9-16); Calcium 8.8 mg/dL (8.4-10.2); Carbon Dioxide 23 mmol/L (22-29); Chloride 105 mmol/L (96-108); Creatinine Clr Calc Pharmacy 101.1; Estimated Glomerular Filt Rate > 60; Magnesium 1.9 mg/dL (1.6-2.6); Potassium 4.6 mmol/L (3.3-5.1); Sodium 136 mmol/L (135-145); Total Protein 7.1 g/dL (6.5-8.0)
[2025-09-14 17:03] VITALS: BP 132/73; PULSE 66; RESP 15; TEMP 37; O2SAT 99
--- NOTE | 2025-09-14 17:58 | PC.NURSE ---
verbal order for straight cath. output 675 ml Alie THOMPSON notifed
[2025-09-14] MEDS: oxyCODONE HCl Immed Release 5 MG TABLET 2.5 MG PO (18:17)
--- NOTE | 2025-09-14 19:15 | PC.NURSE ---
Report taken from Karmen CUNNINGHAM assumed care of pt at this time. Pt plan to discharge back to assisted living to f/u with urology tomorrow morning but feeling very anxious about not being able to urinate again and stating he will not be able to get a ride to appointment. notified, plan for CM consult.
[2025-09-14 20:03] VITALS: BP 115/73; PULSE 76; RESP 16; TEMP 36.6; O2SAT 96
--- OUTSIDE RECORDS SUMMARY | 2025-09-14 20:18 | XMS_ITS | Clinical Summary ---
Author Organization [facility] [place] [address] Care Team Providers Care Teacher Education Director Name Role Phone Keon Giron MD Primary Care Provider [phone] Social History Tobacco Use Types Packs/Day Years [...] series) 06/22/2025 [place] [id number] [facility] Care Teams Teacher Education Director Relationship Specialty Start Date End Date Keon Giron MD [address] [place] [id number] PCP - General Internal Medicine 09/06/18
--- NOTE | 2025-09-14 20:49 | PC.NURSE ---
Pt now stating he does not want indwelling catheter provider aware. At same time he continues to state he wont be able to straight cath himself due to his vision. Colleen CM at bedside with pt discussing pts options. Pt perseverating on his bowels, states small BM 3 days ago, states assisted living stopped giving him his senna. Pt medicated per DEC, commode brought to bedside and call hoyt within reach. Pt instructed to call when he feels he needs to use bathroom.
--- NOTE | 2025-09-14 20:51 | MHC.CM.ED ---
CM met with patient. Pt lives in assisted living at [facility]. Pt has been in the ED 6 times since July, with admission on 08/31-09/02 for weakness, UTI, urinary retention and abd pain. Pt has MDD and anxiety. He sees Dr. Baltazar for urology. Pt does not have a Q.S. He feels he is unsafe to go home tonight and is concerned that medications have already been administered for the night at the [facility]. He is requesting to stay overnight. Dr. Baltazar wanted him to straight cath and wanted to see him tomorrow. Pt states he cannot get a ride tomorrow to see Dr. Baltazar. Pt is very anxious. Pt lives alone at [facility]. He does not drive dut to poor vision. He uses a cane and a rollator. HCP is on file. PCP and insurance have been verified. He had [facility] in the past. He would like VNA services to help with his catheter. Pt states he cannot straight cath himself, as he cannot see. CM explained that it really is by feel and is easy. Explained that he could be taught, as the VNA will not come in multiple times a day to straight cath him. Pt is unsure if he wants and indwelling catheter either. He is stuck on his urine output and now is concerned about his bowels. States he has not had a BM in 3 days. Normally goes every other day. States he was taking senna, but they don't give it to him at the [facility]. CM spoke with provider. Will order bowel medications. Will stay overnight. Pt will consider indwelling catheter. Will consult [facility] for services in [facility]. Pt will discharge to [facility] in the morning.
--- NOTE | 2025-09-14 20:56 | MHC.EDTECH ---
400mls of urine output into urinal
--- NOTE | 2025-09-14 21:00 | PC.NURSE ---
Pt able to urinate on own into urinal- 400ml straw colored urine provider notified.
--- NOTE | 2025-09-14 21:34 | PC.NURSE ---
Pt voided another 175ml of straw colored urine in urinal independently.
--- NOTE | 2025-09-14 22:08 | PHA.MEDREC ---
Pharmacy Consult ? Medication Reconciliation Pharmacy has completed the medication reconciliation.Spoke with patient in the ED who knew medications. Patient states he is no longer taking budesonide or fluoxetine.
--- NOTE | 2025-09-15 00:19 | PC.NURSE ---
Pt resting in bed eyes closed, NAD. Using urinal at bedside independently. Another 150ml straw colored urine voided independently. No BM at this time. Medications reconciled by pharmacy, pt is phys obs for CM. Will continue to monitor.
--- NOTE | 2025-09-15 02:42 | PC.NURSE ---
Pt up to commode, BM x1. Pt attempted to use urinal with standby assist, pt states he is unable to urinate at this time. Primary RN made aware.
--- NOTE | 2025-09-15 03:03 | PC.NURSE ---
Pt up to bedside commode again, loose BMx1, 200ml straw colored urine voided independently. Bladder scan 563.
--- NOTE | 2025-09-15 03:24 | PC.NURSE ---
Pt reports unable to void further on own, requesting straight cath. Catheterized for 675ml. Pt expressing concern over the idea of having to self catheterize. RN attempted to reassure pt and educate on process. Pt states I'll sleep on it . Additional warm blanket provided, no additional requests at this time, will continue to monitor.
--- NOTE | 2025-09-15 05:18 | PC.NURSE ---
Report given to Lucia CUNNINGHAM pt exits my care at this time.
[2025-09-15 08:17] VITALS: BP 125/74; PULSE 85; RESP 16; O2SAT 99
[2025-09-15] MEDS: Triamcinolone Acet 0.1 % Oint 15 GM TUBE 1 APPL TOPICAL ×2 (09:37→20:11)
[2025-09-15 12:19] VITALS: BP 106/65; PULSE 78; RESP 16; TEMP 36.5; O2SAT 98
--- NOTE | 2025-09-15 15:27 | PC.NURSE ---
Pt expressed feeling of fullness in bladder. bladder scan done, 380mL, pt then able to void 50mL. pt then voided 150mL approx 25 minutes later.
[2025-09-15 19:32] VITALS: BP 89/56; PULSE 72; RESP 20; TEMP 36.6; O2SAT 96
[2025-09-16] MEDS: Triamcinolone Acet 0.1 % Oint 15 GM TUBE 1 APPL TOPICAL ×2 (08:24→21:08)
[2025-09-16 08:42] VITALS: BP 103/63; PULSE 75; RESP 16; TEMP 36.6; O2SAT 96
--- NOTE | 2025-09-16 10:11 | PC.NURSE ---
Addendum entered by Emmanuelle Devine RN 09/16/25 10:24: Per provider, hold off on bhatt and straight cath at this time, continue to monitor Addendum entered by Emmanuelle Devine RN 09/16/25 10:23: Pt tried again and able to urinate 200 mL on his own Original Note: Pt reporting fullness and pressure in bladder area, tried to urinate in urinal X2 with no success. Bladder scan done and is 430 mL, pt uncomfortable. Provider alerted of situation, awaiting orders on bhatt vs straight cath
[2025-09-16 14:00] VITALS: BP 118/73; PULSE 87; RESP 16; TEMP 36.9; O2SAT 96
--- NOTE | 2025-09-16 15:40 | PC.NURSE ---
16 fr coude cath placed as ordered. pt tolerated well, clear yellow urine noted
--- NOTE | 2025-09-16 16:10 | MHC.EDTECH ---
took care for patient @1600, 450mL of yellow urine emptied from bhatt cath, bed alarm on for fall risk precautions, no other needs stated at this time
--- NOTE | 2025-09-16 16:57 | MHC.EDTECH ---
pt ate 20% of dinner shae, MARISA aware
[2025-09-16 23:39] VITALS: BP 98/58; PULSE 70; RESP 16; TEMP 36.3; O2SAT 98
[2025-09-17 05:20] VITALS: BP 96/51; PULSE 69; RESP 16; TEMP 36.8; O2SAT 96
--- NOTE | 2025-09-17 07:36 | PC.NURSE ---
pharmacy notified for missing eye drops
--- NOTE | 2025-09-17 07:37 | MHC.CM.ED ---
Patient remains in ER overflow. Henderson was inserted yesterday afternoon. [facility] is able to accept patient back. [facility] booked for 930am. Patient, Beth CUNNINGHAM and Dr Cummings aware. Continue to monitor for d/c needs.
--- NOTE | 2025-09-17 07:38 | PC.NURSE ---
patient a&ox3, rr equal/non labored, bhatt cath intact/patient draining clear yellow urine, pt medicated per order, per case management pt to discharge back to assisted living.
[2025-09-17] MEDS: Triamcinolone Acet 0.1 % Oint 15 GM TUBE 1 APPL TOPICAL (09:13)
[2025-09-17 09:19] VITALS: BP 101/56; PULSE 74; RESP 16; TEMP 36.7; O2SAT 96
--- NOTE | 2025-09-17 09:28 | PC.NURSE ---
patient requested leg bag which was changed from regular bhatt bag prior to his discharge. pt was educated on how to empty the bag as well as change it over to the bhatt bag at night if he wishes. pt discharging to home.
== END 2025-09-17 09:19 | disposition home or self-care (01) ==
PROVIDERS: Emergency Provider Student in an Organized Health Care Education/Training Program; PCP Internal Medicine
DX: Z13.89 Encounter for screening for other disorder (principal)
CPT/HCPCS: 36415; 80053; 81003; 83735; 85025

== ENCOUNTER 2025-09-17 14:15 | Inpatient (IN) | payer MEDICARE, SELFPAY ==
--- OUTSIDE RECORDS SUMMARY | 2025-09-12 23:59 | XMS_ITS | Continuity of Care Document ---
Author Organization [facility] Address [address] [place] [id number]- Care Team Providers Care Brim Ironer Hand Name Role Phone Anayeli GALLAGHER, February A Primary Care Physicia n Encounter [facility] Date(s): 08/04/25 - 09/12/[address] [address]- Attending Physician: Олег Ndiaye NP Admitting Physician: Олег Ndiaye NP Referring Physician: Олег Ndiaye NP Encounter Type: Pre-Outpt Social History Social History Type Response Sex Sex Representation Male (finding) Patient Care team information Care Team Personnel Name: Anayeli GALLAGHER, February A Position: [facility] Physician - Primary Care Member Role: PCP Address: [address] [place] [address] VIOLETTA Gonzalez [id number]- Telecom: Insurance Providers Guarantor name: ANNA MARIE Health Plan Information #: 1 Payer: MEDICARE B Payer Identifier: ANNA MARIE Member Number: [id number] Group Number: Subscriber Identifier: [id number] Relationship to Subscriber: self Coverage Type: NA Coverage Verification Date: NA Telecom: NA Address: NA Health Plan Information #: 2 Payer: [employer] SECONDARY ONLY Payer Identifier: ANNA MARIE Member Number: [id number] Group Number: Subscriber Identifier: NA Relationship to Subscriber: self Coverage Type: Medicare Other Coverage Verification Date: Telecom: Address:
--- NOTE | ~2025-09-17 | US_ITS ---
EXAMINATION: US ABDOMEN LIMITED CLINICAL INFORMATION: Abdominal pain,? Splenic infarct. COMPARISON: Correlation made with CT abdomen and pelvis without contrast 09/17/2025. TECHNIQUE: Real-time imaging of the left upper quadrant and spleen was performed. FINDINGS: SPLEEN: Mildly limited evaluation due to overlying artifact/shadowing. Length = 9.0 cm. No definite splenic infarct or focal splenic abnormality seen. Normal color Doppler flow. FREE FLUID: None. US/US abdomen limited IMPRESSION: 1. Normal-appearing spleen without definite infarct. Electronically signed by: Marlon Miranda MD 09/18/2025 08:19 AM [facility]
--- NOTE | ~2025-09-17 | CT_ITS ---
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 Status post cholecystectomy. Remainder of the solid organs are within normal limits. Normal appearing spleen. No hydronephrosis. No urolithiasis. No bowel obstruction, pneumoperitoneum, or pneumatosis. Indwelling urinary catheter is present. Moderate circumferential urinary bladder wall thickening. Normal appendix. No acute fracture. IMPRESSION: Moderate circumferential wall thickening of the urinary bladder with an indwelling urinary catheter, concerning for cystitis. Correlate with urinalysis. Status post cholecystectomy. Normal appearing spleen. This document has been electronically signed by: Yordan Arias MD on 09/17/2025 19:28:57
--- NOTE | 2025-09-17 14:28 | ED_ITS ---
HPI - General Adult General Chief complaint: Urogenital-Male Stated complaint: F/C ISSUE,BLOOD IN URINE,D/C THIS AM PER EMS Time Seen by Provider: 09/17/25 14:26 Source: patient Mode of arrival: ambulatory Limitations: no limitations History of Present Illness ED Provider: JAY Negron HPI narrative: Chief Complaint: ?Abdominal pain and distension with decreased urine output and blood in my urine.? History of Present Illness: The patient is a 75-year-old male who presents to the Emergency Department with abdominal tenderness and distension, decreased urine output through his Henderson catheter, and visible hematuria. He reports associated fatigue and malaise. He denies chest pain, shortness of breath, fever, chills, nausea, vomiting, vision changes, dizziness, or new weakness. He has a history of benign prostatic hyperplasia (BPH) with multiple hospitalizations within the past month for Henderson catheter?related complications. The patient is on apixaban (Eliquis) for an unspecified indication. He has discussed the option of a suprapubic catheter with his urologist, Dr. Baltazar ([facility]), and at this visit he expresses interest in proceeding with that option. Related Data Home Medications ?Medication ?Instructions ?Recorded ?Confirmed apixaban 5 mg tablet (Eliquis) 5 mg PO BID 06/26/25 clonazepam 1 mg tablet (Klonopin) 1 mg PO BID@0700,190 0 06/26/25 09/17/25 mirtazapine 30 mg tablet 30 mg PO BEDTIME 06/26/25 multivitamin 1 tab PO DAILY 06/26/2508/23 oxycodone 5 mg tablet 2.5 mg PO BEDTIME PRN Modera te 06/26/25 09/17/25 Pain (Scale Score 5-6) sennosides 8.6 mg tablet 17.2 mg PO DAILY PRN Constip ation 06/26/25 09/17/25 tamsulosin 0.4 mg capsule 0.4 mg PO BEDTIME 06/26/25 1 11/17/24 lansoprazole 30 mg capsule,delayed 30 mg PO DAILY@0630 08/17/25 09/17/25 release cholecalciferol (vitamin D3) 50 50 mcg PO DAILY 09/17/25 mcg (2,000 unit) capsule (Vitamin D3) melatonin 3 mg tablet 6 mg PO BEDTIME 08/22/25 Lactobacillus rhamnosus GG 15 1 cap PO DAILY 08/31/25 09/17/25 billion cell sprinkle capsule (Culturelle) bisacodyl 5 mg tablet 5 mg PO BEDTIME PRN Constipa tion 08/31/25 09/17/25 ceramides 1,3,6-II (CeraVe topical 1 appl topical TID PRN Itching 08/31/25 09/17/25 cream) nystatin 100,000 unit/gram topical 1 appl topical BID PRN Rash 08/31/25 09/17/25 cream ondansetron HCl 4 mg tablet 4 mg PO Q8H PRN nausea/vom iting 08/31/25 09/17/25 acetaminophen 500 mg tablet 1,000 mg PO TID 09/14/25 1 11/17/24 triamcinolone acetonide 0.1 % 1 appl topical BID 09/1409/17/25 topical ointment Previous Rx's ?Medication ?Instructions ?Recorded finasteride 5 mg tablet 5 mg PO DAILY 90 days #90 ta bs 09/10/25 polyethylene glycol 3350 17 17 g PO DAILY #119 grams 1 11/14/24 gram/dose oral powder (Miralax) Allergies Allergy/AdvReac Type Severity Reaction Status Date / Time No Known Allergies Allergy Verified 09/17/25 14:32 Review of Systems 2 Review of Systems: Review of Systems: ? Constitutional: Positive for fatigue, malaise. No fever or chills reported. ? Genitourinary: Abdominal distension, decreased Henderson output, hematuria. ? Cardiovascular/Respiratory: Denies chest pain or shortness of breath. ? Gastrointestinal: Reports abdominal tenderness/distension; denies nausea or vomiting. ? Neurologic: Denies dizziness or new weakness. All other systems not discussed were not reviewed during this encounter. Yes all other systems are reviewed and are negative PMFSH Past Medical History Attestation statement: The following information was validated with the patient. Source: old records reviewed and nursing notes reviewed Medical History BPH (benign prostatic hyperplasia) CAD (coronary artery disease) Orthostatic hypotension Suicide attempt Heart murmur Dermatitis Cataract Arthritis History of recurrent UTIs Anxiety Macular degeneration GERD (gastroesophageal reflux disease) CHF (congestive heart failure) Colitis Prostate cancer Social History Social History Housing: Assisted Living Facility Do you presently have visiting nurse or other home services: Yes Alcohol intake: never Patient Tobacco Use Status: Former Tobacco user Smoked in Last 30 Days: No Use of substances other than those prescribed or required for medical reasons: No Advance Directives: Yes Advance Directives on File: Yes Advance Directives Date on File: 08/18/25 Do you have a plan to hurt others: No Plan service: No Physical Exam ED Exam Exam: Appearance: Alert.? Oriented X3.? No acute distress.? Head: Normocephalic, atraumatic, no step-offs or deformities Eyes: Pupils equal, round and reactive to light.? ENT: Pharynx normal.? Neck: Normal inspection.? Neck supple.? CVS: Normal heart rate and rhythm.? Pulses normal.? Respiratory: No respiratory distress.? Breath sounds normal.? Abdomen: Soft and suprapubic discomfort.? Skin: Skin warm and dry.? Normal skin color.? Normal skin turgor.? Extremities: No lower extremity edema.? No calf ttp. 5/5 strength to bilateral upper and lower extremities Back: No midline tenderness, no C-spine tenderness, full range of motion, no CVA tenderness bilaterally Neuro: Oriented X 3.? No motor deficit.? No sensory deficit. CN 2-12 intact Vital Signs: Vital Signs - 24 hr 09/17/25 14:30 Temperature 97.6 F Pulse Rate 82 Respiratory Rate 16 Blood Pressure 121/72 Pulse Oximetry 96 Oxygen Delivery Method Room Air BMI result Body Mass Index 22.8 vss Course Reevaluation(s) Reevaluation #1: CBC unremarkable. Chemistry no acute findings needing intervention. UA showing large amount of blood moderate leukocyte esterases 3+ bacteria with low epithelial cells supporting this is likely reinfection. Microbiology culture of urine on 08/30/2025 showed Enterobacter Colacae complex. Time: 15:16 Reevaluation #2: I did discuss this case with Urology will treat for complicated UTI. Blood cultures lactic and Levaquin ordered. Plan hospital admission Time: 17:33 Medications Administered Discontinued Medications Generic Name Dose Route Start Last Admin Trade Name Freq PRN Reason Stop Dose Admin Clonazepam 1 mg 09/17/25 16:48 09/17/25 17:03 Clonazepam 1 Mg Tablet PO 09/17/25 16:49 1 mg ONCE ONE Administration Acetaminophen 1,000 mg in 100 mls @ 400 mls/hr 09/17/25 15:05 09/17/25 15:32 Ofirmev IV 09/17/25 15:19 Infused ONCE ONE Infusion Medical Decision Making Medical Decision Making [facility] Narrative: 1441 75-year-old male with BPH and chronic Henderson catheter presenting with abdominal distension, decreased Henderson output, and gross hematuria while on Eliquis. Urology consulted; plan for hospital admission for further management and possible suprapubic catheter placement tomorrow. Problem #1: Incomplete bladder emptying / Henderson catheter dysfunction in setting of BPH Assessment: Recurrent episodes of inadequate drainage and abdominal distension likely due to BPH causing bladder outlet obstruction. Plan: * Admit to hospitalist service per urology recommendation. * NPO after midnight in anticipation of possible suprapubic catheter placement tomorrow. * Continue Henderson drainage until procedure; monitor urine output. * Bladder scan performed; await results and monitor. Problem #2: Hematuria on apixaban (Eliquis) Assessment: Gross hematuria likely anticoagulation-related. Plan: * Trend hemoglobin/hematocrit with ordered labs. * Discuss apixaban management with admitting team; no changes made in ED. * Monitor urine color/output; consider urology input if bleeding persists. Problem #3: Chronic medical/psychiatric history Includes major depression, prior suicide attempt, and anxiety. Stable at this time; no acute psychiatric complaints today Plan: * Monitor Differential Diagnosis Differential Diagnoses: The differential diagnosis associated with the presentation includes Differential Diagnosis * Bladder outlet obstruction due to BPH * Henderson catheter malfunction or blockage * Urinary tract infection (including catheter-associated UTI) * Anticoagulation-related hematuria * Bladder or urethral trauma from catheterization * Bladder or upper tract malignancy (given age and hematuria) * Less likely: nephrolithiasis, glomerular disease, or coagulopathy Admission/Observation Consideration of admission/observation: Escalation of care including admission/observation considered Consult Healthcare Provider Management of the patient was discussed with: Fusion Juncture Grinder (Urology Dr. Baltazar ) Lab Data 09/17/25 15:16 09/17/25 15:16 Labs: Lab Results 09/17/25 Range/Units 15:16 WBC 8.1 (4.8-10.8) X10*3/uL RBC 4.26 L (4.60-5.80) X10*6/uL Hgb 12.3 L (14.0-18.0) g/dl Hct 37.2 L (42.0-52.0) % MCV 87.3 (80.0-98.0) fL MCH 28.9 (27.0-33.0) pg MCHC 33.1 (31.0-36.0) g/dl RDW 13.3 (11.0-16.0) % Plt Count 219 (160-400) X10*3/uL MPV 8.7 L (9.4-12.4) fL Immature Gran % (Auto) 0.1 (0.0-0.4) % Neut % (Auto) 61.3 (45-73) % Lymph % (Auto) 24.8 (20-40) % [place]ia % (Auto) 10.5 (2-11) % Eos % (Auto) 2.7 (0-4) % Baso % (Auto) 0.6 (0-2) % Lymph # (Auto) 2.0 (1.2-4.9) X10*3/uL [place] # (Auto) 0.9 (0.1-1.2) X10*3/uL Eos # (Auto) 0.2 (0.0-0.4) X10*3/uL Baso # (Auto) 0.1 (0.0-0.2) X10*3/uL Abs Immat Gran (auto) 0.01 (0.00-0.03) X10*3/uL Absolute Neuts (auto) 5.0 (2.0-8.3) x10*3/uL Absolute Nucleated RBC 0.000 (0.0-0.012) X10*3/uL Nucleated RBC % (auto) 0.0 (0.0-0.2) /100WBC PT 15.8 H (11.2-13.5) SEC INR 1.3 H (0.9-1.1) Sodium 138 (135-145) mmol/L Potassium 4.0 (3.3-5.1) mmol/L Chloride 105 (96-108) mmol/L Carbon Dioxide 24 (22-29) mmol/L Anion Gap 13 (12-20) BUN 11 (9-16) mg/dL Creatinine 0.93 (0.5-1.4) mg/dL Estim Creat Clear Calc 72.9 Estimated GFR > 60 Random Glucose 94 (60-115) mg/dL Calcium 9.4 D (8.4-10.2) mg/dL Magnesium 1.8 (1.6-2.6) mg/dL Total Bilirubin 0.3 (0.0-1.0) mg/dL AST 30 (5-37) U/L ALT 22 (0-40) U/L Alkaline Phosphatase 64 (39-117) U/L Total Protein 7.0 (6.5-8.0) g/dL Albumin 4.2 (3.5-5.0) g/dL Urine Color DK YELLOW Urine Appearance Hazy Urine pH 5.5 (5.0-9.0) Ur Specific Forest 1.025 (1.005-1.025) Urine Protein 100 (2+) H (Neg-Trace) mg/dL Urine Glucose (UA) Negative (Negative) mg/dL Urine Ketones Trace (Negative) mg/dL Urine Blood Large (3+) H (Negative) Urine Nitrite Negative (Negative) Ur Leukocyte Esterase Moderate (2+) H (Negative) Urine RBC >20 H (0-2) /HPF Urine WBC >50 H (0-5) /HPF Ur Squamous Epith Cells 0-2 (0-2) /HPF Urine Bacteria 3+ (None Seen) Hyaline Casts 3-5 (0-2) /LPF External Record Review External record reviewed: Inpatient record, Office record, Outpatient record, Prior outpatient labs, Prior outpatient radiology, Primary care record and Outside ED record Tests considered The following testing was considered but not selected: Considered obtaining a CT abdomen however he just had 1 done 07/26/2025 no acute findings. Chronic Conditions Patient?s care impacted by: Other (se hpi ) Critical Care Time Critical Care Time Critical Care Time: Yes Total Critical Care Time: 35 Attestation: I attest to this time spent taking care of the patient, obtaining history, physical, reviewing labs, imaging, treatment of patients condition +/- specialist/hospitalist consult +/- procedure Discharge Plan Discharge Clinical Impression: UTI (urinary tract infection) Patient Disposition: Admitted As Inpatient Print Language: Icelandic
[2025-09-17 14:30] VITALS: BP 121/72; BP 136/82; PULSE 82; PULSE 89; RESP 16; TEMP 36.4; O2SAT 96; O2SAT 99; BMI 22.8
--- OUTSIDE RECORDS SUMMARY | 2025-09-17 14:50 | XMS_ITS | Encounter Summary ---
Author Organization [facility] Address [address], [place] [address] Phone Care Team Providers Care Service Mechanic Name Role Phone Unavailable Primary Care Provider Unavailabl e Encounter Details Date Type Department Care Team (Late st Contact Info) Description 05/09/2022 Hospital/ED/SNF/HH Visit [facility] [address] [phone] Provider, MD Daphne [address] [place] [phone] Social History Tobacco Use Types Packs/Day [...]
--- OUTSIDE RECORDS SUMMARY | 2025-09-17 14:50 | XMS_ITS | Encounter Summary ---
Author Organization [facility] Address [address] [address] Phone Care Team Providers Care Print Journalist Name Role Phone Unavailable Primary Care Provider Unavailabl e Encounter Details Date Type Department Care Team (Late st Contact Info) Description 04/28/2022 Hospital/ED/SNF/HH Visit [facility] [address] [phone] Provider, MD Daphne [address] [place] [phone] Social History Tobacco Use Types Packs/Day [...]
--- OUTSIDE RECORDS SUMMARY | 2025-09-17 14:50 | XMS_ITS | Clinical Summary ---
Author Organization [facility] Address [address] [place] [phone] Phone Care Team Providers Care Medical Billing Instructor Name Role Phone Unavailable Primary Care Provider [...]
--- OUTSIDE RECORDS SUMMARY | 2025-09-17 14:50 | XMS_ITS | Clinical Summary ---
Author Organization [facility] [place] [address] Care Team Providers Care Block Cableman Name Role Phone Keon Giron MD Primary Care Provider [phone] Social History Tobacco Use Types Packs/Day Years [...] series) 06/22/2025 [place] [phone] [facility] Care Teams Block Cableman Relationship Specialty Start Date End Date Keon Giron MD [address] [place] [id number] PCP - General Internal Medicine 09/06/18
--- NOTE | 2025-09-17 15:03 | PM.IMHP ---
[facility] Medical History BPH (benign prostatic hyperplasia) CAD (coronary artery disease) Orthostatic hypotension Suicide attempt Heart murmur Dermatitis Cataract Arthritis History of recurrent UTIs Anxiety Macular degeneration GERD (gastroesophageal reflux disease) CHF (congestive heart failure) Colitis Prostate cancer Social History Housing: Assisted Living Facility Do you presently have visiting nurse or other home services: Yes Alcohol intake: never Patient Tobacco Use Status: Former Tobacco user Smoked in Last 30 Days: No Use of substances other than those prescribed or required for medical reasons: No Advance Directives: Yes Advance Directives on File: Yes Advance Directives Date on File: 08/18/25 Do you have a plan to hurt others: No Plan service: No Meds Allergies Allergy/AdvReac Type Severity Reaction Status Date / Time No Known Allergies Allergy Verified 09/17/25 14:32 Home Medications ?Medication ?Instructions ?Recorded ?Confirmed ?Last Taken ?Type apixaban 5 mg tablet (Eliquis) 5 mg PO BID 06/26/25 09/14/25 08/16/25 History clonazepam 1 mg tablet (Klonopin) 1 mg PO BID@0700,1900 06/26/25 09/14/25 08/16/25 History mirtazapine 30 mg tablet 30 mg PO BEDTIME 06/26/25 09/14/25 08/16/25 History multivitamin 1 tab PO DAILY 06/26/25 09/14/25 08/16/25 History oxycodone 5 mg tablet 2.5 mg PO BEDTIME PRN Moderate 06/26/25 09/14/25 08/16/25 History Pain (Scale Score 5-6) sennosides 8.6 mg tablet 17.2 mg PO DAILY PRN Constipation 06/26/25 09/14/25 08/16/25 History tamsulosin 0.4 mg capsule 0.4 mg PO BEDTIME 06/26/25 09/14/25 08/16/25 History lansoprazole 30 mg capsule,delayed 30 mg PO DAILY@0630 08/17/25 09/14/25 08/16/25 History release cholecalciferol (vitamin D3) 50 50 mcg PO DAILY 08/22/25 09/14/25 Unknown History mcg (2,000 unit) capsule (Vitamin D3) melatonin 3 mg tablet 6 mg PO BEDTIME 08/22/25 09/14/25 Unknown History Lactobacillus rhamnosus GG 15 1 cap PO DAILY 08/31/25 09/14/25 Unknown History billion cell sprinkle capsule (Culturelle) bisacodyl 5 mg tablet 5 mg PO BEDTIME PRN Constipation 08/31/25 09/14/25 Unknown History ceramides 1,3,6-II (CeraVe topical 1 appl topical TID PRN Itching 08/31/25 09/14/25 Unknown History cream) nystatin 100,000 unit/gram topical 1 appl topical BID PRN Rash 08/31/25 09/14/25 Unknown History cream ondansetron HCl 4 mg tablet 4 mg PO Q8H PRN nausea/vomiting 08/31/25 09/14/25 Unknown History acetaminophen 500 mg tablet 1,000 mg PO TID 09/14/25 09/14/25 Unknown History triamcinolone acetonide 0.1 % 1 appl topical BID 09/14/25 09/14/25 Unknown History topical ointment Physical Exam Vital Signs and Narrative: Vital Signs: Last Vital Signs Temp 97.6 F 09/17/25 14:30 Pulse 82 09/17/25 14:30 Resp 16 09/17/25 14:30 BP 121/72 09/17/25 14:30 Pulse Ox 96 09/17/25 14:30 O2 Del Method Room Air 09/17/25 14:30 BMI result Body Mass Index 22.8
--- NOTE | 2025-09-17 15:13 | PM.IMHP ---
History of Present Illness Date of Service: 09/17/25 [facility] Medical History BPH (benign prostatic hyperplasia) CAD (coronary artery disease) Orthostatic hypotension Suicide attempt Heart murmur Dermatitis Cataract Arthritis History of recurrent UTIs Anxiety Macular degeneration GERD (gastroesophageal reflux disease) CHF (congestive heart failure) Colitis Prostate cancer Social History Housing: Assisted Living Facility Do you presently have visiting nurse or other home services: Yes Alcohol intake: never Patient Tobacco Use Status: Former Tobacco user Smoked in Last 30 Days: No Use of substances other than those prescribed or required for medical reasons: No Advance Directives: Yes Advance Directives on File: Yes Advance Directives Date on File: 08/18/25 Do you have a plan to hurt others: No Plan service: No Meds Allergies Allergy/AdvReac Type Severity Reaction Status Date / Time No Known Allergies Allergy Verified 09/17/25 14:32 Active Medications: Current Medications Acetaminophen (Ofirmev) 1,000 mg in 100 mls @ 400 mls/hr IV ONCE ONE Stop: 09/17/25 15:19 Home Medications ?Medication ?Instructions ?Recorded ?Confirmed ?Last Taken ?Type apixaban 5 mg tablet (Eliquis) 5 mg PO BID 06/26/25 09/14/25 08/16/25 History clonazepam 1 mg tablet (Klonopin) 1 mg PO BID@0700,1900 06/26/25 09/14/25 08/16/25 History mirtazapine 30 mg tablet 30 mg PO BEDTIME 06/26/25 09/14/25 08/16/25 History multivitamin 1 tab PO DAILY 06/26/25 09/14/25 08/16/25 History oxycodone 5 mg tablet 2.5 mg PO BEDTIME PRN Moderate 06/26/25 09/14/25 08/16/25 History Pain (Scale Score 5-6) sennosides 8.6 mg tablet 17.2 mg PO DAILY PRN Constipation 06/26/25 09/14/25 08/16/25 History tamsulosin 0.4 mg capsule 0.4 mg PO BEDTIME 06/26/25 09/14/25 08/16/25 History lansoprazole 30 mg capsule,delayed 30 mg PO DAILY@0630 08/17/25 09/14/25 08/16/25 History release cholecalciferol (vitamin D3) 50 50 mcg PO DAILY 08/22/25 09/14/25 Unknown History mcg (2,000 unit) capsule (Vitamin D3) melatonin 3 mg tablet 6 mg PO BEDTIME 08/22/25 09/14/25 Unknown History Lactobacillus rhamnosus GG 15 1 cap PO DAILY 08/31/25 09/14/25 Unknown History billion cell sprinkle capsule (Culturelle) bisacodyl 5 mg tablet 5 mg PO BEDTIME PRN Constipation 08/31/25 09/14/25 Unknown History ceramides 1,3,6-II (CeraVe topical 1 appl topical TID PRN Itching 08/31/25 09/14/25 Unknown History cream) nystatin 100,000 unit/gram topical 1 appl topical BID PRN Rash 08/31/25 09/14/25 Unknown History cream ondansetron HCl 4 mg tablet 4 mg PO Q8H PRN nausea/vomiting 08/31/25 09/14/25 Unknown History acetaminophen 500 mg tablet 1,000 mg PO TID 09/14/25 09/14/25 Unknown History triamcinolone acetonide 0.1 % 1 appl topical BID 09/14/25 09/14/25 Unknown History topical ointment Physical Exam Vital Signs and Narrative: Vital Signs: Last Vital Signs Temp 97.6 F 09/17/25 14:30 Pulse 82 09/17/25 14:30 Resp 16 09/17/25 14:30 BP 121/72 09/17/25 14:30 Pulse Ox 96 09/17/25 14:30 O2 Del Method Room Air 09/17/25 14:30 BMI result Body Mass Index 22.8
--- NOTE | 2025-09-17 15:20 | PC.NURSE ---
patient a&ox3, iv inserted, labs drawn, urine obtained from catheter per provider request. pt medicated for 9/10 pain, call hoyt within reach, plan of care ongoin
[2025-09-17 15:21] LABS: MANUAL DIFF FLAG NO
[2025-09-17 15:22] LABS: Hematocrit 37.2 % (42.0-52.0); Hemoglobin 12.3 g/dl (14.0-18.0); Imm Gran Abs Auto 0.01 X10*3/uL (0.00-0.03); Imm Gran Pct Auto 0.1 % (0.0-0.4); Lymphocytes Absolute Auto 2.0 X10*3/uL (1.2-4.9); Mean Corpuscular HGB Conc 33.1 g/dl (31.0-36.0); Mean Corpuscular Hemoglobin 28.9 pg (27.0-33.0); Mean Corpuscular Volume 87.3 fL (80.0-98.0); NRBC Abs Auto 0.000 X10*3/uL (0.0-0.012); NRBC Pct Auto 0.0 /100WBC (0.0-0.2); Platelet Count 219 X10*3/uL (160-400); Red Blood Count 4.26 X10*6/uL (4.60-5.80); White Blood Count 8.1 X10*3/uL (4.8-10.8)
[2025-09-17 15:24] LABS: Appearance Urine Hazy; Glucose Urine UA Negative (Negative); PH 5.5 (5.0-9.0); Specific Gravity - Urine 1.025 (1.005-1.025); UMIC TRIGGER UACC YES
[2025-09-17 15:36] LABS: Alanine Aminotransferase 22 U/L (0-40); Albumin Level 4.2 g/dL (3.5-5.0); Alkaline Phosphatase 64 U/L (39-117); Anion Gap 13 (12-20); Aspartate Amino Transferase 30 U/L (5-37); Blood Urea Nitrogen 11 mg/dL (9-16); Calcium 9.4 mg/dL (8.4-10.2); Carbon Dioxide 24 mmol/L (22-29); Chloride 105 mmol/L (96-108); Creatinine Clr Calc Pharmacy 72.9; Estimated Glomerular Filt Rate > 60; Magnesium 1.8 mg/dL (1.6-2.6); Potassium 4.0 mmol/L (3.3-5.1); Sodium 138 mmol/L (135-145); Total Protein 7.0 g/dL (6.5-8.0)
[2025-09-17 15:38] LABS: INTERNATIONAL NORM RATIO 1.3 (0.9-1.1); Prothrombin Time 15.8 SEC (11.2-13.5)
[2025-09-17 15:39] LABS: UACC Culture Trigger YES
--- NOTE | 2025-09-17 16:51 | P.HPHOSP_ITS ---
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 He was seen by Urology a week ago and suggested suprapubic catheter and patient had agreed however unsure at this time. Assisted living facility had transferred the patient to the ED and they had contacted Dr. Baltazar who suggested that he was a candidate for suprapubic catheter given his chronic retention. Patient did not meet SIRS criteria on admission. Spoke to Cheryl and Jaydon who are healthcare [phone] to ask about his prior medical records in the said they will fax it to us at [phone]. We need prior records to adequately state if he needs Eliquis or not as they state that his spleen was removed however are imaging in June and July indicate intact spleen without any splenic infarct. Hematuria noted however can not rule out traumatic Bhatt/Bhatt manipulation and he is on anticoagulation with H&H stable and resolution of hematuria upon my examination in the ED Hemodynamically stable Urology consulted patient being admitted for hematuria Review of Systems 2 Review of Systems: Yes all other systems are reviewed and are negative, Unobtainable due to mental condition and Unobtainable due to mental status [facility] Medical History BPH (benign prostatic hyperplasia) CAD (coronary artery disease) Orthostatic hypotension Suicide attempt Heart murmur Dermatitis Cataract Arthritis History of recurrent UTIs Anxiety Macular degeneration GERD (gastroesophageal reflux disease) CHF (congestive heart failure) Colitis Prostate cancer Social History Housing: Assisted Living Facility Do you presently have visiting nurse or other home services: Yes Alcohol intake: never Patient Tobacco Use Status: Former Tobacco user Smoked in Last 30 Days: No Use of substances other than those prescribed or required for medical reasons: No Advance Directives: Yes Advance Directives on File: Yes Advance Directives Date on File: 08/18/25 Do you have a plan to hurt others: No Plan service: No Meds Allergies Allergy/AdvReac Type Severity Reaction Status Date / Time No Known Allergies Allergy Verified 09/17/25 14:32 Active Medications: Current Medications Acetaminophen (Acetaminophen 325 Mg Tablet) 650 mg PO Q6H PRN PRN Reason: Pain, Mild 1-3,fever,headache Calcium Carbonate (Calcium Carbonate 750 Mg Tab.Chew) 750 mg PO Q4H PRN PRN Reason: Heartburn Magnesium Hydroxide (Milk Of Magnesia 30 Ml Oral.Susp) 30 ml PO DAILY PRN PRN Reason: Constipation Melatonin (Melatonin 3 Mg Tablet) 6 mg PO BEDTIME PRN PRN Reason: Insomnia Sodium Chloride (0.9 % Sodium Chloride Flush 3 Ml Syringe) 3 ml IVFLUSH QSHIFT [facility] Home Medications ?Medication ?Instructions ?Recorded ?Confirmed ?Last Taken ?Type apixaban 5 mg tablet (Eliquis) 5 mg PO BID 06/26/2509/17/25 09:00 History clonazepam 1 mg tablet (Klonopin) 1 mg PO BID@0700,190 0 06/26/25 09/17/25 09/17/25 09:00 History mirtazapine 30 mg tablet 30 mg PO BEDTIME 06/26/2509/17/25 09:00 History multivitamin 1 tab PO DAILY 06/26/2508/2309/17/25 09:00 History oxycodone 5 mg tablet 2.5 mg PO BEDTIME PRN Modera te 06/26/25 09/17/25 09/17/25 09:00 History Pain (Scale Score 5-6) sennosides 8.6 mg tablet 17.2 mg PO DAILY PRN Constip ation 06/26/25 09/17/25 09/17/25 09:00 History tamsulosin 0.4 mg capsule 0.4 mg PO BEDTIME 06/26/25 1 11/17/24 09/17/25 09:00 History lansoprazole 30 mg capsule,delayed 30 mg PO DAILY@0630 08/17/25 09/17/25 09/17/25 09:00 History release cholecalciferol (vitamin D3) 50 50 mcg PO DAILY 09/17/25 09/17/25 09:00 History mcg (2,000 unit) capsule (Vitamin D3) melatonin 3 mg tablet 6 mg PO BEDTIME 08/22/2509/17/25 09:00 History Lactobacillus rhamnosus GG 15 1 cap PO DAILY 08/31/25 09/17/25 09/17/25 09:00 History billion cell sprinkle capsule (Culturelle) bisacodyl 5 mg tablet 5 mg PO BEDTIME PRN Constipa tion 08/31/25 09/17/25 09/17/25 09:00 History ceramides 1,3,6-II (CeraVe topical 1 appl topical TID PRN Itching 08/31/25 09/17/25 09/17/25 09:00 History cream) nystatin 100,000 unit/gram topical 1 appl topical BID PRN Rash 08/31/25 09/17/25 09/17/25 09:00 History cream ondansetron HCl 4 mg tablet 4 mg PO Q8H PRN nausea/vom iting 08/31/25 09/17/25 09/17/25 09:00 History acetaminophen 500 mg tablet 1,000 mg PO TID 09/14/25 1 11/17/24 09/17/25 09:00 History triamcinolone acetonide 0.1 % 1 appl topical BID 09/1409/17/25 09/17/25 09:00 History topical ointment Physical Exam 2 Vital Signs and Narrative: Vital Signs: Last Vital Signs Temp 97.6 F 09/17/25 14:30 Pulse 82 09/17/25 14:30 Resp 16 09/17/25 14:30 BP 121/72 09/17/25 14:30 Pulse Ox 96 09/17/25 14:30 O2 Del Method Room Air 09/17/25 14:30 BMI result Body Mass Index 22.8 General: AOx3, anxious appearing, confused Resp: CTA bilaterally CVS: S1, S2, RRR GI: +BS, NT, no distention : Bhatt catheter unsure when it was placed present, draining dark yellow urine Results Labs 09/17/25 15:16 09/17/25 15:16 Labs: Laboratory Results - last 24 hr 09/17/25 15:16 MCV 87.3 MCH 28.9 MCHC 33.1 RDW 13.3 Plt Count 219 MPV 8.7 L Immature Gran % (Auto) 0.1 Neut % (Auto) 61.3 Lymph % (Auto) 24.8 [place] % (Auto) 10.5 Eos % (Auto) 2.7 Baso % (Auto) 0.6 Lymph # (Auto) 2.0 [place] # (Auto) 0.9 Eos # (Auto) 0.2 Baso # (Auto) 0.1 Abs Immat Gran (auto) 0.01 Absolute Neuts (auto) 5.0 Absolute Nucleated RBC 0.000 Nucleated RBC % (auto) 0.0 PT 15.8 H INR 1.3 H Anion Gap 13 Estim Creat Clear Calc 72.9 Estimated GFR > 60 Random Glucose 94 Calcium 9.4 D Magnesium 1.8 Total Bilirubin 0.3 AST 30 ALT 22 Alkaline Phosphatase 64 Total Protein 7.0 Albumin 4.2 Urine Color DK YELLOW Urine Appearance Hazy Urine pH 5.5 Ur Specific [place] 1.025 Urine Protein 100 (2+) H Urine Glucose (UA) Negative Urine Ketones Trace Urine Blood Large (3+) H Urine Nitrite Negative Ur Leukocyte Esterase Moderate (2+) H Urine RBC >20 H Urine WBC >50 H Ur Squamous Epith Cells 0-2 Urine Bacteria 3+ Hyaline Casts 3-5 Assessment and Plan (1) Hematuria: Status: Acute Patient who is relatively new to our system, apparently moved from [place] 75-year-old male with a past medical history of HLD, CHF, orthostatic hypotension, BPH, CAD, prostate cancer, 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 Patient being admitted for further medical workup. Hematuria Acute on chronic urinary retention Likely multifactorial-Bhatt manipulation, traumatic Bhatt unclear when it was placed patient has an unreliable historian, and on anticoagulation Thankfully H&H stable Urology consulted patient and family to discuss suprapubic catheter with Dr. Giovanny Jacob we will DC if splenic infarct has been deemed resolved UA has greater than 50 WBC, negative nitrates and moderate leukocyte esterase- initiate ceftriaxone Check urine culture Bladder spasms-Pyridium initiated BPH Flomax, tamsulosin, Bhatt History of prostate cancer -Urology consulted Chronic pain syndrome Tylenol, oxycodone p.r.n., OxyContin scheduled Opioid induced constipation Resume bowel meds Passive SI for a very long time Multiple prior ECTs Although the patient did not endorse any active suicidal ideation, based on prior note of Psychiatry 08/12/2025 and after discussion with the rehabilitation caseworker from [facility] day appears that the patient has high utilization of healthcare services as evidenced by his ED visits and admissions on the , , 9, 11th of this month already and experiencing possible conversion syndrome. 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 While every effort has been made to ensure accuracy, family manager errors may have been included. Quality Stroke Does the patient have a stroke diagnosis?: No VTE Prior VTE?: No VTE Risk Level:: Medical - moderate - high VTE Device Contraindication: N/A - Device Ordered VTE Drug Contraindication: N/A - Med Ordered
--- NOTE | 2025-09-17 17:02 | PHA.MEDREC ---
Pharmacy Consult ? Medication Reconciliation Pharmacy has completed the medication reconciliation. Patient was just discharged from [facility] this morning, spoke with nurse who gave him morning meds and used that admission to complete med rec.
--- NOTE | 2025-09-17 17:04 | PC.NURSE ---
pt medicated for anxiety per order, pt also requesting additional pain medication as he states the tylenol didnt work
[2025-09-17] MEDS: oxyCODONE HCl ER 10 MG TAB.ER.12H PO (17:30)
[2025-09-17 19:17] VITALS: BP 102/61; PULSE 72; RESP 17; TEMP 36.4; O2SAT 96
[2025-09-17 21:13] VITALS: BP 96/58; PULSE 69; RESP 16; TEMP 36.4; O2SAT 96
[2025-09-17 21:19] VITALS: BP 103/67; PULSE 67; RESP 16; TEMP 36.4; O2SAT 92
[2025-09-17] MEDS: Triamcinolone Acet 0.1 % Oint 15 GM TUBE 1 APPL TOPICAL (21:44)
[2025-09-18] VITALS (7 sets, daily range): BP systolic 91–117; BP diastolic 50–67; PULSE 61–76; RESP 14–19; TEMP 36.4–36.9; O2SAT 95–98
[2025-09-18 05:21] LABS: MANUAL DIFF FLAG NO
[2025-09-18 05:22] LABS: Hematocrit 34.6 % (42.0-52.0); Hemoglobin 11.7 g/dl (14.0-18.0); Imm Gran Abs Auto 0.02 X10*3/uL (0.00-0.03); Imm Gran Pct Auto 0.3 % (0.0-0.4); Lymphocytes Absolute Auto 2.1 X10*3/uL (1.2-4.9); Mean Corpuscular HGB Conc 33.8 g/dl (31.0-36.0); Mean Corpuscular Hemoglobin 29.5 pg (27.0-33.0); Mean Corpuscular Volume 87.2 fL (80.0-98.0); NRBC Abs Auto 0.000 X10*3/uL (0.0-0.012); NRBC Pct Auto 0.0 /100WBC (0.0-0.2); Platelet Count 188 X10*3/uL (160-400); Red Blood Count 3.97 X10*6/uL (4.60-5.80); White Blood Count 6.2 X10*3/uL (4.8-10.8)
[2025-09-18 05:38] LABS: Alanine Aminotransferase 20 U/L (0-40); Albumin Level 3.8 g/dL (3.5-5.0); Alkaline Phosphatase 57 U/L (39-117); Anion Gap 11 (12-20); Aspartate Amino Transferase 22 U/L (5-37); Blood Urea Nitrogen 9 mg/dL (9-16); Calcium 8.9 mg/dL (8.4-10.2); Carbon Dioxide 24 mmol/L (22-29); Chloride 108 mmol/L (96-108); Creatinine Clr Calc Pharmacy 86.9; Estimated Glomerular Filt Rate > 60; Magnesium 1.9 mg/dL (1.6-2.6); Potassium 4.0 mmol/L (3.3-5.1); Sodium 139 mmol/L (135-145); Total Protein 6.2 g/dL (6.5-8.0)
[2025-09-18 05:42] LABS: INTERNATIONAL NORM RATIO 1.4 (0.9-1.1); Prothrombin Time 16.8 SEC (11.2-13.5)
[2025-09-18] MEDS: oxyCODONE HCl ER 10 MG TAB.ER.12H PO ×2 (07:45→19:38)
[2025-09-18] MEDS: 0.9 % Sodium Chloride Flush 3 ML SYRINGE IVFLUSH ×3 (07:50→19:40)
[2025-09-18] MEDS: oxyCODONE HCl Immed Release 5 MG TABLET 2.5 MG PO ×2 (09:48→14:40)
--- NOTE | 2025-09-18 15:50 | MHC.CM.PN ---
IMM 09/18/25, EMR REVIEWED, PT W/HEMATURIA AND POSSIBLE PLAN FOR SURAPUBIC CATH, CM MET W/PT WHO REPORTS HE LIVES AT [facility], USES A CANE/ROLLATOR AND HAS GRAB BARS IN BR, PT ACTIVE W/ENHABIT [facility]NA AND REF PLACED. PT'S GOAL FOR DC IS HOME W/RESUMP OF ENHABIT [facility], PT WILL NEED ASSISTANCE W/TRANSPORT PCP/HCP ON FILE VERIFIED.
--- NOTE | 2025-09-18 15:50 | HO.PM.IMPN ---
Subjective Subjective Date of Service: 09/18/25 Interval History: Patient still unsure if he wants the surgery Surgery planned for tomorrow No overnight events Review of Systems Review of Systems: Yes all other systems are reviewed and are negative Physical Exam Exam: Exam: General: AOx3, no acute distress Resp: CTA bilaterally CVS: S1, S2, RRR GI: +BS, NT, no distention Genitourinary-patient has Henderson draining hematuria Vital Signs: Vital Signs: Last Vital Signs Temp 97.9 F 09/18/25 11:49 Pulse 69 09/18/25 11:49 Resp 16 09/18/25 11:49 BP 117/63 09/18/25 11:49 Pulse Ox 97 09/18/25 11:49 O2 Del Method Room Air 09/18/25 11:49 BMI result Body Mass Index 22.8 Objective Data Active Medications Acetaminophen (Acetaminophen 325 Mg Tablet) 650 mg PO Q6H PRN PRN Reason: Pain, Mild 1-3,fever,headache Acetaminophen (Acetaminophen 325 Mg Tablet) 975 mg PO TID [facility] Last Admin: 09/18/25 14:40 Dose: 975 mg Documented By: BELINDA Apixaban (Apixaban 5 Mg Tablet) 5 mg PO BID [facility] Last Admin: 09/18/25 07:46 Dose: 5 mg Documented By: FER Bisacodyl (Bisacodyl 5 Mg Tablet.Dr) 5 mg PO BEDTIME PRN PRN Reason: Constipation Calcium Carbonate (Calcium Carbonate 750 Mg Tab.Chew) 750 mg PO Q4H PRN PRN Reason: Heartburn Clonazepam (Clonazepam 1 Mg Tablet) 1 mg PO BID@0700,1900 [facility] Last Admin: 09/18/25 07:47 Dose: 1 mg Documented By: FER Finasteride (Finasteride 5 Mg Tablet) 5 mg PO DAILY [facility] Last Admin: 09/18/25 09:48 Dose: 5 mg Documented By: BELINDA Levofloxacin (Levaquin) 750 mg in 150 mls @ 100 mls/hr IV Q24H [facility] Last Infusion: 09/17/25 20:51 Dose: Infused Documented By: FRANCIS Magnesium Hydroxide (Milk Of Magnesia 30 Ml Oral.Susp) 30 ml PO DAILY PRN PRN Reason: Constipation Melatonin (Melatonin 3 Mg Tablet) 6 mg PO BEDTIME [facility] Last Admin: 09/17/25 21:17 Dose: 6 mg Documented By: FRANCIS Mirtazapine (Mirtazapine 30 Mg Tablet) 30 mg PO BEDTIME [facility] Last Admin: 09/17/25 21:16 Dose: 30 mg Documented By: FRANCIS Multi-Ingred Cream/Lotion/Oil/Oint (Mineral Oil/Petrolatum,White 113 Gm Jar) 1 appl TOPICAL TID PRN PRN Reason: Itching Multivitamins/Vitamin C (Multivitamin Tablet) 1 tab PO DAILY [facility] Last Admin: 09/18/25 07:46 Dose: 1 tab Documented By: FER Nystatin (Nystatin Cream 15 Gm Tube) 1 appl TOPICAL BID PRN; Protocol PRN Reason: Rash Omeprazole (Omeprazole 20 Mg Capsule.Dr) 20 mg PO DAILY@0630 [facility] Last Admin: 09/18/25 06:29 Dose: 20 mg Documented By: FRANCIS Oxycodone HCl (Oxycodone Hcl Immed Release 5 Mg Tablet) 2.5 mg PO Q6H PRN PRN Reason: Moderate Pain (Scale Score 5-6) Last Admin: 09/18/25 14:40 Dose: 2.5 mg Documented By: BELINDA Oxycodone HCl (Oxycodone Hcl Er 10 Mg Tab.Er.12h) 10 mg PO BID [facility] Last Admin: 09/18/25 07:45 Dose: 10 mg Documented By: FER Phenazopyridine HCl (Phenazopyridine Hcl 100 Mg Tablet) 100 mg PO TIDWM [facility] Stop: 09/19/25 12:01 Last Admin: 09/18/25 12:02 Dose: 100 mg Documented By: BELINDA Polyethylene Glycol (Polyethylene Glycol 3350 17 Gm Powd.Pack) 17 gm PO DAILY [facility] Last Admin: 09/18/25 07:45 Dose: 17 gm Documented By: FER Senna (Sennosides 8.6 Mg Tablet) 17.2 mg PO DAILY PRN PRN Reason: Constipation Sodium Chloride (0.9 % Sodium Chloride Flush 3 Ml Syringe) 3 ml IVFLUSH QSHIFT [facility] Last Admin: 09/18/25 07:50 Dose: 3 ml Documented By: FER Tamsulosin HCl (Tamsulosin Hcl 0.4 Mg Capsule) 0.4 mg PO BEDTIME [facility] Last Admin: 09/17/25 21:16 Dose: 0.4 mg Documented By: FRANCIS Triamcinolone Acetonide (Triamcinolone Acet 0.1 % Oint 15 Gm Tube) 1 appl TOPICAL BID [facility] Last Admin: 09/18/25 07:58 Dose: Not Given Documented By: FER Non-Admin Reason: Patient Refused Vitamin D (Cholecalciferol (Vitamin D3) 25 Mcg Tablet) 50 mcg PO DAILY [facility] Last Admin: 09/18/25 07:46 Dose: 50 mcg Documented By: FER Labs 09/18/25 05:15 09/18/25 05:15 Labs: Laboratory Results - last 24 hr 09/17/25 09/18/25 17:49 05:15 MCV 87.2 MCH 29.5 MCHC 33.8 RDW 13.2 Plt Count 188 MPV 8.5 L Immature Gran % (Auto) 0.3 Neut % (Auto) 50.3 Lymph % (Auto) 33.1 [place] % (Auto) 10.5 Eos % (Auto) 5.2 H Baso % (Auto) 0.6 Lymph # (Auto) 2.1 [place] # (Auto) 0.7 Eos # (Auto) 0.3 Baso # (Auto) 0.0 Abs Immat Gran (auto) 0.02 Absolute Neuts (auto) 3.1 Absolute Nucleated RBC 0.000 Nucleated RBC % (auto) 0.0 PT 16.8 H INR 1.4 H Anion Gap 11 L Estim Creat Clear Calc 86.9 Estimated GFR > 60 Random Glucose 91 Lactic Acid 1.8 Calcium 8.9 Magnesium 1.9 Total Bilirubin 0.6 AST 22 ALT 20 Alkaline Phosphatase 57 Total Protein 6.2 L Albumin 3.8 Microbiology Microbiology Results: Microbiology 09/17/25 Unknown Urine Culture - Preliminary Urine Catheterized - Henderson Catheter Enterococcus/Streptococcus sp Assessment and Plan (1) Hematuria: Status: Acute Assessment and Plan: Patient who is relatively new to our system, apparently moved from [place] 75-year-old male with a past medical history of HLD, CHF, orthostatic hypotension, BPH, CAD, prostate cancer, 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 Patient to undergo suprapubic catheter after discussion with family likely tomorrow Hematuria Acute on chronic urinary retention Likely multifactorial-Henderson manipulation, traumatic Henderson unclear when it was placed patient has an unreliable historian, and on anticoagulation Thankfully H&H stable We have discontinued Eliquis as there is no splenic infarct demonstrated during this admission imaging Urology consulted patient and family to discuss suprapubic catheter with Dr. Baltazar-patient and family still not decided NPO from midnight Sepsis secondary to Enterococcus UTI Likely secondary to obstructive uropathy UA C/S growing Enterococcus we will initiate Bactrim based on prior cultures Splenic infarct history per family for which he was on Eliquis for awhile History of splenic infarct ruled out with imaging, we will discontinue Eliquis Bladder spasms-Pyridium initiated BPH Flomax, tamsulosin, Henderson History of prostate cancer -Urology outpatient Chronic pain syndrome Tylenol, oxycodone p.r.n., OxyContin scheduled Opioid induced constipation Resume bowel meds Passive SI for a very long time Multiple prior ECTs Although the patient did not endorse any active suicidal ideation, based on prior note of Psychiatry 08/12/2025 and after discussion with the director of casework services from [facility] day appears that the patient has high utilization of healthcare services as evidenced by his ED visits and admissions on the , , th, 11th of this month already and experiencing possible conversion syndrome. Psych consult Needs care team consult prior to discharge DVT prophylaxis Lovenox Code status DNR DNI Functional status-cane or walker Would benefit from PT eval prior to discharge Spoke to the healthcare proxy Cheryl [facility]- [phone] This note is constructed using voice recognition software. While every effort has been made to ensure accuracy, application lead errors may have been included. Quality Stroke Does the patient have a stroke diagnosis?: No VTE Prior VTE?: No VTE Risk Level:: Medical - moderate - high VTE Device Contraindication: N/A - Device Ordered VTE Drug Contraindication: N/A - Med Ordered
[2025-09-18] MEDS: Sulfamethox/Trimeth 800/160 TABLET 1 TAB PO (18:14)
[2025-09-19 03:19] VITALS: BP 109/63; PULSE 65; RESP 18; TEMP 36.9; O2SAT 96
[2025-09-19] MEDS: Sulfamethox/Trimeth 800/160 TABLET 1 TAB PO (05:17)
[2025-09-19 05:51] LABS: MANUAL DIFF FLAG NO
[2025-09-19 05:53] LABS: Hematocrit 37.6 % (42.0-52.0); Hemoglobin 12.4 g/dl (14.0-18.0); Imm Gran Abs Auto 0.02 X10*3/uL (0.00-0.03); Imm Gran Pct Auto 0.3 % (0.0-0.4); Lymphocytes Absolute Auto 1.7 X10*3/uL (1.2-4.9); Mean Corpuscular HGB Conc 33.0 g/dl (31.0-36.0); Mean Corpuscular Hemoglobin 28.8 pg (27.0-33.0); Mean Corpuscular Volume 87.2 fL (80.0-98.0); NRBC Abs Auto 0.000 X10*3/uL (0.0-0.012); NRBC Pct Auto 0.0 /100WBC (0.0-0.2); Platelet Count 206 X10*3/uL (160-400); Red Blood Count 4.31 X10*6/uL (4.60-5.80); White Blood Count 6.6 X10*3/uL (4.8-10.8)
[2025-09-19 06:09] LABS: Alanine Aminotransferase 25 U/L (0-40); Albumin Level 4.0 g/dL (3.5-5.0); Alkaline Phosphatase 62 U/L (39-117); Anion Gap 12 (12-20); Aspartate Amino Transferase 26 U/L (5-37); Blood Urea Nitrogen 10 mg/dL (9-16); Calcium 9.3 mg/dL (8.4-10.2); Carbon Dioxide 26 mmol/L (22-29); Chloride 106 mmol/L (96-108); Creatinine Clr Calc Pharmacy 83.7; Estimated Glomerular Filt Rate > 60; Magnesium 2.0 mg/dL (1.6-2.6); Potassium 4.0 mmol/L (3.3-5.1); Sodium 140 mmol/L (135-145); Total Protein 6.6 g/dL (6.5-8.0)
[2025-09-19 06:15] LABS: INTERNATIONAL NORM RATIO 1.1 (0.9-1.1); Prothrombin Time 13.8 SEC (11.2-13.5)
[2025-09-19] MEDS: oxyCODONE HCl Immed Release 5 MG TABLET 2.5 MG PO ×2 (06:59→13:00)
[2025-09-19] MEDS: oxyCODONE HCl ER 10 MG TAB.ER.12H PO ×2 (06:59→20:37)
[2025-09-19] MEDS: 0.9 % Sodium Chloride Flush 3 ML SYRINGE IVFLUSH ×3 (07:00→20:38)
--- NOTE | 2025-09-19 07:20 | HO.PM.IMPN ---
Subjective Subjective Date of Service: 09/19/25 Interval History: Urology said limited resources over the weekend and likely we will get procedure tomorrow or Sunday Review of Systems Review of Systems: Yes all other systems are reviewed and are negative Physical Exam Exam: Exam: General: AOx3, no acute distress Resp: CTA bilaterally CVS: S1, S2, RRR GI: +BS, NT, no distention Genitourinary-patient has Henderson draining clear urine Vital Signs: Vital Signs: Last Vital Signs Temp 98.4 F 09/19/25 03:19 Pulse 65 09/19/25 03:19 Resp 18 09/19/25 03:19 BP 109/63 09/19/25 03:19 Pulse Ox 96 09/19/25 03:19 O2 Del Method Room Air 09/19/25 03:19 BMI result Body Mass Index 22.8 Objective Data Active Medications Acetaminophen (Acetaminophen 325 Mg Tablet) 650 mg PO Q6H PRN PRN Reason: Pain, Mild 1-3,fever,headache Acetaminophen (Acetaminophen 325 Mg Tablet) 975 mg PO TID [facility] Last Admin: 09/19/25 07:00 Dose: 975 mg Documented By: BELINDA Bisacodyl (Bisacodyl 5 Mg Tablet.Dr) 5 mg PO BEDTIME PRN PRN Reason: Constipation Calcium Carbonate (Calcium Carbonate 750 Mg Tab.Chew) 750 mg PO Q4H PRN PRN Reason: Heartburn Clonazepam (Clonazepam 1 Mg Tablet) 1 mg PO BID@0700,1900 [facility] Last Admin: 09/19/25 05:24 Dose: 1 mg Documented By: MARIELY Enoxaparin Sodium (Enoxaparin Sodium 40 Mg/0.4 Ml Syringe) 40 mg SUBCUT Q24H [facility] Last Admin: 09/18/25 18:14 Dose: 40 mg Documented By: NOE Finasteride (Finasteride 5 Mg Tablet) 5 mg PO DAILY [facility] Last Admin: 09/19/25 06:59 Dose: 5 mg Documented By: BELINDA Magnesium Hydroxide (Milk Of Magnesia 30 Ml Oral.Susp) 30 ml PO DAILY PRN PRN Reason: Constipation Melatonin (Melatonin 3 Mg Tablet) 6 mg PO BEDTIME [facility] Last Admin: 09/18/25 19:38 Dose: 6 mg Documented By: MARIELY Mirtazapine (Mirtazapine 30 Mg Tablet) 30 mg PO BEDTIME [facility] Last Admin: 09/18/25 19:38 Dose: 30 mg Documented By: MARIELY Multi-Ingred Cream/Lotion/Oil/Oint (Mineral Oil/Petrolatum,White 113 Gm Jar) 1 appl TOPICAL TID PRN PRN Reason: Itching Multivitamins/Vitamin C (Multivitamin Tablet) 1 tab PO DAILY [facility] Last Admin: 09/19/25 07:00 Dose: 1 tab Documented By: BELINDA Nystatin (Nystatin Cream 15 Gm Tube) 1 appl TOPICAL BID PRN; Protocol PRN Reason: Rash Omeprazole (Omeprazole 20 Mg Capsule.Dr) 20 mg PO DAILY@0630 [facility] Last Admin: 09/19/25 05:18 Dose: 20 mg Documented By: MARIELY Oxycodone HCl (Oxycodone Hcl Immed Release 5 Mg Tablet) 2.5 mg PO Q6H PRN PRN Reason: Moderate Pain (Scale Score 5-6) Last Admin: 09/19/25 06:59 Dose: 2.5 mg Documented By: BELINDA Oxycodone HCl (Oxycodone Hcl Er 10 Mg Tab.Er.12h) 10 mg PO BID [facility] Last Admin: 09/19/25 06:59 Dose: 10 mg Documented By: BELINDA Phenazopyridine HCl (Phenazopyridine Hcl 100 Mg Tablet) 100 mg PO TIDWM [facility] Stop: 09/19/25 12:01 Last Admin: 09/19/25 06:59 Dose: 100 mg Documented By: BELINDA Polyethylene Glycol (Polyethylene Glycol 3350 17 Gm Powd.Pack) 17 gm PO DAILY [facility] Last Admin: 09/19/25 07:00 Dose: Not Given Documented By: BELINDA Non-Admin Reason: NPO Senna (Sennosides 8.6 Mg Tablet) 17.2 mg PO DAILY PRN PRN Reason: Constipation Sodium Chloride (0.9 % Sodium Chloride Flush 3 Ml Syringe) 3 ml IVFLUSH QSHIFT [facility] Last Admin: 09/19/25 07:00 Dose: 3 ml Documented By: BELINDA Tamsulosin HCl (Tamsulosin Hcl 0.4 Mg Capsule) 0.4 mg PO BEDTIME [facility] Last Admin: 09/18/25 19:38 Dose: 0.4 mg Documented By: MARIELY Triamcinolone Acetonide (Triamcinolone Acet 0.1 % Oint 15 Gm Tube) 1 appl TOPICAL BID [facility] Last Admin: 09/18/25 19:47 Dose: Not Given Documented By: MARIELY Non-Admin Reason: Med Not Available Trimethoprim/Sulfamethoxazole (Sulfamethox/Trimeth 800/160 Tablet) 1 tab PO Q12H [facility] Stop: 09/25/25 17:59 Last Admin: 09/19/25 05:17 Dose: 1 tab Documented By: MARIELY Vitamin D (Cholecalciferol (Vitamin D3) 25 Mcg Tablet) 50 mcg PO DAILY [facility] Last Admin: 09/19/25 07:00 Dose: 50 mcg Documented By: BELINDA Labs 09/19/25 05:24 09/19/25 05:24 Labs: Laboratory Results - last 24 hr 09/19/25 05:24 MCV 87.2 MCH 28.8 MCHC 33.0 RDW 13.2 Plt Count 206 MPV 8.7 L Immature Gran % (Auto) 0.3 Neut % (Auto) 58.4 Lymph % (Auto) 26.3 [place] % (Auto) 9.6 Eos % (Auto) 4.9 H Baso % (Auto) 0.5 Lymph # (Auto) 1.7 [place] # (Auto) 0.6 Eos # (Auto) 0.3 Baso # (Auto) 0.0 Abs Immat Gran (auto) 0.02 Absolute Neuts (auto) 3.9 Absolute Nucleated RBC 0.000 Nucleated RBC % (auto) 0.0 PT 13.8 H INR 1.1 Anion Gap 12 Estim Creat Clear Calc 83.7 Estimated GFR > 60 Random Glucose 87 Calcium 9.3 Magnesium 2.0 Total Bilirubin 0.5 AST 26 ALT 25 Alkaline Phosphatase 62 Total Protein 6.6 Albumin 4.0 Microbiology Microbiology Results: Microbiology 09/17/25 18:00 Blood Culture - Preliminary Blood - Venous No growth after 24 hours. 09/17/25 17:49 Blood Culture - Preliminary Blood - Venous No growth after 24 hours. 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 Patient to undergo suprapubic catheter after discussion with family likely tomorrow Hematuria Acute on chronic urinary retention Likely multifactorial-Henderson manipulation, traumatic Henderson unclear when it was placed patient has an unreliable historian, and on anticoagulation Thankfully H&H stable We have discontinued Eliquis as there is no splenic infarct demonstrated during this admission imaging Urology consulted patient and family to discuss suprapubic catheter with Dr. Baltazar-patient and family stated today that patient is agreeable for suprapubic catheter, given limited weekend availability and logistics we will likely happen tomorrow or Sunday NPO from midnight the day prior to stated procedure which is currently being postponed every day Sepsis secondary to Enterococcus UTI Likely secondary to obstructive uropathy UA C/S growing Enterococcus we will initiate Amoxicillin 1000mg po Q8H - 10 course- last day 09/29/25 Splenic infarct history per family for which he was on Eliquis for awhile History of splenic infarct ruled out with imaging, we will discontinue Eliquis Bladder spasms-Pyridium initiated BPH Flomax, tamsulosin, Henderson History of prostate cancer -Urology outpatient Chronic pain syndrome Tylenol, oxycodone p.r.n., OxyContin scheduled Opioid induced constipation Resume bowel meds Passive SI for a very long time Multiple prior ECTs Although the patient did not endorse any active suicidal ideation, based on prior note of Psychiatry 08/12/2025 and after discussion with the pillowcase cleaner from [facility] day appears that the patient has high utilization of healthcare services as evidenced by his ED visits and admissions on the , , , of this month already and experiencing possible conversion syndrome. Psych consult Needs care team consult prior to discharge DVT prophylaxis Lovenox Code status DNR DNI Functional status-cane or walker Would benefit from PT eval prior to discharge Spoke to the healthcare proxy Cheryl EASLEY- [phone] This note is constructed using voice recognition software. While every effort has been made to ensure accuracy, draw frame tender errors may have been included. Quality Stroke Does the patient have a stroke diagnosis?: No VTE Prior VTE?: No VTE Risk Level:: Medical - moderate - high VTE Device Contraindication: N/A - Device Ordered VTE Drug Contraindication: N/A - Med Ordered
--- NOTE | 2025-09-19 07:24 | P.PNIM_ITS ---
Subjective Subjective Date of Service: 09/19/25 Physical Exam 2 Vital Signs: Vital Signs: Last Vital Signs Temp 98.4 F 09/19/25 03:19 Pulse 65 09/19/25 03:19 Resp 18 09/19/25 03:19 BP 109/63 09/19/25 03:19 Pulse Ox 96 09/19/25 03:19 O2 Del Method Room Air 09/19/25 03:19 BMI result Body Mass Index 22.8 Objective Data Active Medications Acetaminophen (Acetaminophen 325 Mg Tablet) 650 mg PO Q6H PRN PRN Reason: Pain, Mild 1-3,fever,headache Acetaminophen (Acetaminophen 325 Mg Tablet) 975 mg PO TID [facility] Last Admin: 09/19/25 07:00 Dose: 975 mg Documented By: BELINDA Bisacodyl (Bisacodyl 5 Mg Tablet.Dr) 5 mg PO BEDTIME PRN PRN Reason: Constipation Calcium Carbonate (Calcium Carbonate 750 Mg Tab.Chew) 750 mg PO Q4H PRN PRN Reason: Heartburn Clonazepam (Clonazepam 1 Mg Tablet) 1 mg PO BID@0700,1900 [facility] Last Admin: 09/19/25 05:24 Dose: 1 mg Documented By: MARIELY Enoxaparin Sodium (Enoxaparin Sodium 40 Mg/0.4 Ml Syringe) 40 mg SUBCUT Q24H [facility] Last Admin: 09/18/25 18:14 Dose: 40 mg Documented By: NOE Finasteride (Finasteride 5 Mg Tablet) 5 mg PO DAILY [facility] Last Admin: 09/19/25 06:59 Dose: 5 mg Documented By: BELINDA Magnesium Hydroxide (Milk Of Magnesia 30 Ml Oral.Susp) 30 ml PO DAILY PRN PRN Reason: Constipation Melatonin (Melatonin 3 Mg Tablet) 6 mg PO BEDTIME [facility] Last Admin: 09/18/25 19:38 Dose: 6 mg Documented By: MARIELY Mirtazapine (Mirtazapine 30 Mg Tablet) 30 mg PO BEDTIME [facility] Last Admin: 09/18/25 19:38 Dose: 30 mg Documented By: MARIELY Multi-Ingred Cream/Lotion/Oil/Oint (Mineral Oil/Petrolatum,White 113 Gm Jar) 1 appl TOPICAL TID PRN PRN Reason: Itching Multivitamins/Vitamin C (Multivitamin Tablet) 1 tab PO DAILY [facility] Last Admin: 09/19/25 07:00 Dose: 1 tab Documented By: BELINDA Nystatin (Nystatin Cream 15 Gm Tube) 1 appl TOPICAL BID PRN; Protocol PRN Reason: Rash Omeprazole (Omeprazole 20 Mg Capsule.Dr) 20 mg PO DAILY@0630 [facility] Last Admin: 09/19/25 05:18 Dose: 20 mg Documented By: MARIELY Oxycodone HCl (Oxycodone Hcl Immed Release 5 Mg Tablet) 2.5 mg PO Q6H PRN PRN Reason: Moderate Pain (Scale Score 5-6) Last Admin: 09/19/25 06:59 Dose: 2.5 mg Documented By: BELINDA Oxycodone HCl (Oxycodone Hcl Er 10 Mg Tab.Er.12h) 10 mg PO BID [facility] Last Admin: 09/19/25 06:59 Dose: 10 mg Documented By: BELINDA Phenazopyridine HCl (Phenazopyridine Hcl 100 Mg Tablet) 100 mg PO TIDWM [facility] Stop: 09/19/25 12:01 Last Admin: 09/19/25 06:59 Dose: 100 mg Documented By: BELINDA Polyethylene Glycol (Polyethylene Glycol 3350 17 Gm Powd.Pack) 17 gm PO DAILY [facility] Last Admin: 09/19/25 07:00 Dose: Not Given Documented By: BELINDA Non-Admin Reason: NPO Senna (Sennosides 8.6 Mg Tablet) 17.2 mg PO DAILY PRN PRN Reason: Constipation Sodium Chloride (0.9 % Sodium Chloride Flush 3 Ml Syringe) 3 ml IVFLUSH QSHIFT [facility] Last Admin: 09/19/25 07:00 Dose: 3 ml Documented By: BLEINDA Tamsulosin HCl (Tamsulosin Hcl 0.4 Mg Capsule) 0.4 mg PO BEDTIME [facility] Last Admin: 09/18/25 19:38 Dose: 0.4 mg Documented By: MARIELY Triamcinolone Acetonide (Triamcinolone Acet 0.1 % Oint 15 Gm Tube) 1 appl TOPICAL BID [facility] Last Admin: 09/18/25 19:47 Dose: Not Given Documented By: MARIELY Non-Admin Reason: Med Not Available Trimethoprim/Sulfamethoxazole (Sulfamethox/Trimeth 800/160 Tablet) 1 tab PO Q12H [facility] Stop: 09/25/25 17:59 Last Admin: 09/19/25 05:17 Dose: 1 tab Documented By: MARIELY Vitamin D (Cholecalciferol (Vitamin D3) 25 Mcg Tablet) 50 mcg PO DAILY [facility] Last Admin: 09/19/25 07:00 Dose: 50 mcg Documented By: BELINDA Labs 09/19/25 05:24 09/19/25 05:24 Labs: Laboratory Results - last 24 hr 09/19/25 05:24 MCV 87.2 MCH 28.8 MCHC 33.0 RDW 13.2 Plt Count 206 MPV 8.7 L Immature Gran % (Auto) 0.3 Neut % (Auto) 58.4 Lymph % (Auto) 26.3 [place] % (Auto) 9.6 Eos % (Auto) 4.9 H Baso % (Auto) 0.5 Lymph # (Auto) 1.7 [place] # (Auto) 0.6 Eos # (Auto) 0.3 Baso # (Auto) 0.0 Abs Immat Gran (auto) 0.02 Absolute Neuts (auto) 3.9 Absolute Nucleated RBC 0.000 Nucleated RBC % (auto) 0.0 PT 13.8 H INR 1.1 Anion Gap 12 Estim Creat Clear Calc 83.7 Estimated GFR > 60 Random Glucose 87 Calcium 9.3 Magnesium 2.0 Total Bilirubin 0.5 AST 26 ALT 25 Alkaline Phosphatase 62 Total Protein 6.6 Albumin 4.0 Microbiology Microbiology Results: Microbiology 09/17/25 18:00 Blood Culture - Preliminary Blood - Venous No growth after 24 hours. 09/17/25 17:49 Blood Culture - Preliminary Blood - Venous No growth after 24 hours. 09/17/25 Unknown Urine Culture - Preliminary Urine Catheterized - Henderson Catheter Enterococcus/Streptococcus sp Quality Stroke Does the patient have a stroke diagnosis?: No VTE Prior VTE?: No VTE Risk Level:: Medical - moderate - high VTE Device Contraindication: N/A - Device Ordered VTE Drug Contraindication: N/A - Med Ordered
[2025-09-19 08:37] VITALS: BP 132/61; PULSE 83; RESP 20; TEMP 36.7; O2SAT 98
[2025-09-19 12:00] VITALS: BP 103/58; PULSE 77; RESP 15; TEMP 36.9; O2SAT 95
--- NOTE | 2025-09-19 12:45 | PC.NURSE ---
Per nursing superviser Liza, Dr Baltazar does not have cases in the OR for today but for tomorrow. Dr Harrington contacted via [place]. OK to feed pt per Dr Harrington. Regular diet ordered for pt
[2025-09-19 16:32] VITALS: BP 114/58; PULSE 91; RESP 18; TEMP 36.6; O2SAT 94
[2025-09-19 18:58] VITALS: BP 94/55; PULSE 79; RESP 18; TEMP 37.4; O2SAT 95
--- NOTE | 2025-09-19 19:39 | PM.PSYCN ---
History of Present Illness Date of Service: 09/20/2025 Chief Complaint: Hematuria, urinary retention Reason for Consult: ?conversion syndrome Requesting physician: Sandi Harrington Discussed with referring provider: Yes Sources of Information: patient interviewed, chart reviewed and crisis/core team assessment reviewed Additional Sources of Information: Dr. Baltazar- urology HPI Narrative: Asif is a 75 year-old male who was brought via EMS due to abdominal pain and distension and visible hematuria. He was admitted to medical floor per recommendation of urologist, Dr. Baltazar to insert subrapubic cath. Psychiatry has been consulted by Dr. Harrington to rule out conversion dx. More specific, in Dr. 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 He is being followed by urology Dr. Baltazar who last saw patient on 09/10/2025 outpatient. He was last discharged from [facility] on 09/02/2025 after treatment of UTI and urinary retention. Per Dr. Harrington's discharge summary, pt had passed voiding trial and no longer required bhatt. He was discharged without a bhatt. HOWEVER, Note per EMR nursing notes from 09/02/2025 showed that at 9:01am pt voided 50ml, PVR 304; at 1200 documented by SPL patient voided 100ml, PVR 378. It is documented that MD was informed who advised to continue to monitor. Pt was not straight cath. However, he was discharged as planned. Pt since has had additional ED visits for urinary retention. Note in EMR on 09/15/25 at 3:30 am by MARISA Walden, bladder scan post void showed residual of 565, straight cath for 675ml. Once again bhatt was introduced. Pt had reported difficulty straight cath himself due to vision issues, and although did not like the idea of bhatt at the time he had only those two options. This procedure writer met with patient. He is lying in bed, in NAD. He is calm and pleasant on approach. This procedure writer introduced self and explained reason for consultation. Pt able to remember that during last admission he was seen by two mental health clinicians, one being clinical psychologist private practice Ajit and care team clinician Fazal. He tells this procedure writer he appreciated conversation with both. Pt reports hx of depression, in part seeming from losing his son several years ago. He does report he has struggled with depression. However, he denies SI or HI. No signs of psychosis nor delusions. He currently sees psychiatric provider, Danitza Hatch, with whom he has been receiving treatment for the past 2 years. He does worried about medical conditions he has had to [place] including prostate cancer and now urinary retention and UTIs. He is hopeful that placement of suprapubic catheter reduces complications of bhatt. He does tell this procedure writer that his vision is worsening and he worries about managing suprapubic cath and would like further education about it. Pt is able to tell with reasonable accuracy events that have led to ED visits. When asked about his understanding and decision to have a suprapubic cath inserted, he quickly responds that he is in agreement with it. Past Psychiatric History: Hx of ECT with good effect. Hx of intentional OD with tylenol (3-5 years ago) OP: Danitza Hatch, FINGERNAIL TECHNICIAN Past medication trials: remeron, clonazepam, prozac (headache). Medical Evaluation Reviewed: Yes [facility] Medical History BPH (benign prostatic hyperplasia) CAD (coronary artery disease) Orthostatic hypotension Suicide attempt Heart murmur Dermatitis Cataract Arthritis History of recurrent UTIs Anxiety Macular degeneration GERD (gastroesophageal reflux disease) CHF (congestive heart failure) Colitis Prostate cancer Diagnostics Vital Signs (24Hr): Vital Signs - 24 hr 09/18/25 20:00 09/18/25 23:51 09/19/25 03:19 Temperature 98.4 F 98.1 F 98.4 F Pulse Rate 76 61 65 Respiratory Rate 19 18 18 Blood Pressure 107/55 L 92/50 L 109/63 Pulse Oximetry 95 95 96 Oxygen Delivery Method Room Air Room Air Room Air 09/19/25 08:37 09/19/25 12:00 09/19/25 16:32 Temperature 98.1 F 98.5 F 97.9 F Pulse Rate 83 77 91 Respiratory Rate 20 15 18 Blood Pressure 132/61 103/58 L 114/58 L Pulse Oximetry 98 95 94 Oxygen Delivery Method Room Air Room Air Room Air 09/19/25 18:58 Temperature 99.3 F Pulse Rate 79 Respiratory Rate 18 Blood Pressure 94/55 L Pulse Oximetry 95 Oxygen Delivery Method Room Air BMI result Body Mass Index 22.8 Labs 09/20/25 05:15 09/20/25 05:15 Labs: Laboratory Results - last 48 hr 09/18/25 09/19/25 05:15 05:24 WBC 6.2 6.6 RBC 3.97 L 4.31 L Hgb 11.7 L 12.4 L Hct 34.6 L 37.6 L MCV 87.2 87.2 MCH 29.5 28.8 MCHC 33.8 33.0 RDW 13.2 13.2 Plt Count 188 206 MPV 8.5 L 8.7 L Immature Gran % (Auto) 0.3 0.3 Neut % (Auto) 50.3 58.4 Lymph % (Auto) 33.1 26.3 [place] % (Auto) 10.5 9.6 Eos % (Auto) 5.2 H 4.9 H Baso % (Auto) 0.6 0.5 Lymph # (Auto) 2.1 1.7 [place] # (Auto) 0.7 0.6 Eos # (Auto) 0.3 0.3 Baso # (Auto) 0.0 0.0 Abs Immat Gran (auto) 0.02 0.02 Absolute Neuts (auto) 3.1 3.9 Absolute Nucleated RBC 0.000 0.000 Nucleated RBC % (auto) 0.0 0.0 PT 16.8 H 13.8 H INR 1.4 H 1.1 Sodium 139 140 Potassium 4.0 4.0 Chloride 108 106 Carbon Dioxide 24 26 Anion Gap 11 L 12 BUN 9 10 Creatinine 0.78 0.81 Estim Creat Clear Calc 86.9 83.7 Estimated GFR > 60 > 60 Random Glucose 91 87 Calcium 8.9 9.3 Magnesium 1.9 2.0 Total Bilirubin 0.6 0.5 AST 22 26 ALT 20 25 Alkaline Phosphatase 57 62 Total Protein 6.2 L 6.6 Albumin 3.8 4.0 Imaging Radiology Impressions: ITS Impressions Abdomen Ultrasound 09/18/25 07:40 IMPRESSION: 1. Normal-appearing spleen without definite infarct. Electronically signed by: Marlon Miranda MD 09/18/2025 08:19 AM [facility] Mental Status Exam Mental Status Exam Narrative: Appearance: wearing hospital gown, fair hygiene, in NAD Behavior: pleasant, cooperative Psychomotor: no agitation or retardation noted Speech: clear, normal rate/rhythm/volume, spontaneous TP: linear TC: without psychosis, future oriented. Mood: can be better Affect: congruent SI: denies any plan or intent. identifies protective factors such as close relationship with daughter and sister who is HCP. HI: none VH/AH: none Delusions: none Insight/judgment: intact x 2. Memory/cog: alert, oriented x 4. Grossly intact to conversational testing but not formally tested. Medications Medications Current Medications Acetaminophen (Acetaminophen 325 Mg Tablet) 650 mg PO Q6H PRN PRN Reason: Pain, Mild 1-3,fever,headache Acetaminophen (Acetaminophen 325 Mg Tablet) 975 mg PO TID [facility] Last Admin: 09/19/25 15:05 Dose: 975 mg Amoxicillin (Amoxicillin 500 Mg Capsule) 1,000 mg PO Q8H [facility] Stop: 09/29/25 08:59 Last Admin: 09/19/25 17:23 Dose: 1,000 mg Bisacodyl (Bisacodyl 5 Mg Tablet.Dr) 5 mg PO BEDTIME PRN PRN Reason: Constipation Calcium Carbonate (Calcium Carbonate 750 Mg Tab.Chew) 750 mg PO Q4H PRN PRN Reason: Heartburn Clonazepam (Clonazepam 1 Mg Tablet) 1 mg PO BID@0700,1900 [facility] Last Admin: 09/19/25 18:07 Dose: 1 mg Enoxaparin Sodium (Enoxaparin Sodium 40 Mg/0.4 Ml Syringe) 40 mg SUBCUT Q24H [facility] Last Admin: 09/19/25 17:24 Dose: 40 mg Finasteride (Finasteride 5 Mg Tablet) 5 mg PO DAILY [facility] Last Admin: 09/19/25 06:59 Dose: 5 mg Magnesium Hydroxide (Milk Of Magnesia 30 Ml Oral.Susp) 30 ml PO DAILY PRN PRN Reason: Constipation Melatonin (Melatonin 3 Mg Tablet) 6 mg PO BEDTIME [facility] Last Admin: 09/18/25 19:38 Dose: 6 mg Mirtazapine (Mirtazapine 30 Mg Tablet) 30 mg PO BEDTIME [facility] Last Admin: 09/18/25 19:38 Dose: 30 mg Multi-Ingred Cream/Lotion/Oil/Oint (Mineral Oil/Petrolatum,White 113 Gm Jar) 1 appl TOPICAL TID PRN PRN Reason: Itching Multivitamins/Vitamin C (Multivitamin Tablet) 1 tab PO DAILY [facility] Last Admin: 09/19/25 07:00 Dose: 1 tab Nystatin (Nystatin Cream 15 Gm Tube) 1 appl TOPICAL BID PRN; Protocol PRN Reason: Rash Omeprazole (Omeprazole 20 Mg Capsule.Dr) 20 mg PO DAILY@0630 [facility] Last Admin: 09/19/25 05:18 Dose: 20 mg Oxycodone HCl (Oxycodone Hcl Immed Release 5 Mg Tablet) 2.5 mg PO Q6H PRN PRN Reason: Moderate Pain (Scale Score 5-6) Last Admin: 09/19/25 13:00 Dose: 2.5 mg Oxycodone HCl (Oxycodone Hcl Er 10 Mg Tab.Er.12h) 10 mg PO BID [facility] Last Admin: 09/19/25 06:59 Dose: 10 mg Polyethylene Glycol (Polyethylene Glycol 3350 17 Gm Powd.Pack) 17 gm PO DAILY [facility] Last Admin: 09/19/25 13:00 Dose: 17 gm Senna (Sennosides 8.6 Mg Tablet) 17.2 mg PO DAILY PRN PRN Reason: Constipation Sodium Chloride (0.9 % Sodium Chloride Flush 3 Ml Syringe) 3 ml IVFLUSH QSHIFT [facility] Last Admin: 09/19/25 15:08 Dose: 3 ml Tamsulosin HCl (Tamsulosin Hcl 0.4 Mg Capsule) 0.4 mg PO BEDTIME [facility] Last Admin: 09/18/25 19:38 Dose: 0.4 mg Triamcinolone Acetonide (Triamcinolone Acet 0.1 % Oint 15 Gm Tube) 1 appl TOPICAL BID [facility] Last Admin: 09/19/25 10:26 Dose: Not Given Vitamin D (Cholecalciferol (Vitamin D3) 25 Mcg Tablet) 50 mcg PO DAILY [facility] Last Admin: 09/19/25 07:00 Dose: 50 mcg Allergies Allergies Allergy/AdvReac Type Severity Reaction Status Date / Time No Known Allergies Allergy Verified 09/17/25 14:32 Assessment & Plan Assessment & Plan (1) MDD (major depressive disorder): Status: Acute Code(s): F32.9 - Major depressive disorder, single episode, unspecified Plan Mr. Gold is a 75 year-old male with hx of BPH, MDD. Admitted due to urinary retention, bhatt-catheter related UTI with plan per urologist to insert suprapubic catheter. Psychiatry has been asked to r/o conversion syndrome. More specifically, urinary retention as being product of a conversion syndrome versus physiological/organic cause. This procedure writer reached out to Dr. Baltazar who reports pt has BPH and associated consequences of this condition. Urology is NOT under impression that there are NOT organic causes for his urinary retention. Moreover, there is objective evidence that pt continued to retain urine even on the day he was discharged on 09/02/2025 (Note from LAMINATOR HAND recorded on 09/02/25 at 9:01 voided 50ml, PVR 304, 09/02/25 at 1200 pt voided 100ml, PVR 378ml). The criteria for a conversion disorder assumes that there is no organic or physiological cause to symptoms. In Mr. Gold's situation this is NOT the case; there are organic reasons for his symptoms of urinary retention. Therefore, Mr. Gold's symptoms of urinary retention should be managed as MEDICAL NOT PSYCHIATRIC IN NATURE. There is NO evidence that this is a sign of conversion disorder and would caution medical team to use this term loosely as this diagnosis is a diagnosis of exclusion and should be given serious and rigorous consideration ONLY when there is no medical explanation nor objective tests that can explain pt's reported symptoms. Note that conversion disorder in adults often present with seemingly neurological symptoms NOT symptoms such as urinary retention. In terms of his underlying mental health conditions, he has chronic depression. No intent and plan to harm self. Pt presents with number of protective factors in this regard including close relationship with his daughter with whom pt reports speaks daily and his sister. He also presents as future oriented and invested in improving his quality of life evidenced by his efforts to follow up with medical care. THERE IS NO IMMINENT SAFETY CONCERNS NOR NEED for further intervention. He is currently stable with current psychotropic medications. His anxiety is in fact fairly well manage with clonazepam. PLAN 1. Pt does NOT have conversion disorder. clear organic causes for his urinary retention per urologist who is recommending a suprapubic cather insertion. 2. NO NEED TO CONSULT CARE TEAM FOR SAME NOR FOR DISPOSITION. PT IS CLEAR FROM A PSYCHIATRIC standpoint and can be discharged back home once medically clear. Total time managing care of this patient today ____ minutes.
[2025-09-19 23:45] VITALS: BP 113/58; PULSE 81; RESP 17; TEMP 36.8; O2SAT 94
[2025-09-20] VITALS (11 sets, daily range): BP systolic 93–120; BP diastolic 54–63; PULSE 66–84; RESP 11–18; TEMP 36.2–37.4; O2SAT 93–98
--- NOTE | 2025-09-20 01:15 | PM.EVENT ---
Event Note Date of Service: 09/20/25 Event Note: Nursing notified this provider that pt may have procedure for SP catheter placemnt Sunday or Sunday. Made pt NPO just in case the procedure occurs on Sunday. Time Spent With Patient Time: Total time managing care of this patient today ____ minutes.
[2025-09-20 06:22] LABS: MANUAL DIFF FLAG NO
[2025-09-20 06:25] LABS: Hematocrit 37.6 % (42.0-52.0); Hemoglobin 12.2 g/dl (14.0-18.0); Imm Gran Abs Auto 0.01 X10*3/uL (0.00-0.03); Imm Gran Pct Auto 0.2 % (0.0-0.4); Lymphocytes Absolute Auto 1.4 X10*3/uL (1.2-4.9); Mean Corpuscular HGB Conc 32.4 g/dl (31.0-36.0); Mean Corpuscular Hemoglobin 28.6 pg (27.0-33.0); Mean Corpuscular Volume 88.3 fL (80.0-98.0); NRBC Abs Auto 0.000 X10*3/uL (0.0-0.012); NRBC Pct Auto 0.0 /100WBC (0.0-0.2); Platelet Count 212 X10*3/uL (160-400); Red Blood Count 4.26 X10*6/uL (4.60-5.80); White Blood Count 6.1 X10*3/uL (4.8-10.8)
[2025-09-20 06:33] LABS: INTERNATIONAL NORM RATIO 1.1 (0.9-1.1); Prothrombin Time 13.3 SEC (11.2-13.5)
[2025-09-20 06:43] LABS: Alanine Aminotransferase 26 U/L (0-40); Albumin Level 4.0 g/dL (3.5-5.0); Alkaline Phosphatase 85 U/L (39-117); Anion Gap 14 (12-20); Aspartate Amino Transferase 31 U/L (5-37); Blood Urea Nitrogen 10 mg/dL (9-16); Calcium 9.0 mg/dL (8.4-10.2); Carbon Dioxide 24 mmol/L (22-29); Chloride 104 mmol/L (96-108); Creatinine Clr Calc Pharmacy 71.4; Estimated Glomerular Filt Rate > 60; Magnesium 1.8 mg/dL (1.6-2.6); Potassium 3.8 mmol/L (3.3-5.1); Sodium 138 mmol/L (135-145); Total Protein 6.5 g/dL (6.5-8.0)
[2025-09-20] MEDS: oxyCODONE HCl ER 10 MG TAB.ER.12H PO ×2 (07:59→20:06)
[2025-09-20] MEDS: 0.9 % Sodium Chloride Flush 3 ML SYRINGE IVFLUSH ×3 (08:01→20:07)
--- NOTE | 2025-09-20 08:49 | HO.PM.IMPN ---
Subjective Subjective Date of Service: 09/20/25 Interval History: pt got SPC today Patient is off Eliquis as he does not appear to have splenic infarct Review of Systems Review of Systems: Yes all other systems are reviewed and are negative Physical Exam Exam: Exam: General: AOx3, no acute distress Resp: CTA bilaterally CVS: S1, S2, RRR GI: +BS, NT, no distention Genitourinary-patient has Henderson draining clear urine (this was prior to him getting the suprapubic catheter) Vital Signs: Vital Signs: Last Vital Signs Temp 98.3 F 09/20/25 08:16 Pulse 84 09/20/25 08:16 Resp 18 09/20/25 08:16 BP 105/56 L 09/20/25 08:16 Pulse Ox 93 09/20/25 08:16 O2 Del Method Room Air 09/20/25 08:16 BMI result Body Mass Index 22.8 Objective Data Active Medications Acetaminophen (Acetaminophen 325 Mg Tablet) 650 mg PO Q6H PRN PRN Reason: Pain, Mild 1-3,fever,headache Acetaminophen (Acetaminophen 325 Mg Tablet) 975 mg PO TID [facility] Last Admin: 09/20/25 07:58 Dose: 975 mg Documented By: ROJELIO Amoxicillin (Amoxicillin 500 Mg Capsule) 1,000 mg PO Q8H [facility] Stop: 09/29/25 08:59 Last Admin: 09/20/25 08:00 Dose: 1,000 mg Documented By: ROJELIO Bisacodyl (Bisacodyl 5 Mg Tablet.Dr) 5 mg PO BEDTIME PRN PRN Reason: Constipation Calcium Carbonate (Calcium Carbonate 750 Mg Tab.Chew) 750 mg PO Q4H PRN PRN Reason: Heartburn Clonazepam (Clonazepam 1 Mg Tablet) 1 mg PO BID@0700,1900 [facility] Last Admin: 09/20/25 05:55 Dose: 1 mg Documented By: MARIELY Enoxaparin Sodium (Enoxaparin Sodium 40 Mg/0.4 Ml Syringe) 40 mg SUBCUT Q24H [facility] Last Admin: 09/19/25 17:24 Dose: 40 mg Documented By: ROJELIO Finasteride (Finasteride 5 Mg Tablet) 5 mg PO DAILY [facility] Last Admin: 09/20/25 08:00 Dose: 5 mg Documented By: ROJELIO Magnesium Sulfate (Magnesium Sulfate/H2o) 2 gm in 50 mls @ 25 mls/hr IV ONCE ONE Stop: 09/20/25 10:44 Magnesium Hydroxide (Milk Of Magnesia 30 Ml Oral.Susp) 30 ml PO DAILY PRN PRN Reason: Constipation Melatonin (Melatonin 3 Mg Tablet) 6 mg PO BEDTIME [facility] Last Admin: 09/19/25 20:37 Dose: 6 mg Documented By: MARIELY Mirtazapine (Mirtazapine 30 Mg Tablet) 30 mg PO BEDTIME [facility] Last Admin: 09/19/25 20:38 Dose: 30 mg Documented By: MARIELY Multi-Ingred Cream/Lotion/Oil/Oint (Mineral Oil/Petrolatum,White 113 Gm Jar) 1 appl TOPICAL TID PRN PRN Reason: Itching Multivitamins/Vitamin C (Multivitamin Tablet) 1 tab PO DAILY [facility] Last Admin: 09/20/25 08:00 Dose: 1 tab Documented By: ROJELIO Nystatin (Nystatin Cream 15 Gm Tube) 1 appl TOPICAL BID PRN; Protocol PRN Reason: Rash Omeprazole (Omeprazole 20 Mg Capsule.Dr) 20 mg PO DAILY@0630 [facility] Last Admin: 09/20/25 05:54 Dose: 20 mg Documented By: MARIELY Oxycodone HCl (Oxycodone Hcl Immed Release 5 Mg Tablet) 2.5 mg PO Q6H PRN PRN Reason: Moderate Pain (Scale Score 5-6) Last Admin: 09/19/25 13:00 Dose: 2.5 mg Documented By: ROJELIO Oxycodone HCl (Oxycodone Hcl Er 10 Mg Tab.Er.12h) 10 mg PO BID [facility] Last Admin: 09/20/25 07:59 Dose: 10 mg Documented By: ROJELIO Polyethylene Glycol (Polyethylene Glycol 3350 17 Gm Powd.Pack) 17 gm PO DAILY [facility] Last Admin: 09/20/25 08:14 Dose: Not Given Documented By: ROJELIO Non-Admin Reason: Patient Refused Senna (Sennosides 8.6 Mg Tablet) 17.2 mg PO DAILY PRN PRN Reason: Constipation Sodium Chloride (0.9 % Sodium Chloride Flush 3 Ml Syringe) 3 ml IVFLUSH QSHIFT [facility] Last Admin: 09/20/25 08:01 Dose: 3 ml Documented By: ROJELIO Tamsulosin HCl (Tamsulosin Hcl 0.4 Mg Capsule) 0.4 mg PO BEDTIME [facility] Last Admin: 09/19/25 20:37 Dose: 0.4 mg Documented By: MARIELY Triamcinolone Acetonide (Triamcinolone Acet 0.1 % Oint 15 Gm Tube) 1 appl TOPICAL BID [facility] Last Admin: 09/20/25 08:14 Dose: Not Given Documented By: ROJELIO Non-Admin Reason: Med Not Available Vitamin D (Cholecalciferol (Vitamin D3) 25 Mcg Tablet) 50 mcg PO DAILY [facility] Last Admin: 09/20/25 08:00 Dose: 50 mcg Documented By: ROJELIO Labs 09/20/25 05:15 09/20/25 05:15 Labs: Laboratory Results - last 24 hr 09/20/25 05:15 MCV 88.3 MCH 28.6 MCHC 32.4 RDW 13.0 Plt Count 212 MPV 9.1 L Immature Gran % (Auto) 0.2 Neut % (Auto) 62.2 Lymph % (Auto) 23.6 [place] % (Auto) 9.7 Eos % (Auto) 3.6 Baso % (Auto) 0.7 Lymph # (Auto) 1.4 [place] # (Auto) 0.6 Eos # (Auto) 0.2 Baso # (Auto) 0.0 Abs Immat Gran (auto) 0.01 Absolute Neuts (auto) 3.8 Absolute Nucleated RBC 0.000 Nucleated RBC % (auto) 0.0 PT 13.3 INR 1.1 Anion Gap 14 Estim Creat Clear Calc 71.4 Estimated GFR > 60 Random Glucose 88 Calcium 9.0 Magnesium 1.8 Total Bilirubin 0.6 AST 31 ALT 26 Alkaline Phosphatase 85 Total Protein 6.5 Albumin 4.0 Microbiology Microbiology Results: Microbiology 09/17/25 18:00 Blood Culture - Preliminary Blood - Venous No growth after 48 hours. 09/17/25 17:49 Blood Culture - Preliminary Blood - Venous No growth after 48 hours. 09/17/25 Unknown Urine Culture - Final Urine Catheterized - Henderson Catheter Enterococcus faecalis Assessment and Plan (1) Hematuria: Status: Acute Assessment and Plan: Patient who is relatively new to our system, apparently moved from [place] 75-year-old male with a past medical history of HLD, CHF, orthostatic hypotension, BPH, CAD, prostate cancer, 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 for which he was on Eliquis for awhile History of splenic infarct ruled out with imaging, we will discontinue Eliquis Bladder spasms-Pyridium initiated BPH Flomax, tamsulosin, Henderson History of prostate cancer -Urology outpatient Chronic pain syndrome Tylenol, oxycodone p.r.n., OxyContin scheduled Opioid induced constipation Resume bowel meds Passive SI for a very long time Multiple prior ECTs Although the patient did not endorse any active suicidal ideation, based on prior note of Psychiatry 08/12/2025 and after discussion with the family preservation caseworker from [facility] day appears that the patient has high utilization of healthcare services as evidenced by his ED visits and admissions on the , , , 11th of this month already and experiencing possible conversion syndrome. Psych consulted- do not believe its conversion OP psych f/up Psych per notes stated doesnt need CARE team consult prior to DC DVT prophylaxis Lovenox Code status DNR DNI Functional status-cane or walker Spoke to the healthcare proxy Cheryl POA- [phone] Would benefit from PT eval prior to discharge tomorrow once he learns how to use the spc This note is constructed using voice recognition software. While every effort has been made to ensure accuracy, credit risk specialist errors may have been included. Quality Stroke Does the patient have a stroke diagnosis?: No VTE Prior VTE?: No VTE Risk Level:: Medical - moderate - high VTE Device Contraindication: N/A - Device Ordered VTE Drug Contraindication: N/A - Med Ordered
[2025-09-20] MEDS: Magnesium Sulfate/H2O 2 GM/50 ML PIGGYBACK IV (09:35)
--- NOTE | 2025-09-20 09:57 | P.CNUR_ITS ---
History of Present Illness Consult details Consult date: 09/18/25 Narrative: CC: Complicated UTI - CAUTI 75-year-old male Past medical history BPH Has chronic bladder issues with anxiety regarding bladder emptying Had been seen with retention and Henderson catheter placed Transferred from care facility due to patient raising concerns about blood in Henderson catheter causing anxiety and panic Does not tolerate Henderson catheter and has previously required removal secondary to bladder spasm Hematuria likely secondary to Eliquis and Henderson catheter manipulation Given concerns regarding BPH discussion has taken place with his brother Jaydon [phone] There is a family history of prostate issues and prior prostate procedures. Recommendation would be initial placement of suprapubic tube followed by consideration of laser prostate bladder outlet procedure. He is being admitted for antibiotics Review of Systems 2 Constitutional: Constitutional: Denies chills and Denies fever(s) Cardiovascular: Cardiovascular: Reports no additional cardiovascular complaints and Denies syncope Respiratory: Respiratory: Denies cough Gastrointestinal: Gastrointestinal: Denies abdominal pain and Denies heartburn Genitourinary: Genitourinary: Reports as per HPI and Denies change in libido Musculoskeletal: Musculoskeletal: Reports no additional musculoskeletal complaints and Reports as per HPI Neurologic: Denies syncope Psychiatric: Psychiatric: Denies change in libido Endocrine: Endocrine: Denies change in libido [facility] Past Medical History Medical History BPH (benign prostatic hyperplasia) CAD (coronary artery disease) Orthostatic hypotension Suicide attempt Heart murmur Dermatitis Cataract Arthritis History of recurrent UTIs Anxiety Macular degeneration GERD (gastroesophageal reflux disease) CHF (congestive heart failure) Colitis Prostate cancer Social History Social History Household Members: None Housing: Assisted Living Facility Do you presently have visiting nurse or other home services: Yes Alcohol intake: never Patient Tobacco Use Status: Former Tobacco user Advance Directives Date on File: 08/18/25 service: No Meds Allergies Allergy/AdvReac Type Severity Reaction Status Date / Time No Known Allergies Allergy Verified 09/17/25 14:32 Active Medications: Current Medications Acetaminophen (Acetaminophen 325 Mg Tablet) 650 mg PO Q6H PRN PRN Reason: Pain, Mild 1-3,fever,headache Acetaminophen (Acetaminophen 325 Mg Tablet) 975 mg PO TID [facility] Last Admin: 09/20/25 07:58 Dose: 975 mg Amoxicillin (Amoxicillin 500 Mg Capsule) 1,000 mg PO Q8H [facility] Stop: 09/29/25 08:59 Last Admin: 09/20/25 08:00 Dose: 1,000 mg Bisacodyl (Bisacodyl 5 Mg Tablet.Dr) 5 mg PO BEDTIME PRN PRN Reason: Constipation Calcium Carbonate (Calcium Carbonate 750 Mg Tab.Chew) 750 mg PO Q4H PRN PRN Reason: Heartburn Clonazepam (Clonazepam 1 Mg Tablet) 1 mg PO BID@0700,1900 [facility] Last Admin: 09/20/25 05:55 Dose: 1 mg Enoxaparin Sodium (Enoxaparin Sodium 40 Mg/0.4 Ml Syringe) 40 mg SUBCUT Q24H [facility] Last Admin: 09/19/25 17:24 Dose: 40 mg Finasteride (Finasteride 5 Mg Tablet) 5 mg PO DAILY [facility] Last Admin: 09/20/25 08:00 Dose: 5 mg Magnesium Sulfate (Magnesium Sulfate/H2o) 2 gm in 50 mls @ 25 mls/hr IV ONCE ONE Stop: 09/20/25 10:44 Last Admin: 09/20/25 09:35 Dose: 25 mls/hr Magnesium Hydroxide (Milk Of Magnesia 30 Ml Oral.Susp) 30 ml PO DAILY PRN PRN Reason: Constipation Melatonin (Melatonin 3 Mg Tablet) 6 mg PO BEDTIME [facility] Last Admin: 09/19/25 20:37 Dose: 6 mg Mirtazapine (Mirtazapine 30 Mg Tablet) 30 mg PO BEDTIME [facility] Last Admin: 09/19/25 20:38 Dose: 30 mg Multi-Ingred Cream/Lotion/Oil/Oint (Mineral Oil/Petrolatum,White 113 Gm Jar) 1 appl TOPICAL TID PRN PRN Reason: Itching Multivitamins/Vitamin C (Multivitamin Tablet) 1 tab PO DAILY [facility] Last Admin: 09/20/25 08:00 Dose: 1 tab Nystatin (Nystatin Cream 15 Gm Tube) 1 appl TOPICAL BID PRN; Protocol PRN Reason: Rash Omeprazole (Omeprazole 20 Mg Capsule.) 20 mg PO DAILY@0630 [facility] Last Admin: 09/20/25 05:54 Dose: 20 mg Oxycodone HCl (Oxycodone Hcl Immed Release 5 Mg Tablet) 2.5 mg PO Q6H PRN PRN Reason: Moderate Pain (Scale Score 5-6) Last Admin: 09/19/25 13:00 Dose: 2.5 mg Oxycodone HCl (Oxycodone Hcl Er 10 Mg Tab.Er.12h) 10 mg PO BID [facility] Last Admin: 09/20/25 07:59 Dose: 10 mg Polyethylene Glycol (Polyethylene Glycol 3350 17 Gm Powd.Pack) 17 gm PO DAILY [facility] Last Admin: 09/20/25 08:14 Dose: Not Given Senna (Sennosides 8.6 Mg Tablet) 17.2 mg PO DAILY PRN PRN Reason: Constipation Sodium Chloride (0.9 % Sodium Chloride Flush 3 Ml Syringe) 3 ml IVFLUSH QSHIFT [facility] Last Admin: 09/20/25 08:01 Dose: 3 ml Tamsulosin HCl (Tamsulosin Hcl 0.4 Mg Capsule) 0.4 mg PO BEDTIME [facility] Last Admin: 09/19/25 20:37 Dose: 0.4 mg Triamcinolone Acetonide (Triamcinolone Acet 0.1 % Oint 15 Gm Tube) 1 appl TOPICAL BID [facility] Last Admin: 09/20/25 08:14 Dose: Not Given Vitamin D (Cholecalciferol (Vitamin D3) 25 Mcg Tablet) 50 mcg PO DAILY [facility] Last Admin: 09/20/25 08:00 Dose: 50 mcg Home Medications ?Medication ?Instructions ?Recorded ?Confirmed ?Last Taken ?Type apixaban 5 mg tablet (Eliquis) 5 mg PO BID 06/26/2509/17/25 09:00 History clonazepam 1 mg tablet (Klonopin) 1 mg PO BID@0700,190 0 06/26/25 09/17/25 09/17/25 09:00 History mirtazapine 30 mg tablet 30 mg PO BEDTIME 06/26/2509/17/25 09:00 History multivitamin 1 tab PO DAILY 06/26/2508/2309/17/25 09:00 History oxycodone 5 mg tablet 2.5 mg PO BEDTIME PRN Modera te 06/26/25 09/17/25 09/17/25 09:00 History Pain (Scale Score 5-6) sennosides 8.6 mg tablet 17.2 mg PO DAILY PRN Constip ation 06/26/25 09/17/25 09/17/25 09:00 History tamsulosin 0.4 mg capsule 0.4 mg PO BEDTIME 06/26/25 1 11/17/24 09/17/25 09:00 History lansoprazole 30 mg capsule,delayed 30 mg PO DAILY@0630 08/17/25 09/17/25 09/17/25 09:00 History release cholecalciferol (vitamin D3) 50 50 mcg PO DAILY 09/17/25 09/17/25 09:00 History mcg (2,000 unit) capsule (Vitamin D3) melatonin 3 mg tablet 6 mg PO BEDTIME 08/22/2509/17/25 09:00 History Lactobacillus rhamnosus GG 15 1 cap PO DAILY 08/31/25 09/17/25 09/17/25 09:00 History billion cell sprinkle capsule (Culturelle) bisacodyl 5 mg tablet 5 mg PO BEDTIME PRN Constipa tion 08/31/25 09/17/25 09/17/25 09:00 History ceramides 1,3,6-II (CeraVe topical 1 appl topical TID PRN Itching 08/31/25 09/17/25 09/17/25 09:00 History cream) nystatin 100,000 unit/gram topical 1 appl topical BID PRN Rash 08/31/25 09/17/25 09/17/25 09:00 History cream ondansetron HCl 4 mg tablet 4 mg PO Q8H PRN nausea/vom iting 08/31/25 09/17/25 09/17/25 09:00 History acetaminophen 500 mg tablet 1,000 mg PO TID 09/14/25 1 11/17/24 09/17/25 09:00 History triamcinolone acetonide 0.1 % 1 appl topical BID 09/1409/17/25 09/17/25 09:00 History topical ointment Physical Exam 2 Vital Signs: Vital Signs: Last Vital Signs Temp 98.3 F 09/20/25 08:16 Pulse 84 09/20/25 08:16 Resp 18 09/20/25 08:16 BP 105/56 L 09/20/25 08:16 Pulse Ox 93 09/20/25 08:16 O2 Del Method Room Air 09/20/25 08:16 BMI result Body Mass Index 22.8 Const: General: cooperative, healthy appearing, comfortable and no acute distress Orientation/consciousness: patient oriented x3 HEENT: Face and sinus: Yes normal facial exam Mouth: moist mucous membranes Neck: Neck: Yes normal visual inspection, Yes full ROM and Yes trachea midline Chest: Chest palpation & inspection: normal inspection of the chest Resp: Effort & Inspection: normal respiratory effort, able to speak in complete sentences and no respiratory distress GI: Inspection: Yes normal to inspection Back/Spine/Pelvis: Cervical Spine: normal cervical lordosis Thoracic/Lumbar Spine: thoracic and lumbar spine normal to inspection Skin: General skin exam: no rashes or lesions noted Neuro: General: patient oriented x3, gait normal, tone normal and moves all extremities Extrem: General: Yes normal to inspection and Yes capillary refill normal Results Labs 09/20/25 05:15 09/20/25 05:15 Labs: Abnormal lab results 09/20/25 Range/Units 05:15 RBC 4.26 L (4.60-5.80) X10*6/uL Hgb 12.2 L (14.0-18.0) g/dl Hct 37.6 L (42.0-52.0) % MPV 9.1 L (9.4-12.4) fL Short CBC 09/20/25 Range/Units 05:15 WBC 6.1 (4.8-10.8) X10*3/uL Hgb 12.2 L (14.0-18.0) g/dl Hct 37.6 L (42.0-52.0) % Plt Count 212 (160-400) X10*3/uL BMP 09/20/25 05:15 Sodium 138 Potassium 3.8 Chloride 104 Carbon Dioxide 24 BUN 10 Creatinine 0.95 Calcium 9.0 Liver Function 09/20/25 Range/Units 05:15 Total Bilirubin 0.6 (0.0-1.0) mg/dL AST 31 (5-37) U/L ALT 26 (0-40) U/L Alkaline Phosphatase 85 (39-117) U/L Albumin 4.0 (3.5-5.0) g/dL Urine 09/17/25 Range/Units 15:16 Urine Color DK YELLOW Urine Appearance Hazy Urine pH 5.5 (5.0-9.0) Ur Specific [place] 1.025 (1.005-1.025) Urine Protein 100 (2+) H (Neg-Trace) mg/dL Urine Glucose (UA) Negative (Negative) mg/dL All other labs normal. Assessment and Plan (1) BPH (benign prostatic hyperplasia): Status: Acute (2) Prostate cancer: Status: Acute (3) MDD (major depressive disorder): Status: Acute Plan Risks, benefits and alternatives to therapy were discussed. These include but are not limited to infection, bleeding, damage to local organs and tissues, need for further interventions. Anesthetic risks regarding cardiac arrhythmia, blood clots, and potential mortality were discussed. The patient understands the typical recovery time and the outpatient nature of the procedure. After consideration of these risks the patient gives full informed consent and they wish to move ahead with the procedure. Cystoscopy with suprapubic tube placement and outpatient reassessment for bladder outlet procedure Procedures Date of Service Date of Service: 09/20/25
--- NOTE | 2025-09-20 11:21 | HO.ANESPROP2 ---
HPI - Anesthesia Eval Consult details Narrative: Urinary retention PMFSH Active Problems Active Problems: All Active Problems UTI (urinary tract infection) (Acute) Hematuria (Acute) Urinary retention with incomplete bladder emptying (Acute) Suicidal ideations (Acute) BPH (benign prostatic hyperplasia) (Acute) Anxiety (Acute) Suicide attempt (Acute) UTI (urinary tract infection) (Acute) Catheter-associated urinary tract infection (Acute) MDD (major depressive disorder) (Acute) Prostate cancer (Acute) Past Medical History Medical History BPH (benign prostatic hyperplasia) CAD (coronary artery disease) Orthostatic hypotension Suicide attempt Heart murmur Dermatitis Cataract Arthritis History of recurrent UTIs Anxiety Macular degeneration GERD (gastroesophageal reflux disease) CHF (congestive heart failure) Colitis Prostate cancer Family History Family history of problems with anesthesia: No Surgical History History of Problems with Anesthesia: No Social History Social History Household Members: None Housing: Assisted Living Facility Do you presently have visiting nurse or other home services: Yes Alcohol intake: never Patient Tobacco Use Status: Former Tobacco user Advance Directives Date on File: 08/18/25 service: No Meds Allergies Allergy/AdvReac Type Severity Reaction Status Date / Time No Known Allergies Allergy Verified 09/17/25 14:32 Active Medications: Current Medications Acetaminophen (Acetaminophen 325 Mg Tablet) 650 mg PO Q6H PRN PRN Reason: Pain, Mild 1-3,fever,headache Acetaminophen (Acetaminophen 325 Mg Tablet) 975 mg PO TID [facility] Last Admin: 09/20/25 07:58 Dose: 975 mg Amoxicillin (Amoxicillin 500 Mg Capsule) 1,000 mg PO Q8H [facility] Stop: 09/29/25 08:59 Last Admin: 09/20/25 08:00 Dose: 1,000 mg Bisacodyl (Bisacodyl 5 Mg Tablet.Dr) 5 mg PO BEDTIME PRN PRN Reason: Constipation Calcium Carbonate (Calcium Carbonate 750 Mg Tab.Chew) 750 mg PO Q4H PRN PRN Reason: Heartburn Clonazepam (Clonazepam 1 Mg Tablet) 1 mg PO BID@0700,1900 [facility] Last Admin: 09/20/25 05:55 Dose: 1 mg Enoxaparin Sodium (Enoxaparin Sodium 40 Mg/0.4 Ml Syringe) 40 mg SUBCUT Q24H [facility] Last Admin: 09/19/25 17:24 Dose: 40 mg Finasteride (Finasteride 5 Mg Tablet) 5 mg PO DAILY [facility] Last Admin: 09/20/25 08:00 Dose: 5 mg Magnesium Hydroxide (Milk Of Magnesia 30 Ml Oral.Susp) 30 ml PO DAILY PRN PRN Reason: Constipation Melatonin (Melatonin 3 Mg Tablet) 6 mg PO BEDTIME [facility] Last Admin: 09/19/25 20:37 Dose: 6 mg Mirtazapine (Mirtazapine 30 Mg Tablet) 30 mg PO BEDTIME [facility] Last Admin: 09/19/25 20:38 Dose: 30 mg Multi-Ingred Cream/Lotion/Oil/Oint (Mineral Oil/Petrolatum,White 113 Gm Jar) 1 appl TOPICAL TID PRN PRN Reason: Itching Multivitamins/Vitamin C (Multivitamin Tablet) 1 tab PO DAILY [facility] Last Admin: 09/20/25 08:00 Dose: 1 tab Nystatin (Nystatin Cream 15 Gm Tube) 1 appl TOPICAL BID PRN; Protocol PRN Reason: Rash Omeprazole (Omeprazole 20 Mg Capsule.Dr) 20 mg PO DAILY@0630 [facility] Last Admin: 09/20/25 05:54 Dose: 20 mg Oxycodone HCl (Oxycodone Hcl Immed Release 5 Mg Tablet) 2.5 mg PO Q6H PRN PRN Reason: Moderate Pain (Scale Score 5-6) Last Admin: 09/19/25 13:00 Dose: 2.5 mg Oxycodone HCl (Oxycodone Hcl Er 10 Mg Tab.Er.12h) 10 mg PO BID [facility] Last Admin: 09/20/25 07:59 Dose: 10 mg Polyethylene Glycol (Polyethylene Glycol 3350 17 Gm Powd.Pack) 17 gm PO DAILY [facility] Last Admin: 09/20/25 08:14 Dose: Not Given Senna (Sennosides 8.6 Mg Tablet) 17.2 mg PO DAILY PRN PRN Reason: Constipation Sodium Chloride (0.9 % Sodium Chloride Flush 3 Ml Syringe) 3 ml IVFLUSH QSHIFT [facility] Last Admin: 09/20/25 08:01 Dose: 3 ml Tamsulosin HCl (Tamsulosin Hcl 0.4 Mg Capsule) 0.4 mg PO BEDTIME [facility] Last Admin: 09/19/25 20:37 Dose: 0.4 mg Triamcinolone Acetonide (Triamcinolone Acet 0.1 % Oint 15 Gm Tube) 1 appl TOPICAL BID [facility] Last Admin: 09/20/25 08:14 Dose: Not Given Vitamin D (Cholecalciferol (Vitamin D3) 25 Mcg Tablet) 50 mcg PO DAILY [facility] Last Admin: 09/20/25 08:00 Dose: 50 mcg Home Medications ?Medication ?Instructions ?Recorded ?Confirmed ?Last Taken ?Type apixaban 5 mg tablet (Eliquis) 5 mg PO BID 06/26/25 09/17/25 09/17/25 09:00 History clonazepam 1 mg tablet (Klonopin) 1 mg PO BID@0700,1900 06/26/25 09/17/25 09/17/25 09:00 History mirtazapine 30 mg tablet 30 mg PO BEDTIME 06/26/25 09/17/25 09/17/25 09:00 History multivitamin 1 tab PO DAILY 06/26/25 09/17/25 09/17/25 09:00 History oxycodone 5 mg tablet 2.5 mg PO BEDTIME PRN Moderate 06/26/25 09/17/25 09/17/25 09:00 History Pain (Scale Score 5-6) sennosides 8.6 mg tablet 17.2 mg PO DAILY PRN Constipation 06/26/25 09/17/25 09/17/25 09:00 History tamsulosin 0.4 mg capsule 0.4 mg PO BEDTIME 06/26/25 09/17/25 09/17/25 09:00 History lansoprazole 30 mg capsule,delayed 30 mg PO DAILY@0630 08/17/25 09/17/25 09/17/25 09:00 History release cholecalciferol (vitamin D3) 50 50 mcg PO DAILY 08/22/25 09/17/25 09/17/25 09:00 History mcg (2,000 unit) capsule (Vitamin D3) melatonin 3 mg tablet 6 mg PO BEDTIME 08/22/25 09/17/25 09/17/25 09:00 History Lactobacillus rhamnosus GG 15 1 cap PO DAILY 08/31/25 09/17/25 09/17/25 09:00 History billion cell sprinkle capsule (Culturelle) bisacodyl 5 mg tablet 5 mg PO BEDTIME PRN Constipation 08/31/25 09/17/25 09/17/25 09:00 History ceramides 1,3,6-II (CeraVe topical 1 appl topical TID PRN Itching 08/31/25 09/17/25 09/17/25 09:00 History cream) nystatin 100,000 unit/gram topical 1 appl topical BID PRN Rash 08/31/25 09/17/25 09/17/25 09:00 History cream ondansetron HCl 4 mg tablet 4 mg PO Q8H PRN nausea/vomiting 08/31/25 09/17/25 09/17/25 09:00 History acetaminophen 500 mg tablet 1,000 mg PO TID 09/14/25 09/17/25 09/17/25 09:00 History triamcinolone acetonide 0.1 % 1 appl topical BID 09/14/25 09/17/25 09/17/25 09:00 History topical ointment Exam Height,Weight and Vital Signs: Height 5 ft 11 in Weight 74 kg Last Vital Signs Temp 98.3 F 09/20/25 08:16 Pulse 84 09/20/25 08:16 Resp 18 09/20/25 08:16 BP 105/56 L 09/20/25 08:16 Pulse Ox 93 09/20/25 08:16 O2 Del Method Room Air 09/20/25 08:16 Pertinent Lab Results Pertinent Lab Results: Laboratory Tests 09/17/25 09/17/25 09/18/25 15:16 17:49 05:15 WBC 8.1 6.2 RBC 4.26 L 3.97 L Hgb 12.3 L 11.7 L Hct 37.2 L 34.6 L MCV 87.3 87.2 MCH 28.9 29.5 MCHC 33.1 33.8 RDW 13.3 13.2 Plt Count 219 188 MPV 8.7 L 8.5 L Immature Gran % (Auto) 0.1 0.3 Neut % (Auto) 61.3 50.3 Lymph % (Auto) 24.8 33.1 [place] % (Auto) 10.5 10.5 Eos % (Auto) 2.7 5.2 H Baso % (Auto) 0.6 0.6 Lymph # (Auto) 2.0 2.1 [place] # (Auto) 0.9 0.7 Eos # (Auto) 0.2 0.3 Baso # (Auto) 0.1 0.0 Abs Immat Gran (auto) 0.01 0.02 Absolute Neuts (auto) 5.0 3.1 Absolute Nucleated RBC 0.000 0.000 Nucleated RBC % (auto) 0.0 0.0 PT 15.8 H 16.8 H INR 1.3 H 1.4 H Sodium 138 139 Potassium 4.0 4.0 Chloride 105 108 Carbon Dioxide 24 24 Anion Gap 13 11 L BUN 11 9 Creatinine 0.93 0.78 Estim Creat Clear Calc 72.9 86.9 Estimated GFR > 60 > 60 Random Glucose 94 91 Lactic Acid 1.8 Calcium 9.4 D 8.9 Magnesium 1.8 1.9 Total Bilirubin 0.3 0.6 AST 30 22 ALT 22 20 Alkaline Phosphatase 64 57 Total Protein 7.0 6.2 L Albumin 4.2 3.8 Urine Color DK YELLOW Urine Appearance Hazy Urine pH 5.5 Ur Specific [place] 1.025 Urine Protein 100 (2+) H Urine Glucose (UA) Negative Urine Ketones Trace Urine Blood Large (3+) H Urine Nitrite Negative Ur Leukocyte Esterase Moderate (2+) H Urine RBC >20 H Urine WBC >50 H Ur Squamous Epith Cells 0-2 Urine Bacteria 3+ Hyaline Casts 3-5 09/19/25 09/20/25 05:24 05:15 WBC 6.6 6.1 RBC 4.31 L 4.26 L Hgb 12.4 L 12.2 L Hct 37.6 L 37.6 L MCV 87.2 88.3 MCH 28.8 28.6 MCHC 33.0 32.4 RDW 13.2 13.0 Plt Count 206 212 MPV 8.7 L 9.1 L Immature Gran % (Auto) 0.3 0.2 Neut % (Auto) 58.4 62.2 Lymph % (Auto) 26.3 23.6 [place] % (Auto) 9.6 9.7 Eos % (Auto) 4.9 H 3.6 Baso % (Auto) 0.5 0.7 Lymph # (Auto) 1.7 1.4 [place] # (Auto) 0.6 0.6 Eos # (Auto) 0.3 0.2 Baso # (Auto) 0.0 0.0 Abs Immat Gran (auto) 0.02 0.01 Absolute Neuts (auto) 3.9 3.8 Absolute Nucleated RBC 0.000 0.000 Nucleated RBC % (auto) 0.0 0.0 PT 13.8 H 13.3 INR 1.1 1.1 Sodium 140 138 Potassium 4.0 3.8 Chloride 106 104 Carbon Dioxide 26 24 Anion Gap 12 14 BUN 10 10 Creatinine 0.81 0.95 Estim Creat Clear Calc 83.7 71.4 Estimated GFR > 60 > 60 Random Glucose 87 88 Lactic Acid Calcium 9.3 9.0 Magnesium 2.0 1.8 Total Bilirubin 0.5 0.6 AST 26 31 ALT 25 26 Alkaline Phosphatase 62 85 Total Protein 6.6 6.5 Albumin 4.0 4.0 Urine Color Urine Appearance Urine pH Ur Specific [place] Urine Protein Urine Glucose (UA) Urine Ketones Urine Blood Urine Nitrite Ur Leukocyte Esterase Urine RBC Urine WBC Ur Squamous Epith Cells Urine Bacteria Hyaline Casts Airway Mallampati Class: II TM Dist: >3cm Neck ROM: Full Loose/Missing/Broken Teeth: No Heart: RRR Lungs: CTA Assessment and Plan Assessment Anesthesia Assessment: Anesthesia Plan Discussed and Chart Reviewed Final Anesthetic Review Family History of Problems with Anesthesia: No History of Problems with Anesthesia: No NPO: Yes ASA Class: III Final Preanesthetic Review: No Changes in Pt Med Stat, Meds/Allgs Chart Reviewed, Consent Obtained/Reviewed, Anes Risks/Benef Reviewed and DNR Form (If Appl.) Patient Risk: Intermediate Procedure Risk: Low Anesthetic Plan Anesthetic Plan: GA Disposition: Standard PACU
--- NOTE | 2025-09-20 12:06 | MHC.SHP ---
Pre-Procedural Eval Section A - 24 Hr Update-Section A only Date of Service: 09/20/25 The patient is an INPATIENT: Yes Changes since office visit: No Cold of Flu in the past 2 weeks, No New Medical Problems, No Changes in Medication and No Patient answered all questions The patient has been examined within 24 hours of the surgical procedure. The History & Physical has been completed within 30 days and I have reviewed it.: Yes Section B - Complete if H&P > 30 days Chief Complaint: Hematuria, urinary retention Details of Present Illness: cystoscopy with SPT placement Allergies: Allergies Allergy/AdvReac Type Severity Reaction Status Date / Time No Known Allergies Allergy Verified 09/17/25 14:32 Plan I have reviewed the history and physical and performed a pertinent physical examination on my patient. No changes have occurred unless specified. Time Spent With Patient Time: Total time managing care of this patient today ____ minutes.
--- NOTE | 2025-09-20 12:40 | P.OP_ITS ---
Operative Note Operative Note Date of Service: 09/20/25 Narrative: PreOperative Diagnosis:?neurogenic bladder Post Operative Diagnosis:?neurogenic bladder Procedure:? 1. Cystoscopy 2. Suprapubic tube placement Surgeon: Dr Diego Baltazar Anesthesia:?Sedation plus local Indications for procedure: Recurrent retention with catheter associated urinary tract infection. [employer] are proxy is his sister Cheryl who has given telephone consent. Procedure: After informed consent was verified the patient was brought to the operating room and placed in a supine position.? Anesthesia was administered per protocol. The patient was placed in a modified dorsal lithotomy position and prepped and draped in a sterile fashion. A safety pause was performed confirming patient identity, procedure and antibiotics. A 22 [place] cystoscope was inserted per urethra. Bladder was examined in its entirety. No abnormalities seen. Air bubble was located at the dome of the bladder. A finder needle was inserted 2 fingerbreaths above the symphysis pubis on the abdomen into the bladder.? The needle was visualized in the bladder via cystoscopy. Local anesthetic was infiltrated subcutaneously around the needle introduction site. A small, 1cm horizontal incision was made.? A trocar introducer was advanced through the abdominal wall into the bladder under visualization. The obturator was removed and a 16 Fr bhatt catheter placed. 7cc was used to inflate the balloon. The external portion of the trocar was removed. Dressing was placed, the bladder was emptied, and a drainage bag was attached. The patient tolerated the procedure and was transferred in stable condition to the recovery area. Suprapubic tube will be changed in 1 month with a follow-up office visit.
[2025-09-20] MEDS: oxyCODONE HCl Immed Release 5 MG TABLET 2.5 MG PO ×2 (15:29→21:37)
--- NOTE | 2025-09-20 17:25 | PC.NURSE ---
Dressing changed to suprapubic area. Sutures intact. Catheter draining yellow urine
[2025-09-20] MEDS: Milk of Magnesia 30 ML ORAL.SUSP PO (18:07)
[2025-09-21] VITALS (8 sets, daily range): BP systolic 89–112; BP diastolic 50–70; PULSE 64–78; RESP 16–18; TEMP 36.3–37.1; O2SAT 93–98
[2025-09-21 06:37] LABS: MANUAL DIFF FLAG NO
[2025-09-21 06:45] LABS: Hematocrit 36.3 % (42.0-52.0); Hemoglobin 11.8 g/dl (14.0-18.0); Imm Gran Abs Auto 0.01 X10*3/uL (0.00-0.03); Imm Gran Pct Auto 0.2 % (0.0-0.4); Lymphocytes Absolute Auto 1.7 X10*3/uL (1.2-4.9); Mean Corpuscular HGB Conc 32.5 g/dl (31.0-36.0); Mean Corpuscular Hemoglobin 28.7 pg (27.0-33.0); Mean Corpuscular Volume 88.3 fL (80.0-98.0); NRBC Abs Auto 0.000 X10*3/uL (0.0-0.012); NRBC Pct Auto 0.0 /100WBC (0.0-0.2); Platelet Count 200 X10*3/uL (160-400); Red Blood Count 4.11 X10*6/uL (4.60-5.80); White Blood Count 5.0 X10*3/uL (4.8-10.8)
[2025-09-21 06:50] LABS: INTERNATIONAL NORM RATIO 1.0 (0.9-1.1); Prothrombin Time 12.5 SEC (11.2-13.5)
[2025-09-21] MEDS: oxyCODONE HCl Immed Release 5 MG TABLET 2.5 MG PO ×2 (07:06→13:17)
[2025-09-21] MEDS: oxyCODONE HCl ER 10 MG TAB.ER.12H PO ×2 (07:06→20:13)
[2025-09-21 07:14] LABS: Alanine Aminotransferase 36 U/L (0-40); Albumin Level 3.9 g/dL (3.5-5.0); Alkaline Phosphatase 71 U/L (39-117); Anion Gap 11 (12-20); Aspartate Amino Transferase 36 U/L (5-37); Blood Urea Nitrogen 14 mg/dL (9-16); Calcium 8.8 mg/dL (8.4-10.2); Carbon Dioxide 26 mmol/L (22-29); Chloride 106 mmol/L (96-108); Creatinine Clr Calc Pharmacy 84.7; Estimated Glomerular Filt Rate > 60; Magnesium 2.2 mg/dL (1.6-2.6); Potassium 4.0 mmol/L (3.3-5.1); Sodium 139 mmol/L (135-145); Total Protein 6.4 g/dL (6.5-8.0)
--- NOTE | 2025-09-21 08:23 | P.PNUR_ITS ---
Subjective Subjective Date of Service: 09/21/25 Interval history: Henderson catheter in place a suprapubic Draining freely Does have some incision tendinous This should resolve Did discuss mucus production which is not evidence of infection He will follow-up in 4 weeks in office Physical Exam 2 Vital Signs: Vital Signs: Last Vital Signs Temp 98.6 F 09/21/25 07:51 Pulse 73 09/21/25 07:51 Resp 16 09/21/25 07:51 BP 112/70 09/21/25 08:22 Pulse Ox 93 09/21/25 07:51 O2 Del Method Room Air 09/21/25 07:51 BMI result Body Mass Index 22.8 Const: General: cooperative, healthy appearing, comfortable and no acute distress Orientation/consciousness: patient oriented x3 HEENT: Face and sinus: Yes normal facial exam Mouth: moist mucous membranes Neck: Neck: Yes normal visual inspection, Yes full ROM and Yes trachea midline Chest: Chest palpation & inspection: normal inspection of the chest Resp: Effort & Inspection: normal respiratory effort, able to speak in complete sentences and no respiratory distress GI: Inspection: Yes normal to inspection Back/Spine/Pelvis: Cervical Spine: normal cervical lordosis Thoracic/Lumbar Spine: thoracic and lumbar spine normal to inspection Skin: General skin exam: no rashes or lesions noted Neuro: General: patient oriented x3, tone normal and moves all extremities Extrem: General: Yes normal to inspection and Yes capillary refill normal Urology Results Labs 09/21/25 06:05 09/21/25 06:05 Labs: Laboratory Results - last 24 hr 09/21/25 06:05 WBC 5.0 RBC 4.11 L Hgb 11.8 L Hct 36.3 L MCV 88.3 MCH 28.7 MCHC 32.5 RDW 13.1 Plt Count 200 MPV 9.2 L Immature Gran % (Auto) 0.2 Neut % (Auto) 44.8 L Lymph % (Auto) 34.7 [place] % (Auto) 13.7 H Eos % (Auto) 6.0 H Baso % (Auto) 0.6 Lymph # (Auto) 1.7 [place] # (Auto) 0.7 Eos # (Auto) 0.3 Baso # (Auto) 0.0 Abs Immat Gran (auto) 0.01 Absolute Neuts (auto) 2.2 Absolute Nucleated RBC 0.000 Nucleated RBC % (auto) 0.0 PT 12.5 INR 1.0 Sodium 139 Potassium 4.0 Chloride 106 Carbon Dioxide 26 Anion Gap 11 L BUN 14 Creatinine 0.80 Estim Creat Clear Calc 84.7 Estimated GFR > 60 Random Glucose 97 Calcium 8.8 Magnesium 2.2 Total Bilirubin 0.3 AST 36 ALT 36 Alkaline Phosphatase 71 Total Protein 6.4 L Albumin 3.9 Progress Note: A&P Assessment and plan (1) Catheter-associated urinary tract infection: Status: Acute (2) Urinary retention with incomplete bladder emptying: Status: Acute Plan 4 week follow-up outpatient catheter change Time Spent With Patient Time: Total time managing care of this patient today ____ minutes. Progress Note: Quality Stroke Does the patient have a stroke diagnosis?: No
--- NOTE | 2025-09-21 09:44 | HO.POSTANES ---
Post Anesthesia Evaluation Post Anesthesia Evaluation Date of Service: 09/21/25 Vital Signs: Vital Signs Temp Pulse Resp BP Pulse Ox O2 Del Method 09/21/25 08:22 112/70 09/21/25 07:51 98.6 F 73 16 89/53 L 93 Room Air 09/21/25 04:00 97.4 F 64 18 99/53 L 94 Room Air 09/20/25 23:40 97.2 F 67 18 116/59 L 95 Room Air Anesthesia: General Mental Status: Awake Pain Control: Satisfactory Nausea/Vomiting: None Hydration: Adequate Anesthesia-Related Issues: No Anes. Related Issues
--- NOTE | 2025-09-21 10:57 | P.CDIM_ITS ---
PROVIDER RESPONSE TEXT: To clarify, the appropriate diagnosis supported by the clinical indicators: Sepsis secondary to Enterococcus UTI remains a known or suspected condition for this patient QUERY TEXT: PHYSICIAN'S DOCUMENTATION REQUEST Date of Query: 09/21/2025 09:08 AM EST Patient Name: Yong Gold Admit Date: 09/18/2025 Dear Sandi Harrington MD, A review of the medical record indicates additional documentation may be needed. Please review below and update the documentation accordingly. The purpose of this query is not to question medical judgment, but to ensure the accuracy of the conditions reported for your patient. The diagnosis of Sepsis is documented in the record. There is either a lack of clinical support for this condition in the current medical record, or there is a lack of recognized standard criteria to support the condition. Clinical indicators: Progress notes 09/18/25 - Sepsis secondary to Enterococcus UTI likely secondary to obstructive uropathy. Amoxicillin WBC 8.1 LA wnl Temp 97.9 RR 16 UA positive Please clarify the documentation of Sepsis: Sepsis secondary to Enterococcus UTI remains a known or suspected condition for this patient Sepsis has been ruled out and a more appropriate diagnosis for this patient's condition is UTI Other (explain) Clinically unable to determine (explain) Thank you, Kari Tejeda, CCS, CDIS Use of terms such as suspected, likely, concern for, or probable (associated with a specific diagnosis that is being evaluated, monitored, or treated as if it exists) are acceptable and can be coded in the inpatient setting, when documented at the time of discharge. Please use your independent medical judgment in providing your response. THIS QUERY IS PART OF THE PERMANENT MEDICAL RECORD
--- NOTE | 2025-09-21 13:12 | P.PNIM_ITS ---
Subjective Subjective Date of Service: 09/21/25 Interval History: Pt deconditioned STR recommended Review of Systems Review of Systems: Yes all other systems are reviewed and are negative Physical Exam 2 Exam: Exam: General: AOx3, no acute distress Resp: CTA bilaterally CVS: S1, S2, RRR GI: +BS, NT, no distention Genitourinary-suprapubic cath CDI Vital Signs: Vital Signs: Last Vital Signs Temp 98.7 F 09/21/25 12:00 Pulse 68 09/21/25 12:00 Resp 16 09/21/25 12:00 BP 92/54 L 09/21/25 12:00 Pulse Ox 94 09/21/25 12:00 O2 Del Method Room Air 09/21/25 12:00 BMI result Body Mass Index 22.8 Objective Data Active Medications Acetaminophen (Acetaminophen 325 Mg Tablet) 650 mg PO Q6H PRN PRN Reason: Pain, Mild 1-3,fever,headache Acetaminophen (Acetaminophen 325 Mg Tablet) 975 mg PO TID [facility] Last Admin: 09/21/25 07:06 Dose: 975 mg Documented By: BELINDA Amoxicillin (Amoxicillin 500 Mg Capsule) 1,000 mg PO Q8H [facility] Stop: 09/29/25 08:59 Last Admin: 09/21/25 07:07 Dose: 1,000 mg Documented By: BELINDA Bisacodyl (Bisacodyl 5 Mg Tablet.Dr) 5 mg PO BEDTIME PRN PRN Reason: Constipation Calcium Carbonate (Calcium Carbonate 750 Mg Tab.Chew) 750 mg PO Q4H PRN PRN Reason: Heartburn Clonazepam (Clonazepam 1 Mg Tablet) 1 mg PO BID@0700,1900 [facility] Last Admin: 09/21/25 05:58 Dose: 1 mg Documented By: ODRISDanie Enoxaparin Sodium (Enoxaparin Sodium 40 Mg/0.4 Ml Syringe) 40 mg SUBCUT Q24H [facility] Last Admin: 09/20/25 18:02 Dose: 40 mg Documented By: ROJELIO Finasteride (Finasteride 5 Mg Tablet) 5 mg PO DAILY [facility] Last Admin: 09/21/25 07:06 Dose: 5 mg Documented By: BELINDA Magnesium Hydroxide (Milk Of Magnesia 30 Ml Oral.Susp) 30 ml PO DAILY PRN PRN Reason: Constipation Last Admin: 09/20/25 18:07 Dose: 30 ml Documented By: ROJELIO Melatonin (Melatonin 3 Mg Tablet) 6 mg PO BEDTIME [facility] Last Admin: 09/20/25 20:07 Dose: 6 mg Documented By: EVELINE Mirtazapine (Mirtazapine 30 Mg Tablet) 30 mg PO BEDTIME [facility] Last Admin: 09/20/25 20:07 Dose: 30 mg Documented By: EVELINE Multi-Ingred Cream/Lotion/Oil/Oint (Mineral Oil/Petrolatum,White 113 Gm Jar) 1 appl TOPICAL TID PRN PRN Reason: Itching Multivitamins/Vitamin C (Multivitamin Tablet) 1 tab PO DAILY [facility] Last Admin: 09/21/25 07:07 Dose: 1 tab Documented By: BELINDA Naloxone HCl (Naloxone Hcl 0.4 Mg/Ml Vial) 0.04 mg IVPUSH Q5M PRN PRN Reason: Excessive sedation or RR < 8 Nystatin (Nystatin Cream 15 Gm Tube) 1 appl TOPICAL BID PRN; Protocol PRN Reason: Rash Omeprazole (Omeprazole 20 Mg Capsule.Dr) 20 mg PO DAILY@0630 [facility] Last Admin: 09/21/25 05:58 Dose: 20 mg Documented By: EVELINE Oxycodone HCl (Oxycodone Hcl Immed Release 5 Mg Tablet) 2.5 mg PO Q6H PRN PRN Reason: Moderate Pain (Scale Score 5-6) Last Admin: 09/21/25 07:06 Dose: 2.5 mg Documented By: BELINDA Oxycodone HCl (Oxycodone Hcl Er 10 Mg Tab.Er.12h) 10 mg PO BID [facility] Last Admin: 09/21/25 07:06 Dose: 10 mg Documented By: BELINDA Polyethylene Glycol (Polyethylene Glycol 3350 17 Gm Powd.Pack) 17 gm PO DAILY [facility] Last Admin: 09/21/25 07:28 Dose: 17 gm Documented By: ROJELIO Senna (Sennosides 8.6 Mg Tablet) 17.2 mg PO DAILY PRN PRN Reason: Constipation Last Admin: 09/21/25 11:14 Dose: 17.2 mg Documented By: ROJELIO Sodium Chloride (0.9 % Sodium Chloride Flush 3 Ml Syringe) 3 ml IVFLUSH QSHIFT [facility] Last Admin: 09/21/25 07:07 Dose: Not Given Documented By: BELINDA Non-Admin Reason: Previously Administered Tamsulosin HCl (Tamsulosin Hcl 0.4 Mg Capsule) 0.4 mg PO BEDTIME [facility] Last Admin: 09/20/25 20:07 Dose: 0.4 mg Documented By: EVELINE Triamcinolone Acetonide (Triamcinolone Acet 0.1 % Oint 15 Gm Tube) 1 appl TOPICAL BID [facility] Last Admin: 09/21/25 09:34 Dose: Not Given Documented By: ROJELIO Non-Admin Reason: Med Not Available Vitamin D (Cholecalciferol (Vitamin D3) 25 Mcg Tablet) 50 mcg PO DAILY [facility] Last Admin: 09/21/25 07:06 Dose: 50 mcg Documented By: BELINDA Labs 09/21/25 06:05 09/21/25 06:05 Labs: Laboratory Results - last 24 hr 09/21/25 06:05 MCV 88.3 MCH 28.7 MCHC 32.5 RDW 13.1 Plt Count 200 MPV 9.2 L Immature Gran % (Auto) 0.2 Neut % (Auto) 44.8 L Lymph % (Auto) 34.7 [place] % (Auto) 13.7 H Eos % (Auto) 6.0 H Baso % (Auto) 0.6 Lymph # (Auto) 1.7 [place] # (Auto) 0.7 Eos # (Auto) 0.3 Baso # (Auto) 0.0 Abs Immat Gran (auto) 0.01 Absolute Neuts (auto) 2.2 Absolute Nucleated RBC 0.000 Nucleated RBC % (auto) 0.0 PT 12.5 INR 1.0 Anion Gap 11 L Estim Creat Clear Calc 84.7 Estimated GFR > 60 Random Glucose 97 Calcium 8.8 Magnesium 2.2 Total Bilirubin 0.3 AST 36 ALT 36 Alkaline Phosphatase 71 Total Protein 6.4 L Albumin 3.9 Assessment and Plan (1) Hematuria: Status: Acute Assessment and Plan: Patient who is relatively new to our system, apparently moved from [place] 75-year-old male with a past medical history of HLD, CHF, orthostatic hypotension, BPH, CAD, prostate cancer, 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 Patient underwent suprapubic catheter and medically optimized for DC , awaiting short-term rehab placement Hematuria Acute on chronic urinary retention Likely multifactorial-Henderson manipulation, traumatic Henderson unclear when it was placed patient has an unreliable historian, and on anticoagulation at the time of admission Thankfully H&H stable Status post suprapubic 09/20/2025 Sepsis secondary to Enterococcus UTI Likely secondary to obstructive uropathy UA C/S growing Enterococcus we will continue Amoxicillin 1000mg po Q8H - 10day course- last day 09/29/25 Splenic infarct history per family for which he was on Eliquis for awhile History of splenic infarct ruled out with imaging, we will discontinue Eliquis Bladder spasms-Pyridium initiated BPH Flomax, tamsulosin, Henderson History of prostate cancer -Urology outpatient Chronic pain syndrome Tylenol, oxycodone p.r.n., OxyContin scheduled Opioid induced constipation Resume bowel meds patient continues to refuse intermittently even though he does endorse constipation MD Passive SI for a very long time Multiple prior ECTs Although the patient did not endorse any active suicidal ideation, based on prior note of Psychiatry 08/12/2025 and after discussion with the case folder from [facility] day appears that the patient has high utilization of healthcare services as evidenced by his ED visits and admissions on the , , , and 17 of September already and experiencing possible conversion syndrome. Psych consulted- do not believe its conversion OP psych f/up Psych per notes stated doesnt need CARE team consult prior to DC DVT prophylaxis Lovenox Code status DNR DNI Functional status-cane or walker Spoke to the healthcare proxy Cheryl at the time of admission- [phone] Would benefit from PT eval -patient is extensively not motivated in participating states he is weak and can not take care of the suprapubic catheter. Is redirectable but needs a lot of reassurance. Currently awaiting short-term rehab placement, hence the hold up This note is constructed using voice recognition software. While every effort has been made to ensure accuracy, tearer errors may have been included. Quality Stroke Does the patient have a stroke diagnosis?: No VTE Prior VTE?: No VTE Risk Level:: Medical - moderate - high VTE Device Contraindication: N/A - Device Ordered VTE Drug Contraindication: N/A - Med Ordered
[2025-09-21] MEDS: 0.9 % Sodium Chloride Flush 3 ML SYRINGE IVFLUSH ×2 (14:46→20:17)
--- NOTE | 2025-09-21 15:55 | MHC.CM.PN ---
PT NOTIFIED THIS MORNING HE WAS MEDICALLY CLEARED TO DC AND STR IS RECOMMENDED HE REPORTED BEING AGREEABLE AND THEN ASKED CM TO SPEAK WITH HIS SISTER, CATINA CM CALLED CATINA AT THE NUMBER LISTED, SHE REQUESTED REFERRALS TO SNS IN HER AREA. [facility] ([facility] ON THE [facility], [facility], [facility], AND [facility] REHAB REFERRALS MADE, NO BED OFFERS [facility] OFFERED A BED, SISTER AWARE AND ASKS THAT SHE BE ABLE TO CONTACT SOMEONE ELSE FOR INPUT, SHE WILL CALL CM BACK
[2025-09-21] MEDS: Milk of Magnesia 30 ML ORAL.SUSP PO (18:06)
--- NOTE | 2025-09-21 19:13 | PC.NURSE ---
Pt ambulated into ricci approximately 75 feet using walker.
[2025-09-22 04:00] VITALS: BP 92/53; PULSE 58; RESP 18; TEMP 36.2; O2SAT 95
[2025-09-22 06:57] LABS: MANUAL DIFF FLAG NO
[2025-09-22 07:06] LABS: Hematocrit 35.4 % (42.0-52.0); Hemoglobin 11.5 g/dl (14.0-18.0); Imm Gran Abs Auto 0.01 X10*3/uL (0.00-0.03); Imm Gran Pct Auto 0.2 % (0.0-0.4); Lymphocytes Absolute Auto 1.9 X10*3/uL (1.2-4.9); Mean Corpuscular HGB Conc 32.5 g/dl (31.0-36.0); Mean Corpuscular Hemoglobin 28.8 pg (27.0-33.0); Mean Corpuscular Volume 88.5 fL (80.0-98.0); NRBC Abs Auto 0.000 X10*3/uL (0.0-0.012); NRBC Pct Auto 0.0 /100WBC (0.0-0.2); Platelet Count 224 X10*3/uL (160-400); Red Blood Count 4.00 X10*6/uL (4.60-5.80); White Blood Count 4.6 X10*3/uL (4.8-10.8)
[2025-09-22 07:12] LABS: INTERNATIONAL NORM RATIO 1.0 (0.9-1.1); Prothrombin Time 11.8 SEC (11.2-13.5)
[2025-09-22 07:26] LABS: Alanine Aminotransferase 42 U/L (0-40); Albumin Level 3.6 g/dL (3.5-5.0); Alkaline Phosphatase 78 U/L (39-117); Anion Gap 12 (12-20); Aspartate Amino Transferase 43 U/L (5-37); Blood Urea Nitrogen 12 mg/dL (9-16); Calcium 8.7 mg/dL (8.4-10.2); Carbon Dioxide 27 mmol/L (22-29); Chloride 106 mmol/L (96-108); Creatinine Clr Calc Pharmacy 102.7; Estimated Glomerular Filt Rate > 60; Magnesium 2.2 mg/dL (1.6-2.6); Potassium 3.9 mmol/L (3.3-5.1); Sodium 141 mmol/L (135-145); Total Protein 6.1 g/dL (6.5-8.0)
[2025-09-22 08:00] VITALS: BP 98/54; PULSE 63; RESP 12; TEMP 36.8; O2SAT 94
[2025-09-22] MEDS: oxyCODONE HCl ER 10 MG TAB.ER.12H PO (08:14)
--- NOTE | 2025-09-22 08:16 | P.PNIM_ITS ---
Subjective Subjective Date of Service: 09/22/25 Physical Exam 2 Vital Signs: Vital Signs: Last Vital Signs Temp 98.3 F 09/22/25 08:00 Pulse 63 09/22/25 08:00 Resp 12 09/22/25 08:00 BP 98/54 L 09/22/25 08:00 Pulse Ox 94 09/22/25 08:00 O2 Del Method Room Air 09/22/25 08:00 BMI result Body Mass Index 22.8 Objective Data Active Medications Acetaminophen (Acetaminophen 325 Mg Tablet) 650 mg PO Q6H PRN PRN Reason: Pain, Mild 1-3,fever,headache Acetaminophen (Acetaminophen 325 Mg Tablet) 975 mg PO TID [facility] Last Admin: 09/21/25 20:13 Dose: 975 mg Documented By: EVELINE Amoxicillin (Amoxicillin 500 Mg Capsule) 1,000 mg PO Q8H [facility] Stop: 09/29/25 08:59 Last Admin: 09/22/25 01:10 Dose: 1,000 mg Documented By: EVELINE Bisacodyl (Bisacodyl 5 Mg Tablet.Dr) 5 mg PO BEDTIME PRN PRN Reason: Constipation Calcium Carbonate (Calcium Carbonate 750 Mg Tab.Chew) 750 mg PO Q4H PRN PRN Reason: Heartburn Clonazepam (Clonazepam 1 Mg Tablet) 1 mg PO BID@0700,1900 [facility] Last Admin: 09/22/25 05:52 Dose: 1 mg Documented By: EVELINE Enoxaparin Sodium (Enoxaparin Sodium 40 Mg/0.4 Ml Syringe) 40 mg SUBCUT Q24H [facility] Last Admin: 09/21/25 18:06 Dose: 40 mg Documented By: ROJELIO Finasteride (Finasteride 5 Mg Tablet) 5 mg PO DAILY [facility] Last Admin: 09/21/25 07:06 Dose: 5 mg Documented By: BELINDA Magnesium Hydroxide (Milk Of Magnesia 30 Ml Oral.Susp) 30 ml PO DAILY PRN PRN Reason: Constipation Last Admin: 09/21/25 18:06 Dose: 30 ml Documented By: ROJELIO Melatonin (Melatonin 3 Mg Tablet) 6 mg PO BEDTIME [facility] Last Admin: 09/21/25 20:13 Dose: 6 mg Documented By: EVELINE Mirtazapine (Mirtazapine 30 Mg Tablet) 30 mg PO BEDTIME [facility] Last Admin: 09/21/25 20:13 Dose: 30 mg Documented By: EVELINE Multi-Ingred Cream/Lotion/Oil/Oint (Mineral Oil/Petrolatum,White 113 Gm Jar) 1 appl TOPICAL TID PRN PRN Reason: Itching Multivitamins/Vitamin C (Multivitamin Tablet) 1 tab PO DAILY [facility] Last Admin: 09/21/25 07:07 Dose: 1 tab Documented By: BELINDA Naloxone HCl (Naloxone Hcl 0.4 Mg/Ml Vial) 0.04 mg IVPUSH Q5M PRN PRN Reason: Excessive sedation or RR < 8 Nystatin (Nystatin Cream 15 Gm Tube) 1 appl TOPICAL BID PRN; Protocol PRN Reason: Rash Omeprazole (Omeprazole 20 Mg Capsule.Dr) 20 mg PO DAILY@0630 [facility] Last Admin: 09/22/25 05:52 Dose: 20 mg Documented By: EVELINE Oxycodone HCl (Oxycodone Hcl Immed Release 5 Mg Tablet) 2.5 mg PO Q6H PRN PRN Reason: Moderate Pain (Scale Score 5-6) Last Admin: 09/21/25 13:17 Dose: 2.5 mg Documented By: ROJELIO Oxycodone HCl (Oxycodone Hcl Er 10 Mg Tab.Er.12h) 10 mg PO BID [facility] Last Admin: 09/21/25 20:13 Dose: 10 mg Documented By: EVELINE Polyethylene Glycol (Polyethylene Glycol 3350 17 Gm Powd.Pack) 17 gm PO DAILY [facility] Last Admin: 09/21/25 07:28 Dose: 17 gm Documented By: ROJELIO Senna (Sennosides 8.6 Mg Tablet) 17.2 mg PO DAILY PRN PRN Reason: Constipation Last Admin: 09/21/25 11:14 Dose: 17.2 mg Documented By: ROJELIO Sodium Chloride (0.9 % Sodium Chloride Flush 3 Ml Syringe) 3 ml IVFLUSH QSHIFT [facility] Last Admin: 09/21/25 20:17 Dose: 3 ml Documented By: EVELINE Tamsulosin HCl (Tamsulosin Hcl 0.4 Mg Capsule) 0.4 mg PO BEDTIME [facility] Last Admin: 09/21/25 20:13 Dose: 0.4 mg Documented By: EVELINE Triamcinolone Acetonide (Triamcinolone Acet 0.1 % Oint 15 Gm Tube) 1 appl TOPICAL BID [facility] Last Admin: 09/21/25 20:20 Dose: Not Given Documented By: EVELINE Non-Admin Reason: Med Not Available Vitamin D (Cholecalciferol (Vitamin D3) 25 Mcg Tablet) 50 mcg PO DAILY [facility] Last Admin: 09/21/25 07:06 Dose: 50 mcg Documented By: BELINDA Labs 09/22/25 05:52 09/22/25 05:52 Labs: Laboratory Results - last 24 hr 09/22/25 05:52 MCV 88.5 MCH 28.8 MCHC 32.5 RDW 13.0 Plt Count 224 MPV 9.1 L Immature Gran % (Auto) 0.2 Neut % (Auto) 34.9 L Lymph % (Auto) 41.5 [place] % (Auto) 14.1 H Eos % (Auto) 8.4 H Baso % (Auto) 0.9 Lymph # (Auto) 1.9 [place] # (Auto) 0.6 Eos # (Auto) 0.4 Baso # (Auto) 0.0 Abs Immat Gran (auto) 0.01 Absolute Neuts (auto) 1.6 L Absolute Nucleated RBC 0.000 Nucleated RBC % (auto) 0.0 PT 11.8 INR 1.0 Anion Gap 12 Estim Creat Clear Calc 102.7 Estimated GFR > 60 Random Glucose 88 Calcium 8.7 Magnesium 2.2 Total Bilirubin 0.3 AST 43 H ALT 42 H Alkaline Phosphatase 78 Total Protein 6.1 L Albumin 3.6 Quality Stroke Does the patient have a stroke diagnosis?: No VTE Prior VTE?: No VTE Risk Level:: Medical - moderate - high VTE Device Contraindication: N/A - Device Ordered VTE Drug Contraindication: N/A - Med Ordered
[2025-09-22] MEDS: 0.9 % Sodium Chloride Flush 3 ML SYRINGE IVFLUSH (08:19)
--- NOTE | 2025-09-22 10:00 | PC.NURSE ---
Patient c/o dizziness when working with PT, PT Vimal performed orthostatic vital signs and reported being positive. Provider Juany notified in person during rounds, provider expressed no concern at this time reporting it as patient's baseline. Patient encouraged to drink fluids. Patient also fixated on having a bowel movement, patient did get up to bathroom with nurse and moderate liquid/mushy stool was noted in toilet, patient feels there is more stool that needs to come out, asked provider for enema or suppository on patient request, waiting on order.
[2025-09-22 10:07] VITALS: BP 107/57; PULSE 62; O2SAT 96
--- NOTE | 2025-09-22 11:14 | MHC.CM.PN ---
Patient medically cleared for dc to [facility]. Patient and sister accepted bed at [facility]. Transport booked for 4pm. Patient, RN and MD aware. IMM delivered.
[2025-09-22 11:57] VITALS: BP 111/59; PULSE 68; RESP 16; TEMP 36.8; O2SAT 96
[2025-09-22] MEDS: Triamcinolone Acet 0.1 % Oint 15 GM TUBE 1 APPL TOPICAL (12:48)
--- NOTE | 2025-09-22 12:50 | PC.NURSE ---
Enema administered, patient tolerated well, was able to hold liquid for a few minutes and ambulate to bathroom. Large amount of liquid stool in toilet, difficult to see if formed stool was made due to amount in toilet. Patient continues to feel that he has stool in his rectum that needs to come out because what is coming out in the toilet is just liquid, patient educated on bowel medications can make stool liquid, no firm stool felt when enema was administered and the applicator went in with ease and no stool noted on tip. Patient also complain of feeling as though he needs to void but can't, Dr. Baltazar was at bedside and discussed this with provider, provider educated patient on bladder spasms.
--- NOTE | 2025-09-22 12:56 | P.DS_ITS ---
DS: Providers Provider Date of Service: 09/22/25 Date of admission: 09/17/25 21:05 Date of discharge: 09/22/25 Primary care physician: Kimberly Davis MD Consults: 09/17/25 16:49 Consult to Psychiatry Routine Consulting Provider: [facility] Psych Covering Reason for consultation: conversion dx 09/17/25 17:19 Consult to Urology Routine Consulting Provider: [facility] Urology Services Reason for consultation: urinary retension 09/22/25 08:14 Inpt CARE Team Crisis Consult Routine Comment: Reason for consultation: Pt would benefit DS: Diagnosis Discharge Diagnosis (1) Hematuria: Status: Acute DS: Summary Hospital Course Hospital Course: Per H&P: Chief Complaint: blood in A/C bhatt catheter Patient who is relatively new to our system, apparently moved from [place] 75-year-old male with a past medical history of HLD, CHF, orthostatic hypotension, BPH, CAD, prostate cancer, 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 He was seen by Urology a week ago and suggested suprapubic catheter and patient had agreed however unsure at this time. Assisted living facility had transferred the patient to the ED and they had contacted Dr. Baltazar who suggested that he was a candidate for suprapubic catheter given his chronic retention. Patient did not meet SIRS criteria on admission. Spoke to [facility] who are healthcare [phone] to ask about his prior medical records in the said they will fax it to us at [phone]. We need prior records to adequately state if he needs Eliquis or not as they state that his spleen was removed however are imaging in June and July indicate intact spleen without any splenic infarct. 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 Patient underwent suprapubic catheter and medically optimized for DC , awaiting short-term rehab placement Hematuria Acute on chronic urinary retention Likely multifactorial-Bhatt manipulation, traumatic Bhatt unclear when it was placed patient has an unreliable historian, and on anticoagulation at the time of admission Thankfully H&H stable throughout the hospital stay Status post suprapubic catheter 09/20/2025 Sepsis secondary to Enterococcus UTI Likely secondary to obstructive uropathy, relieved post suprapubic catheter UA C/S growing Enterococcus we will continue Amoxicillin 1000mg po Q8H - 10day course- last day 09/29/25 Splenic infarct history per family for which he was on Eliquis for awhile History of splenic infarct ruled out with imaging, we will discontinue Eliquis Bladder spasms-Pyridium p.r.n. BPH Flomax, tamsulosin, suprapubic catheter History of prostate cancer -Urology outpatient Chronic pain syndrome Tylenol, oxycodone p.r.n., no new medications Opioid induced constipation Patient is fixated about his bowel movements and has been refusing bowel medications even though we had tried to encourage him to use it. He complains of constipation intermittently-all medications are p.o. and he can take it in his HALFWAY settings. MDD Passive SI for a very long time Multiple prior ECTs Although the patient did not endorse any active suicidal ideation, based on prior note of Psychiatry 08/12/2025 and after discussion with the field case manager from [facility] day appears that the patient has high utilization of healthcare services as evidenced by his ED visits and admissions on the , , , and August and experiencing possible conversion syndrome. Psych consulted- do not believe its conversion OP psych f/up Psych per notes stated doesnt need CARE team consult prior to DC We have reached out again prior to discharge and they stated he does not need her meet care team qualifications at this time Symptomatic orthostatic hypotension Patient patient very deconditioned and we have encouraged him to use John stocking, abdominal binder and p.r.n. midodrine. This is a chronic etiology for him and he is very motivated and lays in the bed the whole day stating I can not participate . We advised him to go to a rehab which he is refusing. DVT prophylaxis Lovenox while inpatient Code status DNR DNI Functional status-cane or walker Patient very deconditioned and deemed motivated-encouraged him to see Spoke to the healthcare proxy Cheryl at the time of admission- [phone] Would benefit from PT eval -patient is extensively not motivated in participating states he is weak and can not take care of the suprapubic catheter. Is redirectable but needs a lot of reassurance. Patient deemed hemodynamically stable, regarding his orthostatic hypotension, suprapubic catheter and constipation-he needs to follow up with PCP and use instructions in the discharge instructions as stated below. This note is constructed using voice recognition software. While every effort has been made to ensure accuracy, coin machine collector errors may have been included. Time spent discussing smoking cessation with patient: more than 10 minutes Status at Discharge Functional status at discharge: uses cane/walker Overall status at discharge: patient is progressing back to baseline Time Attestation Discharge Coordination Time (in mins): 65 Quality: Safe Use of Opioids Does Pt have an Active Cancer Diagnosis on the Problem List?: No Quality: Stroke Does the patient have a stroke diagnosis?: No Physical Exam Vital Signs: Vital Signs: Last Vital Signs Temp 98.2 F 09/22/25 11:57 Pulse 68 09/22/25 11:57 Resp 16 09/22/25 11:57 BP 111/59 L 09/22/25 11:57 Pulse Ox 96 09/22/25 11:57 O2 Del Method Room Air 09/22/25 11:57 BMI result Body Mass Index 22.8 DS: Data Data Completed and Pending Labs on day of discharge: Laboratory Results - last 24 hr 09/22/25 05:52 WBC 4.6 L RBC 4.00 L Hgb 11.5 L Hct 35.4 L MCV 88.5 MCH 28.8 MCHC 32.5 RDW 13.0 Plt Count 224 MPV 9.1 L Immature Gran % (Auto) 0.2 Neut % (Auto) 34.9 L Lymph % (Auto) 41.5 H [place] % (Auto) 14.1 H Eos % (Auto) 8.4 H Baso % (Auto) 0.9 Lymph # (Auto) 1.9 [place] # (Auto) 0.6 Eos # (Auto) 0.4 Baso # (Auto) 0.0 Abs Immat Gran (auto) 0.01 Absolute Neuts (auto) 1.6 L Absolute Nucleated RBC 0.000 Nucleated RBC % (auto) 0.0 PT 11.8 INR 1.0 Sodium 141 Potassium 3.9 Chloride 106 Carbon Dioxide 27 Anion Gap 12 BUN 12 Creatinine 0.66 Estim Creat Clear Calc 102.7 Estimated GFR > 60 Random Glucose 88 Calcium 8.7 Magnesium 2.2 Total Bilirubin 0.3 AST 43 H ALT 42 H Alkaline Phosphatase 78 Total Protein 6.1 L Albumin 3.6 Preliminary micro results at discharge 09/17/25 18:00 Blood Culture - Preliminary Blood - Venous No growth after 48 hours. 09/17/25 17:49 Blood Culture - Preliminary Blood - Venous No growth after 48 hours. Discharge Plan Discharge Anticipated Discharge Date/Time: 09/22/25 11:22 Patient Disposition: er [facility] Discharge Diagnosis: s/p Suprapubic catheter for A/C Urinary retension Referrals: [facility] [Outside] - 1 Day Referral Note: short term rehab Kimberly Davis MD [Primary Care Provider, Medical] - 1 Week Discharge Medications: New amoxicillin 500 mg Capsule 1,000 mg PO Q8H 7 Days Qty: 42 0RF magnesium hydroxide [Milk of Magnesia] 400 mg/5 mL Suspension 30 ml PO DAILY PRN (Reason: Constipation) 30 Days Qty: 30 3RF Continued lansoprazole 30 mg capsule,delayed release(DR/EC) 30 mg PO DAILY@0630 polyethylene glycol 3350 [Miralax] 17 gram/dose powder 17 g PO DAILY Qty: 119 0RF acetaminophen 500 mg Tablet 1,000 mg PO TID triamcinolone acetonide 0.1 % ointment 1 appl topical BID melatonin 3 mg Tablet 6 mg PO BEDTIME cholecalciferol (vitamin D3) [Vitamin D3] 50 mcg (2,000 unit) Capsule 50 mcg PO DAILY ondansetron HCl 4 mg tablet 4 mg PO Q8H PRN (Reason: nausea/vomiting) nystatin 100,000 unit/gram Cream 1 appl TOPICAL BID PRN (Reason: Rash) ceramides 1,3,6-II [CeraVe] Cream 1 appl TOPICAL TID PRN (Reason: Itching) Culturelle 15 billion cell Capsule, Sprinkle 1 cap PO DAILY multivitamin Tablet 1 tab PO DAILY sennosides 8.6 mg tablet 17.2 mg PO DAILY PRN (Reason: Constipation) clonazepam [Klonopin] 1 mg tablet 1 mg PO BID@0700,1900 tamsulosin 0.4 mg capsule 0.4 mg PO BEDTIME mirtazapine 30 mg tablet 30 mg PO BEDTIME oxycodone 5 mg tablet 2.5 mg PO BEDTIME PRN (Reason: Moderate Pain (Scale Score 5-6)) Patient Comments: 2.5 mg PO QD PRN Eliquis 5 mg tablet 5 mg PO BID finasteride 5 mg tablet 5 mg PO DAILY 90 Days Qty: 90 1RF Changed bisacodyl 5 mg Tablet 5 mg PO BEDTIME 30 Days Qty: 30 3RF Discharge Orders: Discharge Order (Routine); Ordered 09/22/25 Ordered By: Sandi Harrington Diet: Advance to usual diet Activity on Discharge: As tolerated Stand Alone Forms: Patient Portal Discharge page Print Language: Wallisian Activity Restrictions/Additional Instructions: Suprapubic Catheter Care: Discharge Instructions 1.?General Care * Hygiene: * Wash your hands thoroughly before and after touching your catheter or the area around it. * Clean the skin around the catheter insertion site (stoma) daily with mild soap and water. Pat dry gently. * Avoid using powders, creams, or ointments around the stoma unless specifically prescribed. * Catheter and Bag Care: * Keep the catheter and drainage tubing free from kinks or loops. * Always keep the drainage bag below the level of your bladder to prevent backflow. * Empty the drainage bag when it is about two-thirds full or at least every 8 hours. * Clean the drainage bag daily with soap and water; rinse thoroughly. Some recommend a weekly rinse with a vinegar solution (1 part vinegar to 4 parts water) to reduce odor and deposits. 2.?Monitoring for Complications * Watch for signs of infection or complications: * Redness, swelling, pain, or pus at the insertion site. * Fever or chills. * Cloudy, foul-smelling, or bloody urine. * Leakage of urine around the catheter site. * Catheter not draining urine or sudden decrease in urine output. * New lower abdominal pain. * If any of these occur, seek medical attention promptly. 3.?Catheter Maintenance * Do not attempt to change or remove the catheter yourself. * Catheter changes should be performed by trained healthcare professionals, typically every 4?12 weeks, or as directed. * If the catheter falls out, cover the site with a sterile dressing and seek immediate medical attention, as the tract can close quickly. * Do not pull or tug on the catheter. * Secure the catheter to your abdomen or thigh with tape or a catheter securement device to prevent accidental dislodgement. 4.?Activity and Lifestyle * Bathing: * Showering is preferred over bathing. If you must bathe, keep the insertion site above water level. * Sexual Activity: * Discuss with your provider if you have questions about sexual activity with a suprapubic catheter. * Physical Activity: * Most daily activities are permitted, but avoid activities that may pull or kink the catheter. 5.?Preventing Infection * Do not routinely use antibiotics to prevent infection. * Asymptomatic bacteriuria is common and does not require treatment unless you develop symptoms of a urinary tract infection. * Maintain good hand hygiene and catheter care as above. 6.?When to Contact Your Healthcare Provider * Catheter falls out or is accidentally removed. * Signs of infection (see above). * Catheter blockage (no urine draining, or bladder discomfort). * Persistent leakage around the catheter. * Bleeding from the insertion site or in the urine (other than mild blood-tinged urine immediately after catheter change). 7.?Follow-Up * Attend all scheduled appointments for catheter changes and follow-up care. * Bring any questions or concerns to your healthcare provider at your next visit. [place] for Patient Safety: * Complications can occur, including infection, blockage, or misplacement of the catheter. Prompt recognition and action are essential. * Do not attempt to change or manipulate the catheter yourself. * Good hygiene and regular monitoring are the best ways to prevent problems. Deconditioning Discharge Instructions 1.?Understanding Deconditioning * What is deconditioning? Deconditioning refers to a decline in physical function, strength, and endurance that often occurs after a period of illness, hospitalization, or inactivity. It can affect your ability to perform daily activities and may increase your risk of falls or further health complications. 2.?Activity and Mobility * Resume activity gradually: * Follow the activity plan provided by your physical or occupational therapist. * Aim to be out of bed and moving several times a day, as tolerated. * Start with short walks or light exercises, increasing duration and intensity as you are able. * Use assistive devices as recommended: * If you were provided with a walker, cane, or other device, use it for all mobility until reassessed. * Avoid prolonged bed rest: * Sitting up for meals and spending time out of bed each day can help prevent further decline. 3.?Home Safety * Prevent falls: * Remove tripping hazards (loose rugs, clutter). * Ensure good lighting in all rooms and hallways. * Install grab bars in bathrooms if needed. * Keep frequently used items within easy reach. * Arrange for help: * Have someone assist you with activities that are difficult or unsafe to do alone, such as bathing or stairs. 4.?Self-Care and Activities of Daily Living (ADLs) * Pace yourself: * Break tasks into smaller steps and rest as needed. * Use adaptive equipment (shower chair, assortment planner) if recommended. * Monitor for changes: * Report any new or worsening difficulty with walking, dressing, bathing, or other daily activities. 5.?Nutrition and Hydration * Eat a balanced diet: * Adequate protein and calories are important for regaining strength. * Stay hydrated: * Drink fluids regularly unless you have been given fluid restrictions. 6.?Medication Management * Take medications as prescribed. * Be aware of side effects: * Some medications can cause dizziness or weakness, increasing fall risk. 7.?Follow-Up and Rehabilitation * Attend all scheduled follow-up appointments. * Continue therapy: * Outpatient physical and/or occupational therapy may be recommended to help you regain strength and independence. * Home health services: * If arranged, expect visits from nurses or therapists to monitor your progress and adjust your care plan. 8.?When to Seek Medical Attention * Sudden or severe shortness of breath, chest pain, or palpitations. * New or worsening weakness, confusion, or inability to perform daily activities. * Falls or injuries. * Signs of infection (fever, chills, new cough, wound redness/swelling). [place] for Recovery * Early and regular mobilization is critical for regaining function. * Involve family or caregivers in your recovery plan. * Set realistic, achievable goals for daily activity and independence. Orthostatic Hypotension: Discharge Instructions 1.?Understanding Orthostatic Hypotension * Orthostatic hypotension is a drop in blood pressure when moving from lying or sitting to standing, which can cause dizziness, lightheadedness, blurred vision, weakness, or even fainting. * It is important to recognize symptoms early to prevent falls and injuries. 2.?General Precautions * Rise slowly: * When getting out of bed, first sit on the edge for 1?2 minutes before standing. * Stand up slowly and pause before walking. * Avoid sudden position changes?to minimize symptoms. 3.?Hydration and Diet * Increase fluid intake: * Aim for 2?2.5 liters (about 8?10 cups) of water per day, unless you have been given fluid restrictions. * Increase salt intake: * If not contraindicated (e.g., in heart failure, kidney disease, or uncontrolled hypertension), increase dietary salt to 8?10 grams per day, as advised. * Eat small, frequent meals: * Large meals can worsen symptoms; avoid heavy or carbohydrate-rich meals. 4.?Physical Counterpressure Maneuvers * Use physical maneuvers at the first sign of symptoms: * Cross your legs while standing, tense your leg and abdominal muscles, or squat down if you feel dizzy. * These maneuvers can help raise your blood pressure and reduce symptoms. 5.?Compression Garments * Wear compression stockings or abdominal binders?as recommended to reduce blood pooling in the legs and abdomen. 6.?Home and Fall Safety * Remove tripping hazards?(loose rugs, clutter). * Install grab bars?in bathrooms and ensure good lighting. * Use assistive devices?(cane, walker) if prescribed. * Avoid walking in hot environments?or standing for prolonged periods. 7.?Medication Management * Take medications as prescribed. * Review medications regularly: * Some medications (e.g., antihypertensives, diuretics, vasodilators) can worsen OH. Do not stop any medication without consulting your provider. * If prescribed midodrine: * Take the last dose at least 4 hours before bedtime to reduce the risk of high blood pressure while lying down. * Monitor for side effects?and report any new or worsening symptoms. 8.?Lifestyle Modifications * Elevate the head of your bed?by 10?20 degrees to reduce overnight blood pressure drops and morning symptoms. * Avoid alcohol?and hot showers, which can worsen symptoms. * Stay active: * Gentle, regular exercise (walking, seated exercises) can help improve symptoms and prevent deconditioning. 9.?When to Seek Medical Attention * New or worsening dizziness, fainting, or falls. * Chest pain, palpitations, or shortness of breath. * Confusion or difficulty waking up. * Severe or persistent symptoms despite following instructions. 10.?Follow-Up * Attend all scheduled follow-up appointments?for monitoring and medication adjustments. * Keep a symptom diary?to track episodes and share with your healthcare team. [place]: * Preventing falls and injuries is the top priority. * Consistent hydration, gradual position changes, and physical maneuvers are first-line strategies. * Medication adjustments and compression garments may be needed for persistent symptoms. Care Plan Goals: Patient needs to continue outpatient management for psych issues Constipation meds to be taken - pt keeps fixating on it, this is a chronic issue for him CHronic bhatt management - see above instructions Pt has Orthostatic hypotension at baseline - instructions given Health Concerns: see above Plan of Treatment: see above Assessment: see above
[2025-09-22] MEDS: oxyCODONE HCl Immed Release 5 MG TABLET 2.5 MG PO (15:07)
[2025-09-22 15:37] VITALS: BP 115/57; PULSE 63; RESP 18; TEMP 36.9; O2SAT 97
--- NOTE | 2025-10-02 11:34 | PTCAREPLN_ITS ---
Patient Care Plan Patient Care Plan Details: [facility] EMERGENCY DEPART[facility] CARE PLAN Yong Gold 1950 Patient presentation: Yong typically presents with c/o urinary retention symptoms including recurrent bhatt placement in the ED. He usually has pelvic pain associated with this complaint. His bladder scans are variable sometimes > 600 and sometimes <200. He recently had multiple CT scans for this pelvic pain and most recently 09/17/25 showed normal appearing spleen, bladder wall thickening, no mass noted, no stones. He does have hx of requesting IV narcotics and benzodiazepines for his symptoms PMH: BPH, anxiety, depression has had ECT in past approx. 77 times, prior SI attempts, urinary retention with intermittent bhatt placement, UTI, on eliquis for prior splenic infarct, CAD, He moved from [place] so his PMH is in question per hospitalist reports including eliquis use. His HCP is his sister Cheryl [phone]. He has hx of enterococcus faecalis: S to ampicillin, macrobid, levofloxacin. E. Coli: pansensitive except quinolones and Bactrim. Okay to use macrobid or cephalosporins. Enterobacter cloacae: S to Cipro, macrobid, meropen Overall all of his urine cultures are susceptible to macrobid. If he requires admission you might want to consider broadening him to dual coverage including Ceftriaxone and Levofloxacin. Prior admissions: He has had admissions for UTI but no sepsis. He was admitted most recently on 09/17/25 for recurrent urinary symptoms, hematuria and had suprapubic catheter placed with Dr. Baltazar on 09/20/25. ED interventions: Based off his complaints. Make sure you obtain urine study and bladder scan. He has had extensive imaging but if there is clinical concern, imaging should be obtained. Follow up: ? He has ample support in the community including primary care, Urology ? Dr. Baltazar, and has a therapist for his depression. He should be referred depending on his presentation. Do not send home on benzodiazepine or narcotics.
== END 2025-09-22 16:28 | disposition skilled nursing facility (03) | DRG 698 ==
LOC: HO.ED 18:48 → HO.EDOVER 21:12 → HO.S3 09-18 07:41
PROVIDERS: Physician Assistant; Urology; Admitting Provider Internal Medicine; Emergency Provider Emergency Medicine; PCP Internal Medicine; Visit Provider Student in an Organized Health Care Education/Training Program
PROC: (CPT 51102; principal; 2025-09-20 11:30)
DX: T83.511A Infection and inflammatory reaction due to indwelling urethral catheter, initial encounter (principal); A41.9 Sepsis, unspecified organism; R45.851 Suicidal ideations; N13.8 Other obstructive and reflux uropathy; N39.0 Urinary tract infection, site not specified; B95.2 Enterococcus as the cause of diseases classified elsewhere; N40.1 Benign prostatic hyperplasia with lower urinary tract symptoms; R33.8 Other retention of urine; N32.89 Other specified disorders of bladder; G89.4 Chronic pain syndrome; Z66 Do not resuscitate; R31.0 Gross hematuria; N31.9 Neuromuscular dysfunction of bladder, unspecified; I25.10 Atherosclerotic heart disease of native coronary artery without angina pectoris; F32.9 Major depressive disorder, single episode, unspecified; K59.03 Drug induced constipation; T40.2X5A Adverse effect of other opioids, initial encounter; Z85.46 Personal history of malignant neoplasm of prostate; Z87.891 Personal history of nicotine dependence; Z79.01 Long term (current) use of anticoagulants; Z79.899 Other long term (current) drug therapy
CPT/HCPCS: 36415; 74176; 76705; 80053; 81001; 81003; 83605; 83735; 85025; 85610; 87040; 87086; 87088; 87186; 97162; 97530; 99285; J0131; J0665; J1650; J1956; J2003; J2405; J2704; J3010; J3475

== ENCOUNTER → 2025-09-17 14:43 | Outpatient (BNV) | payer MEDICARE, SELFPAY | PROVIDERS: Emergency Provider Emergency Medicine; PCP Internal Medicine; Visit Provider Student in an Organized Health Care Education/Training Program | DX: R31.9 Hematuria, unspecified (principal) | CPT/HCPCS: 99233 ==

== ENCOUNTER → 2025-09-17 18:15 | Outpatient (BNV) | payer MEDICARE, SELFPAY | PROVIDERS: Emergency Provider Emergency Medicine; PCP Internal Medicine; Visit Provider Student in an Organized Health Care Education/Training Program | DX: N32.89 Other specified disorders of bladder (principal) | CPT/HCPCS: 74176 ==

== ENCOUNTER 2025-09-17 21:05 | Outpatient (BNV) | payer MEDICARE, SELFPAY | END 2025-09-18 07:40 | PROVIDERS: Admitting Provider Internal Medicine; Emergency Provider Emergency Medicine; PCP Internal Medicine; Visit Provider Radiology Diagnostic Radiology | DX: R10.9 Unspecified abdominal pain (principal) | CPT/HCPCS: 76705 ==

== ENCOUNTER → 2025-09-17 21:05 | Outpatient (BNV) | payer MEDICARE, SELFPAY | PROVIDERS: Admitting Provider Internal Medicine; Emergency Provider Emergency Medicine; PCP Internal Medicine; Visit Provider Social Worker | DX: F32.0 Major depressive disorder, single episode, mild (principal) | CPT/HCPCS: 99232 ==

== ENCOUNTER → 2025-09-17 21:05 | Outpatient (BNV) | payer MEDICARE, SELFPAY | PROVIDERS: Admitting Provider Internal Medicine; Emergency Provider Emergency Medicine; PCP Internal Medicine; Visit Provider Urology | DX: T83.511D Infection and inflammatory reaction due to indwelling urethral catheter, subsequent encounter (principal); N39.0 Urinary tract infection, site not specified; R33.9 Retention of urine, unspecified | CPT/HCPCS: 99231 ==

== ENCOUNTER 2025-10-08 15:10 | Outpatient (AMB) | payer MEDICARE, SELFPAY ==
--- NOTE | 2025-10-08 15:19 | A.OFFVIS_ITS ---
Intake Visit Reasons: 4W/SPT Change SET (NO UA) Intake Note: Patient is present for SPT Change Statistical Engineer Required: No Allergies No Known Allergies Allergy (Verified 10/11/25 14:49) Medication List - Last Reconciled 10/11/25 by ERNESTO Adkins acetaminophen 1,000 mg PO TID apixaban (Eliquis) 5 mg PO BID bisacodyl 5 mg PO BEDTIME 30 days ceramides 1,3,6-II (CeraVe topical cream) 1 appl topical TID PRN cholecalciferol (vitamin D3) (Vitamin D3) 50 mcg PO DAILY clonazepam (Klonopin) 1 mg PO BID@0700,1900 finasteride 5 mg PO DAILY 90 days Lactobacillus rhamnosus GG (Culturelle) 1 cap PO DAILY lansoprazole 30 mg PO DAILY@0630 magnesium hydroxide (Milk of Magnesia) 30 mL PO DAILY PRN 30 days melatonin 6 mg PO BEDTIME mirtazapine 30 mg PO BEDTIME multivitamin 1 tab PO DAILY nystatin 1 appl topical BID PRN ondansetron HCl 4 mg PO Q8H PRN polyethylene glycol 3350 (Miralax) 17 grams PO DAILY sennosides 17.2 mg PO DAILY PRN triamcinolone acetonide 0.1% 1 appl topical BID HPI Comments Details: Ruperto is a pleasant 75-year-old male patient of Dr. Harris. He has a past medical history of BPH, coronary artery disease, orthostatic hypotension, suicide attempt, heart murmur, dermatitis, cataracts, arthritis, recurrent UTIs, anxiety, macular degeneration, GERD, CHF, colitis, and prostate cancer. Presents to the office today for an initial suprapubic tube change. Of note, patient underwent cystoscopy with suprapubic tube placement with Dr. Baltazar 09/10/2025. In assessment of the patient today suprapubic tube site appears well healed with no open areas or significant drainage. Suprapubic tube was changed with nursing from 16 Ivorian indwelling to 18 Ivorian indwelling without difficulty. We did review catheter cap verses drainage bag he would like to continue with drainage bag. We did discuss risks and benefits. He does have a history of prostate cancer and will be following up with Dr. Baltazar tomorrow via telehealth to review other urological conditions. All questions were answered. He otherwise denies any other issues or concerns at this time. [facility] Medical History BPH (benign prostatic hyperplasia) CAD (coronary artery disease) Orthostatic hypotension Suicide attempt Heart murmur Dermatitis Cataract Arthritis History of recurrent UTIs Anxiety Macular degeneration GERD (gastroesophageal reflux disease) CHF (congestive heart failure) Colitis Prostate cancer Social History Household Members: None Housing: Assisted Living Facility Do you presently have visiting nurse or other home services: Yes Alcohol intake: never Patient Tobacco Use Status: Former Tobacco user Advance Directives Date on File: 08/18/25 service: No Review of Systems Const All systems reviewed & are unremarkable except as noted in HPI and below Physical Exam Const General: cooperative, healthy appearing, comfortable, no acute distress, well developed, alert and awake Orientation/consciousness: oriented to person Limitations: other limitations (stretcher) HEENT Head: Yes normal to inspection Eyes General: appearance normal, both eyes and all related structures Neck Neck: Yes normal visual inspection Chest Chest palpation & inspection: normal inspection of the chest Resp Effort & Inspection: normal respiratory effort Cardio Rate: regular rate GI Other: as per HPI Inspection: Yes normal to inspection Neuro General: oriented to person Extrem General: Yes normal to inspection Psych Appearance: well kempt Speech and movement: Clear speech present Affect: normal affect Attitude: cooperative Thought process: Normal thought process present Insight: Fair insight present (Psych) Judgement: Fair judgement present (Psych) Assessment & Plan Assessment & Plan (1) BPH (benign prostatic hyperplasia): Code(s): N40.0 - Benign prostatic hyperplasia without lower urinary tract symptoms Category: Medical (2) UTI (urinary tract infection): Code(s): N39.0 - Urinary tract infection, site not specified Category: Medical (3) Neurogenic bladder: Code(s): N31.9 - Neuromuscular dysfunction of bladder, unspecified Category: Medical Plan Suprapubic tube was changed without difficulty. We did review catheter cap verses drainage bag. All questions were answered. We discussed proper care of suprapubic tube. Orders given for catheter changes at facility. Follow-up with Dr. Baltazar tomorrow as planned; or sooner with any issues, concerns, and or questions. Medications: Discontinued amoxicillin Discontinued Reason: Patient Completed Course 1,000 mg (2 x 500 mg) PO Q8H 7 days 42 caps 0RF Patient Instructions: The patient had an opportunity to ask questions regarding the treatment plan. All questions were answered. Physical exam, labs, and imaging were discussed and reviewed in detail. As well as risks, benefits, and discussion of treatment choices. No major barriers to understanding were identified. The patient expressed understanding and agreement with the above treatment plan. The patient was made aware they should contact our office by phone for worsening of their current condition, the appearance of new symptoms, or with any questions or concerns. Compliance is encouraged with any medications and follow up testing that is ordered. It is a privilege to be allowed the opportunity to participate in? your urological care.? Again, if you have any questions or concerns If you have any questions or concerns please do not hesitate to contact me. The office is [phone]. This note is constructed using voice recognition software. While every effort has been made to ensure accuracy promotions manager errors may have been included. Yours sincerely, ERNESTO Adkins Coding Level of Care Code Est Pt Level 3 (97632) Add On Problem Visit Only Diagnoses BPH (benign prostatic hyperplasia) N40.0 UTI (urinary tract infection) N39.0 Neurogenic bladder N31.9
--- OUTSIDE RECORDS SUMMARY | 2025-10-08 19:14 | XMS_ITS | Clinical Summary ---
Author Organization [facility] Address [address] [place] [phone] Phone Care Team Providers Care Trains Service Conductor Name Role Phone Unavailable Primary Care Provider [...]
--- OUTSIDE RECORDS SUMMARY | 2025-10-08 19:14 | XMS_ITS | Clinical Summary ---
Author Organization [place] [address] Care Team Providers Care Peat Shredder Tender Name Role Phone Keon Giron MD Primary Care Provider [phone] Social History Tobacco Use Types Packs/Day Years [...] series) 06/22/2025 [place] [id number] [facility] Care Teams Peat Shredder Tender Relationship Specialty Start Date End Date Keon Giron MD [address] [place] [phone] PCP - General Internal Medicine 09/06/18
--- OUTSIDE RECORDS SUMMARY | 2025-10-08 19:14 | XMS_ITS | Encounter Summary ---
Author Organization [facility] Address [address], [place] [address] Phone Care Team Providers Care Digital Marketing Officer Name Role Phone Unavailable Primary Care Provider Unavailabl e Encounter Details Date Type Department Care Team (Late st Contact Info) Description 05/09/2022 Hospital/ED/SNF/HH Visit [facility] [address] [phone] Provider, MD Daphne [address] [place] [phone] Social History Tobacco Use Types Packs/Day [...]
--- OUTSIDE RECORDS SUMMARY | 2025-10-08 19:14 | XMS_ITS | Encounter Summary ---
Author Organization [facility] Address [address], [place] [address] Phone Care Team Providers Care Railroad Switchman Name Role Phone Unavailable Primary Care Provider Unavailabl e Encounter Details Date Type Department Care Team (Late st Contact Info) Description 04/28/2022 Hospital/ED/SNF/HH Visit [facility] [address] [phone] Provider, MD Daphne [address] [place] [phone] Social History Tobacco Use Types Packs/Day [...]
== END 2025-10-08 16:30 | disposition home or self-care (01) ==
PROVIDERS: PCP Internal Medicine; Visit Provider Nurse Practitioner Family
DX: N40.0 Benign prostatic hyperplasia without lower urinary tract symptoms (principal); N39.0 Urinary tract infection, site not specified; N31.9 Neuromuscular dysfunction of bladder, unspecified
CPT/HCPCS: 99024

== ENCOUNTER → 2025-10-08 15:10 | Outpatient (BNVA) | payer MEDICARE, SELFPAY | PROVIDERS: PCP Internal Medicine; Visit Provider Urology | DX: N40.0 Benign prostatic hyperplasia without lower urinary tract symptoms (principal); N39.0 Urinary tract infection, site not specified; N31.9 Neuromuscular dysfunction of bladder, unspecified; C61 Malignant neoplasm of prostate; R97.21 Rising PSA following treatment for malignant neoplasm of prostate; Z79.01 Long term (current) use of anticoagulants | CPT/HCPCS: 99212 ==

== ENCOUNTER 2025-10-09 10:13 | Outpatient (AMB) | payer MEDICARE, SELFPAY ==
--- NOTE | 2025-10-09 10:14 | A.OFFVIS_ITS ---
Intake Visit Reasons: Follow up Intake Note: Reason for Visit: Tele Follow Up Urology Medication: Finasteride, Tamsulosin Blood Thinners: Eilquis Imaging: none Labs:none Last PVR:none Patients sp tube was last changed 10/08/25 Stiff Leg Operator Required: No Allergies No Known Allergies Allergy (Verified 09/17/25 14:32) HPI Comments Details: Ruperto is a pleasant male. He is a patient of Dr. Harris. He is seen for the following urologic conditions - prostate cancer Telemedicine Evaluation 15 min Consultation [employer] Henderson catheter suprapubic replaced Changed yesterday to 18 Lebanese Was not able to do PET-CT Needs to be rescheduled Monthly 18 Lebanese Henderson catheter change can be done at facility Every 4 weeks for Henderson catheter change Three-month follow-up PET-CT with PSA Start on finasteride to manage prostate cancer Prostate cancer Per patient inpatient notes diagnosed in [facility] around 1999 [place] 3 + 3 grade group 1 low volume disease Labs - 07/16 15, 08/15 PSA 12.7 Offered radiation therapy however patient deferred [facility] Medical History BPH (benign prostatic hyperplasia) CAD (coronary artery disease) Orthostatic hypotension Suicide attempt Heart murmur Dermatitis Cataract Arthritis History of recurrent UTIs Anxiety Macular degeneration GERD (gastroesophageal reflux disease) CHF (congestive heart failure) Colitis Prostate cancer Social History Household Members: None Housing: Assisted Living Facility Do you presently have visiting nurse or other home services: Yes Alcohol intake: never Patient Tobacco Use Status: Former Tobacco user Advance Directives Date on File: 08/18/25 service: No Review of Systems Const All systems reviewed & are unremarkable except as noted in HPI and below Reports no additional complaints Resp Reports no additional complaints GI Reports no additional complaints Reports as per HPI Musc Reports no additional complaints Physical Exam Telemedicine evaluation Appropriate responses Regular breathing rate and rhythm HEENT Head: Yes normal to inspection Ears: hearing grossly normal bilaterally Eyes General: appearance normal, both eyes and all related structures Neck Neck: Yes normal visual inspection Chest Chest palpation & inspection: normal inspection of the chest Resp Effort & Inspection: normal respiratory effort and able to speak in complete sentences Telehealth Telehealth Telehealth Platform: [employer] Location of provider rendering services: practice address Location of patient: address on file Patient Identification confirmed using: Name, : Yes Telehealth method: video Patient verbally consented to treatment: Yes Patient verbally consented to billing insurance company: Yes Patient informed of any privacy concerns related to visit: Yes Minutes spent on Phone/Video with Pt.: 15 Assessment & Plan Assessment & Plan (1) BPH (benign prostatic hyperplasia): Code(s): N40.0 - Benign prostatic hyperplasia without lower urinary tract symptoms Category: Medical (2) Prostate cancer: Code(s): C61 - Malignant neoplasm of prostate Category: Medical Plan Three-month follow-up Continue catheter change every 4 weeks Will need PET-CT in three-month Remain off finasteride Orders: Orders PSA,Total (Free>4and<10) 3 Months N40.0 - Benign prostatic hyperplasia without lower urinary tract symptoms Medications: Refilled finasteride 5 mg PO DAILY 90 tabs 1RF 90 days C61 - Malignant neoplasm of prostate Patient Instructions: This note is constructed using voice recognition software. While every effort has been made to ensure accuracy youth corrections officer errors may have been included. Imaging studies, laboratory and physical exam results were discussed and reviewed in detail. No major barriers to patient understanding were identified. An opportunity to ask questions regarding the treatment plan was provided. All questions were answered. The patient expressed understanding and agreement with the above treatment plan. The patient is aware they should contact our office by phone for worsening of their current condition or the appearance of new urologic symptoms. Compliance is encouraged with any medications and followup testing that is ordered. It is a privilege to participate in the urologic care of your patient. If you have any questions or concerns regarding treatment for the above conditions, or other urologic issues, please do not hesitate to contact me. The office telephone contact is [phone]. Sincerely, Dr Diego Baltazar MD, [facility] - Urology Compassionate Specialist Care for the Genitourinary System Coding Level of Care Code Tele Est Pt Level 3 (26468) Diagnoses BPH (benign prostatic hyperplasia) N40.0 Prostate cancer C61
--- OUTSIDE RECORDS SUMMARY | 2025-10-09 11:33 | XMS_ITS | Clinical Summary ---
Author Organization [facility] Address [address] [place] [phone] Phone Care Team Providers Care Comfort Filler Name Role Phone Unavailable Primary Care Provider [...]
--- OUTSIDE RECORDS SUMMARY | 2025-10-09 11:33 | XMS_ITS | Encounter Summary ---
Author Organization [facility] Address [address], [place] [address] Phone Care Team Providers Care Training Lead Name Role Phone Unavailable Primary Care Provider Unavailabl e Encounter Details Date Type Department Care Team (Late st Contact Info) Description 04/28/2022 Hospital/ED/SNF/HH Visit [facility] [address] [phone] Provider, MD Daphne [address] [place] [phone] Social History Tobacco Use Types Packs/Day [...]
--- OUTSIDE RECORDS SUMMARY | 2025-10-09 11:33 | XMS_ITS | Clinical Summary ---
Author Organization [facility] [place] [address] Care Team Providers Care Detective Private Eye Name Role Phone Keon Giron MD Primary Care Provider Social History Tobacco Use Types Packs/Day Years [...] series) 06/22/2025 [place] [id number] [facility] Care Teams Detective Private Eye Relationship Specialty Start Date End Date Keon Giron MD [address] [place] [phone] PCP - General Internal Medicine 09/06/18
--- OUTSIDE RECORDS SUMMARY | 2025-10-09 11:33 | XMS_ITS | Encounter Summary ---
Author Organization [facility] Address [address], [place] [address] Phone Care Team Providers Care Sales Account Executive Name Role Phone Unavailable Primary Care Provider Unavailabl e Encounter Details Date Type Department Care Team (Late st Contact Info) Description 05/09/2022 Hospital/ED/SNF/HH Visit [facility] [address] [phone] Provider, MD Dapnhe [address] [place] [phone] Social History Tobacco Use Types Packs/Day [...]
== END 2025-10-09 10:39 | disposition home or self-care (01) ==
LOC: HO.HUSH 10:13
PROVIDERS: PCP Internal Medicine; Visit Provider Urology
DX: N40.0 Benign prostatic hyperplasia without lower urinary tract symptoms (principal); C61 Malignant neoplasm of prostate
CPT/HCPCS: 99024